=== PATIENT | female | born 1990 | race Caucasian/White ===

== ENCOUNTER 2019-12-05 15:04 | Emergency (ER) | payer OTHER, SELFPAY ==
--- NOTE | 2019-12-05 15:07 | ED.FEMALEGU ---
HPI - Female Genitourinary General Chief complaint: Urogenital-Female Stated complaint: vaginal discharge/partner w std Time Seen by Provider: 12/05/19 15:34 Source: patient and RN notes reviewed Mode of arrival: ambulatory Limitations: no limitations History of Present Illness HPI Narrative: 29-year-old female presents with concern for increased amount of vaginal discharge and possible exposure to STD. Reports unprotected sex with a new partner. Also reports her significant other cheated on her . Reports her last normal period was 1 month ago, however she had spotting 2 weeks ago. She is concern for possible . She reports a history of 2 live births, 2 stillbirths. She denies abdominal pain, vomiting, fever, malaise, dysuria. MD elicited complaint: vaginal discharge Related Data Home Medications Medication Instructions Recorded Confirmed naloxone [Narcan] 4 mg INTRANASAL DAILY 12/05/19 12/05/19 Allergies Allergy/AdvReac Type Severity Reaction Status Date / Time adhesive Allergy Unknown Hives Unverified 12/05/19 15:53 codeine Allergy Unknown Gastrointestinal Unverified 12/05/19 15:53 Upset ketorolac Allergy Unknown Hives Unverified 12/05/19 15:53 Review of Systems Review of Systems: Narrative: CONSTITUTIONAL: Denies malaise, chills, sweats, or fever. ARDIOVASCULAR: Denies chest pain, palpitations, or edema. RESPIRATORY: Denies cough or dyspnea. GASTROINTESTINAL: Denies abdominal pain, nausea, vomiting, diarrhea, bloody, or mucous stools. GENITOURINARY: Denies dysuria or hematuria. Reports increased vaginal discharge MUSCULOSKELETAL: Denies myalgia. NEUROLOGIC: Denies numbness, weakness, or headache. All systems reviewed & are unremarkable except as noted in HPI and below PMFSH Comments At time of signature, agree with nursing past medical, surgical, social and family history. There is no relevant family history pertinent to the presenting complaint Exam Narrative: Exam Narrative: GENERAL: Well-appearing, well-nourished, and in no acute distress. HEAD: Normocephalic, atraumatic. EYES: PERRLA, conjunctivae clear ENT: Nares clear. Mucous membranes moist. NECK: Supple. CHEST: No respiratory distress. Speaks in full sentences. HEART: Regular rate and rhythm. ABDOMEN: Soft, nontender, nondistended SKIN: Warm, dry NEURO: Alert and oriented x3. PSYCH: Normal mood and affect : External Female Exam: normal external appearance Speculum Exam - Vagina: normal appearance of the vagina, normal palpation and abnormal vaginal discharge white and malodorous Speculum Exam - Cervix: normal appearance of the cervix and normal palpation Bimanual Exam- Adnexa, other: normal adnexae and No adnexal tenderness Other: Patient refused sock examiner Course Course Emergency Course: Patient is aware of diagnosis, understands and agrees to treatment plan. Anticipatory guidance given. Patient agrees to follow-up as directed and is aware of reasons to seek care at the emergency department. Portions of this record may have been created with voice recognition software Vital Signs Vital signs: Vital Signs Temperature 98.9 F 12/05/19 15:20 Pulse Rate 108 H 12/05/19 15:20 Respiratory Rate 19 12/05/19 15:20 Blood Pressure 126/85 12/05/19 15:20 Pulse Oximetry 97 12/05/19 15:20 Temperature 98.9 F 12/05/19 15:20 Pulse Rate 108 H 12/05/19 15:20 Respiratory Rate 19 12/05/19 15:20 Blood Pressure 126/85 12/05/19 15:20 Pulse Oximetry 97 12/05/19 15:20 Reviewed. Patient has been instructed to follow up with her primary care provider within the next week regarding her elevated blood pressure today. MDM - Female Genitourinary MDM Narrative Medical decision making narrative: Exam findings show no acute concerns or changes; patient is non-toxic appearing and is in no distress. Patient is appropriate for outpatient treatment and follow-up. Lab Data Attestation: I reviewed the patient's lab results.
[2019-12-05 15:20] VITALS: BP 126/85; PULSE 108; RESP 19; TEMP 37.2; O2SAT 97
[2019-12-05] MEDS: LIDOCAINE HCL 1% LOCAL INJ 20 ML VIAL INFILTRATE (15:52)
[2019-12-05] MEDS: cefTRIAXone 250 MG VIAL IM (15:52)
[2019-12-05] MEDS: AZITHROMYCIN 250 MG TABLET 1000 MG PO (15:52)
== END 2019-12-05 16:22 | disposition home or self-care (01) ==
PROVIDERS: Emergency Provider Nurse Practitioner
DX: N89.8 Other specified noninflammatory disorders of vagina (principal); N39.0 Urinary tract infection, site not specified
CPT/HCPCS: 81003; 87077; 87086; 87088; 87186; 87491; 87591; 87661; 96372; 99204; A9270; G0463; J0696

== ENCOUNTER 2020-07-22 15:15 | Emergency (ER) | payer OTHER, SELFPAY ==
--- NOTE | 2020-07-22 15:34 | ED.FEMALEGU ---
HPI - Female Genitourinary General Chief complaint: Urogenital-Female Stated complaint: Urogenital-Female Time Seen by Provider: 07/22/20 15:35 Source: patient and RN notes reviewed History of Present Illness HPI Narrative: Patient is a 30-year-old female who presents the urgent care with complaints of possible STD/exposure. Patient states that for the last 5 days she has had low back pain, frequency, urgency, dysuria. Reports of right vaginal discharge. Patient states that her partner had trichomonas 2 months ago and they have been having sex with multiple friends and she believes they are reinfected with some type of STD. Patient states that her boyfriend told her the girl he was having sex with his just been treated for gonorrhea, chlamydia and trichomonas . Patient states that there is also a possibility that she may be or have a urinary tract infection. Patient denies of any fever, nausea, vomiting, abdominal pain. No other acute complaints. No acute distress noted. Patient aware of the plan of care. Some parts of this dictation were generated by voice recognition software and may contain typographical and/or grammatical inaccuracies. Related Data Home Medications Medication Instructions Recorded Confirmed No Home Medications 07/22/20 07/22/20 Allergies Allergy/AdvReac Type Severity Reaction Status Date / Time adhesive Allergy Unknown Hives Verified 07/22/20 15:56 codeine Allergy Unknown Gastrointestinal Verified 07/22/20 15:56 Upset ketorolac Allergy Unknown Hives Verified 07/22/20 15:56 Review of Systems Review of Systems: Narrative: CONSTITUTIONAL: Denies fever, chills, or sweats. EYES: Denies visual changes, redness, or discharge. ENT: Denies rhinorrhea, congestion, sore throat, or otalgia. CARDIOVASCULAR: Denies chest pain, palpitations, or edema. RESPIRATORY: Denies cough or dyspnea. GASTROINTESTINAL: Denies abdominal pain, nausea, vomiting, or diarrhea. GENITOURINARY: Reports of dysuria, frequency, urgency, white vaginal discharge SKIN: Denies rash or itching. MUSCULOSKELETAL: Reports of mild low back pain NEUROLOGIC: Denies headache, numbness, or weakness. All other systems reviewed are negative, except as documented in HPI. PMFSH Comments At the time of my signature, I reviewed and agree with the nursing past medical, surgical, social, and family history. There is no relevant family history pertinent to the patient complaint. Exam Narrative: Exam Narrative: GENERAL: This is a well-nourished, well-developed patient, in no apparent distress. HEAD: normocephalic, atraumatic. EYES: PERRL. Sclera clear/white. Vision is grossly intact. EARS: External ears normal NOSE: External nose normal with no obvious nasal discharge, nares without redness, no rhinorrhea. THROAT: Mucous membranes moist NECK: Neck supple SKIN: warm, intact with no suspicious lesions or rash, good texture and turgor. NEURO: awake, alert, and oriented to person, place and time. There were no obvious focal neurologic abnormalities. EXTREMITIES: No clubbing, cyanosis, or edema. BACK: Negative bilateral CVA tenderness Course Vital Signs Vital signs: Vital Signs Temperature 98.1 F 07/22/20 15:46 Pulse Rate 94 07/22/20 15:46 Respiratory Rate 18 07/22/20 15:46 Blood Pressure 151/99 H 07/22/20 15:46 Pulse Oximetry 100 07/22/20 15:46 Temperature 98.1 F 07/22/20 15:46 Pulse Rate 94 07/22/20 15:46 Respiratory Rate 18 07/22/20 15:46 Blood Pressure 151/99 H 07/22/20 15:46 Pulse Oximetry 100 07/22/20 15:46 Reviewed-patient is informed that they may have pre-hypertension or hypertension based on a blood pressure reading in the department. I recommend the patient call the primary care provider listed on their discharge instructions or a physician of their choice this week to arrange follow-up for further evaluation of possible pre-hypertension or hypertension. MDM - Female Genitourinary MDM
[2020-07-22 15:46] VITALS: BP 151/99; PULSE 94; RESP 18; TEMP 36.7; O2SAT 100
[2020-07-22] MEDS: cefTRIAXone 250 MG VIAL 500 MG IM (16:06)
== END 2020-07-22 16:25 | disposition home or self-care (01) ==
PROVIDERS: Emergency Provider Nurse Practitioner Family
DX: Z20.2 Contact with and (suspected) exposure to infections with a predominantly sexual mode of transmission (principal); N39.0 Urinary tract infection, site not specified; I10 Essential (primary) hypertension
CPT/HCPCS: 81003; 81025; 87491; 87591; 87661; 96372; 99214; G0463; J0696

== ENCOUNTER 2023-12-05 15:53 | Emergency (ER) | payer BC, SELFPAY ==
--- NOTE | ~2023-12-05 | CT_ITS ---
EXAMINATION: CT abdomen pelvis w con DATE: 12/05/2023 17:42 INDICATION: Abdominal pain. Nausea and vomiting. TECHNIQUE: Computed tomography (CT) of the abdomen and pelvis was performed with 100 mL Omnipaque 350 intravenous contrast. Automated exposure control and iterative reconstruction technique were employe d. The dose-length product was 296.69 mGy-cm. COMPARISON: None. FINDINGS: The visualized portions of the lung bases are clear without pneumonia or pleural effusion. The heart size is normal. No pericardial effusion. There is mild pectus excavatum. The liver and gall bladder are normal. Calcifications in the spleen are consistent with old granulomatous disease. The p ancreas, adrenal glands, and kidneys are normal. There are no dilated loops of bowel. The appendix is normal. There are no pathologically enlarged lymph nodes. There is no free intraperitoneal fluid. Th ere is mild lumbar spondylosis. IMPRESSION: 1. No etiology for the patient's symptoms. Reviewed, dictated and finalized at location E.
[2023-12-05 15:58] VITALS: BP 118/82; PULSE 82; RESP 16; TEMP 36.9; O2SAT 100
--- NOTE | 2023-12-05 16:20 | ED.ABDPAIN ---
HPI - Abdominal Pain General Chief Complaint: Abdominal Pain <Blade Moody MD - Last Filed: 12/06/23 07:04> Stated Complaint: abdominal pain, n/v <Blade Moody MD - Last Filed: 12/06/23 07:04> Time Seen by Provider: 12/05/23 16:07 <Blade Moody MD - Last Filed: 12/06/23 07:04> Source: patient <Ave Conde PA-C - Last Filed: 12/05/23 18:07> Mode of arrival: ambulatory <Ave Conde PA-C - Last Filed: 12/05/23 18:07> Limitations: no limitations <Ave Conde PA-C - Last Filed: 12/05/23 18:07> History of Present Illness HPI narrative: 33-year-old female presenting to the emergency department for evaluation for nausea, upper abdominal pain that radiates to her back. Patient is currently at [facility] for methamphetamine abuse. Patient is being treated for nausea with Zofran. Patient was told if her symptoms worsen she needs to be evaluated. Patient reports that today her pain has worsened. Patient states she has difficulty sitting still due to the pain. <Blade Moody MD - Last Filed: 12/06/23 07:04> Related Data Allergies/Adverse Reactions: Allergies Allergy/AdvReac Type Severity Reaction Status Date / Time codeine Allergy Vomiting Verified 12/05/23 15:54 <Blade Moody MD - Last Filed: 12/06/23 07:04> Review of Systems Review of Systems: All systems reviewed & are unremarkable except as noted in HPI and below <Blade Moody MD - Last Filed: 12/06/23 07:04> [facility] Past Medical History Medical History: Medical History (Updated 12/06/23 @ 00:00 by Saeid Fernandez) History of drug abuse <Blade Moody MD - Last Filed: 12/06/23 07:04> Social History Social History: Social History (Updated 12/05/23 @ 17:[address] PA-C) Substance use: current <Blade Moody MD - Last Filed: 12/06/23 07:04> Exam Narrative: APPEARANCE: Well appearing, no pain, no distress, well-nourished. HEAD: normocephalic, atraumatic. EYES: PERRLA/EOMI, conjunctivae clear. NOSE: Normal no drainage EARS:TMS clear with good light reflex. THROAT: Pharynx clear, no exudate. NECK: Supple. No adenopathy, no masses. RESPIRATORY: Airway patent, respirations nonlabored. Clear to auscultation bilaterally, no rales, rhonchi, wheezing. CARDIOVASCULAR: Regular rate and rhythm without murmurs rubs or gallops. ABDOMINAL: Upper abdominal tenderness to palpation MUSCULOSKELETAL: Moves all extremities. Strength/ROM intact, No edema, No calf tenderness. NEURO: Alert. Cranial nerves II through XII intact. Grossly intact SKIN: Warm, dry. Normal Color <Blade Moody MD - Last Filed: 12/06/23 07:04> Course Course Emergency Course: Patient signed out to me at shift change pending workup. Patient updated on workup and agrees with plan of care <Ave Conde PA-C - Last Filed: 12/05/23 18:07> Vital Signs Vital signs: Vital Signs Temperature 98.5 F 12/05/23 15:58 Pulse Rate 82 12/05/23 15:58 Respiratory Rate 16 12/05/23 15:58 Blood Pressure 118/82 12/05/23 15:58 Pulse Oximetry 100 12/05/23 15:58 Oxygen Delivery Room Air 12/05/23 15:58 Temperature 98.5 F 12/05/23 15:58 Pulse Rate 82 12/05/23 15:58 Respiratory Rate 16 12/05/23 15:58 Blood Pressure 118/82 12/05/23 15:58 Pulse Oximetry 100 12/05/23 15:58 Oxygen Delivery Room Air 12/05/23 15:58 <Blade Moody MD - Last Filed: 12/06/23 07:04> Vital Signs Temperature 98.5 F 12/05/23 15:58 Pulse Rate 82 12/05/23 15:58 Respiratory Rate 16 12/05/23 15:58 Blood Pressure 118/82 12/05/23 15:58 Pulse Oximetry 100 12/05/23 15:58 Oxygen Delivery Room Air 12/05/23 15:58 Temperature 98.5 F 12/05/23 15:58 Pulse Rate 82 12/05/23 15:58 Respiratory Rate 16 12/05/23 15:58 Blood Pressure 118/82 12/05/23 15:58 Pulse Oximetry 100 12/05/23 15:58 Oxygen Delivery Room Air 12/05/23 15:58
[2023-12-05] MEDS: BELLADONNA ALK/PHENOB ELIX 10 ML, MAG HYDROX/ALUMINUM HYD/SIMETH 30 ML, LIDOCAINE HCL 2... PO (16:51)
[2023-12-05] MEDS: ONDANSETRON INJ 4 MG/2 ML VIAL IV PUSH (16:51)
[2023-12-05] MEDS: SODIUM CHLORIDE 0.9% IV 1,000 ML 999 ML IV CONT (16:51)
[2023-12-05] MEDS: PANTOPRAZOLE SODIUM IV 40 MG VIAL IV PUSH (16:51)
[2023-12-05 17:13] LABS: Appearance Urine Clear (Clear); Bilirubin Urine Negative (Negative); Blood Urine Negative (Negative); Color Urine Yellow (Yellow); Glucose Urine UA Negative (Negative); Ketones Urine Trace mg/dL (Negative); Leukocyte Esterase Ur Negative LEU/UL (Negative); Nitrate Urine Negative (Negative); Protein Urine Negative (Negative); pH Urine 6.5 (5.0-9.0)
[2023-12-05 17:22] LABS: Basophils Percent Auto 0.5 % (0.2-1.2); Eosinophils Absolute Auto 0.2 K/mm3 (0-0.3); Eosinophils Percent Auto 3.3 % (0-4.4); Hematocrit 36.1 % (37.0-47.0); Hemoglobin 11.9 g/dL (12.0-15.0); Immature Granulocyte Absolute 0.02 K/mm3 (0.00-0.031); Immature Granulocyte Percent A 0.3 % (0-0.5); Lymphocytes Absolute Auto 2.23 K/mm3 (0.9-3.2); Lymphocytes Percent Auto 34.8 % (18.3-44.2); Mean Corpuscular Hemoglobin 32.6 pg (26-34); Mean Corpuscular Volume 98.9 fl (80-100); Mean Platelet Volume 10.6 fl (7.4-10.4); Monocytes Absolute Auto 0.7 K/mm3 (0.1-0.6); Monocytes Percent Auto 10.2 % (2.6-8.5); Neutrophils Absolute Auto 3.3 K/mm3 (1.3-6.7); Neutrophils Percent Auto 50.9 % (45.5-73.1); Platelet Count Result 276 k/mm3 (150-375); Red Blood Count 3.65 M/mm3 (4.2-5.4); Red Cell Distribution Width 12.7 % (11.5-14.5); White Blood Count 6.4 K/mm3 (4.5-10.0)
[2023-12-05 17:25] LABS: Add Urine Microscopic? NO; Specific Grav Ur 1.031 (1.001-1.035)
[2023-12-05 17:26] LABS: Lactic Acid Reflex 1.1 mmol/L (0.7-2.0)
[2023-12-05 17:27] LABS: Alanine Aminotransferase 29 U/L (6-35); Albumin Level 4.2 g/dL (3.5-5.1); Alkaline Phosphatase 51 U/L (38-126); Anion Gap 7 mmol/L (4-12); Aspartate Amino Transferase 35 U/L (14-36); Bilirubin,Total 0.4 mg/dL (0.2-1.3); Blood Urea Nitrogen 20 mg/dL (7-17); Calcium 8.9 mg/dL (8.4-10.2); Carbon Dioxide 28 mmol/L (22-30); Chloride 103 mmol/L (98-107); Estimated CRCL calculation 79 ml/min; Estimated Glomerular Filt Rate > 60; Glucose 92 mg/dL (65-110); Lipase 132 U/L (23-300); Potassium 4.2 mmol/L (3.4-5.0); Sodium 138 mmol/L (137-145)
[2023-12-05 17:30] LABS: INR 0.9; Prothrombin Time 11.9 Seconds (11.1-14.7)
[2023-12-05 17:32] LABS: Partial Thromboplastin Time 23.8 Seconds (22.3-36.8)
== END 2023-12-05 18:12 | disposition home or self-care (01) ==
PROVIDERS: Emergency Medicine; Emergency Provider Physician Assistant
DX: R10.13 Epigastric pain (principal)
CPT/HCPCS: 36415; 74177; 80053; 81003; 81025; 83605; 83690; 85025; 85610; 85730; 96361; 96374; 96375; 99284; A9270; C9113; J2405; J7030; Q9967

== ENCOUNTER 2024-01-11 16:25 | Emergency (ER) | payer BC, SELFPAY ==
[2024-01-11 16:34] VITALS: BP 114/76; PULSE 90; RESP 20; TEMP 36.3; O2SAT 100
--- NOTE | 2024-01-11 16:34 | ED.FEMALEGU ---
HPI - Female Genitourinary General Chief complaint: Urogenital-Female Stated complaint: uti/std Time Seen by Provider: 01/11/24 16:50 Source: patient and RN notes reviewed Mode of arrival: ambulatory Limitations: no limitations History of Present Illness HPI Narrative: 33-year-old female presents with concern for STD exposure. Reports she was exposed to trick and chlamydia. She reports she has been having vaginal discharge, dysuria, urine frequency, urgency. She denies nausea, vomiting, fever. MD elicited complaint: UTI and possible STD Related Data Home Medications Medication Instructions Recorded Confirmed bupropion HCl 150 mg 24 hr tablet, 150 mg PO DAILY 01/11/24 01/11/24 extended release clonidine HCl 0.1 mg 0.1 mg PO DAILY 01/11/24 01/11/24 tablet,extended release,12 hr gabapentin 100 mg capsule 100 mg PO TID 01/11/24 01/11/24 hydroxyzine HCl 50 mg tablet See Rx Instructions .Route 01/11/24 01/11/24 .COMPLEX PRN Anxiety lurasidone 60 mg tablet 60 mg PO DAILY 01/11/24 01/11/24 omeprazole 20 mg capsule,delayed 20 mg PO DAILY 01/11/24 01/11/24 release ondansetron 4 mg disintegrating See Rx Instructions .Route 01/11/24 01/11/24 tablet .COMPLEX PRN Anxiety risperidone 1 mg tablet 1 mg PO BID 01/11/24 01/11/24 trazodone 150 mg tablet 150 mg PO DAILY 01/11/24 01/11/24 Allergies Allergy/AdvReac Type Severity Reaction Status Date / Time adhesive Allergy Unknown Hives Verified 01/11/24 16:50 codeine Allergy Unknown Gastrointestinal Verified 01/11/24 16:50 Upset ketorolac Allergy Unknown Hives Verified 01/11/24 16:50 Review of Systems Review of Systems: CONSTITUTIONAL: Denies malaise, chills, sweats, or fever. CARDIOVASCULAR: Denies chest pain, palpitations, or edema. RESPIRATORY: Denies cough or dyspnea. GASTROINTESTINAL: Denies abdominal pain, nausea, vomiting, diarrhea GENITOURINARY: Reports dysuria, frequency, urgency, vaginal discharge. Denies flank pain or hematuria. SKIN: Denies rash or itching. MUSCULOSKELETAL: Denies back pain or myalgia. All systems reviewed & are unremarkable except as noted in HPI and below PMFSH Comments At time of signature, agree with nursing past medical, surgical, social and family history. There is no relevant family history pertinent to the presenting complaint Exam Narrative: GENERAL: Well-appearing, well-nourished, and in no acute distress. HEAD: Normocephalic. EYES: PERRLA, conjunctivae clear. NECK: Supple. No lymphadenopathy CHEST: Clear to auscultation. No respiratory distress. HEART: Regular rate and rhythm. ABDOMEN: Soft, nontender upon palpation, nondistended, normal active bowel sounds, no palpable or pulsatile masses, no guarding. No CVA tenderness SKIN: Warm, dry, no rash. NEURO: Alert and oriented x3. PSYCH: Normal mood and affect Course Course Emergency Course: Patient is aware of diagnosis, understands and agrees to treatment plan. Anticipatory guidance given. Patient agrees to follow-up as directed and is aware of reasons to seek care at the emergency department. Portions of this record may have been created with voice recognition software Level of Care: Express Care Visit Vital Signs Vital signs: Reviewed. MDM - Female Genitourinary MDM Narrative Medical decision making narrative: Exam findings and UA show no acute concerns or changes; patient is non-toxic appearing and is in no distress. Patient is appropriate for outpatient treatment and follow-up. Differential Diagnosis Differential diagnosis: Likely urinary tract infection and cystitis Critical Care Time Critical Care Time Critical Care Time: No Discharge Plan Discharge Clinical Impression: Possible exposure to STD Patient Disposition: Home, Self-Care Condition: Stable Instructions: Antibiotic Form, Safe Sex Practices (ED) Additional Instructions: You have been tested for potential gonorrhea, chlamydia, and trichomoniasis today. You have receive
[2024-01-11] MEDS: cefTRIAXone 500 MG, LIDOCAINE HCL 1% LOCAL INJ 1 ML IM (17:08)
[2024-01-11 19:58] LABS: Trichomonas Vag PCR NOT DETECTED (NOT DETECTE)
[2024-01-11 20:21] LABS: Chlamydia trachomatis NOT DETECTED (NOT DETECTE); Neisseria gonorrhoeae PCR NOT DETECTED (NOT DETECTE)
== END 2024-01-11 17:30 | disposition home or self-care (01) ==
PROVIDERS: Emergency Provider Nurse Practitioner
DX: R30.0 Dysuria (principal); R35.0 Frequency of micturition; R39.15 Urgency of urination; N89.8 Other specified noninflammatory disorders of vagina; Z11.3 Encounter for screening for infections with a predominantly sexual mode of transmission
CPT/HCPCS: 81003; 87491; 87591; 87661; 96372; 99214; G0463; J0696

== ENCOUNTER 2024-03-02 18:38 | Emergency (ER) | payer BC, SELFPAY ==
[2024-03-02 18:50] VITALS: BP 141/89; PULSE 107; RESP 20; TEMP 37; O2SAT 98
--- NOTE | 2024-03-02 19:03 | ED.URI ---
HPI - URI/Sore Throat General Chief Complaint: Upper Respiratory Infection Stated Complaint: nausea nose throat History of Present Illness HPI Narrative: 33-year-old female presented for complaint of sore throat and mild nasal congestion and post nasal drainage causing nausea. Onset yesterday. Denies painful swallow, cough, shortness of breath, wheezing, vomiting diarrhea, fevers or chills. Of note, she cannot recall last menstrual cycle, and is requesting a test. Related Data Home Medications Medication Instructions Recorded Confirmed bupropion HCl 150 mg 24 hr tablet, 150 mg PO DAILY 01/11/24 01/11/24 extended release clonidine HCl 0.1 mg 0.1 mg PO DAILY 01/11/24 01/11/24 tablet,extended release,12 hr gabapentin 100 mg capsule 100 mg PO TID 01/11/24 01/11/24 hydroxyzine HCl 50 mg tablet See Rx Instructions .Route 01/11/24 01/11/24 .COMPLEX PRN Anxiety lurasidone 60 mg tablet 60 mg PO DAILY 01/11/24 01/11/24 omeprazole 20 mg capsule,delayed 20 mg PO DAILY 01/11/24 01/11/24 release ondansetron 4 mg disintegrating See Rx Instructions .Route 01/11/24 01/11/24 tablet .COMPLEX PRN Anxiety risperidone 1 mg tablet 1 mg PO BID 01/11/24 01/11/24 trazodone 150 mg tablet 150 mg PO DAILY 01/11/24 01/11/24 Allergies Allergy/AdvReac Type Severity Reaction Status Date / Time adhesive Allergy Unknown Hives Verified 01/12/24 12:57 ketorolac Allergy Unknown Hives Verified 01/12/24 12:57 codeine Allergy Vomiting Verified 01/12/24 12:57 Review of Systems Review of Systems: CONSTITUTIONAL: Denies body aches, fever, chills, or sweats. EYES: Denies visual changes, redness, or discharge. ENT: reports sore throat, rhinorrhea CARDIOVASCULAR: Denies chest pain, palpitations, or edema. RESPIRATORY: Denies dyspnea. GASTROINTESTINAL: Denies abdominal pain, vomiting, or diarrhea. SKIN: Denies rash, itching, or wounds. MUSCULOSKELETAL: Denies back pain, joint pain, or myalgia. NEUROLOGIC: Denies headache PMFSH Past Medical History Medical History History of drug abuse Social History Social History Substance use: current Exam Narrative: GENERAL: Ill-appearing, no acute distress. EYES: conjunctivae clear ENT: Mucous membranes moist. TM pearly goldman with normal light reflex bilaterally; no tragal tenderness. Oropharynx not erythematous without lesions. Tonsils absent. No drooling, no hoarseness, no trismus, uvula midline. No tripod positioning, hot potato voice, or soft palate swelling. NECK: Supple. No lymphadenopathy CHEST: Clear to auscultation, breath sounds equal. No respiratory distress, speaks in full sentences. HEART: Regular rate and rhythm. No murmur heard. SKIN: Warm, dry, no rash. NEURO: Alert and oriented x3. Course Course Emergency Course: Patient is aware of diagnosis, understands and agrees to treatment plan. Anticipatory guidance given. Patient agrees to follow-up as directed and is aware of reasons to seek care at the emergency department. Portions of this record may have been created with voice recognition software Level of Care: Express Care Visit MDM - URI/Sore Throat MDM Narrative Medical decision making narrative: Neg strep result reviewed with pt. Neg urine preg test. Advise supportive treatments. Patient is appropriate for outpatient treatment and follow-up. Differential Diagnosis Differential diagnosis: Likely upper respiratory infection, viral infection and pharyngitis Lab Data Labs: Lab Results 03/02/24 Range/Units 19:02 POC Urine HCG, Qual Negative (Negative) POC Grp A Strep Screen Negative (Negative) Discharge Plan Discharge Clinical Impression: Upper respiratory infection Patient Disposition: Home, Self-Care Condition: Stable Instructions: Antibiotic Form, Upper Respiratory Infection (ED) Additional
[2024-03-02 19:20] LABS: BEDSIDEPREGUCG Negative (Negative); EDSTREPNEGPOS1 Negative (Negative)
== END 2024-03-02 19:27 | disposition home or self-care (01) ==
PROVIDERS: Emergency Provider Nurse Practitioner Family
DX: J06.9 Acute upper respiratory infection, unspecified (principal)
CPT/HCPCS: 81025; 87081; 87880; 99213; G0463

== ENCOUNTER 2024-08-30 18:31 | Emergency (ER) | payer BC, SELFPAY ==
--- NOTE | ~2024-08-30 | CT_ITS ---
CT abdomen pelvis w con Ordering provider: Jam Avila PA-C History: 34 years Female with . lower abdominal pain s/p tubal ligation . Comparison: December 05, 2023 Technique: CT abdomen and pelvis with IV and without oral contrast. Automated exposure control and it erative reconstruction technique were employed. The dose-length product was 641.74 mGy-cm. 100 mL Omn ipaque 350 was given IV. Findings: VISUALIZED LOWER CHEST: Dependent atelectatic changes in the lung bases. UPPER ABDOMINAL ORGANS: Liver: Normal. Gallbladder: Normal. Spleen: Normal. Stomach/duodenum: Normal. Pancreas: Normal. Adrenals: Normal. Kidneys: Normal. PELVIC ORGANS: The bladder is underfilled. 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 MRI evaluation advi sed. BOWEL AND MESENTERY: Colon: No evidence of diverticulitis. Fecal material is seen in the right side of the colon. Normal a ppendix. Small Bowel: Normal. No obstruction. Peritoneum/mesentery: Free air is seen in the upper abdomen anterior to the liver. No Free fluid. No mesenteric lymphadenopathy. RETROPERITONEUM: Normal aorta. No retroperitoneal lymphadenopathy. MUSCULOSKELETAL: Superficial soft tissues: The superficial soft tissues are normal. Bones: Normal spine. IMPRESSION: 1. Free air is seen in the upper abdomen which may be post procedural. Clinical correlation advised. 2. No evidence of appendicitis, diverticulitis or intestinal obstruction. 3. 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 Reviewed, dictated and finalized at location A. IMPRESSION: 1. Free air is seen in the upper abdomen which may be post procedural. Clinica l correlation advised. 2. No evidence of appendicitis, diverticulitis or intestinal obstruction. 3. 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
[2024-08-30 18:48] VITALS: BP 129/83; PULSE 85; RESP 16; TEMP 36.4; O2SAT 98
--- NOTE | 2024-08-30 21:39 | ED_ITS ---
HPI - Skin/Abscess/Foreign Bdy General Chief complaint: Skin/Abscess/Foreign Body Stated complaint: tubal ligation yesterday, bleeding @incision site Time Seen by Provider: 08/30/24 21:32 Source: patient Mode of arrival: ambulatory Limitations: no limitations History of Present Illness HPI narrative: This is a 34-year-old female who is s/p tubal ligation day 1 who presents to the ED for chief complaint of abdominal pain beginning yesterday evening and worsening today. Patient states that after surgery yesterday she was released and sent home with oxycodone for pain control. States that her last dose of oxycodone was about 3 hours ago and is seems to be minimally helpful. She also states that she has had some bleeding at the incision sites into the bandages. She states that she saw surgeon Dr. Gastelum who is in [facility], however after trying to go to that ER tonight she left due to carotid waiting room. Denies fevers, chills, nausea, vomiting, syncope, lightheadedness, numbness, weakness, urinary symptoms. Related Data Home Medications ?Medication ?Instructions ?Recorded ?Confirmed ?Last Taken ?Type bupropion HCl 150 mg 24 hr tablet, 150 mg PO DAILY 01/11/24 01/11/24 Unknown History extended release clonidine HCl 0.1 mg 0.1 mg PO DAILY 01/11/24 01/11/24 Unknown History tablet,extended release,12 hr gabapentin 100 mg capsule 100 mg PO TID 01/11/24 01/11/24 Unknown History hydroxyzine HCl 50 mg tablet See Rx Instructions .Route 01/11/24 01/11/24 Unknown History .COMPLEX PRN Anxiety lurasidone 60 mg tablet 60 mg PO DAILY 01/11/24 01/11/24 Unknown History omeprazole 20 mg capsule,delayed 20 mg PO DAILY 01/11/24 01/11/24 Unknown History release ondansetron 4 mg disintegrating See Rx Instructions .Route 01/11/24 01/11/24 Unknown History tablet .COMPLEX PRN Anxiety risperidone 1 mg tablet 1 mg PO BID 01/11/24 01/11/24 Unknown History trazodone 150 mg tablet 150 mg PO DAILY 01/11/24 01/11/24 Unknown History Allergies Allergy/AdvReac Type Severity Reaction Status Date / Time adhesive Allergy Unknown Hives Verified 08/30/24 18:32 ketorolac Allergy Unknown Hives Verified 08/30/24 18:32 codeine Allergy Vomiting Verified 08/30/24 18:32 Review of Systems 2 Review of Systems: All systems as dictated in [facility] Past Medical History Medical History History of drug abuse Social History Social History Substance use: current Exam 2 Narrative: GENERAL: Well-appearing, well-nourished, and in no acute distress. HEAD: Normocephalic, atraumatic. EYES: PERRLA and EOMI. ENT: Nares clear, no rhinorrhea or epistaxis. Mucous membranes moist. Oropharynx without tonsillar hypertrophy exudate or other lesions. NECK: Supple. No adenopathy or masses. CHEST: No respiratory distress. Clear to auscultation. No wheezes rales or rhonchi HEART: Regular rate and rhythm. No murmur heard. Normal peripheral pulses. ABDOMEN: Soft, nontender, nondistended, normal active bowel sounds. There are 3 bandaged abdominal incision sites. Two of the sites appear to have mild in the bandage, however no gross bleeding on exam. No firmness or rigidity. Negative peritoneal signs MSK: Normal range of motion. No edema. SKIN: Warm, dry, no rash. NEURO: Alert and oriented x4. No focal deficits. PSYCH: Normal mood and affect. Course Vital Signs Vital signs: Vital Signs Temperature 97.6 F 08/30/24 18:48 Pulse Rate 85 08/30/24 18:48 Respiratory Rate 16 08/30/24 18:48 Blood Pressure 129/83 08/30/24 18:48 Pulse Oximetry 98 08/30/24 18:48 Temperature 97.6 F 08/30/24 18:48 Pulse Rate 80 08/30/24 23:26 Respiratory Rate 17 08/30/24 23:26 Blood Pressure 121/88 08/30/24 23:26 Pulse Oximetry 95 08/30/24 23:26 MDM - Skin/Abscess/Foreign Bdy MDM Narrative Medical decision making narrative: This is a 34-year-old female who presents to the ED for chief complaint of abdominal pain status post day 1 from tubal ligation. Vitals are normal. Exam is unremarkable. Incision sites are well appearing. On lab work there is an elevated white count of 14.3, however this is expected in the postop period. CMP unremarkable. Lipase normal. CT abdomen and pelvis with IV contrast: IMPRESSION: 1. Free air is seen in the upper abdomen which may be post procedural. Clinical correlation advised. 2. No evidence of appendicitis, diverticulitis or intestinal obstruction. 3. 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 Patient is doing well after the pain medication the incision sites were redressed. Advised the patient to follow-up with her surgeon for her postoperative pain. Pt will be discharged in stable condition. Return precautions given and supportive measures discussed. Pt is understanding and agreeable with plan for discharge and follow-up with surgeon. Lab Data 08/30/24 22:03 08/30/24 22:03 Labs: Lab Results 08/30/24 Range/Units 22:03 WBC 14.3 H (4.5-10.0) K/mm3 RBC 4.14 L (4.2-5.4) M/mm3 Hgb 12.7 (12.0-15.0) g/dL Hct 37.4 (37.0-47.0) % MCV 90.3 (80-100) fl MCH 30.7 (26-34) pg MCHC 34.0 (32-36) g/dl RDW 13.6 (11.5-14.5) % Plt Count 283 (150-375) k/mm3 MPV 10.8 H (7.4-10.4) fl Immature Gran % (Auto) 0.4 (0-0.5) % Neut % (Auto) 66.6 (45.5-73.1) % Lymph % (Auto) 26.1 (18.3-44.2) % Darke % (Auto) 5.4 (2.6-8.5) % Eos % (Auto) 1.2 (0-4.4) % Baso % (Auto) 0.3 (0.2-1.2) % Lymph # (Auto) 3.72 H (0.9-3.2) K/mm3 Darke # (Auto) 0.8 H (0.1-0.6) K/mm3 Eos # (Auto) 0.2 (0-0.3) K/mm3 Baso # (Auto) 0.0 (0.0-0.1) K/mm3 Abs Immat Gran (auto) 0.05 H (0.00-0.031) K/mm3 Absolute Neuts (auto) 9.5 H (1.3-6.7) K/mm3 Absolute Nucleated RBC 0.000 (0.0-0.012) K/mm3 Nucleated RBC % 0.0 (0.0-0.2) % % Immature Plt Fraction 4.3 (0.9-11.2) % PT 12.3 (11.1-14.7) Seconds INR 0.9 APTT 22.2 L (22.3-36.8) Seconds Sodium 138 (137-145) mmol/L Potassium 3.5 (3.4-5.0) mmol/L Chloride 105 (98-107) mmol/L Carbon Dioxide 23 (22-30) mmol/L Anion Gap 10 (4-12) mmol/L BUN 10 D (7-17) mg/dL Creatinine 0.83 (0.7-1.0) mg/dL Estim Creat Clear Calc 92 ml/min Estimated GFR > 60 (59 - ) Glucose 135 H (65-110) mg/dL Lactic Acid 1.8 (0.7-2.0) mmol/L Calcium 8.7 (8.4-10.2) mg/dL Total Bilirubin 0.3 (0.2-1.3) mg/dL AST 18 (14-36) U/L ALT 19 (6-35) U/L Alkaline Phosphatase 65 (38-126) U/L Total Protein 7.0 (6.3-8.2) g/dL Albumin 4.0 (3.5-5.1) g/dL Lipase 56 (23-300) U/L Discharge Plan Discharge Clinical Impression: Postoperative pain Patient Disposition: Home, Self-Care Condition: Stable Instructions: Antibiotic Form Additional Instructions: Your exam imaging today are very reassuring. Please follow-up closely with your food counter attendant on this issue. Continue taking your pain medications as prescribed. If you have any new or worsening symptoms please return to the ER for further evaluation. Patient Language: Mohawk Prescriptions: New ondansetron 4 mg tablet,disintegrating 4 mg PO Q8H PRN (Reason: nausea and vomiting) Qty: 10 0RF No Action hydroxyzine HCl 50 mg tablet See Rx Instructions .ROUTE .COMPLEX PRN (Reason: Anxiety) Rx Instructions: PRESCRIBED trazodone 150 mg tablet 150 mg PO DAILY omeprazole 20 mg capsule,delayed release(DR/EC) 20 mg PO DAILY bupropion HCl 150 mg tablet extended release 24 hr 150 mg PO DAILY lurasidone 60 mg tablet 60 mg PO DAILY risperidone 1 mg tablet 1 mg PO BID clonidine HCl 0.1 mg tablet extended release 12 hr 0.1 mg PO DAILY ondansetron 4 mg tablet,disintegrating See Rx Instructions .ROUTE .COMPLEX PRN (Reason: Anxiety) Rx Instructions: PRESCRIBED gabapentin 100 mg capsule 100 mg PO TID metronidazole 500 mg tablet 2,000 mg PO ONCE Qty: 4 0RF doxycycline monohydrate 100 mg tablet 100 mg PO BID 7 Days Qty: 14 0RF cetirizine [Zyrtec] 10 mg tablet 10 mg PO DAILY PRN (Reason: congestion) Qty: 30 0RF sucralfate 1 gram tablet 1 g PO TID 7 Days Qty: 21 0RF Follow-up/Referrals: Oriana,Rangel Vega MD [Primary Care Provider] - Time of Disposition: 23:43
--- OUTSIDE RECORDS SUMMARY | 2024-08-30 21:50 | XMS_ITS ---
Author Organization [facility] Address [address] [place] [address] Care Team Providers Care Alteration Inspector Name Role Phone Glenna Nathan Primary Care Provider [phone] Brendan Garcia [phone] REASON FOR VISIT PRAPARE Assessment Social History Tobacco Use: Social History Observation Description Date Details (start date - stop date) Current Smoker NA - NA Sex Assigned At : Social History Observation Description Sex Assigned At Female PRAPARE Question Answer Notes Date Completed/Updated: 08/07/2024 What is your current housing situation? I have h ousing Are you worried about losing your housing? No What is the highest level of school that you have finished? Less than a high school degree What is your current work situation? Oth erwise unemployed but not seeking work (ex. student, retired, disabled, unpaid primary manager care) In the past year, have you o r any family members you live with been unable to get any of the following when it was really needed? Check all that apply I do not have problems meeting my needs Has lack of transportation k ept you from medical appointments, meetings, work or from getting things needed for daily living? No How often do you see or talk to people that you care about and feel close to? (For example: talking to friends on the phone, visiting friends or family, going to tenriism or club meetings) More than 5 times a week How stressed are you? Stress is when someone feels tense, nervous, anxious, or can\t sleep at night because their mind is troubled Somewhat In the past year have you sp ent more than 2 nights in a row in a penitentiary, long-term, nursing home center, or juvenile correctional facility? Yes Do you feel physically and e motionally safe where you currently live? Yes In the past year, have you b een afraid of your partner or ex-partner? No PRAPARE Score: 6 Tobacco Control (Standard) Question Answer Notes Tobacco use: Current every day smoker Additional Findings: Tobacco user e-ciga rette,Light cigarette smoker (1-9 cigs/day) Encounters Encounter Location Date Provider Diagnosis [address] [place] [address] 08/08/2024 Glenna Nathan Plan Of Treatment No Information Progress Notes * Mindy TROY MDOB:08/1989 (34 yo F)Acc No.[id number]:08/08/2024 Patient: Jovani Mindy BERNABE Cara :1990 A ge:34 Y S ex:Female Address:[address] [place] [id number] Subjective: * Chief Complaints: * P YONATHAN Assessment * Medical History: * Surgical History: * Hospitalization/Major Diagno stic Procedure: * Social History: S ocial Determinants: Silverio MCMANUS D ate Completed/Updated: 0 08/07/2024, W hat is your current housing situation? I have housing, A re you worried about losing your housing? N o, W hat is the highest level of school that you have finished? L ess than a high school degree, W hat is your current work situation? O therwise unemployed but not seeking work (ex. student, retired, disabled, unpaid primary manager care), I n the past year, have you or any family members you live with been unable to get any of the following when it was really needed? Check all that apply I do not have problems meeting my needs, H as lack of transportation kept you from medical appointments, meetings, work or from getting things needed for daily living? N o, H ow often do you see or talk to people that you care about and feel close to? (For example: talking to friends on the phone, visiting friends or family, going to tenriism or club meetings) M ore than 5 times a week, How stressed are you? Stress is when someone feels tense, nervous, anxious, or can\t sleep at night because their mind is troubled S omewhat, I n the past year have you spent more than 2 nights in a row in a penitentiary, long-term, nursing home center, or juvenile correctional facility? Y es,?Do you feel physically and emotionally safe where you currently live? Y es, I n the past year, have you been afraid of your partner or ex-partner? N o, P RAPARE Score: 6 . T obacco Use: T obacco Control (Standard) T obacco use: C urrent every day smoker, A dditional Findings: Tobacco user e -cigarette,Light cigarette smoker (1-9 cigs/day). * Medications: Objective: * Vitals: * Physical Examination: Assessment: Plan: * Treatment: * Procedure Codes: * true * Date: Generated for Jayme aranda/Marzena/Brittany on: 0 08/30/2024 05:53 PM CDT
--- OUTSIDE RECORDS SUMMARY | 2024-08-30 21:50 | XMS_ITS | Clinical Summary ---
Author Organization [facility] Address [address] [place] [address] Care Team Providers Care Skiver Welt End Name Role Phone Brendan Garcia DRAWING MACHINE OPERATOR Unavailable [phone] Glenna Nathan DRAWING MACHINE OPERATOR Primary Care Provider [phone] Allergies Active Allergy Reactions Criticality Noted Date Comments Adhesive Tape-Silicones Rash Medium Latex Rash Medium Medications gabapentin (NEURONTIN) 600 mg tablet Take 1 tablet (600 mg total) by mouth 3 (three) times a day 4 Active hydrOXYzine (ATARAX) 50 mg tablet Take 0.5 tablets (25 mg total) by mouth every 4 (four) hours as needed for anxiety Active lithium ER (ESKALITH) 450 mg CR tablet Take 1 tablet (450 mg total) by mouth nightly 4 Active lurasidone (LATUDA) 60 mg tablet Take 1 tablet (60 mg total) by mouth nightly 4 Active zolpidem (AMBIEN) 5 mg tablet Take 1 tablet (5 mg total) by mouth nightly as needed for sleep 4 Active atomoxetine (STRATTERA) 80 mg capsule Take 1 capsule (80 mg total) by mouth daily 4 08/30/19 25 Discontinu ed(Stop Taking at Discharge) cloNIDine ER (KAPVAY) 0.1 mg tablet extended release 12 hr Take 2 tablets (0.2 mg total) by mouth nightly 4 08/30/19 25 Discontinu ed(Stop Taking at Discharge) oxyCODONE (ROXICODONE) 5 mg immediate release tabletIndicatio ns:Pain Take 1 tablet (5 mg total) by mouth every 4 (four) hours as needed for pain 10 tablet 4 08/30/19 25 Discontinu ed(Stop Taking at Discharge) pantoprazole DR (PROTONIX) 40 mg EC tabletIndicatio ns:Mucositis Prophylaxis,Rajesh atment of Non-Bleeding Gastric Disorder Take 1 tablet (40 mg total) by mouth 2 (two) times a day 60 tablet 4 08/30/19 25 Discontinu ed(Stop Taking at Discharge) prochlorperazin e (COMPAZINE) 10 mg tabletIndicatio ns:Prevention of Nausea and Vomiting Take 1 tablet (10 mg total) by mouth 3 (three) times a day as needed for nausea 20 tablet 4 08/30/19 25 Discontinu ed(Stop Taking at Discharge) sofosbuvir-velp atasvir (EPCLUSA) 400-100 mg tablet per tabletIndicatio ns:Viral Hepatitis C Take 1 tablet by mouth daily 30 tablet 4 08/30/19 25 Discontinu ed(Stop Taking at Discharge) Sprintec, 28, 0.25-35 mg-mcg per tablet Take 1 tablet by mouth daily 4 08/30/19 25 Discontinu ed(Stop Taking at Discharge) omeprazole (PriLOSEC) 20 mg capsule daily 4 08/30/19 25 Discontinu ed(Stop Taking at Discharge) risperiDONE (RisperDAL) 0.5 mg tablet 4 08/30/19 25 Discontinu ed(Stop Taking at Discharge) venlafaxine (EFFEXOR) 25 mg tablet 3 08/30/19 25 Discontinu ed(Stop Taking at Discharge) Active Problems Problem Noted Date Diagnosed Date KACIE (acute kidney injury) 04/17/2024 Assessment & Plan (04/20/2024 3:23 PM CDT): Cr 1.13 (last Cr in the system was 0.75 in 2022). Suspect pre-renal from N/V and decreased PO intake. FeNa 0.3, consistent with pre renal etiology. -cr has been stable -recommend follow up at discharge ADHD 04/17/2024 Assessment & Plan (04/17/2024 2:51 AM CDT): Continue atomoxetine Polysubstance abuse 04/17/2024 Assessment & Plan (04/20/2024 3:22 PM CDT): -Current smoker of 1ppd since age 13. Counseled cessation and started nicotine patch -Prior heavy alcohol abuse but now down to 1 beer only socially -Prior heroin, cocaine, and meth. States she underwent rehab and has not used in 7 months. -RPR, HIV, hep a and hep b negative. Hep c reactive, HCV RNA detected -ID asked to be consulted to begin treatment plan - prescribed epclusa Bipolar disorder 04/17/2024 Assessment & Plan (04/19/2024 2:17 PM CDT): No current evidence of edward or psychosis; denies SI/HI/AVH -Cont home clonidine QHS, latuda, lithium, atarax PRN, and gabapentin. No longer taking risperidone. -lithium level low at 0.03 today. Likely due to recent vomiting. Patient no longer vomiting. Will repeat lithium level. Hold off on adjustment for now. -F/u with psychiatry outpatient Abdominal pain 04/17/2024 Assessment & Plan (04/20/2024 3:27 PM CDT): History of cyclic vomiting syndrome and esophageal tear in the setting of hyperemesis gravidarum (non-operative management). Patient states she had Hernandez's esophagus but EGD pathology in our system just shows reflux esophagitis. P/w ~4 days of burning epigastric abdominal pain radiating up the chest with associated diarrhea x1 day and N/V (with 1 reported episode of small volume hematemesis). No N/V/diarrhea since admission. Ddx includes viral gastroenteritis, cyclic vomiting flare, gastritis, and PUD. Small volume hematemesis was more likely a mihir mcintyre tear. Rare NSAID use at home. LA 0.9, liver enzymes unremarkable, lipase 21, HCG negative, and CBC WNL. VSS. -Transitioned protonix IV to PO BID -GI consulted, EGD was normal, presumed healed mihir mcintyre tear -ct chest /a/p with no acute -Tolerating PO prior to discharge Hematemesis, unspecified whether nausea present 04/17/2024 Hepatitis C antibody test positive 04/17/2024 Assessment & Plan (04/20/2024 3:22 PM CDT): Hep C reactive, HCV RNA detected - ID asked to be consulted to begin treatment plan - prescribed epclusa at discharge Hematemesis 04/16/2024 Heroin abuse complicating 08/01/2014 Nausea with vomiting 02/28/2013 Gastroesophageal reflux disease 12/13/2012 Difficulty breathing 11/04/2010 Resolved Problems Problem Noted Date Diagnosed Date Resolved Date Hematemesis, unspecified whe ther nausea present 04/17/2024 04/17/2024 Encounters Date Type Department Care Team Description 08/30/2024 5:52 PM CDT - 08/30/2024 6:57 PM CDT Emergency [facility] [address] [place] [id number] Discharge Disposition: Left without being seen 08/30/2024 Orders Only [facility] [address] [place] [phone] Ketty Quiros RN Hepatitis C antibody test positive (Primary Dx) 08/29/2024 11:45 AM CDT Anesthesia Event [facility] [place] [address] [place] [phone] Josue Carrillo MD [place], Matthew Edward, MD 08/29/2024 11:00 AM CDT - 08/29/2024 12:40 PM CDT Surgery [facility] [place] [address] [place] [id number] Rangel Gastelum MD LAPAROSCOPIC BILATERAL TUBAL LIGATION 08/29/2024 9:05 AM CDT - 08/29/2024 3:50 PM CDT Hospital Encounter [facility] [place] [address] [place] [address] Rangel Gastelum MD Request for sterilization Discharge Disposition: Discharge to home or self care 08/23/2024 2:15 PM BRAKE SHOE REBUILDER Lab [facility] [address] [place] [id number] Pre-op testing 08/17/2024 Orders Only [facility] Pre Admit Testing [address] [place] [id number] Shannan Schumacher RN Pre-op testing (Primary Dx) 07/03/2024 Telephone [facility] [address] [place] [phone] Lexis Mendosa CNS from Last 3 Months Immunizations Immunization Administration Dates Next Due Hep A, Adult 02/23/2018 Surgical History Surgery Date Site/Laterality Comments TONSILLECTOMY Tonsillectomy SECTION Medical History Medical History Date Comments Seizure disorder (HCC) 2012 withdrawa l from ETOH Asthma Gastroesophageal reflux disease 12/13/2012 Polysubstance abuse (HCC) 04/17/2024 Bipolar disorder (HCC) 04/17/2024 Hepatitis C antibody test positive 04/17/2024 Attention deficit hyperactivity disorder Bipolar 1 disorder (HCC) Generalized anxiety disorder Methamphetamine use (HCC) Motion sickness Irritable bowel syndrome Infectious viral hepatitis Kidney stones Anxiety and depression PONV (postoperative nausea and vomiting) Family History Medical History Relation Name Comments Diabetes Father Diabetes mellit us; Hypertension Father Hypertension; Migraines Father Migraine; Colon cancer Neg Hx Esophageal cancer Neg Hx Liver cancer Neg Hx Relation Name Status Comments Father Social History Tobacco Use Types Packs/Day Years Used Date Smoking Tobacco: Former Cigarettes Smokeless Tobacco: Never Tobacco Cessation:Counseling Given: Not Answered Comments:Smoking History Packs/day: 10 Cigarettes Alcohol Use Standard Drinks/Week Comments No 0 (1 standard drink = 0.6 oz pur e alcohol) AUDIT-C Answer Date Recorded Q1: How often do you have a drink containing alc ohol? Monthly or less 08/29/2024 Q2: How many drinks containi ng alcohol do you have on a typical day when you are drinking? 1 or 2 08/29/2024 Q3: How often do you have si x or more drinks on one occasion? Never 08/29/2024 PHQ-2 Answer Date Recorded PHQ-2 Total Score (If total score is 3 or more points, staff should administer the PHQ-9) 0 04/17/2024 PHQ-9 Answer Date Recorded PHQ-9 Total Score 0 04/17/2024 Personal Safety Answer Date Recorded Have you ever been in or are you currently in a harmful physical or emotional relationship or is someone making you feel afraid or unsafe? Denies 08/29/2024 Comments Unknown Sex and Gender Information Value Date Recorded Sex Assigned at Not on file Legal Sex Female 9:37 AM CDT Gender Identity Not on file Sexual Orientation Not on file Obstetrics History Para Term AB IAB SAB Ectopic Multiple Livin g Live Births 1 Date Outcome GA Total Labor Labor/2nd/3rd Weight Sex Type Anes PTL Serene A1 A5 Name Clin Last Filed Vital Signs Vital Sign Reading Time Taken Comments Blood Pressure 117/86 08/29/2024 3:30 PM CDT Pulse 88 08/29/2024 3:30 PM CDT Temperature 36.5 C (97.7 F) 08/29/2024 2:15 PM CDT Respiratory Rate 18 08/29/2024 3:30 PM CDT Oxygen Saturation 95% 08/29/2024 3:30 PM CDT Inhaled Oxygen Concentration - - Weight 85.2 kg (187 lb 12.8 oz) 08/29/2024 9:10 AM CDT Height 167.6 cm (5' 6 ) 08/29/2024 9:10 AM CDT Body Mass Index 30.31 08/29/2024 9:10 AM CDT Plan of Treatment Health Maintenance Due Date Last Done Comments Cervical Cancer Screening 1991 DTaP/Tdap/Td Vaccine (1 - Tdap) 2002 Varicella Vaccines (1 of 2 - 13+ 2-dose series) 2004 Hepatitis B Screening 2009 Regular Well Visit/Exam 18-64 2009 Pneumococcal vaccine <65 (1 of 2 - PCV) 2010 Influenza Vaccine (#1) 2024 Depression Screening 04/16/2025 04/16/2024, 04/16/2024 Hepatitis C Screening Completed 04/19/2024 , 04/17/2024 HPV Vaccines Aged Out No longer eligi ble based on patient's age to complete this topic Procedures Procedure Name Priority Date/Time Associated Diagnosis Comments LA AN PROCEDURE PLACEHOLDER Routine 08/29/2024 12:00 PM CDT LA AN ELECTIVE ENDOTRACHEAL AIRWAY Routine 08/29/2024 12:00 PM CDT LAPAROSCOPIC TUBAL LIGATION 08/29/2024 11:44 AM CDT VOLUNTARY STERILIZATION POCT HCG, URINE Routine 08/29/2024 9:27 AM CDT DRUGS OF ABUSE SCREEN, URINE WITH REFLEX CONFIRMATION Routine 08/29/2024 9:26 AM CDT DIFFERENTIAL AUTO Routine 08/23/2024 2:3 0 PM BRAKE SHOE REBUILDER Pre-op testing CBC WITH AUTO DIFFERENTIAL Routine 08/23/2024 2:30 PM BRAKE SHOE REBUILDER Pre-op testing HEPATITIS C GENOTYPE Routine 04/19/2024 9:02 PM CDT from Last 3 Months or Most Recently Relevant to Health Maintenance Results * LA AN ELECTIVE ENDOTRACHEAL AIRWAY, LA AN PROCEDURE PLACEHOLDER (08/29/2024 12:00 PM CDT) Narrative Chay Brar CRNA - 08/29/2024 12:00 PM CDT Chay Brar CRNA 08/29/2024 12:00 PM Airway Patient location: OR Urgency: elective Indications for airway management: anesthesia Difficult airway: no Staff: Placed by: SCALP SPECIALIST: Chay Brar CRNA Emergent airway documentation: Risks and benefits discussed: yes Consent obtained: yes Consent given by: patient Airway prep: Preoxygenated: yes Patient position: sniffing Mask difficulty assessment: 1 - vent by mask Sedation level during airway: GA Final airway details: Final airway type: endotracheal airway Tube type: ETT ETT size: 7.0 mm Cuffed: yes Technique used for successful ETT placement: direct laryngoscopy Devices/Methods used in placement: stylet Insertion site: oral Blade type: Calhoun Blade size: 2 Cormack-Lehane (direct): grade I - full view of glottis Cuff volume: 5 mL Cuff inflated with: air ETT to teeth: 22 cm Placement verified by: auscultation and CO2 detection Secured with: pink tape. Number of attempts: 1 us Josue Carrillo MD ANESTHESIA ORDERABLE S Final Result * POCT hCG, urine (08/29/2024 9:27 AM CDT) HCG, ur, POC Negative Negative Lot Number [id number] QC Backgroud Clear Acceptable QC Control Line Acceptable Urine 08/29/2024 9:27 AM CDT Rangel Gastelum MD POINT OF CARE TEST ORDER ARCELIA Final Result * Drugs of Abuse Screen, Urine with Reflex Confirmation (08/29/2024 9:26 AM CDT) Amphetamine, ur Not Detected CutOff 500ng/mL Comment: Interpretive Data - Amphetamines: Samples containing greater than 500 ng/mL d-methamphetamine or other cross-reacting amphetamine compounds are reported as positive. Amphetamine immunoassays are subject to significant false positive rates due to cross-reactivity of non-amphetamine drugs. Confirmatory testing required for definitive results. Current Interpretive Data was last reviewed 2023. Testing performed by: [address] [address] Barbiturates, ur Not Detected CutOff 200ng/mL [facility] Comment: Interpretive Data - Barbiturates: Samples containing greater than 200 ng/mL secobarbital or other cross-reacting barbiturate compounds are reported as positive. False positive and false negative results are possible. Confirmatory testing required for definitive results. Current Interpretive Data was last reviewed 2023. Testing performed by: [address] [address] Benzodiazepines, ur Not Detected CutOff 100ng/mL [facility] Comment: Interpretive Data - Benzodiazepines: Samples containing greater than 100 ng/mL nordiazepam or other cross-reacting compounds are reported as positive. False positive and false negative results are possible. Confirmatory testing required for definitive results. Current Interpretive Data was last reviewed 2023. Testing performed by: [address] [address] Cannabinoids, ur Not Detected CutOff 50 ng/mL [facility] Comment: Interpretive Data - Cannabinoids: Samples containing greater than 50 ng/mL delta-9 THC -COOH or other cross- reacting compounds are reported as positive. False positive and false negative results are possible. Confirmatory testing required for definitive results. Current Interpretive Data was last reviewed 2023. Testing performed by: [address] [address] Cocaine, ur Not Detected CutOff 150ng/mL [facility] Comment: Interpretive Data - Cocaine: Samples containing greater than 150 ng/mL benzoylecgonine or other cross- reacting compounds are reported as positive. False positive and false negative results are possible. Confirmatory testing required for definitive results. Current Interpretive Data was last reviewed 2023. Testing performed by: [address], [place]., [address] Fentanyl, Ur Not Detected Cutoff 1 ng/mL [facility] Comment: Interpretive Data - Fentanyl: Samples containing greater than 1 ng/mL fentanyl or other cross-reacting fentanyl compounds are reported as positive. False positive and false negative results are possible. Confirmatory testing required for definitive results. Current Interpretive Data was last reviewed 2023. Testing performed by: [address], [place]., [address] Methadone, ur Not Detected CutOff 300ng/mL [facility] Comment: Interpretive Data - Methadone: Samples containing greater than 300 ng/mL d,l-methadone or other cross-reacting compounds are reported as positive. False positive and false negative results are possible. Confirmatory testing required for definitive results. Current Interpretive Data was last reviewed 2023. Testing performed by: [address] [address] Opiates, ur Not Detected CutOff 300ng/mL [facility] Comment: Interpretive Data - Opiates: Samples containing greater than 300 ng/mL morphine or other cross-reacting compounds are reported as positive. False positive and false negative results are possible. Confirmatory testing required for definitive results. Current Interpretive Data was last reviewed 2023. Testing performed by: [address], [place]., [address] Oxycodone, ur Not Detected CutOff 100ng/mL [facility] Comment: Interpretive Data - Oxycodone: Samples containing greater than 100 ng/mL oxycodone or other cross-reacting compounds are reported as positive. False positive and false negative results are possible. Confirmatory testing required for definitive results. Current Interpretive Data was last reviewed 2023. Testing performed by: [address] [address] Phencyclidine, ur Not Detected CutOff 25 ng/mL [facility] Comment: Interpretive Data - Phencyclidine: Samples containing greater than 25 ng/mL phencyclidine or other cross-reacting compounds are reported as positive. False positive and false negative results are possible. Confirmatory testing required for definitive results. Current Interpretive Data was last reviewed 2023. Testing performed by: [address] [address] Urine Creatinine 128 mg/dL [facility] Comment: Interpretive Data Urine Creatinine: < 10 mg/dL is extremely dilute = or > 10 but < 20 mg/dL is dilute = or > 20 mg/dL is normal Current Interpretive Data was last revised on 2017. Testing performed by: [address] [address] Urine 08/29/2024 9:26 AM CDT 08/29/2024 9:32 AM CDT Narrative [facility] - 08/29/2024 10:16 AM CDT Drug of Abuse screening is performed by immunoassay for medical purposes only. This is not to be used for Pain Management purposes. If Detected, confirmation testing will be performed for Amphetamines, Cocaine, Fentanyl, Methadone, Opiates, Oxycodone or Phencyclidine. Reji Encinas MD LAB URINE ORDERABL ES Final Result [facility] [address] [facility] Department of Laboratories [place], [place] [id number] * (ABNORMAL) Differential, auto (08/23/2024 2:30 PM BRAKE SHOE REBUILDER) Neutrophil abs 4.5 1.5 - 6.5 K/cumm Comment:Testing performed by : [address] [address] Imm gran abs 0.0 0.0 - 0.1 K/cumm [facility] Comment:Testing performed by : [address] [address] Lymphocyte abs 2.9 0.8 - 3.3 K/cumm CERNER Comment:Testing performed by : [address] [address] Monocyte abs 0.5 0.2 - 0.8 K/cumm CERNER Comment:Testing performed by : [address], [place]., [address] Eosinophil abs 0.6(H) 0.0 - 0.5 K/cumm CERNER Comment:Testing performed by : [address], [place]., [address] Basophil abs 0.1 0.0 - 0.1 K/cumm [facility] Comment:Testing performed by : [address] [address] Neutrophil pct 53.2 % [facility] Comment: Interpretive Data Percent cell count reference ranges are not reported, since discordance with absolute values may lead to misinterpretation of CBC data. Current Interpretive Data was last revised on 2017. Testing performed by: [address] [address] Imm gran pct 0.2 % C[facility]ER Comment: Interpretive Data Percent cell count reference ranges are not reported, since discordance with absolute values may lead to misinterpretation of CBC data. Current Interpretive Data was last revised on 2017. Testing performed by: [address] [address] Lymphocyte pct 33.5 % C[facility]ER Comment: Interpretive Data Percent cell count reference ranges are not reported, since discordance with absolute values may lead to misinterpretation of CBC data. Current Interpretive Data was last revised on 2017. Testing performed by: [address] [address] Monocyte pct 5.8 % CERNER Comment: Interpretive Data Percent cell count reference ranges are not reported, since discordance with absolute values may lead to misinterpretation of CBC data. Current Interpretive Data was last revised on 2017. Testing performed by: [address] [address] Eosinophil pct 6.7 % CERNER Comment: Interpretive Data Percent cell count reference ranges are not reported, since discordance with absolute values may lead to misinterpretation of CBC data. Current Interpretive Data was last revised on 2017. Testing performed by: [address] [address] Basophil pct 0.6 % [facility] Comment: Interpretive Data Percent cell count reference ranges are not reported, since discordance with absolute values may lead to misinterpretation of CBC data. Current Interpretive Data was last revised on 2017. Testing performed by: [address] [address] Blood 08/23/2024 2:30 PM BRAKE SHOE REBUILDER 08/23/2024 3:01 PM BRAKE SHOE REBUILDER us Rangel Gastelum MD LAB BLOOD ORDERABLES Fin al Result [facility] Department [place] [address] * CBC with auto differential (08/23/2024 2:30 PM BRAKE SHOE REBUILDER) WBC 8.5 3.8 - 9.9 K/cumm Comment:Testing performed by : [address] [address] Hgb 13.2 11.9 - 15.5 g/dL [facility] Comment:Testing performed by : [address] [address] Hct 39.3 35.6 - 45.5 % [facility] Comment:Testing performed by : [address] [address] Plt 317 150 - 400 K/cumm [facility] Comment:Testing performed by : [address] [address] MPV 10.4 9.1 - 12.3 fL [facility] Comment:Testing performed by : [address] [address] RBC 4.42 3.90 - 5.20 M/cumm [facility] Comment:Testing performed by : [address] [address] MCV 88.9 81.3 - 96.4 fL [facility] Comment:Testing performed by : [address] [address] MCH 29.9 27.1 - 33.3 pg [facility] Comment:Testing performed by : [address] [address] MCHC 33.6 32.3 - 35.7 g/dL [facility] Comment:Testing performed by : [address], [address] RDW CV 13.3 11.1 - 14.9 % [facility] Comment:Testing performed by : [address] [address] RDW SD 43.6 35.7 - 48.1 fL [facility] Comment:Testing performed by : [address], [address] NRBC abs 0.00 0.00 - 0.01 K/cumm [facility] Comment:Testing performed by : [address], [address] Blood 08/23/2024 2:30 PM BRAKE SHOE REBUILDER 08/23/2024 3:01 PM BRAKE SHOE REBUILDER Narrative [facility] - 08/23/2024 3:05 PM BRAKE SHOE REBUILDER PRE SURGICAL TESTING us Rangel Gastelum MD LAB BLOOD ORDERABLES Fin al Result [facility] [address] [facility] Department of Laboratories [place], [place] [id number] * (ABNORMAL) Hepatitis C genotype Blood (04/19/2024 9:02 PM CDT) HCV genotype 1a(A) Undetected Comment: ADDITIONAL INFORMATION This test was performed using the [employer] RealTime HCV Genotype II assay ([employer] [place], [place]). Test Performed by: [address] [place] [address] Product Safety Head: Nahed Givens Ph.D.; CLIA# [id number] Blood 04/19/2024 9:02 PM CDT 04/19/2024 9:17 PM CDT Concepcion Arevalo MD LAB MICROBIOLOGY - GENERAL ORDERABLES Final Result Performing Organization Address City/State/[facility] Co de Phone Number [facility] Department [place] [address] from Last 3 Months or Most Recently Relevant to Health Maintenance Insurance [employer] [facility] PLAN [facility] PLAN [place] [id number] Advance Directives For more information, please contact: [phone] * Full Code (Latest Code Status on File) Date Activated Date Inactivated Comments 04/17/2024 2:47 AM 04/20/2024 7:42 PM Care Teams Skiver Welt End Relationship Specialty Start Date End Date Glenna Nathan NP [address] [place] [address] PCP - General Family Medicine 08/10/24 Brendan Garcia NP [address] [place] [address] Psychiatry 08/10/24
--- OUTSIDE RECORDS SUMMARY | 2024-08-30 21:50 | XMS_ITS | Encounter Summary ---
Author Organization [facility] Healthcare Address [address] [place] [address] Care Team Providers Care Emergency Medical Technician/Driver Name Role Phone Brendan Garcia [employer] Unavailable [phone] Glenna Nathan [employer] Primary Care Provider [phone] Reason for Visit * Auth/Cert (Routine) Specialty Diagnoses / Procedures Referred By Contac t Referred To Contact Diagnoses VOLUNTARY STERILIZATION Procedures ME LAPAROSCOPY W/PLMT OCCLUSION DEVICE OVIDUCTS LAPAROSCOPIC BILATERAL TUBAL LIGATION Referral ID Status Reason Start Date Expiration Date Visits Re quested Visits Authorized [id number] 1 1 Encounter Details Date Type Department Care Team (Late st Contact Info) Description 08/29/2024 11:00 AM CDT - 08/29/2024 12:40 PM CDT Surgery [facility] OR [address] [place], [place] [address] Rangel Gastelum MD [address] [place] [address] LAPAROSCOPIC BILATERAL TUBAL LIGATION Surgery Details Date/Time Status Location OR Service Patient Class Case Class Case Type Trauma Case? 08/29/2024 11:00 AM Posted E OPERATING ROOM OR Obstetrics / Gynecology Outpatient Elective Panel 1 Procedure LRB Anes Op Region Wound Class Comments LAPAROSCOPIC BILATERAL TUBAL LIGATION Bilateral General Abdomen Class II - Clean Contaminated Surgeon Surgeon Role Service Panel Rangel Gastelum MD Primary Obstetrics / Gy necology 1 documented in this encounter Social History Tobacco Use Types Packs/Day Years [...] on file Sexual Orientation Not on file documented as of this encounter Last Filed Vital Signs Vital Sign Reading Time Taken Comments Blood Pressure 117/85 08/29/2024 9:35 AM CDT Pulse 76 08/29/2024 9:35 AM CDT Temperature 36.8 C (98.3 F) 08/29/2024 9:35 AM CDT Respiratory Rate 18 08/29/2024 9:35 AM CDT Oxygen Saturation 97% 08/29/2024 9:35 AM CDT Inhaled Oxygen Concentration - - Weight 85.2 kg (187 lb 12.8 oz) 08/29/2024 9:10 AM CDT Height 167.6 cm (5' 6 ) 08/29/2024 9:10 AM CDT Body Mass Index 30.31 08/29/2024 9:10 AM CDT documented in this encounter Functional Status * Audit-C Score Answer Date of Assessment Author 1 08/29/2024 9:41 AM CDT Elham Seay RN * Question Answer Date of Assessment Author Q1: How often do you have a drink containing alcohol? Monthly or less 08/29/2024 9:41 AM CDT Rigo Seay RN Q2: How many drinks containing alcohol do you have on a typical day when you are drinking? 1 or 2 08/29/2024 9:41 AM CDT Rigo Seay R N Q3: How often do you have six or more drinks on one occasion? Never 08/29/2024 9:41 AM CDT Rigo Seay R N documented as of this encounter Discharge Instructions * Attachments The following attachments cannot be sent through Care Everywhere. * General Anesthesia (Discharge Care) ([place]) * Laparoscopic Tubal Ligation (Discharge Care) ([place]) documented in this encounter Medications at Time of Discharge gabapentin (NEURONTIN) 600 mg tablet Take 1 tablet (600 mg total) by mouth 3 (three) times a day 11/23/2023 hydrOXYzine (ATARAX) 50 mg tablet Take 0.5 tablets (25 mg total) by mouth every 4 (four) hours as needed for anxiety lithium ER (ESKALITH) 450 mg CR tablet Take 1 tablet (450 mg total) by mouth nightly 04/05/2024 lurasidone (LATUDA) 60 mg tablet Take 1 tablet (60 mg total) by mouth nightly 11/25/2023 zolpidem (AMBIEN) 5 mg tablet Take 1 tablet (5 mg total) by mouth nightly as needed for sleep 04/05/2024 documented as of this encounter Discharge Disposition Disposition Code Departure Means Destination Comment s Discharge to home or self care Private Vehicle With mom documented in this encounter H&P Notes * Rangel Gastelum MD - 08/29/2024 11:34 AM CDT ANALYSIS EVALUATOR History and Physical Subjective Patient is 34 y.o., G5 P 2 212 who is multiparous and desires surgical sterilization HPI: 2 sections she has had 2 second-trimester losses and wishes for permanent sterilization patient is up-to-date on her Pap smears OB History Para Term AB Living 5 2 2 2 1 2 SAB IAB Ectopic Multiple Live Births # Outcome Date GA Lbr Brock/2nd Weight Sex Type Anes PTL Lv 1 2 c sections and 2 losses at 24 and 28 weeks stillbirths vaginal delivery Social History Substance and Sexual Activity Sexual Activity Defer Past Medical History: Diagnosis Date Anxiety and depression Asthma Attention deficit hyperactivity disorder Bipolar 1 disorder (HCC) Bipolar disorder ([facility]) 04/17/2024 Gastroesophageal reflux disease 12/13/2012 Generalized anxiety disorder Hepatitis C antibody test positive 04/17/2024 Infectious viral hepatitis Irritable bowel syndrome Kidney stones Methamphetamine use ([facility]) Motion sickness Polysubstance abuse ([facility]) 04/17/2024 PONV (postoperative nausea and vomiting) Seizure disorder ([facility]) 2012 withdrawal from ETOH Past Surgical History: Procedure Laterality Date SECTION TONSILLECTOMY Tonsillectomy Medications Prior to Admission Medication Sig Dispense Refill Last Dose/Taking gabapentin (NEURONTIN) 600 mg tablet Take 1 tablet (600 mg total) by mouth 3 (three) times a day 08/28/2024 hydrOXYzine (ATARAX) 50 mg tablet Take 0.5 tablets (25 mg total) by mouth every 4 (four) hours as needed for anxiety 08/28/2024 lithium ER (ESKALITH) 450 mg CR tablet Take 1 tablet (450 mg total) by mouth nightly 08/28/2024 lurasidone (LATUDA) 60 mg tablet Take 1 tablet (60 mg total) by mouth nightly 08/28/2024 zolpidem (AMBIEN) 5 mg tablet Take 1 tablet (5 mg total) by mouth nightly as needed for sleep 08/28/2024 atomoxetine (STRATTERA) 80 mg capsule Take 1 capsule (80 mg total) by mouth daily (Patient not taking: Reported on 08/16/2024) More than a month cloNIDine ER (KAPVAY) 0.1 mg tablet extended release 12 hr Take 2 tablets (0.2 mg total) by mouth nightly (Patient not taking: Reported on 08/16/2024) More than a month omeprazole (PriLOSEC) 20 mg capsule daily (Patient not taking: Reported on 08/16/2024) More than a month oxyCODONE (ROXICODONE) 5 mg immediate release tablet Take 1 tablet (5 mg total) by mouth every 4 (four) hours as needed for pain (Patient not taking: Reported on 08/16/2024) 10 tablet 0 08/15/[address] (PROTONIX) 40 mg EC tablet Take 1 tablet (40 mg total) by mouth 2 (two) times a day(Patient not taking: Reported on 08/16/2024) 60 tablet 0 More than a month prochlorperazine (COMPAZINE) 10 mg tablet Take 1 tablet (10 mg total) by mouth 3 (three) times a day as needed for nausea (Patient not taking: Reported on 08/16/2024) 20 tablet 0 More than a month risperiDONE (RisperDAL) 0.5 mg tablet (Patient not taking: Reported on 08/16/2024) More than a month sofosbuvir-velpatasvir (EPCLUSA) 400-100 mg tablet per tablet Take 1 tablet by mouth daily (Patientnot taking: Reported on 08/16/2024) 30 tablet 0 Not Taking Sprintec, 28, 0.25-35 mg-mcg per tablet Take 1 tablet by mouth daily (Patient not taking: Reported on 08/16/2024) More than a month venlafaxine (EFFEXOR) 25 mg tablet (Patient not taking: Reported on 08/16/2024) More than a month Current Facility-Administered Medications Medication Dose Route Frequency Provider Last Rate Last Admin ceFAZolin (ANCEF) 2,000 mg/20 mL in sterile water (premix) 2,000 mg 2,000 mg intravenous Once Rangel Gastelum MD Lactated Ringer's (LR) infusion 30 mL/hr intravenous Continuous Reji Encinas MD 30 mL/hr at 08/29/24 0956 30 mL/hr at 08/29/24 0956 lidocaine (PF) (XYLOCAINE) 10 mg/mL (1 %) preservative free injection 2-10 mg 0.2-1 mL other Once PRN Reji Encinas MD Allergies Allergen Reactions Adhesive Tape-Silicones Rash Latex Rash Social History Tobacco Use Smoking status: Former Types: Cigarettes Smokeless tobacco: Never Tobacco comments: Smoking History Packs/day: 10 Cigarettes Substance and Sexual Activity Drug use: No Sexual activity: Defer Alcohol Use: Not At Risk (08/29/2024) AUDIT-C Frequency of Alcohol Consumption: Monthly or less Average Number of Drinks: 1 or 2 Frequency of Binge Drinking: Never Family History Problem Relation Age of Onset Diabetes Father Diabetes mellitus; Hypertension Father Hypertension; Migraines Father Migraine; Colon cancer Neg Hx Esophageal cancer Neg Hx Liver cancer Neg Hx Review of Systems: Review of systems per HPI and otherwise all other systems are negative Objective Vitals: 24hr Min/Max: Temp Min: 36.8 ??C (98.3 ??F) Max: 36.8 ??C (98.3 ??F) Pulse Min: 76 Max: 76 BP Min: 117/85 Max: 117/85 Resp Min: 18 Max: 18 SpO2 Min: 97 % Max: 97 % Most Recent : Vitals: 08/29/24 0935 BP: 117/85 Pulse: 76 Resp: 18 Temp: 36.8 ??C (98.3 ??F) SpO2: 97% Weight: 85.2 kg (187 lb 12.8 oz) Height: 167.6 cm (5' 6 ) BSA (Calculated - sq m): 1.99 sq meters BMI (Calculated): 30.3 Physical Exam: General appearance: well appearing in no acute acute distress Lungs: clear to auscultation bilaterally Heart: regular rate and rhythm Abdomen: soft, non-tender; bowel sounds present, no masses Pelvic: External genitalia:WNL Bladder:No masses or tenderness Vagina: No lesions or abnormal discharge Cervix: no lesions Uterus:normal size Adnexa: no papable masses Rectal:deferred Extremities: no edema Neurologic: alert and oriented x 3 Hemoglobin 13 Impression plan multiparous and desires surgical sterilization after all risks benefits and alternatives discussed with the patient will proceed with a laparoscopic tubal ligation by bilateral salpingectomy documented in this encounter Miscellaneous Notes * Op Note - Rangel Gastelum MD - 08/29/2024 11:00 AM CDT Operative Note Attending Surgeon: Rangel Gastelum MD Surgical Team: Surgeons and Role: * Rangel Gastelum MD - Primary DATE OF SURGERY : 08/29/2024 Preoperative Diagnosis: Multiparity and desires surgical sterilization Postoperative Diagnosis: Same with bilateral fallopian tube cysts Name of Operation: Procedure(s): LAPAROSCOPIC BILATERAL TUBAL LIGATION Indication for Procedure: This is 34 y.o. [id number] undesired future fertility. The patient was appropriately counseled that the risks of bilateral tubal ligation include regret, bleeding, infection, injury to surrounding organs and risk of procedure failure. Alternative methods of contraception were discussed including LARC. The patient still desired to proceed with the procedure. Consents hadbeen signed at time of admission Operative Findings: Diagnostic laparoscopy demonstrated a wide shaped uterus on ultrasound almost looked bicornuate butmore of a thick septum with 1 cervix both ureters were noted to be peristalsing 1 each side The fallopian tubes were dilated mild hydrosalpinx with filmy adhesions to the pelvic sidewalls the adhesions were taken down the cysts were lanced and the tubes were sent for pathology the entire fallopian tube was able to be removed. The ovaries were normal bilaterally. There was no evidence of endometriotic or pelvic adhesive disease present in the anterior and posterior cul-de-sac. The appendix was normal appearing. The liver and gallbladder were normal appearing. There was no abdominal adhesive disease. Description Of Procedure After obtaining the appropriate operative consents, the patient was taken to the operating room where general anesthesia was obtained without difficulty and confirmed to be adequate. The patient was placed in the dorsal lithotomy position with her legs in yellow fin stirrups. She was examined underanesthesia and was found to have a anteverted. She was then prepared and draped in the normal sterile fashion. A sterile speculum was inserted into the patient's vagina with good visualization of thecervix. Sponge stick was placed inside the vagina Attention was then turned to the patient's abdomen. 5cc of 0.25% marcaine was injected into the inferior aspect of the patient's umbilicus, and a 5mm incision was made. A 5mm trocar was then insertedusing optical trocar insertion technique. Pneumoperitoneum was subsequently obtained. A survey of the abdomen revealed normal appearing uterus, tubes, and ovaries, normal appearing intestines, and normal appearing liver. Attention was turned to the patient's right lower quadrant, where 5cc of 0.25% marcaine was injected and a 5 mm trocar was inserted through a 5 mm incision located 10 cm lateral to the midline between the umbilicus and the anterior superior iliac spine. It was inserted under direct visualization. The same was accomplished in the patient's left lower quadrant. The camera was then removed from the umbilical port and reinserted through the right lower quadrant port side. The umbilical port site was inspected and found to be hemostatic and intact. The camera was returned to the umbilical port site. The 5mm LigaSure device was then inserted. Using the 5mm LigaSure device, the bilateral fallopian tubes were coagulated and cut in a stepwise fashion distally to proximally towards the uterus. The fallopian tubes were removed from the abdomen and a stitch placed in the right tube . All sites werenoted to be hemostatic following the conclusion of the procedure. The intraabdominal pressure was dropped to 6 mmHg, and all sites were still noted to be hemostatic. All trocars were removed from thepatient's abdomen. The sites were closed with 4-0 Monocryl and Steri- Strips n the subcuticular fashion, and were covered in Steri-Strips. The [place]ka uterine manipulator was then removed from the patient's cervix, and the site was noted to be hemostatic. The patient tolerated the procedure well, and was taken to the recovery room in stable condition. Estimated Blood Loss: 5 mL Specimens: ID Type Source Tests Collected by Time A : BILATERAL FALLOPIAN TUBES, STITCH IN RIGHT Tissue Fallopian tube, sterilization SURGICAL PATHOLOGY Rangel Gastelum MD 08/29/2024 1215 Complications: None Sponge/Instrument/Needle Counts: The sponge, lap and needle counts were correct x 2. Condition on Discharge from the operating room was stable Rangel Gastelum MD The attending, Rangel Gastelum MD, was present for the entire procedure. Date: 08/29/2024 Time: 12:52 PM * Perioperative Nursing Note - Mirna Lozano RN - 08/16/2024 5:01 PM ARMED CUSTOM PROTECTION OFFICER I spoke with Mindy today, pre-testing phone assessment completed. History and medication list updated. She is not able to come in for a QT due because she does not drive. So she will get the pre-op lab done in the outpt lab at [facility]. Instructions given and sent to [facility] and her personal email, all questions were answered and she verbalized understanding. D CUSTOM PROTECTION OFFICER * Pre-Procedure Instructions - Mrina Lozano RN - 08/16/2024 4:17 PM ARMED CUSTOM PROTECTION OFFICER Images from the original note were not included. [place] [id number] Surgery Reminder Checklist: Please arrive to [facility] for scheduled surgeryon Thursday, August 29, 2024 at 9:00 am. If the surgeon's office tells you to arrive at a different time after we have given you instructions, please follow their instructions. Please park in the first parking lot on the LEFT. Enter through the Main Entrance and check in at [facility] (to the left of the information desk). ONE - TWO WEEKS BEFORE YOUR PROCEDURE You may take TYLENOL (ACETAMINOPHEN) as needed for pain. PLEASE FOLLOW YOUR SURGEON'S GUIDELINES REGARDING IBUPROFEN, ALEVE, MULTIVITAMINS, HERBAL SUPPLEMENTS, FISH OIL AND VITAMIN E. YOU MAY BE REQUIRED TO HOLD THESE FOR ONE-TWO WEEKS BEFORE SURGERY. EVENING BEFORE YOUR PROCEDURE Shower with Antibacterial soap followed by Hibiclens soap the evening before your surgery. After showering, do not apply any lotions, colognes, oils, deodorant, powder, or make-up Antibacterial Soap Examples: Dial or Safeguard. Hibiclens soap may be purchased at any store or pharmacy that carries soap. Look in the pharmacy/wound care section. If you would like to come to [facility] we can give you a bottle forFREE. Hours: Wednesday - Wednesday 8 AM - 4:30PM. Go to the main entrance and ask the bowling or skating front desk clerk for Hibiclens Soap. If you go to [facility] park underneath Entrance A drive thru and call [phone] and ask for the surgery soap. We will bring it out to your car. Hibiclens, trusted by hospitals for over 40 years as a pre-operative skin wash, can help reduce therisk of surgical site infections (SSIs) caused by germs that live on the skin. DO NOT eat any solid food or drink any liquid that you cannot see through after midnight (this includes gum, mints, hard candy, and chewable antacids). MORNING OF YOUR PROCEDURE May have clear liquids in moderation from midnight until 7:00 AM. This includes, Water, Apple Juice, Gatorade, Black Coffee or Sprite. (NO Dairy, Milk Products, Creamer, Red Gatorade or Schley Juice) Nothing by mouth the 4 hours prior to your procedure, NOT EVEN WATER. Park your teeth morning of procedure. Use mouth wash if available. Do not swallow any liquids whencleansing your mouth. Shower with Antibacterial soap followed by Hibiclens soap. After showering, do not apply any lotions, colognes, oils, deodorant, powder, or make-up. Expect to remove wigs, dentures/partials, contact lenses, piercings, hearing aids, and prostheses before surgery. Do not wear jewelry to the hospital on the day of surgery. Bring glasses and hearing aids (with cases for both), inhalers, and CPAP/BiPAP machine day of surgery. If you will be admitted to the hospital after surgery, feel free to bring a toiletry bag. Medication Instructions: Pre-Surgery Instructions: Medication Instructions gabapentin (NEURONTIN) 600 mg tablet Take morning of surgery hydrOXYzine (ATARAX) 50 mg tablet Hold the morning of surgery lithium ER (ESKALITH) 450 mg CR tablet Take as prescribed at night lurasidone (LATUDA) 60 mg tablet Take as prescribed at night zolpidem (AMBIEN) 5 mg tablet Take as prescribed at night VISITOR POLICY: Patients in outpatient/surgical settings may have 2 dedicated visitors; must be over the age of 14. The Coffee shop has limited choices. Please bring snacks and something to drink on day of surgery. GENERAL INSTRUCTIONS: Please call us with any new prescriptions so that we can give you instructions. DO NOT drink alcohol, smoke cigarettes/vapes/e-cigarettes during the 12 hours prior to your surgery. DO NOT use marijuana for 24 hours prior to surgery. DO NOT take illicit/illegal drugs of any kind for 7 days prior to surgery. Arrange for a friend/family member or official medical transportation to pick you up from the hospital and drive you home. You will not be allowed to drive yourself home. Non-medical transport services (buses, taxis, or a [employer] company such as [employer] or [employer], etc.) are NOT allowed. A responsible adult must be with you for 24 hours after your procedure. If you are unable to make arrangements for transportation and have a responsible adult with you for 24 hours after your procedure, your procedure will need to be rescheduled. Call your surgeon if you develop a rash, fever, cold, Urinary Tract Infection, or any other signs/symptoms of infection prior to surgery. Your surgery may need to be postponed. MORNING OF SURGERY PLEASE BRING: Photo ID and Insurance card. Any questions/concerns, please call the Admission Testing Center at [phone]. Morning of surgery question/concerns, please call Outpatient Surgery at [phone]. Thank You for choosing [facility]'s Surgery department! D CUSTOM PROTECTION OFFICER documented in this encounter Plan of Treatment Pending Results Name Type Priority Associated Diagnoses Date /Time CBC without differential Lab STAT 08/29/2024 1:54 PM CDT Surgical pathology Pathology and Cytology Routine Request for sterilization 08/29/2024 12:15 PM CDT Scheduled Orders Name Type Priority Associated Diagnoses Orde r Schedule CBC without differential Lab STAT STAT for 1 Occurrences starting 08/29/2024 until 08/29/2024 Surgical pathology Pathology and Cytology Timed Request for sterilization Release Upon Ordering for 1 Occurrences starting 08/29/2024 documented as of this encounter Procedures Procedure Name Priority Date/Time Associated Diagnosis Comments LAPAROSCOPIC TUBAL LIGATION 08/29/2024 11:44 AM CDT VOLUNTARY STERILIZATION POCT HCG, URINE Routine 08/29/2024 9:27 AM CDT DRUGS OF ABUSE SCREEN, URINE WITH REFLEX CONFIRMATION Routine 08/29/2024 9:26 AM CDT documented in this encounter Results * POCT hCG, urine (08/29/2024 9:27 AM CDT) HCG, ur, POC Negative Negative Lot Number [id number] QC Backgroud Clear Acceptable QC Control Line Acceptable Urine 08/29/2024 9:27 AM CDT us Rangel Gastelum MD POINT OF CARE TEST [...] was last reviewed 2023. Testing performed by: [address] [address] Barbiturates, ur Not Detected CutOff 200ng/mL [facility] Comment: Interpretive Data - Barbiturates: Samples containing greater than 200 ng/mL secobarbital or other cross-reacting barbiturate compounds are reported as positive. False positive and false negative results are possible. Confirmatory testing required for definitive results. Current Interpretive Data was last reviewed 2023. Testing performed by: [address] [address] Benzodiazepines, ur Not Detected CutOff 100ng/mL [facility] Comment: Interpretive Data - Benzodiazepines: Samples containing greater than 100 ng/mL nordiazepam or other cross-reacting compounds are reported as positive. False positive and false negative results are possible. Confirmatory testing required for definitive results. Current Interpretive Data was last reviewed 2023. Testing performed by: [address] [address] Cannabinoids, ur Not Detected CutOff 50 ng/mL [facility] Comment: Interpretive Data - Cannabinoids: Samples containing greater than 50 ng/mL delta-9 THC -COOH or other cross- reacting compounds are reported as positive. False positive and false negative results are possible. Confirmatory testing required for definitive results. Current Interpretive Data was last reviewed 2023. Testing performed by: [address] [address] Cocaine, ur Not Detected CutOff 150ng/mL [facility] Comment: Interpretive Data - Cocaine: Samples containing greater than 150 ng/mL benzoylecgonine or other cross- reacting compounds are reported as positive. False positive and false negative results are possible. Confirmatory testing required for definitive results. Current Interpretive Data was last reviewed 2023. Testing performed by: [address] [address] Fentanyl, Ur Not Detected Cutoff 1 ng/mL [facility] Comment: Interpretive Data - Fentanyl: Samples containing greater than 1 ng/mL fentanyl or other cross-reacting fentanyl compounds are reported as positive. False positive and false negative results are possible. Confirmatory testing required for definitive results. Current Interpretive Data was last reviewed 2023. Testing performed by: [address] [address] Methadone, ur Not Detected CutOff 300ng/mL [facility] Comment: Interpretive Data - Methadone: Samples containing greater than 300 ng/mL d,l-methadone or other cross-reacting compounds are reported as positive. False positive and false negative results are possible. Confirmatory testing required for definitive results. Current Interpretive Data was last reviewed 2023. Testing performed by: [address] [address] Opiates, ur Not Detected CutOff 300ng/mL [facility] Comment: Interpretive Data - Opiates: Samples containing greater than 300 ng/mL morphine or other cross-reacting compounds are reported as positive. False positive and false negative results are possible. Confirmatory testing required for definitive results. Current Interpretive Data was last reviewed 2023. Testing performed by: [address] [address] Oxycodone, ur Not Detected CutOff 100ng/mL [facility] Comment: Interpretive Data - Oxycodone: Samples containing greater than 100 ng/mL oxycodone or other cross-reacting compounds are reported as positive. False positive and false negative results are possible. Confirmatory testing required for definitive results. Current Interpretive Data was last reviewed 2023. Testing performed by: [address] [address] Phencyclidine, ur Not Detected CutOff 25 ng/mL [facility] Comment: Interpretive Data - Phencyclidine: Samples containing greater than 25 ng/mL phencyclidine or other cross-reacting compounds are reported as positive. False positive and false negative results are possible. Confirmatory testing required for definitive results. Current Interpretive Data was last reviewed 2023. Testing performed by: [address] [address] Urine Creatinine 128 mg/dL [facility] Comment: Interpretive Data Urine Creatinine: < 10 mg/dL is extremely dilute = or > 10 but < 20 mg/dL is dilute = or > 20 mg/dL is normal Current Interpretive Data was last revised on 2017. Testing performed by: [facility], [address] [place] [address], [place]., [address] Urine 08/29/2024 9:26 AM CDT 08/29/2024 9:32 AM CDT Andre KIM - 08/29/2024 10:16 AM CDT Drug of Abuse screening is performed by immunoassay for medical purposes only. This is not to be used for Pain Management purposes. If Detected, confirmation testing will be performed for Amphetamines, Cocaine, Fentanyl, Methadone, Opiates, Oxycodone or Phencyclidine. us Reji Encinas MD LAB URINE ORDERABL ES Final Result TAYLOR KIM [address] [facility] Department [place] [address] documented in this encounter Visit Diagnoses Not on filedocumented in this encounter Administered Medications Inactive Administered Medications - up to 3 most recent administrations Medication Order MAR Action Action Date Dose Rate Site acetaminophen (TYLENOL) tablet 975 mg 975 mg (rounded from 1,000 mg), oral, Once, On Wed08/29/24 at 0945, For 1 dose, Pre-Op, Indications: Pre-Emptive AnalgesiaIndications:Pre-Emptive Analgesia Given 08/29/2024 9:56 AM CDT 975 mg BUPivacaine-EPINEPHrine (MARCAINE with EPI) 0.5 %-1:200,000 preservative free injection As needed, Starting on Wed08/29/24 at 1214, Intra-Op Given 08/29/2024 12:15 PM CDT 15 mL Wound Given 08/29/2024 12:14 PM CDT 15 mL famotidine (PEPCID) tablet 20 mg 20 mg, oral, Once, On Wed08/29/24 at 0945, For 1 dose, Pre-Op, Indications: gastroesophageal reflux diseaseIndications:gastroesophageal reflux disease Given 08/29/2024 9:56 AM CDT 20 mg fentaNYL (SUBLIMAZE) preservative free injection 25 mcg 25 mcg, intravenous, Every 10 min PRN, For uncontrolled pain use in the pacu only, Starting on Wed08/29/24 at 1248, Phase I, Then proceed to PACU 1st line analgesic., Indications: PainIndications:Pain Given 08/29/2024 1:08 PM CDT 25 mcg HYDROmorphone (DILAUDID) injection 0.4 mg 0.4 mg, intravenous, Administer over 2 Minutes, Every 10 min PRN, 2nd line for pain, Starting on Wed08/29/24 at 1248, Phase I, May administer 10 mintes after 2nd dose of 1st line analgesic agent for uncontrolled or increasing pain. Revert to 1st line dose if POSS of 3. Notify Anesthesiologist if total PACU dose reaches 2 mg and pain score 5/10 or more., Indications: PainIndications:Pain Given 08/29/2024 1:08 PM CDT 0.4 mg Lactated Ringer's (LR) infusion 30 mL/hr, intravenous, Continuous, Starting on Wed08/29/24 at 0945, Pre-Op Restarted 08/29/2024 12:39 PM CDT Rate/Dose Verify 08/29/2024 11:45 AM CDT 30 mL/ hr New Bag 08/29/2024 9:56 AM CDT 30 mL/hr 30 mL/hr meclizine (ANTIVERT) tablet 25 mg 25 mg, oral, Once, On Wed08/29/24 at 1015, For 1 dose, Pre-Op Given 08/29/2024 9:56 AM CDT 25 mg ondansetron (ZOFRAN) injection 4 mg 4 mg, intravenous, Administer over 2 Minutes, Once as needed, nausea, vomiting, Starting on Wed08/29/24 at 1248, For 1 dose, Phase I, Proceed to metoclopramide if ondansetron has been given within the last 6 hours. Given 08/29/2024 2:37 PM CDT 4 mg oxyCODONE (ROXICODONE) tablet 5 mg 5 mg, oral, Once, On Wed08/29/24 at 1500, For 1 dose, Phase I & Post-op Floor, Indications: PainIndications:Pain Given 08/29/2024 2:38 PM CDT 5 mg documented in this encounter Discontinued Medications Medication Sig Discontinue Reason Start Date End Da te atomoxetine (STRATTERA) 80 mg capsule Take 1 capsule (80 mg total) by mouth daily Stop Taking at Discharge 01/17/2024 08/29/2024 cloNIDine ER (KAPVAY) 0.1 mg tablet extended release 12 hr Take 2 tablets (0.2 mg total) by mouth nightly Stop Taking at Discharge 12/01/2023 08/29/2024 oxyCODONE (ROXICODONE) 5 mg immediate release tabletIndications:Pain Take 1 tablet (5 mg total) by mouth every 4 (four) hours as needed for pain Stop Taking at Discharge 04/20/2024 08/29/[address] (PROTONIX) 40 mg EC tabletIndications:Muco sitis Prophylaxis,Treatment of Non-Bleeding Gastric Disorder Take 1 tablet (40 mg total) by mouth 2 (two) times a day Stop Taking at Discharge 04/20/2024 08/29/2024 prochlorperazine (COMPAZINE) 10 mg tabletIndications:Prev ention of Nausea and Vomiting Take 1 tablet (10 mg total) by mouth 3 (three) times a day as needed for nausea Stop Taking at Discharge 04/20/2024 08/29/2024 sofosbuvir-velpatasvir (EPCLUSA) 400-100 mg tablet per tabletIndications:Leonarda l Hepatitis C Take 1 tablet by mouth daily Stop Taking at Discharge 05/09/2024 08/29/2024 Sprintec, 28, 0.25-35 mg-mcg per tablet Take 1 tablet by mouth daily Stop Taking at Discharge 05/24/2024 08/29/2024 omeprazole (PriLOSEC) 20 mg capsule daily Stop Taking at Discharge 11/22/2023 08/29/2024 risperiDONE (RisperDAL) 0.5 mg tablet Stop Taking at Discharge 12/09/2023 08/29/2024 venlafaxine (EFFEXOR) 25 mg tablet Stop Taking at Discharge 12/13/2012 08/29/2024 documented as of this encounter Historical Medications * This list may reflect changes made after this encounter. venlafaxine (EFFEXOR) 25 mg tablet 12/13/2012 08/29/2024 risperiDONE (RisperDAL) 0.5 mg tablet 12/09/2023 08/29/2024 omeprazole (PriLOSEC) 20 mg capsule daily 11/22/2023 08/29/2024 Sprintec, 28, 0.25-35 mg-mcg per tablet Take 1 tablet by mouth daily 05/24/2024 08/29/2024 added in this encounter Active and Recently Administered Medications Due to Daylight Saving Time, this section may contain times in both [employer] and CDT. Scheduled Medication Order 08/27/2024 08/28/2024 08/29/2024 acetaminophen (TYLENOL) tablet 975 mg (COMPLETED) 975 mg (rounded from 1,000 mg), oral, Once, On Wed08/29/24 at 0945, For 1 dose, Pre-Op, Indications: Pre-Emptive Analgesia 0956 (Given - Provid er: Rigo Seay RN) ceFAZolin (ANCEF) 2,000 mg/20 mL in sterile water (premix) 2,000 mg (COMPLETED) 2,000 mg, intravenous, at 400 mL/hr, Administer over 3 Minutes, Once, On Wed08/29/24 at 0945, For 1 dose, Pre-Op, Indications: Prophylaxis, Surgical 1158 (Given - Provid er: Chay Brar CRNA) famotidine (PEPCID) tablet 20 mg (COMPLETED) 20 mg, oral, Once, On Wed08/29/24 at 0945, For 1 dose, Pre-Op, Indications: gastroesophageal reflux disease 0956 (Given - Provid er: Riog Seay RN) meclizine (ANTIVERT) tablet 25 mg (COMPLETED) 25 mg, oral, Once, On e 08/29/24 at 1015, For 1 dose, Pre-Op 0956 (Given - Provid er: Rigo Seay RN) oxyCODONE (ROXICODONE) tablet 5 mg (COMPLETED) 5 mg, oral, Once, On Wed08/29/24 at 1500, For 1 dose, Phase I & Post-op Floor, Indications: Pain 1438 (Given - Provid er: Rigo Seay RN) Continuous Medication Order 08/27/2024 08/28/2024 08/29/2024 Lactated Ringer's (LR) infusion 30 mL/hr, intravenous, Continuous, Starting on Wed08/29/24 at 0945, Pre-Op 0956 (New Bag - Prov ider: Rigo Seay RN)1145 (Rate/Dose Verify - Provider: Chay Brar CRNA)1238 (Paused - Provider: Chay Brar CRNA - Comment: Switch to gravity)1239 (Restarted - Provider: Chay Brar CRNA)2000 (Due: Stopped) PRN Medication Order 08/27/2024 08/28/2024 08/29/2024 BUPivacaine-EPINEPHrine (MARCAINE with EPI) 0.5 %-1:200,000 preservative free injection (CANCELED) As needed, Starting on e 08/29/24 at 1214, Intra-Op 1214 (Given - Provid er: Rangel Gastelum MD)1215 (Given - Provider: Rangel Gastelum MD) diphenhydrAMINE (BENADRYL) 50 mg/mL injection 12.5 mg 12.5 mg, intravenous, Every 15 min PRN, itching, Starting on Wed08/29/24 at 1248, For 2 doses, Phase I, Max cumulative dose 50 mg., Indications: Itching fentaNYL (SUBLIMAZE) preservative free injection 25 mcg 25 mcg, intravenous, Every 10 min PRN, For uncontrolled pain use in the pacu only, Starting on Wed08/29/24 at 1248, Phase I, Then proceed to PACU 1st line analgesic., Indications: Pain 1308 (Given - Provid er: Esperanza Blankenship RN) fentaNYL (SUBLIMAZE) preservative free injection 50 mcg 50 mcg, intravenous, Once as needed, breakthrough pain, Starting on Wed08/29/24 at 1248, For 1 dose, Phase I, Administer for uncontrolled or increasing pain while in PACU only. hydrALAZINE (APRESOLINE) injection 5 mg 5 mg, intravenous, Administer over 2 Minutes, Every 15 min PRN, high blood pressure, Starting on Wed08/29/24 at 1248, Phase I, Max cumulative dose 20 mg. Dose if systolic BP greater than 180 AND heart rate less than 70. HYDROmorphone (DILAUDID) injection 0.2 mg 0.2 mg, intravenous, Administer over 2 Minutes, Every 10 min PRN, 1st line for pain, Starting on Wed08/29/24 at 1248, Phase I, Switch to 2nd line analgesic order if pain is uncontrolled or increasing after 2 doses. Notify Anesthesiologist if total PACU dose reaches 2 mg and pain score 5/10 or more., Indications: Pain HYDROmorphone (DILAUDID) injection 0.4 mg 0.4 mg, intravenous, Administer over 2 Minutes, Every 10 min PRN, 2nd line for pain, Starting on Wed08/29/24 at 1248, Phase I, May administer 10 mintes after 2nd dose of 1st line analgesic agent for uncontrolled or increasing pain. Revert to 1st line dose if POSS of 3. Notify Anesthesiologist if total PACU dose reaches 2 mg and pain score 5/10 or more., Indications: Pain 1308 (Given - Provid er: Esperanza Blankenship RN) labetaloL (NORMODYNE,TRANDATE) injection 5 mg 5 mg, intravenous, at 30 mL/hr, Administer over 2 Minutes, Every 10 min PRN, high blood pressure, Starting on Wed08/29/24 at 1248, Phase I, Max cumulative dose 20 mg. Dose if systolic blood pressure greater than 180 AND HR greater than 70. lidocaine (PF) (XYLOCAINE) 10 mg/mL (1 %) preservative free injection 2-10 mg 2-10 mg (0.2-1 mL), other, Once as needed, pain with IV placement, Starting on Wed08/29/24 at 0907, For 1 dose, Pre-Op, Administer volume needed to infiltrate IV site. metoclopramide (REGLAN) 5 mg/mL injection 10 mg 10 mg, intravenous, Administer over 1 Minutes, Once as needed, nausea, vomiting, Starting on Wed08/29/24 at 1248, For 1 dose, Phase I, If nausea/vomiting not relieved by ondansetron within 30 minutes or if ondansetron has been given within the last 6 hours. naloxone (NARCAN) 0.4 mg/mL injection 0.04-0.4 mg 0.04-0.4 mg, intravenous, Once as needed, other, excessive sedation/respiratory depression, Starting on Wed08/29/24 at 1248, For 1 dose, Phase I, Dilute 0.4 mg with 9 mL NS (final concentration 0.04 mg/mL). For respiratory depression (respiratory rate less than 6), administer 0.4 mg IVP over 30 seconds. For excessive sedation administer 0.04 mg (1 mL) every 1 minute until desired level of alertness. For IV, administer over 30 seconds., Indications: Opioid Toxicity ondansetron (ZOFRAN) injection 4 mg (COMPLETED) 4 mg, intravenous, Administer over 2 Minutes, Once as needed, nausea, vomiting, Starting on Wed08/29/24 at 1248, For 1 dose, Phase I, Proceed to metoclopramide if ondansetron has been given within the last 6 hours. 1437 (Given - Provid er: Rigo Seay RN) documented in this encounter Orders Medications Ordered That Tim ht Not Have Been Administered Count Last Ordered Date First Ordered Date ceFAZolin (ANCEF) 2,000 mg/2 0 mL in sterile water (premix) 2,000 mg 1 08/29/2024 diphenhydrAMINE (BENADRYL) 5 0 mg/mL injection 12.5 mg 1 08/29/2024 fentaNYL (SUBLIMAZE) preserv ative free injection 50 mcg 1 08/29/2024 hydrALAZINE (APRESOLINE) injection 5 mg 1 0 08/29/2024 HYDROmorphone (DILAUDID) injection 0.2 mg 1 08/29/2024 labetaloL (NORMODYNE,TRANDAT E) injection 5 mg 1 08/29/2024 lidocaine (PF) (XYLOCAINE) 1 0 mg/mL (1 %) preservative free injection 2-10 mg 1 08/29/2024 metoclopramide (REGLAN) 5 mg /mL injection 10 mg 1 08/29/2024 naloxone (NARCAN) 0.4 mg/mL injection 0.04-0.4 mg 1 08/29/2024 Diet Count Last Ordered Date First Orde red Date ADULT DISCHARGE DIET 1 08/29/2024 Nursing Count Last Ordered Date First Orde red Date DISCHARGE ACTIVITY 4 08/29/2024 DISCHARGE CALL PROVIDER 5 08/29/2024 DISCHARGE DRESSING 1 08/29/2024 OTHER FOLLOW UP 1 08/29/2024 Discharge Count Last Ordered Date First Orde red Date DISCHARGE PATIENT 1 08/29/2024 documented in this encounter Care Teams Emergency Medical Technician/Driver Relationship Specialty Start Date End Date Glenna Nathan NP [address] [place] [address] PCP - General Family Medicine 08/10/24 Brendan Garcia NP [address] [place] [address] Psychiatry 08/10/24 documented as of this encounter
--- OUTSIDE RECORDS SUMMARY | 2024-08-30 21:50 | XMS_ITS | Encounter Summary ---
Author Organization [facility] Healthcare Address [address] [place] [address] Care Team Providers Care Flat Lock Operator Name Role Phone Brendan Garcia TUBE TURNER Unavailable [phone] Glenna Nathan TUBE TURNER Primary Care Provider [phone]- [phone] Reason for Visit * Auth/Cert (Routine) Specialty Diagnoses / Procedures Referred By Contac t Referred To Contact Diagnoses VOLUNTARY STERILIZATION Procedures AR LAPAROSCOPY W/PLMT OCCLUSION DEVICE OVIDUCTS LAPAROSCOPIC BILATERAL TUBAL LIGATION Referral ID Status Reason Start Date Expiration Date Visits Re quested Visits Authorized [id number] 1 1 Encounter Details Date Type Department Care Team (Late st Contact Info) Description 08/29/2024 11:45 AM CDT Anesthesia Event [address] [address] Josue Carrillo MD [address] [facility] [address] [address] Reji Encinas MD [facility] [place] [address] Anesthesia Record Procedure Summary Procedure Name Responsible Anesthesiologist Anesthesia Start Time Anesthesia Stop Time LAPAROSCOPIC BILATERAL TUBAL LIGATION (Bilateral: Abdomen) Josue Carrillo MD 08/29/24 1145 08/29/24 1254 Events Date Time Event Comment 08/29/2024 0956 1144 In Room 1145 An Start 1145 An Start Data 1152 An Induction The patient was reevaluated immediately before moderate or deep sedation use and before anesthesia induction. 1155 An Intubation 1159 Anesthesia Ready 1206 Proc Start 1244 Proc Fin 1244 An Extubation 1247 an stop data 1249 Out of Room 1251 Handoff to RN I completed my handoff to the receiving nurse during which we: 1. Patient identified 2. Responsible provider identified 3. Pertinent medical history reviewed 4. Procedure type and surgical course discussed 5. Intraoperative anesthetic management and any significant issues discussed 6. Expectations and concerns for postop period discussed 7. Questions solicited from receiving nurse 8. Patient disposition at the time of handoff: PACU 1254 An Stop Meds Name Total midazolam 1 mg/mL 2 mg propofol 200 mg lidocaine (cardiac) syringe 2 % 5 mL fentaNYL 50 mcg/mL PF 100 mcg rocuronium 40 mg ondansetron PF 4 mg dexAMETHasone 4 mg/mL 8 mg ceFAZolin (ANCEF) 2,000 mg/20 mL in ster ile water (premix) 2,000 mg 2,000 mg sugammadex 200 mg dexmedeTOMIDine 200 mcg/2 mL 20 mcg ketorolac 20 mg HYDROmorphone 2 mg/mL 0.8 mg Lactated Ringer's (LR) infusion 600 mL * Agents Name O2% N2O O2 N2O Air Sevoflurane Inspired Sevoflurane * Blood No blood administrations on file. Lines, Drains, and Airways Type Details Placement Removal Wound 08/29/24; 1218; N; Incision; Abdomen 08/29/24 1218 by Rosibel Carrington RN Peripheral IV Placement Date: 08/19 07/15; Placement Time: 0950; Catheter Size: 22 G; Orientation: Left, Posterior; Location: Hand; Site Prep: Chlorhexidine; Inserted by: roman saravia; Insertion Attempts: 2 (Plus 2 unsuccessful attempts per Jevon broderick); Patient Tolerance: Tolerated well; Removal Date: 08/29/24; Removal Time: 1535; Removal Reason: Therapy completed 08/29/24 0950 by Rigo Seay RN 08/29/24 1535 by Rigo Seay, JAVAD ETT Placement Date: 08/19 07/15; Placement Time: 1200 (created via procedure documentation); Mask Ventilation: 1; Technique: Direct laryngoscopy; Type: ETT - single; Single Lumen Tube Size: 7 mm; Cuffed: Yes; Laryngoscope: Calhoun; Blade Size: 2; Location: Oral; Grade View: Grade I; Insertion Attempts: 1; Placement Verification: Auscultation, Capnometry; Removal Date: 08/29/24; Removal Time: 1244 08/29/24 1200 by Chay Brar CRNA 08/29/24 1244 by Chay Brar CRNA documented in this encounter Social History Tobacco Use Types Packs/Day Years Used Date Smoking Tobacco: Former Cigarettes Smokeless Tobacco: Never Comments:Smoking History Pac ks/day: 10 Cigarettes Alcohol Use Standard Drinks/Week Comments [...] on file documented as of this encounter Functional Status * Audit-C Score Answer Date of Assessment Author 1 08/29/2024 9:41 AM Elham Samaniego RN * Question Answer Date of Assessment Author Q1: How often do you have a drink containing alcohol? Monthly or less 08/29/2024 9:41 AM Rigo Samaniego, JAVAD Q2: How many drinks containing alcohol do you have on a typical day when you are drinking? 1 or 2 08/29/2024 9:41 AM Rigo Samaniego R N Q3: How often do you have six or more drinks on one occasion? Never 08/29/2024 9:41 AM CDT Rigo Seay R N documented as of this encounter OR Notes * Anesthesia Postprocedure Evaluation - Josue Carrillo MD - 08/29/2024 1:22 PM CDT Patient: Mindy Troy Procedure Summary Date: 08/29/24 Room / Location: [facility] 01 [facility] Anesthesia Start: 1145 Anesthesia Stop: 1254 Procedure: LAPAROSCOPIC BILATERAL TUBAL LIGATION (Bilateral: Abdomen) Diagnosis: (VOLUNTARY STERILIZATION) Surgeons: Rangel Gastelum MD Responsible Provider: Josue Carrillo MD Anesthesia Type: general ASA Status: 2 Anesthesia Type: general Last vitals BP 134/91 (BP Location: Right arm, Patient Position: Lying;HOB 30 degrees) Pulse 81 Temp 36.3 ??C (97.4 ??F) (Temporal) Resp 17 SpO2 96% Anesthesia Post Evaluation Patient location during evaluation: PACU Patient participation: complete - patient participated Level of consciousness: fully awake Pain score: 0 Pain management: adequate Airway patency: adequate Evidence of recall: no Cardiovascular status: acceptable Respiratory status: acceptable Hydration status: acceptable Pt is: normothermic Nausea/Vomiting status: none No notable events documented. * Anesthesia Procedure Notes - Chay Brar CRNA - 08/29/2024 12:00 PM CDT Associated Order(s): Airway Airway Patient location: OR Urgency: elective Indications for airway management: anesthesia Difficult airway: no Staff: Placed by: CARTOGRAPHIC DRAFTER: Chay Brar CRNA Emergent airway documentation: Risks [...] with: pink tape. Number of attempts: 1 * Anesthesia Preprocedure Evaluation - Josue Carrillo MD - 08/29/2024 9:48 AM CDT Images from the original note were not included. Anesthesia Evaluation Mindy Troy is a 34 y.o. female LAPAROSCOPIC BILATERAL TUBAL LIGATION (Bilateral: Abdomen) * No Diagnosis Codes entered * HISTORY HPI Undesired fertility Past Medical History Information obtained from: patient and chart. Information obtained during: In Person Neurological + Seizures (Last seziure 10yrs ago. No treatment) - well controlled. + Psychiatric history - bipolar Cardiovascular Cardiac system: negative Respiratory + Asthma Rescue inhaler use: never. + Current smoker (Vape) - Counseled to abstain from smoking the day of surgery. Patient smoked on day of surgery. Hepatic / Heme + Liver disease - hepatitis C. Hepatic + Hepatitis Gastrointestinal + GERD - on daily therapy. Asymptomatic. Renal / + Renal disease - CKD + Renal failure/insuffiency + Nephrolithiasis Musculoskeletal/Pain Musculoskeletal/Pain system: negative Endocrine / Other + Infectious disease Functional Capacity Functional capacity: >10 METs Review of Systems Pertinent negatives: SOB; recent cold/flu and chest pain Patient Active Problem List Diagnosis Date Noted ??? KACIE (acute kidney injury) 04/17/2024 ??? ADHD 04/17/2024 ??? Polysubstance abuse (HCC) 04/17/2024 ??? Bipolar disorder (HCC) 04/17/2024 ??? Abdominal pain 04/17/2024 ??? Hematemesis, unspecified whether nausea present 04/17/2024 ??? Hepatitis C antibody test positive 04/17/2024 ??? Hematemesis 04/16/2024 ??? Heroin abuse complicating (HCC) 08/01/2014 ??? Nausea with vomiting 02/28/2013 ??? Gastroesophageal reflux disease 12/13/2012 ??? Difficulty breathing 11/04/2010 Past Medical History: Diagnosis Date ??? Anxiety and depression ??? Asthma ??? Attention deficit hyperactivity disorder ??? Bipolar 1 disorder (HCC) ??? Bipolar disorder (HCC) 04/17/2024 ??? Gastroesophageal reflux disease 12/13/2012 ??? Generalized anxiety disorder ??? Hepatitis C antibody test positive 04/17/2024 ??? Infectious viral hepatitis ??? Irritable bowel syndrome ??? Kidney stones ??? Methamphetamine use (HCC) ??? Motion sickness ??? Polysubstance abuse (HCC) 04/17/2024 ??? PONV (postoperative nausea and vomiting) ??? Seizure disorder (HCC) 2012 withdrawal from ETOH Past Surgical History: Procedure Laterality Date ??? SECTION ??? TONSILLECTOMY Tonsillectomy OB History 1 Para Term AB Living SAB IAB Ectopic Multiple Live Births Allergies Allergen Reactions ??? Adhesive Tape-Silicones Rash ??? Latex Rash Med List Status: Nurse Complete Set By: Mirna Lozano RN at 08/16/2024 4:11 PM Taking? Last Dose Start Date End Date Provider atomoxetine (STRATTERA) 80 mg capsule More than a month 01/17/24 -- ProviderMontrell MD cloNIDine ER (KAPVAY) 0.1 mg tablet extended release 12 hr More than a month 12/01/23 -- Montrell Prakash MD gabapentin (NEURONTIN) 600 mg tablet 08/28/2024 11/23/23 -- Montrell Prakash MD hydrOXYzine (ATARAX) 50 mg tablet 08/28/2024 -- -- Montrell Prakash MD lithium ER (ESKALITH) 450 mg CR tablet 08/28/2024 04/05/24 -- Montrell Prakash MD lurasidone (LATUDA) 60 mg tablet 08/28/2024 11/25/23 -- Montrell Prakash MD omeprazole (PriLOSEC) 20 mg capsule More than a month 11/22/23 -- Montrell Prakash MD oxyCODONE (ROXICODONE) 5 mg immediate release tablet 08/15/2024 04/20/24 -- Concepcion Arevalo MD Take 1 tablet (5 mg total) by mouth every 4 (four) hours as needed for pain Patient not taking: Reported on 08/16/[address] (PROTONIX) 40 mg EC tablet () More than a month 04/20/24 05/20/24 Johana Casas NP Take 1 tablet (40 mg total) by mouth 2 (two) times a day Patient not taking: Reported on 08/16/2024 prochlorperazine (COMPAZINE) 10 mg tablet () More than a month 04/20/24 05/20/24 Johana Casas NP Take 1 tablet (10 mg total) by mouth 3 (three) times a day as needed for nausea Patient not taking: Reported on 08/16/2024 risperiDONE (RisperDAL) 0.5 mg tablet More than a month 12/09/23 -- ProviderMontrell MD sofosbuvir-velpatasvir (EPCLUSA) 400-100 mg tablet per tablet () Not Taking 05/09/24 06/08/24 Dariela Zelaya MD PhD Take 1 tablet by mouth daily Patient not taking: Reported on 08/16/2024 Notes: Please dispense generic as that is what is covered on patients insurance plan [employer], 28, 0.25-35 mg-mcg per tablet More than a month 05/24/24 -- ProviderMontrell MD venlafaxine (EFFEXOR) 25 mg tablet More than a month 12/13/12 -- Montrell Prakash MD zolpidem (AMBIEN) 5 mg tablet 08/28/2024 04/05/24 -- ProviderMontrell MD Current Facility-Administered Medications: ??? acetaminophen (TYLENOL) tablet 975 mg, 975 mg, oral, Once ??? ceFAZolin (ANCEF) 2,000 mg/20 mL in sterile water (premix) 2,000 mg, 2,000 mg, intravenous, Once ??? famotidine (PEPCID) tablet 20 mg, 20 mg, oral, Once ??? Lactated Ringer's (LR) infusion, 30 mL/hr, intravenous, Continuous ??? lidocaine (PF) (XYLOCAINE) 10 mg/mL (1 %) preservative free injection 2-10 mg, 0.2-1 mL, other,Once PRN ??? meclizine (ANTIVERT) tablet 25 mg, 25 mg, oral, Once Social History Tobacco Use Smoking Status Former ??? Types: Cigarettes Smokeless Tobacco Never Tobacco Comments Smoking History Packs/day: 10 Cigarettes Alcohol Use: Not At Risk (08/29/2024) AUDIT-C ??? Frequency of Alcohol Consumption: Monthly or less ??? Average Number of Drinks: 1 or 2 ??? Frequency of Binge Drinking: Never Substance and Sexual Activity Drug Use No Family History Problem Relation Age of Onset ??? Diabetes Father Diabetes mellitus; ??? Hypertension Father Hypertension; ??? Migraines Father Migraine; ??? Colon cancer Neg Hx ??? Esophageal cancer Neg Hx ??? Liver cancer Neg Hx Vitals: 08/29/24 0935 BP: 117/85 Pulse: 76 Resp: 18 Temp: 36.8 ??C (98.3 ??F) SpO2: 97% PT: No results found for requested labs within last 30 days. INR: No results found for requested labs within last 30 days. APTT: No results found for requested labs within last 30 days. Hgb A1C: No results found for requested labs within last 30 days. CBC RBC: 08/23/2024: 4.42 M/cumm RDW: No results found for requested labs within last 30 days. MCHC: 08/23/2024: 33.6 g/dL MCH: 08/23/2024: 29.9 pg MCV: 08/23/2024: 88.9 fL Hct: 08/23/2024: 39.3 % Hgb: 08/23/2024: 13.2 g/dL WBC: 08/23/2024: 8.5 K/cumm MPV: 08/23/2024: 10.4 fL Platelets: 08/23/2024: 317 K/cumm RDW CV: 08/23/2024: 13.3 % RDW Sd: 08/23/2024: 43.6 fL BMP Glucose: No results found for requested labs within last 30 days. Calcium: No results found for requested labs within last 30 days. Sodium: No results found for requested labs within last 30 days. Potassium: No results found for requested labs within last 30 days. CO2: No results found for requested labs within last 30 days. Chloride: No results found for requested labs within last 30 days. BUN: No results found for requested labs within last 30 days. Creatinine: No results found for requested labs within last 30 days. STOP-Bang Total Score: 0 DOS Physical Exam Medical history, medications, and allergies reviewed. Attestation: This PAT evaluation 08/29/2024. Airway Exam: Mallampati: II Cervical ROM: FROM TM distance: normal Cardiovascular Exam: Rate: regular Rhythm: regular Pulmonary Exam: LCTA, bilat EENT Exam: trachea midline Dental Exam: Missing Current state: Patient's current state is cooperative. Anesthesia Plan ASA 2 My patient is approved for the Anesthesia Controlled Medication protocol when under care of a CARTOGRAPHIC DRAFTER Planned anesthesia: General Team communication plan: oral ET tube Induction: Induction: intravenous. Postoperative Plan: Postoperative administration opioids intended. No postoperative mechanical ventilation intended. Patient's planned disposition post procedure is Outpatient. Planned trial extubation. Informed Consent: Discussed plan with CARTOGRAPHIC DRAFTER. Anesthesia plan and risks discussed with patient. Consent and Attending signature: I and/or my designee have discussed the anesthesia plan, benefits, possible alternatives, parental presence at time of induction (if indicated), and clinically relevant risks that may include dental injury, unintentional awareness, and/or other complications. The patient and/or parent/legal guardian understand, and agree to proceed. All questions answered. documented in this encounter Plan of Treatment Not on file documented as of this encounter Procedures Procedure Name Priority Date/Time Associated Diagnosis Comments AR AN PROCEDURE PLACEHOLDER Routine 08/29/2024 12:00 PM CDT AR AN ELECTIVE ENDOTRACHEAL AIRWAY Routine 08/29/2024 12:00 PM CDT documented in this encounter Results * AR AN ELECTIVE ENDOTRACHEAL AIRWAY, AR AN PROCEDURE PLACEHOLDER (08/29/2024 12:00 PM CDT) Narrative Chay Brar CRNA - 08/29/2024 12:00 PM CDT Chay Brar CRNA 08/29/2024 12:00 PM Airway Patient location: OR Urgency: elective Indications for airway management: anesthesia Difficult airway: no Staff: Placed by: CARTOGRAPHIC DRAFTER: Chay Brar CRNA Emergent airway documentation: Risks [...] Carrillo MD ANESTHESIA ORDERABLE S Final Result documented in this encounter Visit Diagnoses Not on filedocumented in this encounter Administered Medications Inactive Administered Medications - up to 3 most recent administrations Medication Order MAR Action Action Date Dose Rate Site ceFAZolin (ANCEF) 2,000 mg/20 mL in sterile water (premix) 2,000 mg 2,000 mg, intravenous, at 400 mL/hr, Administer over 3 Minutes, Once, On Wed08/29/24 at 0945, For 1 dose, Pre-Op, Indications: Prophylaxis, SurgicalIndications:Prophylaxis , Surgical Given 08/29/2024 11:58 AM CDT 2,000 mg dexAMETHasone (DECADRON) 4 mg/mL injection intravenous, Administer over 2 Minutes, As needed, Starting on Wed08/29/24 at 1158, Anesthesia Intra-op Given 08/29/2024 11:58 AM CDT 8 mg dexmedeTOMIDine (PRECEDEX) injection intravenous, As needed, Starting on Wed08/29/24 at 1204, Anesthesia Intra-op Given 08/29/2024 12:07 PM CDT 10 mcg Given 08/29/2024 12:04 PM CDT 10 mcg fentaNYL (SUBLIMAZE) preservative free injection intravenous, As needed, Starting on Wed08/29/24 at 1147, Anesthesia Intra-op Given 08/29/2024 11:47 AM CDT 100 mc g HYDROmorphone (DILAUDID) injection intravenous, Administer over 2 Minutes, As needed, Starting on Wed08/29/24 at 1243, Anesthesia Intra-op Given 08/29/2024 12:47 PM CDT 0.4 mg Given 08/29/2024 12:43 PM CDT 0.4 mg ketorolac (TORADOL) 30 mg/mL injection intravenous, As needed, Starting on Wed08/29/24 at 1236, Anesthesia Intra-op Given 08/29/2024 12:36 PM CDT 20 mg Lactated Ringer's (LR) infusion 30 mL/hr, intravenous, Continuous, Starting on Wed08/29/24 at 0945, Pre-Op Restarted 08/29/2024 12:39 PM CDT Rate/Dose Verify 08/29/2024 11:45 AM CDT 30 mL/ hr New Bag 08/29/2024 9:56 AM CDT 30 mL/hr 30 mL/hr lidocaine (cardiac) (XYLOCAINE) preservative free injection intravenous, As needed, Starting on Wed08/29/24 at 1152, Anesthesia Intra-op, Indications: Ventricular ArrhythmiasIndications:Ventricular Arrhythmias Given 08/29/2024 11:52 AM CDT 5 mL midazolam (VERSED) 1 mg/mL injection intravenous, As needed, Starting on Wed08/29/24 at 1145, Anesthesia Intra-op Given 08/29/2024 11:45 AM CDT 2 mg ondansetron (ZOFRAN) injection intravenous, Administer over 2 Minutes, As needed, Starting on Wed08/29/24 at 1159, Anesthesia Intra-op Given 08/29/2024 11:59 AM CDT 4 mg propofoL (DIPRIVAN) 10 mg/mL IV intravenous, As needed, Starting on Wed08/29/24 at 1152, Anesthesia Intra-op Given 08/29/2024 11:52 AM CDT 200 mg rocuronium (ZEMURON) injection intravenous, As needed, Starting on Wed08/29/24 at 1153, Anesthesia Intra-op Given 08/29/2024 11:53 AM CDT 40 mg sugammadex (BRIDION) 100 mg/mL intravenous solution intravenous, As needed, Starting on Wed08/29/24 at 1237, Anesthesia Intra-op Given 08/29/2024 12:37 PM CDT 200 mg documented in this encounter Orders Medications Ordered That Tim ht Not Have Been Administered Count Last Ordered Date First Ordered Date sugammadex (BRIDION) 100 mg/ mL intravenous solution 1 08/29/2024 documented in this encounter Care Teams Flat Lock Operator Relationship Specialty Start Date End Date Glenna Nathan NP [address] [place] [address] PCP - General Family Medicine 08/10/24 Brendan Gacria NP [address] [place] [address] Psychiatry 08/10/24 documented as of this encounter
--- OUTSIDE RECORDS SUMMARY | 2024-08-30 21:50 | XMS_ITS | Referral Summary ---
Author Organization [facility] Address [address] [place] [address] Care Team Providers Care Hydraulics Teacher Name Role Phone Lilibeth Restrepo MD Primary Care Provider [phone] Source Comments [facility],non-owned Affiliates and Associated Physician Practices is amultiple site organization consisting of ambulatory clinics and hospital sitesin [place], [place], [place] and [place]. This disclosure is being madepursuant to the Care Everywhere program and may not contain all information available regarding this patient. Last updated 18.[facility] [employer] Allergies Active Allergy Reactions Criticality Noted Date Comments Adhesive Sensitivity Rash Low 06/26/2014 Codeine Nausea and/or Vomiting 06/26/2014 Latex Rash Low 06/26/2014 Medications * Be aware that medications may not be up to date on this document. Alwaysverify current medications with the patient. Medication Sig Dispensed Refills Start Date End Date Status diphenhydrAMINE (BENADRYL) 25 MG capsule Take 2 Caps by mouth at bedtime. 30 Cap 0 08/03/2014 Active docusate sodium (COLACE) 100 MG capsule Take 1 Cap by mouth 2 times daily. 60 Cap 1 08/03/2014 Active Vtejprvk-Fyi-Mx-F A ( VITAMIN WITH IRON) tablet Take 1 Tab by mouth once daily. 30 Tab 1 08/03/2014 Active ALPRAZolam (XANAX) 0.5 MG tablet Take 3-4 Tabs by mouth 3 times daily as needed for Anxiety. 27 Tab 0 08/03/2014 Active Additional Information Patient taking differently: 2 mgOral3 TIMES DAILY, Reported on 08/10/2014 methadone (DOLOPHINE) 10 MG tablet Take 40 mg by mouth once daily. Active hydrocortisone (HYTONE) 1 % creamIndications: Pruritus Apply to affected area 4 times daily as needed. Indications: Itching 56 g 2 08/10/2014 Active prochlorperazine (COMPAZINE) 10 MG tabletIndications :Severe Nausea and Vomiting Take 1 Tab by mouth every 6 hours as needed for Nausea/Vomiting. Indications: Severe Nausea and Vomiting 60 Tab 2 08/10/2014 Active promethazine (PHENERGAN) 25 MG suppository Insert 1 Suppository into the rectum every 6 hours as needed for Nausea/Vomiting. 16 Suppository 0 08/18/2014 Active metoclopramide (REGLAN) 10 MG tablet Take 1 Tab by mouth 3 times daily before meals. 60 Tab 0 08/18/2014 Active Active Problems Patient Care Coordination No te Formatting of this note migh t be different from the original. Patient requested to not discuss past OB history, and losses. Highly upsetting for her. 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 Partial bicornuate Seizure disorder 07/02/2014 IUFD (intrauterine ) 07/02/2014 Overview (08/01/2014): 24 week loss Social History Tobacco Use Types Packs/Day Years Used Date Smoking Tobacco: Every Day Cigarettes 0.5 10 Smokeless Tobacco: Never Tobacco Cessation:Ready to Q uit: No; Counseling Given: Yes Alcohol Use Standard Drinks/Week Comments No 0 (1 standard drink = 0.6 oz pure alcohol) occasionally prior to Sex and Gender Information Value Date Recorded Sex Assigned at Not on file Gender Identity Not on file Sexual Orientation Not on file Last Filed Vital Signs Vital Sign Reading Time Taken Comments Blood Pressure 120/73 08/18/2014 11:16 AM [employer] Pulse 110 08/10/2014 1:49 PM [employer] Temperature 36.7 C (98 F) 08/18/2014 11:12 AM [employer] Respiratory Rate 18 08/18/2014 11:12 AM [employer] Oxygen Saturation 99% 08/02/2014 7:51 PM [employer] Inhaled Oxygen Concentration - - Weight 61.2 kg (135 lb) 08/18/2014 11:12 AM [employer] Height 167.6 cm (5' 6 ) 08/18/2014 11:12 AM [employer] Body Mass Index 21.79 08/18/2014 11:12 AM [employer] Functional Status Functional Status Response Date of Assess ment Is person deaf or have serious hearing difficult y? No 08/05/2014 Is person blind or have serious difficulty seein g? No 08/05/2014 Does person have serious dif ficulty walking/climbing stairs? No 08/05/2014 Does person have difficulty dressing/bathing? No 08/05/2014 Does person have difficulty doing errands alone? No 08/05/2014 Cognitive Status Response Date of Assessm ent Does person have difficulty concentrating/remembering/making decisions? No 08/05/2014 Plan of Treatment Upcoming Encounters Date Type Department Care Team (Late st Contact Info) Description 10/13/2024 2:00 PM CDT Office Visit [facility] [address] [place] [address] Saumya Garcia M, [employer] TRAINER [address] [place] [id number] Procedures Procedure Name Priority Date/Time Associated Diagnosis Comments HEPATITIS C ANTIBODY STAT 08/02/2014 1:13 AM [employer] from Last 3 Months or Most Recently Relevant to Health Maintenance Results * HEPATITIS C ANTIBODY (08/02/2014 1:13 AM [employer]) HCV Antibody Screen Non Reactive Non Reactive 08/02/2014 3:00 AM [employer] [facility] HCV S/C Ratio 0.13 0.00 - 0.79 08/02/2014 3:00 AM [employer] [facility] Comment: S/C ratio <0.80: Non Reactive Blood BLOOD SPECIMEN / Unknown Venipuncture / Unknown 08/02/2014 1:13 AM [employer] 08/02/2014 1:36 AM [employer] CLE[employer]ER Narrative [facility] - 08/02/2014 3:00 AM [employer] Nonreactive - Antibodies to HCV were not detected, result does not exclude early acute HCV infection. Samantha Jacob MD LAB - CHEMISTRY ORDERABLES [facility] [address] [place] [address] from Last 3 Months or Most Recently Relevant to Health Maintenance Advance Directives * Full Code (Latest Code Status on File) Date Activated Date Inactivated Comments 08/01/2014 11:57 PM 08/03/2014 6:09 PM Care Teams Hydraulics Teacher Relationship Specialty Start Date End Date Lilibeth Restrepo MD [address] [place] [address] [place] [id number] PCP - General Internal Medicine 05/26/24
--- OUTSIDE RECORDS SUMMARY | 2024-08-30 21:50 | XMS_ITS | Patient Health Record ---
Author Organization [facility] Address [address] [place] [address] Care Team Providers Care Scientific Laboratory Supervisor Name Role Phone Glenna Nathan Primary Care Provider [phone] Brendan Garcia Unavailable [phone] Yannick Hernandez Unavailable [phone] Angela Orozco Unavailable [phone] Allergies Allergen (clinical drug ingredient) Drug/Non Drug Allergy documented on EMR Reaction Allergy Type Onset Date Status codeine Codeine nausea and vomiting Drug Allergy Active Results Component Value Reference Range Notes HIV Screen *HIV 1, 2 Ab, p24 Ag (315209) Reviewed date:12/06/2023 12:41:23 PM Interpretation:Negative Performing Lab:[facility], [address] [facility] [place], Phone - [phone], Director [facility] Notes/Report: HIV Ab/p24 Ag Screen Non Reactive Non Reactive HIV Negative HIV-1/HIV-2 antibodies and HIV-1 p24 antigen were NOT detected. There is no laboratory evidence of HIV infection. Treponema pallidum Antibodie s Reviewed date:12/06/2023 12:41:22 PM Interpretation:Negative Performing Lab:[facility] [place], [address] [facility], Phone - [phone], Director - [facility] Notes/Report: Treponema pallidum Antibodies Non Reactive Non Reactive Urinalysis In-House, Routine Reviewed date:11/29/2023 11:32:40 AM Interpretation: Performing Lab: Notes/Report: Urine-Color yellow Leukocytes neg Nitrite, Urine neg Urobilinogen,Semi-Qn 0.2 Protein neg pH 8.5 Occult Blood neg Specific [place] 1.020 Ketones neg Bilirubin neg Glucose neg UA/M w/rflx Culture, Comp Reviewed date:11/30/2023 08:00:56 AM Interpretation:Abnormal Performing Lab:[facility], [address] [place] [address], Phone - [phone], Director - Kofi Notes/Report: Specific [place] 1.018 1.005-1.030 pH 8.5 5.0-7.5 Urine-Color Yellow Yellow Appearance Clear Clear WBC Esterase Negative Negative Protein Negative Negative/Trace Glucose Negative Negative Ketones Negative Negative Occult Blood Negative Negative Bilirubin Negative Negative Urobilinogen,Semi-Qn 0.2 0.2-1.0 mg/dL Nitrite, Urine Negative Negative Microscopic Examination Micr oscopic follows if indicated. Microscopic Examination See below: Micr oscopic was indicated and was performed. Urinalysis Reflex This speci men will not reflex to a Urine Culture. WBC None seen 0 - 5 /hpf RBC None seen 0 - 2 /hpf Epithelial Cells (non renal) 0-10 0 - 10 /hpf Casts None seen None seen /lpf Bacteria Few None seen/Few NuSwab Vaginitis Plus (VG+) (193908) Reviewed date:12/20/2023 04:36:16 PM Interpretation:Normal Performing Lab:[address], Phone - [phone], Director - Taemra Notes/Report: Test(s) 801003- Atopobium vaginae; 222767- BVAB 2; 529865- Megasphaera 1 was developed and its performance characteristics determined by [employer]. It has not been cleared or approved by the Food and Drug Administration. Test(s) 935174-Elcbqkt albicans, MERY; 717992-Hmxpuar glabrata, MERY was developed and its performance characteristics determined by [employer]. It has not been cleared or approved by the Food and Drug Administration. Atopobium vaginae High - 2 BVAB 2 Low - 0 Megasphaera 1 Low - 0 Calculate total score by adding the 3 individual bacterial vaginosis (BV) marker scores together. Total score is interpreted as follows: Total score 0-1: Indicates the absence of BV. Total score 2: Indeterminate for BV. Additional clinical data should be evaluated to establish a diagnosis. Total score 3-6: Indicates the presence of BV. Geno albicans, MERY Negative Negative Geno glabrata, MERY Negative Negative Trich vag by MERY Negative Negative Chlamydia trachomatis, MERY Negative Negative Neisseria gonorrhoeae, MERY Negative Negative Urinalysis In-House, Routine Reviewed date:12/16/2023 09:27:32 AM Interpretation: Performing Lab: Notes/Report: Leukocytes neg Nitrite, Urine neg Urobilinogen,Semi-Qn 0.2 Protein neg pH 5.5 Occult Blood trace Specific [place] 1.030 Ketones trace Bilirubin small Glucose neg Pap IG, Aptima HPV () Reviewed date:12/02/2023 10:55:21 AM Interpretation:Normal Performing Lab:[facility], [address] [place] [address], Phone - [phone], Director - Tamera Notes/Report: Clinical Information:[id number] DIAGNOSIS: NEGATIVE FOR INTRAEPITHELIAL LESION OR MALIGNANCY. Specimen adequacy: Satisfactory for evaluation. Endocervical and/or squamous metaplastic cells (endocervical component) are present. Clinician provided ICD10: R39.9 Z01.419 Performed by: Carlitos Sutton, Licensed Staff Mft (ASCP) . . Note: The Pap smear is a screening test designed to aid in the detection of premalignant and malignant conditions of the uterine cervix. It is not a diagnostic procedure and should not be used as the sole means of detecting cervical cancer. Both false-positive and false-negative reports do occur. . Test Methodology: This liquid based ThinPrep(R) pap test was screened with the use of an image guided system. HPV Aptima Negative Negative This nucleic acid amplification test detects fourteen high-risk HPV types (16,18,31,33,35,39,45,51,5 2,56,58,59,66,68) without differentiation. PDF Report Reviewed date:12/02/2023 10:55:21 AM Interpretation:Normal Performing Lab:[facility], [address] [place] [address], Phone - [phone], Director - Tamera Notes/Report: Clinical Information:[id number] PDF Report1 LCLS Hemoglobin A1c* Reviewed date:11/29/2023 12:02:47 PM Interpretation:Normal [facility]forming [facility], [address] [place] [address], Phone - [phone], Director - Kofi Notes/Report: Hemoglobin A1c 5.2 4.8-5.6 % . Prediabetes: 5.7 - 6.4 Diabetes: >6.4 Glycemic control for adults with diabetes: <7.0 CBC With Differential/Platel et* Reviewed date:11/29/2023 08:14:13 AM Interpretation:Normal [facility]forming [facility], [address] [facility], Phone - [phone], Director - [facility] Notes/Report: WBC 6.6 3.4-10.8 x10E3/uL RBC 4.17 3.77-5.28 x10E6/uL Hemoglobin 13.6 11.1-15.9 g/dL Hematocrit 40.9 34.0-46.6 % MCV 98 79-97 fL MCH 32.6 26.6-33.0 pg MCHC 33.3 31.5-35.7 g/dL RDW 12.5 11.7-15.4 % Platelets 300 150-450 x10E3/uL Neutrophils 57 Not Estab. % Lymphs 29 Not Estab. % Monocytes 9 Not Estab. % Eos 4 Not Estab. % Basos 0 Not Estab. % Neutrophils (Absolute) 3.8 1.4-7.0 x10E3/uL Lymphs (Absolute) 1.9 0.7-3.1 x10E3/uL Monocytes(Absolute) 0.6 0.1-0.9 x10E3/uL Eos (Absolute) 0.2 0.0-0.4 x10E3/uL Baso (Absolute) 0.0 0.0-0.2 x10E3/uL Immature Granulocytes 1 Not Estab. % Immature Grans (Abs) 0.0 0.0-0.1 x10E3/uL Lipid Panel* Reviewed date:11/29/2023 08:14:14 AM Interpretation:Abnormal Performing Lab:[facility], [address] [facility], Phone - [phone], Director - Kofi Notes/Report: Cholesterol, Total 209 100-199 mg/dL Triglycerides 67 0-149 mg/dL HDL Cholesterol 102 >39 mg/dL VLDL Cholesterol Adi 12 5-40 mg/dL LDL Chol Calc (NIH) 95 0-99 mg/dL CMP 14 Comprehensive Metabol ic Panel* Reviewed date:11/29/2023 08:14:14 AM Interpretation:Normal Performing Lab:[facility], [address] [place] [address], Phone - [phone], Director - [facility] Notes/Report: Glucose 99 70-99 mg/dL BUN 9 6-20 mg/dL Creatinine 0.80 0.57-1.00 mg/dL eGFR 100 >59 mL/min/1.73 BUN/Creatinine Ratio 11 9-23 Sodium 137 134-144 mmol/L Potassium 4.4 3.5-5.2 mmol/L Chloride 100 96-106 mmol/L Carbon Dioxide, Total 21 20-29 mmol/L Calcium 9.6 8.7-10.2 mg/dL Protein, Total 6.9 6.0-8.5 g/dL Albumin 4.1 3.9-4.9 g/dL Globulin, Total 2.8 1.5-4.5 g/dL A/G Ratio 1.5 1.2-2.2 Bilirubin, Total 0.3 0.0-1.2 mg/dL Alkaline Phosphatase 67 44-121 IU/L AST (SGOT) 27 0-40 IU/L ALT (SGPT) 27 0-32 IU/L TSH Rfx on Abnormal to Free T4 Reviewed date:11/29/2023 08:14:14 AM Interpretation:Normal Performing Lab:[facility], [address] [place] [address], Phone - [phone], [facility] Notes/Report: TSH 0.740 0.450-4.500 uIU/mL Urinalysis In-House, Routine Reviewed date:12/07/2023 01:53:32 PM Interpretation: Performing Lab: Notes/Report: Leukocytes Large Nitrite, Urine Positive Urobilinogen,Semi-Qn 4.0 Protein 100 pH 5.0 Occult Blood negative Specific [place] 1.020 Ketones 15 Bilirubin small Glucose 250 Hemoglobin A1c* Reviewed date:05/08/2024 09:27:05 AM Interpretation:High Performing Lab:[facility], [address] [facility], Phone - [phone], Director - [facility]uti Notes/Report: Hemoglobin A1c 5.7 4.8-5.6 % . Prediabetes: 5.7 - 6.4 Diabetes: >6.4 Glycemic control for adults with diabetes: <7.0 CBC With Differential/Platel et* Reviewed date:05/08/2024 09:27:05 AM Interpretation:Abnormal Performing Lab:[facility], [address] [facility], Phone - [phone], Director - [facility] Notes/Report: WBC 7.7 3.4-10.8 x10E3/uL RBC 4.56 3.77-5.28 x10E6/uL Hemoglobin 14.0 11.1-15.9 g/dL Hematocrit 41.5 34.0-46.6 % MCV 91 79-97 fL MCH 30.7 26.6-33.0 pg MCHC 33.7 31.5-35.7 g/dL RDW 11.6 11.7-15.4 % Platelets 338 150-450 x10E3/uL Neutrophils 54 Not Estab. % Lymphs 34 Not Estab. % Monocytes 5 Not Estab. % Eos 6 Not Estab. % Basos 1 Not Estab. % Neutrophils (Absolute) 4.2 1.4-7.0 x10E3/uL Lymphs (Absolute) 2.6 0.7-3.1 x10E3/uL Monocytes(Absolute) 0.4 0.1-0.9 x10E3/uL Eos (Absolute) 0.5 0.0-0.4 x10E3/uL Baso (Absolute) 0.0 0.0-0.2 x10E3/uL Immature Granulocytes 0 Not Estab. % Immature Grans (Abs) 0.0 0.0-0.1 x10E3/uL Lipid Panel* Reviewed date:05/08/2024 09:27:05 AM Interpretation:Abnormal Performing Lab:[facility], [address] [facility], [place], Phone - [phone], Director - [facility] Notes/Report: Cholesterol, Total 206 100-199 mg/dL Triglycerides 113 0-149 mg/dL HDL Cholesterol 51 >39 mg/dL VLDL Cholesterol Adi 20 5-40 mg/dL LDL Chol Calc ([facility]) 135 0-99 mg/dL CMP 14 Comprehensive Metabol ic Panel* Reviewed date:05/08/2024 09:27:05 AM Interpretation:Abnormal Performing Lab:[facility], [address] [facility], Phone - [phone], Director - [facility] Notes/Report: Glucose 142 70-99 mg/dL BUN 10 6-20 mg/dL Creatinine 1.12 0.57-1.00 mg/dL eGFR 67 >59 mL/min/1.73 BUN/Creatinine Ratio 9 9-23 Sodium 138 134-144 mmol/L Potassium 4.5 3.5-5.2 mmol/L Chloride 102 96-106 mmol/L Carbon Dioxide, Total 20 20-29 mmol/L Calcium 9.5 8.7-10.2 mg/dL Protein, Total 7.1 6.0-8.5 g/dL Albumin 4.0 3.9-4.9 g/dL Globulin, Total 3.1 1.5-4.5 g/dL Bilirubin, Total 0.3 0.0-1.2 mg/dL Alkaline Phosphatase 67 44-121 IU/L AST (SGOT) 18 0-40 IU/L ALT (SGPT) 15 0-32 IU/L TSH Rfx on Abnormal to Free T4 Reviewed date:05/08/2024 09:27:05 AM Interpretation:Normal [facility]forming Lab:[facility], [address] [facility], Phone - [phone], Director - [facility] Notes/Report: TSH 3.070 0.450-4.500 uIU/mL CMP 14 Comprehensive Metabol ic Panel* Reviewed date:05/24/2024 11:07:19 AM Interpretation: Performing Lab: Notes/Report: TSH+Free T4* Reviewed date:05/24/2024 11:07:25 AM Interpretation: Performing Lab: Notes/Report: Test, Urine Reviewed date:11/22/2023 11:35:05 AM Interpretation: Performing Lab: Notes/Report: Test, Urine Neg Negative - Negative NuSwab Vaginitis Plus (VG+) (399798) Reviewed date:11/24/2023 08:16:04 AM Interpretation:Abnormal [facility]forming [facility] [place], [address] [place] [address], Phone - [phone], Director - Tamera Notes/Report: Test(s) 762679- Atopobium vaginae; 022598- BVAB 2; 962863- Megasphaera 1 was developed and its performance characteristics determined by [employer]. It has not been cleared or approved by the Food and Drug Administration. Test(s) 650602-Pseokho albicans, MERY; 346875-Qxbswlo glabrata, MERY was developed and its performance characteristics determined by [employer]. It has not been cleared or approved by the Food and Drug Administration. Atopobium vaginae High - 2 BVAB 2 High - 2 Megasphaera 1 High - 2 Calculate total score by adding the 3 individual bacterial vaginosis (BV) marker scores together. Total score is interpreted as follows: Total score 0-1: Indicates the absence of BV. Total score 2: Indeterminate for BV. Additional clinical data should be evaluated to establish a diagnosis. Total score 3-6: Indicates the presence of BV. Geno albicans, MERY Negative Negative Geno glabrata, MERY Negative Negative Trich vag by MERY Positive Negative Chlamydia trachomatis, MERY Negative Negative Neisseria gonorrhoeae, MERY Negative Negative Reason For Referral No Information Medications Medication SIG (Take, Route, Frequency, Duration) Notes Start Date End Date Status Ondansetron HCl 4 MG 1 tablet for nausea Orally Twice a day for 7 days 08/09/2024 Active Metoclopramide HCl 5 MG 1 tablet before lunch Orally once daily for 7 days As needed Take once daily before lunch on unit- please deliver 11/25/2023 Active Lidocaine 5 % APPLY 1 PATCH DAILY REMOVE AFTER 12 HOURS for 10 Active Vivitrol 380 MG as directed Intramuscular monthly (to give several days after client has taken and tolerated oral naltrexone) 12/08/2023 Not-Taking Melatonin 5 MG 1 tablet in the evening Orally Once a day Active Lurasidone HCl 60 MG 1 tablet in the evening with food Orally Once a day for 30 days 11/25/2023 Active hydrOXYzine HCl 50 MG 0.5 - 1 tablet as needed Orally Every six hours for 30 days As needed for anxiety Active Gabapentin 600 MG 1 capsule Orally Every 8 hours for 30 days As needed for anxiety/panic 11/23/2023 Active Channahon Carbonate ER 450 MG 1 tablet at bedtime Orally Once a day for 30 days 04/05/2024 Active Zolpidem Tartrate 10 MG 0.5 - 1 tablet at bedtime Orally Once a day. Do NOT take with alcohol or opioids. for 30 days As needed for insomnia. 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 Stress is when someone feels tense, nervous, anxious, or can\t sleep at night because their mind is troubled Somewhat In the past year have you sp ent more than 2 nights in a row in a [place], long-term, long term center, or juvenile correctional facility? Yes Do you feel physically and e motionally safe where you currently live? Yes In the past year, have you b een afraid of your partner or ex-partner? No PRAPARE Score: 6 Tobacco Control (Standard) Question Answer Notes Tobacco use: Current every day smoker Additional Findings: Tobacco user e-ciga rette,Light cigarette smoker (1-9 cigs/day) Problems Problem Type SNOMED Code ICD Code Onset Dates Problem Status W/U Status Risk Notes Problem Gastroesophageal reflux disease (882363512) GERD (gastroesophageal reflux disease) (K21.9) Active confirmed Problem Attention deficit hyperactivity disorder (619084881) ADHD (attention deficit hyperactivity disorder) (F90.9) Active confirmed Problem Bipolar 1 disorder (988077232) Bipolar 1 disorder (F31.9) Active confirmed Problem Asthma (528594467) Asthma (J45.909) Active conf irmed Problem Generalized anxiety disorder (47282321) DESEAN (generalized anxiety disorder) (F41.1) Active confirmed Problem Gastritis (1579974) Gastritis (K29.70) Active c onfirmed Problem Missed period (64471975) Missed menses (N92.6) Active confirmed Problem Concentration deficit (R41.840) Active confirmed Problem Stimulant abuse (790722385) Methamphetamine use disorder, mild, 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) Active confirmed Problem Tobacco use (446318249) Tobacco use disorder (F17.200) Active confirmed Problem 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) Active confirmed Vital Signs Heart Rate 90 /min 03/09/2024 Respiratory Rate 16 /min 03/09/2024 Blood pressure diastolic 82 mm Hg 03/09/2024 Oximetry 98 % 03/09/2024 Height 65 in 03/09/2024 Blood pressure systolic 124 mm Hg 03/09/2024 Weight 180 lb 6 oz lbs 03/09/2024 BMI 30.01 kg/m2 03/09/2024 Encounters Encounter Location Date Provider Diagnosis [facility] [place] [address] 11/26/2023 Glenna Nathan Screening for thyroi d disorder Z13.29 ; Screening for metabolic disorder Z13.228 ; Screening for hyperlipidemia Z13.220 ; Screening for deficiency anemia Z13.0 and Screening for diabetes mellitus Z13.1 [facility] [place] [address] 11/22/2023 Glenna Nathan Nicotine dependence, unspecified, uncomplicated F17.200 ; Adult general medical exam Z00.00 ; GERD (gastroesophageal reflux disease) K21.9 ; Nausea R11.0 ; Exposure to potential infection Z20.9 and Missed menses N92.6 [place] [address] [place] [address] 11/22/2023 Angela Orozco [address] [place] [address] 11/23/2023 Brendan Garcia Nicotine dependence, unspecified, uncomplicated F17.200 and Bipolar 1 disorder F31.9 [address] [address] [place] [address] 11/25/2023 Glenna Nathan Establishing care wi th new doctor, encounter for Z71.89 ; Asthma J45.909 ; Nausea R11.0 ; Screening for deficiency anemia Z13.0 ; Screening for diabetes mellitus Z13.1 ; Screening for metabolic disorder Z13.228 ; Screening for hyperlipidemia Z13.220 and Screening for thyroid disorder Z13.29 [address] [place] [address] [place] [address] 11/29/2023 Glenna Nathan Well woman exam with routine gynecological exam Z01.419 ; Exposure to potential infection Z20.9 and Symptoms of urinary tract infection R39.[address] [place] [address] 12/01/2023 Brendan Garcia Bipolar 1 disorder F31.9 and DESEAN (generalized anxiety disorder) F41.1 [address] [place] [address] 12/02/2023 Glenna Nathan UTI symptoms R39.9 ; Gastritis K29.70 and Muscle ache M79.10 [address] [place] [address] [place] [address] 12/07/2023 Glenna Nathan Muscle ache M79.10 ; Epigastric abdominal pain R10.13 and Nicotine dependence, unspecified, uncomplicated F17.[address] [place] [address] 12/08/2023 Brendan Garcia Bipolar 1 disorder F31.9 ; DESEAN (generalized anxiety disorder) F41.1 and Methamphetamine abuse in remission F15.[address] [address] 12/14/2023 Brendan Garcia Bipolar 1 disorder F31.9 ; DESEAN (generalized anxiety disorder) F41.1 ; Methamphetamine abuse in remission F15.11 ; Benzodiazepine abuse in remission F13.11 and Concentration deficit R41.840 [facility] [address] [place] [address] 12/14/2023 Angela Orozco [facility] [address] [place], [place] [address] [address] 12/16/2023 Yannick Lukerajan Methamphetamine use disorder, mild, in early remission F15.10 ; Overweight (BMI 25.0-29.9) E66.3 and Tobacco use disorder F17.[address] [address] 01/17/2024 Brendan Garcia Bipolar 1 disorder F31.9 ; DESEAN (generalized anxiety disorder) F41.1 ; Methamphetamine use disorder, mild, in early remission F15.10 ; Benzodiazepine abuse in remission F13.11 and Concentration deficit R41.[address] [address] 03/09/2024 Brendan Garcia Bipolar 1 disorder F31.9 ; Concentration deficit R41.840 and DESEAN (generalized anxiety disorder) F41.[address] [address] 04/05/2024 Brendan Garcia Bipolar 1 disorder F31.9 ; DESEAN (generalized anxiety disorder) F41.1 ; Concentration deficit R41.840 and Medication monitoring encounter Z51.[address] [address] 05/22/2024 Brendan Garcia Bipolar 1 disorder F31.9 ; DESEAN (generalized anxiety disorder) F41.1 and Concentration deficit R41.[address] [address] 06/26/2024 Brendan Garcia Bipolar 1 disorder F31.9 and DESEAN (generalized anxiety disorder) F41.[address] [place] [address] 08/09/2024 Brendan Garcia Bipolar 1 disorder F31.9 ; DESEAN (generalized anxiety disorder) F41.1 and Nausea R11.[address] [place] [address] 11/22/2023 Glenna Nathan [address] [place] [address] 11/24/2023 Glenna Nathan Vaginitis N76.0 and Trichomonal infection A59.[address] [place] [address] 11/25/2023 Brendan Garcia Bipolar 1 disorder F31.[address] [place] [address] 11/29/2023 Glenna Nathan [address] [address] 12/01/2023 Glenna Nathan Symptoms of urinary tract infection R39.[address] [address] 12/07/2023 Glenna Nathan [address] [address] 12/08/[address] [address] 12/15/2023 Brendan Garcia Concentration defici t R41.840 and GERD (gastroesophageal reflux disease) K21.9 [facility] [address] [place] [address] 12/16/2023 Brendan Garcia Concentration defici t R41.[address] [address] 12/20/2023 Glenna Nathan [address] [address] 12/28/[address] [place] [address] 12/31/2023 Brendan Garcia [address] [address] 01/21/2024 Brendan Garcia Concentration defici t R41.[address] [address] 01/24/2024 Brendan Garcia [facility] [address] [address] 02/11/2024 Brendan Garcia Bipolar 1 disorder F31.9 and DESEAN (generalized anxiety disorder) F41.[address] [address] 05/08/2024 Glenna Nathan [address] [address] 05/08/2024 Brendan Garcia Bipolar 1 disorder F31.9 ; DESEAN (generalized anxiety disorder) F41.1 and Concentration deficit R41.[address] [address] 05/17/2024 Brendan Garcia [address] [address] 08/08/2024 Glenna Nathan Assessments Encounter Date Diagnosis (ICD Code) Assessment Notes Treatment Notes Treatment Clinical Notes Section Notes 11/25/2023 Bipolar 1 disorder (ICD-10 - F31.9) 11/26/2023 Screening for thyroid disorder (ICD-10 - Z13.29) 12/07/2023 Epigastric abdominal pain (ICD-10 - R10.13) 12/07/2023 Muscle ache (ICD-10 - M79.10) 08/09/2024 Bipolar 1 disorder (ICD-10 - F31.9) Client doing well, no tx plan changes needed. Has reported flu and requests prn zofran as has nausea. Will send in one week script. 08/09/2024 DESEAN (generalized anxiety disorder) (ICD-10 - F41.1) Client doing well, no tx plan changes needed. Has reported flu and requests prn zofran as has nausea. Will send in one week script. 06/26/2024 Bipolar 1 disorder (ICD-10 - F31.9) Client doing well. Self stopped fluoxetine as wants streamlined treatment plan and she felt it had limited benefit. No treatment plan changes aside from discontinuation of fluoxetine. 05/08/2024 Bipolar 1 disorder (ICD-10 - F31.9) 04/05/2024 Bipolar 1 disorder (ICD-10 - F31.9) Client continues to struggle with mood regulation and depression. Is open to trial of lithium as has failed multiple medications at this point and goal is to wean of risperidone and only be on one SGA. Client agreeable to this trial. Gabapentin increased due to client's continued high levels of anxiety. Encouraged client to continue in therapy and use learned coping skills as well. Discussed the use of exercise as a way to decrease stress levels as well since client is trying to lose weight and has not been exercising. 04/05/2024 DESEAN (generalized anxiety disorder) (ICD-10 - F41.1) Client continue s to struggle with mood regulation and depression. Is open to trial of lithium as has failed multiple medications at this point and goal is to wean of risperidone and only be on one SGA. Client agreeable to this trial. Gabapentin increased due to client's continued high levels of anxiety. Encouraged client to continue in therapy and use learned coping skills as well. Discussed the use of exercise as a way to decrease stress levels as well since client is trying to lose weight and has not been exercising. 03/09/2024 Bipolar 1 disorder (ICD-10 - F31.9) Client has not been sleeping and feels this is impacting her energy levels. Has felt atomoxetine has been helpful and requests dose increase. Discussed with client, unclear if this will assist anxiety or worsen (depends if anxiety rooted in ADHD potential or bipolarity), client understands and wishes to continue with dose increase. Risperidone decreased to morning only as client feels the night time dose is contributing to her restlessness. Given client is on clonidine/gabape ntin already and trialed trazodone with no success, other options for sleep include doxepin, mirtazapine, ambien and the risks vs benefits of these were discussed. Client is fearful of weight gain as she has gained weight recently (risperidone being weaned off) and would like to trial low dose ambien as her mother has had good luck with this medication in the past for her insomnia. 01/21/2024 Concentration deficit (ICD-10 - R41.840) 01/17/2024 Bipolar 1 disorder (ICD-10 - F31.9) 12/16/2023 Concentration deficit (ICD-10 - R41.840) 12/16/2023 Overweight (BMI 25.0-29.9) (ICD-10 - E66.3) 12/16/2023 Methamphetamine use disorder, mild, in early remission (ICD-10 - F15.10) 12/15/2023 Concentration deficit (ICD-10 - R41.840) 12/08/2023 Bipolar 1 disorder (ICD-10 - F31.9) Client continues to have destabilized mood and high levels of anxiety. C/o auditory hallucinations and paranoia after stopping caplyta and being solely on Latuda at 20 mg. Discussed increasing Latuda to 40 mg and a trial of risperidone during day (lower dose) as a faster way towards stabilization after client requests something during the day for her mood and anxiety. Suggested dose of 0.25 TID but client would rather 0.5 BID. Client also requests trying vivitrol to prevent methamphetamine cravings. Trazodone/gabape ntin increased for non-resolved anxiety/insomnia . 12/08/2023 DESEAN (generalized anxiety disorder) (ICD-10 - F41.1) Client continue s to have destabilized mood and high levels of anxiety. C/o auditory hallucinations and paranoia after stopping caplyta and being solely on Latuda at 20 mg. Discussed increasing Latuda to 40 mg and a trial of risperidone during day (lower dose) as a faster way towards stabilization after client requests something during the day for her mood and anxiety. Suggested dose of 0.25 TID but client would rather 0.5 BID. Client also requests trying vivitrol to prevent methamphetamine cravings. Trazodone/gabape ntin increased for non-resolved anxiety/insomnia . 12/02/2023 Gastritis (ICD-10 - K29.70) Pt. is currently on PPI and Zofran 12/02/2023 UTI symptoms (ICD-10 - R39.9) 12/01/2023 Symptoms of urinary tract infection (ICD-10 - R39.9) 12/01/2023 Bipolar 1 disorder (ICD-10 - F31.9) Client with improvements noted in overall functioning. Residual anxiety, insomnia present. Client also c/o lack of focus/concentrat ion and wonders if r/t ADHD symptoms. Discussed that likely r/t bipolar disorder that is not wholey treated yet. However, discussed trial of clonidine ER that also treats ADHD and anxiety and will also address clients c/o nightmares and aide with insomnia. Client is agreeable to this as her son takes and she is familiar with medication. Dose increase to trazodone and gabapentin prn doses as well. Caplyta has been discontinued as it was not covered by insurance and it was replaced with Latuda. Client stated she was taking them both due to some confusion about this and having received Caplyta samples. This probably aided stabilization and did discuss that after stopping Caplyta if feels she decompensates some, to let staff know to alert provider and Latuda dose can be increased to 40 mg by doubling up on 20 mg to taking 2 of these tablets (as #30 quantity was sent to pharmacy at last appointment). No other treatment plan changes. F/u appointment scheduled for next WednesdayDecember 07 via zoom at 08:40. 12/01/2023 DESEAN (generalized anxiety disorder) (ICD-10 - F41.1) Client with improvements noted in overall functioning. Residual anxiety, insomnia present. Client also c/o lack of focus/concentrat ion and wonders if r/t ADHD symptoms. Discussed that likely r/t bipolar disorder that is not wholey treated yet. However, discussed trial of clonidine ER that also treats ADHD and anxiety and will also address clients c/o nightmares and aide with insomnia. Client is agreeable to this as her son takes and she is familiar with medication. Dose increase to trazodone and gabapentin prn doses as well. Caplyta has been discontinued as it was not covered by insurance and it was replaced with Latuda. Client stated she was taking them both due to some confusion about this and having received Caplyta samples. This probably aided stabilization and did discuss that after stopping Caplyta if feels she decompensates some, to let staff know to alert provider and Latuda dose can be increased to 40 mg by doubling up on 20 mg to taking 2 of these tablets (as #30 quantity was sent to pharmacy at last appointment). No other treatment plan changes. F/u appointment scheduled for next WednesdayDecember 07 via zoom at 08:40. 11/29/2023 Well woman exam with routine gynecological exam (ICD-10 - Z01.419) 11/29/2023 Exposure to potential infection (ICD-10 - Z20.9) 11/25/2023 Asthma (ICD-10 - J45.909) 11/25/2023 Establishing care with new doctor, encounter for (ICD-10 - Z71.89) 11/24/2023 Vaginitis (ICD-10 - N76.0) 11/24/2023 Trichomonal infection (ICD-10 - A59.9) 05/22/2024 Bipolar 1 disorder (ICD-10 - F31.9) Client agreeable to stopping risperidone (already titrated off), atomoxetine (she feels it is not helping), and clonidine ER (stopping as she wants to increase Ambien and due to c/o daytime fatigue). Ambien increased to 10 mg, Prozac started at 20 mg. No other treatment plan changes. Recent lab work reviewed with client. Channahon level that was written for did not get drawn. CMP will need repeating due to creatinine 1.12. Discussed can rewrite for lithium and CMP in a month once known client is going to stay on lithum. She has had a lot of medications changes recently. Channahon dose low at 450 mg ER daily. 11/23/2023 Nicotine dependence, unspecified, uncomplicated (ICD-10 - F17.200) Client with a myriad of symptom complaints including sleep paralysis, anxiety, insomnia, racing thoughts, depression, obssessional/int rusive thought processes. However, after evaluation, it appears that most of client's symptoms are related to untreated bipolar 1 disorder. Client provided with psychoeducation on bipolar disorder. How treatment can elevate many of her symptoms. Client is agreeable to a trial of Caplyta. This medication chosen due to client's residual AH/VH (possibly from prior hx of methampethamine use). Client requested aide for insomnia. Trazodone sent in. Gabapentin sent in as prn for anxiety/panic. Client with remote hx of asthma and propranolol was not a first line choice due to this. F/u appointment made for next week on WednesdayNovember 30 at 10:00 via zoom. 11/23/2023 Bipolar 1 disorder (ICD-10 - F31.9) Client with a myriad of symptom complaints including sleep paralysis, anxiety, insomnia, racing thoughts, depression, obssessional/int rusive thought processes. However, after evaluation, it appears that most of client's symptoms are related to untreated bipolar 1 disorder. Client provided with psychoeducation on bipolar disorder. How treatment can elevate many of her symptoms. Client is agreeable to a trial of Caplyta. This medication chosen due to client's residual AH/VH (possibly from prior hx of methampethamine use). Client requested aide for insomnia. Trazodone sent in. Gabapentin sent in as prn for anxiety/panic. Client with remote hx of asthma and propranolol was not a first line choice due to this. F/u appointment made for next week on WednesdayNovember 30 at 10:00 via zoom. 11/22/2023 Nicotine dependence, unspecified, uncomplicated (ICD-10 - F17.200) 02/11/2024 Bipolar 1 disorder (ICD-10 - F31.9) 11/22/2023 Adult general medical exam (ICD-10 - Z00.00) 12/14/2023 Bipolar 1 disorder (ICD-10 - F31.9) Client continues to have visual and auditory hallucinations though reports they are improving. Continues to have high levels of anxiety and requests risperidone dosage increased. No drowsiness with medication. Continues to have intermittent insomnia. Concentration deficits, possible ADHD symptoms and agreeable to trial of Qelbree with caution that if anxiety worsens by this medication to alert office. Belief that will likely improve anxiety given client feels very impulsive/racing thoughts. Qelbree/vivitrol combination may benefit client's soberity attempts as well. Difficult to control myriad of symptoms. Long-standing drug use hx with unknown potential effects and this has been discussed with client including the potential for AH/VH that may be chcf issue r/t prior methamphetamine usage versus bipolar symptoms. Client requests to get vivitrol injection prior to discharge. Please give tomorrow. 12/14/2023 DESEAN (generalized anxiety disorder) (ICD-10 - F41.1) Client continue s to have visual and auditory hallucinations though reports they are improving. Continues to have high levels of anxiety and requests risperidone dosage increased. No drowsiness with medication. Continues to have intermittent insomnia. Concentration deficits, possible ADHD symptoms and agreeable to trial of Qelbree with caution that if anxiety worsens by this medication to alert office. Belief that will likely improve anxiety given client feels very impulsive/racing thoughts. Qelbree/vivitrol combination may benefit client's soberity attempts as well. Difficult to control myriad of symptoms. Long-standing drug use hx with unknown potential effects and this has been discussed with client including the potential for AH/VH that may be chcf issue r/t prior methamphetamine usage versus bipolar symptoms. Client requests to get vivitrol injection prior to discharge. Please give tomorrow. 02/11/2024 DESEAN (generalized anxiety disorder) (ICD-10 - F41.1) 11/22/2023 GERD (gastroesophageal reflux disease) (ICD-10 - K21.9) 05/22/2024 DESEAN (generalized anxiety disorder) (ICD-10 - F41.1) Client agreeabl e to stopping risperidone (already titrated off), atomoxetine (she feels it is not helping), and clonidine ER (stopping as she wants to increase Ambien and due to c/o daytime fatigue). Ambien increased to 10 mg, Prozac started at 20 mg. No other treatment plan changes. Recent lab work reviewed with client. Channahon level that was written for did not get drawn. CMP will need repeating due to creatinine 1.12. Discussed can rewrite for lithium and CMP in a month once known client is going to stay on lithum. She has had a lot of medications changes recently. Channahon dose low at 450 mg ER daily. 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 C/o auditory hallucinations and paranoia after stopping caplyta and being solely on Latuda at 20 mg. Discussed increasing Latuda to 40 mg and a trial of risperidone during day (lower dose) as a faster way towards stabilization after client requests something during the day for her mood and anxiety. Suggested dose of 0.25 TID but client would rather 0.5 BID. Client also requests trying vivitrol to prevent methamphetamine cravings. Trazodone/gabape ntin increased for non-resolved anxiety/insomnia . 12/16/2023 Tobacco use disorder (ICD-10 - F17.200) 12/15/2023 GERD (gastroesophageal reflux disease) (ICD-10 - K21.9) 01/17/2024 DESEAN (generalized anxiety disorder) (ICD-10 - F41.1) 04/05/2024 Concentration deficit (ICD-10 - R41.840) Client continues to struggle with mood regulation and depression. Is open to trial of lithium as has failed multiple medications at this point and goal is to wean of risperidone and only be on one SGA. Client agreeable to this trial. Gabapentin increased due to client's continued high levels of anxiety. Encouraged client to continue in therapy and use learned coping skills as well. Discussed the use of exercise as a way to decrease stress levels as well since client is trying to lose weight and has not been exercising. 03/09/2024 Concentration deficit (ICD-10 - R41.840) Client has not been sleeping and feels this is impacting her energy levels. Has felt atomoxetine has been helpful and requests dose increase. Discussed with client, unclear if this will assist anxiety or worsen (depends if anxiety rooted in ADHD potential or bipolarity), client understands and wishes to continue with dose increase. Risperidone decreased to morning only as client feels the night time dose is contributing to her restlessness. Given client is on clonidine/gabape ntin already and trialed trazodone with no success, other options for sleep include doxepin, mirtazapine, ambien and the risks vs benefits of these were discussed. Client is fearful of weight gain as she has gained weight recently (risperidone being weaned off) and would like to trial low dose ambien as her mother has had good luck with this medication in the past for her insomnia. 05/08/2024 DESEAN (generalized anxiety disorder) (ICD-10 - F41.1) 06/26/2024 DESEAN (generalized anxiety disorder) (ICD-10 - F41.1) Client doing well. Self stopped fluoxetine as wants streamlined treatment plan and she felt it had limited benefit. No treatment plan changes aside from discontinuation of fluoxetine. 08/09/2024 Nausea (ICD-10 - R11.0) Client doing well, no tx plan changes needed. Has reported flu and requests prn zofran as has nausea. Will send in one week script. 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 Continues to have high levels of anxiety and requests risperidone dosage increased. No drowsiness with medication. Continues to have intermittent insomnia. Concentration deficits, possible ADHD symptoms and agreeable to trial of Qelbree with caution that if anxiety worsens by this medication to alert office. Belief that will likely improve anxiety given client feels very impulsive/racing thoughts. Qelbree/vivitrol combination may benefit client's soberity attempts as well. Difficult to control myriad of symptoms. 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 Client requests to get vivitrol injection prior to discharge. Please give tomorrow. 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 Continues to have high levels of anxiety and requests risperidone dosage increased. No drowsiness with medication. Continues to have intermittent insomnia. Concentration deficits, possible ADHD symptoms and agreeable to trial of Qelbree with caution that if anxiety worsens by this medication to alert office. Belief that will likely improve anxiety given client feels very impulsive/racing thoughts. Qelbree/vivitrol combination may benefit client's soberity attempts as well. Difficult to control myriad of symptoms. 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 Client requests to get vivitrol injection prior to discharge. Please give tomorrow. 11/25/2023 Screening for deficiency anemia (ICD-10 - Z13.0) 11/26/2023 Screening for hyperlipidemia (ICD-10 - Z13.220) 12/07/2023 Nicotine dependence, unspecified, uncomplicated (ICD-10 - F17.200) 05/08/2024 Concentration deficit (ICD-10 - R41.840) 04/05/2024 Medication monitoring encounter (ICD-10 - Z51.81) Client continues to struggle with mood regulation and depression. Is open to trial of lithium as has failed multiple medications at this point and goal is to wean of risperidone and only be on one SGA. Client agreeable to this trial. Gabapentin increased due to client's continued high levels of anxiety. Encouraged client to continue in therapy and use learned coping skills as well. Discussed the use of exercise as a way to decrease stress levels as well since client is trying to lose weight and has not been exercising. 03/09/2024 DESEAN (generalized anxiety disorder) (ICD-10 - F41.1) Client has not been sleeping and feels this is impacting her energy levels. Has felt atomoxetine has been helpful and requests dose increase. Discussed with client, unclear if this will assist anxiety or worsen (depends if anxiety rooted in ADHD potential or bipolarity), client understands and wishes to continue with dose increase. Risperidone decreased to morning only as client feels the night time dose is contributing to her restlessness. Given client is on clonidine/gabape ntin already and trialed trazodone with no success, other options for sleep include doxepin, mirtazapine, ambien and the risks vs benefits of these were discussed. Client is fearful of weight gain as she has gained weight recently (risperidone being weaned off) and would like to trial low dose ambien as her mother has had good luck with this medication in the past for her insomnia. 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 Ambien increased to 10 mg, Prozac started at 20 mg. No other treatment plan changes. Recent lab work reviewed with client. Channahon level that was written for did not get drawn. CMP will need repeating due to creatinine 1.12. Discussed can rewrite for lithium and CMP in a month once known client is going to stay on lithum. She has had a lot of medications changes recently. Channahon dose low at 450 mg ER daily. 11/22/2023 Nausea (ICD-10 - R11.0) 12/14/2023 Concentration deficit (ICD-10 - R41.840) Client continues to have visual and auditory hallucinations though reports they are improving. Continues to have high levels of anxiety and requests risperidone dosage increased. No drowsiness with medication. Continues to have intermittent insomnia. Concentration deficits, possible ADHD symptoms and agreeable to trial of Qelbree with caution that if anxiety worsens by this medication to alert office. Belief that will likely improve anxiety given client feels very impulsive/racing thoughts. Qelbree/vivitrol combination may benefit client's soberity attempts as well. Difficult to control myriad of symptoms. Long-standing drug use hx with unknown potential effects and this has been discussed with client including the potential for AH/VH that may be chcf issue r/t prior methamphetamine usage versus bipolar symptoms. Client requests to get vivitrol injection prior to discharge. Please give tomorrow. 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 11/23/2023 Other Discussed sleep hygiene and caffeine intake with encouragement to limit electronic devices an hour before bed and to limit caffeine after 3:00pm. Exercise benefits for mood and health discussed. Psychoeducation regarding psychiatric illness provided. Client was educated about risks and benefits of medication, alternatives to medication, off label uses of medication, suicidal ideation with SSRIs, self-administratio n and compliance with medication along with how to safely store medication. Verbal informed consent obtained. Client agrees to return sooner if symptoms worsen or if suicidal or homicidal ideations occur. Client has the phone number to the 24-hour crisis line at [facility]. Questions addressed. Client verbalized understanding of all information and is agreeable to treatment plan. Client with a myriad of symptom complaints including sleep paralysis, anxiety, insomnia, racing thoughts, depression, obssessional/int rusive thought processes. However, after evaluation, it appears that most of client's symptoms are related to untreated bipolar 1 disorder. Client provided with psychoeducation on bipolar disorder. How treatment can elevate many of her symptoms. Client is agreeable to a trial of Caplyta. This medication chosen due to client's residual AH/VH (possibly from prior hx of methampethamine use). Client requested aide for insomnia. Trazodone sent in. Gabapentin sent in as prn for anxiety/panic. Client with remote hx of asthma and propranolol was not a first line choice due to this. F/u appointment made for next week on WednesdayNovember 30 at 10:00 via zoom. 11/25/2023 Other Learning About the Safe Use of Antibiotics material was discussed. Pt was educated on use of antibiotic medication including dosing, side effects, adverse effects and anticipated response. Pt was also educated on importance of completing full course of treatment as ordered. Patient voiced understanding of all. 11/29/2023 Other Learning About the Safe Use of Antibiotics material was discussed. Pt was educated on use of antibiotic medication including dosing, side effects, adverse effects and anticipated response. Pt was also educated on importance of completing full course of treatment as ordered. Patient voiced understanding of all. 12/01/2023 Other Discussed sleep hygiene and caffeine intake with encouragement to limit electronic devices an hour before bed and to limit caffeine after 3:00pm. Exercise benefits for mood and health discussed. Psychoeducation regarding psychiatric illness provided. Client was educated about risks and benefits of medication, alternatives to medication, off label uses of medication, suicidal ideation with SSRIs, self-administratio n and compliance with medication along with how to safely store medication. Verbal informed consent obtained. Client agrees to return sooner if symptoms worsen or if suicidal or homicidal ideations occur. Client has the phone number to the 24-hour crisis line at [facility]. Questions addressed. Client verbalized understanding of all information and is agreeable to treatment plan. Client with improvements noted in overall functioning. Residual anxiety, insomnia present. Client also c/o lack of focus/concentrat ion and wonders if r/t ADHD symptoms. Discussed that likely r/t bipolar disorder that is not wholey treated yet. However, discussed trial of clonidine ER that also treats ADHD and anxiety and will also address clients c/o nightmares and aide with insomnia. Client is agreeable to this as her son takes and she is familiar with medication. Dose increase to trazodone and gabapentin prn doses as well. Caplyta has been discontinued as it was not covered by insurance and it was replaced with Latuda. Client stated she was taking them both due to some confusion about this and having received Caplyta samples. This probably aided stabilization and did discuss that after stopping Caplyta if feels she decompensates some, to let staff know to alert provider and Latuda dose can be increased to 40 mg by doubling up on 20 mg to taking 2 of these tablets (as #30 quantity was sent to pharmacy at last appointment). No other treatment plan changes. F/u appointment scheduled for next WednesdayDecember 07 via zoom at 08:40. 12/08/2023 Other Discussed sleep hygiene and caffeine intake with encouragement to limit electronic devices an hour before bed and to limit caffeine after 3:00pm. Exercise benefits for mood and health discussed. Psychoeducation regarding psychiatric illness provided. Client was educated about risks and benefits of medication, alternatives to medication, off label uses of medication, suicidal ideation with SSRIs, self-administratio n and compliance with medication along with how to safely store medication. Verbal informed consent obtained. Client agrees to return sooner if symptoms worsen or if suicidal or homicidal ideations occur. Client has the phone number to the 24-hour crisis line at [facility]. Questions addressed. Client verbalized understanding of all information and is agreeable to treatment plan. Client continues to have destabilized mood and high levels of anxiety. C/o auditory hallucinations and paranoia after stopping caplyta and being solely on Latuda at 20 mg. Discussed increasing Latuda to 40 mg and a trial of risperidone during day (lower dose) as a faster way towards stabilization after client requests something during the day for her mood and anxiety. Suggested dose of 0.25 TID but client would rather 0.5 BID. Client also requests trying vivitrol to prevent methamphetamine cravings. Trazodone/gabape ntin increased for non-resolved anxiety/insomnia . 12/14/2023 Other Discussed sleep hygiene and caffeine intake with encouragement to limit electronic devices an hour before bed and to limit caffeine after 3:00pm. Exercise benefits for mood and health discussed. Psychoeducation regarding psychiatric illness provided. Client was educated about risks and benefits of medication, alternatives to medication, off label uses of medication, suicidal ideation with SSRIs, self-administratio n and compliance with medication along with how to safely store medication. Verbal informed consent obtained. Client agrees to return sooner if symptoms worsen or if suicidal or homicidal ideations occur. Client has the phone number to the 24-hour crisis line at [facility]. Questions addressed. Client verbalized understanding of all information and is agreeable to treatment plan. Client continues to have visual and auditory hallucinations though reports they are improving. Continues to have high levels of anxiety and requests risperidone dosage increased. No drowsiness with medication. Continues to have intermittent insomnia. Concentration deficits, possible ADHD symptoms and agreeable to trial of Qelbree with caution that if anxiety worsens by this medication to alert office. Belief that will likely improve anxiety given client feels very impulsive/racing thoughts. Qelbree/vivitrol combination may benefit client's soberity attempts as well. Difficult to control myriad of symptoms. 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 Client requests to get vivitrol injection prior to discharge. Please give tomorrow. 12/16/2023 Other Discussed medication side effects, adverse effects, risks, benefits, as well as interactions. Encouraged non-use of methamphetamines or other illicit substances. Has naloxone. Has Vivitrol alert bracelet, necklace, and wallet card. Agrees to return to office in 28 days for next injection. Recommended participation in recovery groups and/or counseling services. May contact office with questions or concerns. 01/17/2024 Other Discussed sleep hygiene and caffeine intake with encouragement to limit electronic devices an hour before bed and to limit caffeine after 3:00pm. Exercise benefits for mood and health discussed. Psychoeducation regarding psychiatric illness provided. Client was educated about risks and benefits of medication, alternatives to medication, off label uses of medication, suicidal ideation with SSRIs, self-administratio n and compliance with medication along with how to safely store medication. Verbal informed consent obtained. Client agrees to return sooner if symptoms worsen or if suicidal or homicidal ideations occur. Client has the phone number to the 24-hour crisis line at [facility]. Questions addressed. Client verbalized understanding of all information and is agreeable to treatment plan. 03/09/2024 Other Discussed sleep hygiene and caffeine intake with encouragement to limit electronic devices an hour before bed and to limit caffeine after 3:00pm. Exercise benefits for mood and health discussed. Psychoeducation regarding psychiatric illness provided. Client was educated about risks and benefits of medication, alternatives to medication, off label uses of medication, suicidal ideation with SSRIs, self-administratio n and compliance with medication along with how to safely store medication. Verbal informed consent obtained. Client agrees to return sooner if symptoms worsen or if suicidal or homicidal ideations occur. Client has the phone number to the 24-hour crisis line at [facility]. Questions addressed. Client verbalized understanding of all information and is agreeable to treatment plan. Client has not been sleeping and feels this is impacting her energy levels. Has felt atomoxetine has been helpful and requests dose increase. Discussed with client, unclear if this will assist anxiety or worsen (depends if anxiety rooted in ADHD potential or bipolarity), client understands and wishes to continue with dose increase. Risperidone decreased to morning only as client feels the night time dose is contributing to her restlessness. Given client is on clonidine/gabape ntin already and trialed trazodone with no success, other options for sleep include doxepin, mirtazapine, ambien and the risks vs benefits of these were discussed. Client is fearful of weight gain as she has gained weight recently (risperidone being weaned off) and would like to trial low dose ambien as her mother has had good luck with this medication in the past for her insomnia. 04[place]05/2024 [place]. Client has been educated to take gabapentin several hours apart from zolpidem to limit risks of respiratory depression and verbalizes understanding. Discussed sleep hygiene and caffeine intake with encouragement to limit electronic devices an hour before bed and to limit caffeine after 3:00pm. Exercise benefits for mood and health discussed. Psychoeducation regarding psychiatric illness provided. Client was educated about risks and benefits of medication, alternatives to medication, off label uses of medication, suicidal ideation with SSRIs, self-administratio n and compliance with medication along with how to safely store medication. Verbal informed consent obtained. Client agrees to return sooner if symptoms worsen or if suicidal or homicidal ideations occur. Client has the phone number to the 24-hour crisis line at [facility]. Questions addressed. Client verbalized understanding of all information and is agreeable to treatment plan. Client continues to struggle with mood regulation and depression. Is open to trial of lithium as has failed multiple medications at this point and goal is to wean of risperidone and only be on one SGA. Client agreeable to this trial. Gabapentin increased due to client's continued high levels of anxiety. Encouraged client to continue in therapy and use learned coping skills as well. Discussed the use of exercise as a way to decrease stress levels as well since client is trying to lose weight and has not been exercising. 05/22/2024 [place]. Discussed sleep hygiene and caffeine intake with encouragement to limit electronic devices an hour before bed and to limit caffeine after 3:00pm. Exercise benefits for mood and health discussed. Psychoeducation regarding psychiatric illness provided. Client was educated about risks and benefits of medication, alternatives to medication, off label uses of medication, suicidal ideation with SSRIs, self-administratio n and compliance with medication along with how to safely store medication. Verbal informed consent obtained. Client agrees to return sooner if symptoms worsen or if suicidal or homicidal ideations occur. Client has the phone number to the 24-hour crisis line at [facility]. Questions addressed. Client verbalized understanding of all information and is agreeable to treatment plan. Client agreeable to stopping risperidone (already titrated off), atomoxetine (she feels it is not helping), and clonidine ER (stopping as she wants to increase Ambien and due to c/o daytime fatigue). Ambien increased to 10 mg, Prozac started at 20 mg. No other treatment plan changes. Recent lab work reviewed with client. Channahon level that was written for did not get drawn. CMP will need repeating due to creatinine 1.12. Discussed can rewrite for lithium and CMP in a month once known client is going to stay on lithum. She has had a lot of medications changes recently. Channahon dose low at 450 mg ER daily. 06/26/2024 [place]. Discussed sleep hygiene and caffeine intake with encouragement to limit electronic devices an hour before bed and to limit caffeine after 3:00pm. Exercise benefits for mood and health discussed. Psychoeducation regarding psychiatric illness provided. Client was educated about risks and benefits of medication, alternatives to medication, off label uses of medication, suicidal ideation with SSRIs, self-administratio n and compliance with medication along with how to safely store medication. Verbal informed consent obtained. Client agrees to return sooner if symptoms worsen or if suicidal or homicidal ideations occur. Client has the phone number to the 24-hour crisis line at [facility]. Questions addressed. Client verbalized understanding of all information and is agreeable to treatment plan. Client doing well. Self stopped fluoxetine as wants streamlined treatment plan and she felt it had limited benefit. No treatment plan changes aside from discontinuation of fluoxetine. 08/09/2024 [place]. Discussed sleep hygiene and caffeine intake with encouragement to limit electronic devices an hour before bed and to limit caffeine after 3:00pm. Exercise benefits for mood and health discussed. Psychoeducation regarding psychiatric illness provided. Client was educated about risks and benefits of medication, alternatives to medication, off label uses of medication, suicidal ideation with SSRIs, self-administratio n and compliance with medication along with how to safely store medication. Verbal informed consent obtained. Client agrees to return sooner if symptoms worsen or if suicidal or homicidal ideations occur. Client has the phone number to the 24-hour crisis line at [facility]. Questions addressed. Client verbalized understanding of all information and is agreeable to treatment plan. Client doing well, no tx plan changes needed. Has reported flu and requests prn zofran as has nausea. Will send in one week script. Plan Of Treatment No Information Insurance Providers Payer Name Payer Address Payer Phone Subscriber Number Group Number Insured Name Patient Relationship to Insured Coverage Start Date Coverage End Date [facility] [address] [place] [address] [id number] 1 Mindy Troy Self - patient is the insured 4 [facility] [employer] Claims Department [address] [place] [address] [id number] Mindy Troy Self - patient is the insured 6 6 [facility] [address] [place] [address] [id number] 1 Mindy Troy Self - patient is the insured 5 Medications Administered Medication Instructions Date of Administration Dosage Notes Vivitrol 12/16/2023 380 mg Pt. tolerated well. No questions or concerns at this time. Pt. is on the [facility] and is discharging to sober living in am. Therefore, this nurse provided pt. with when her next injection is due. Medical (General) History Medical History History ICD Code GERD Hypertension Asthma esophagus rupture April 27, 2024 Surgical History Surgery Date(Month/Year) section tonsillectomy and adenoidectomy 2011
--- OUTSIDE RECORDS SUMMARY | 2024-08-30 21:50 | XMS_ITS | Continuity of Care Document ---
Author Organization [facility] Address [address] [place] [address] Phone Care Team Providers Care Singer Songwriter Name Role Phone Saúl Garvey MD Unavailable Unavailable Allergies, Adverse Reactions, Alerts Substance Reaction Status Criticality No Known Allergies Active No Inform ation Medications Medication Instructions Dosage Effective Dates (start - stop) Status Comments Xanax 0.5 mg tablet take 1 tablet (0.5MG) by oral route every 4 - 6 hours as needed 0.5 MG - Active PRN for anxiety, avoid driving or operate machines Procedures Procedure Date PREV VISIT, NEW, AGE 18-39 Advance Directives Directive Yes / No Effective Date File Name No Information Encounters Encounter Description Practice Location Reason(s) For Visit Diagnoses Date Provider Providers Copied on Encounter [facility], [address] [place], [id number], tel:[phone] [facility] No Information [facility]. [address] [place] [id number], [place]. tel:[phone] PREV VISIT, NEW, AGE 18-39 [facility], [address] [place], [id number], [place] tel:[phone] [facility] Medicine Anxiety (chief complaint)s eizure (chief complaint) Routine Medical ExamRoutine Medical Exam [facility]. [address], [place], [place], [id number], [place]. tel:[phone] Family History Family Member Type Diagnosis Age At Onset No Information Payers Payer name Insurance type Covered democrat ID Authoriza tilenka(s) No Information Social History Type Description Quantity Date Captured Comments Sex Female Smoking Status No Information Chief Complaint And Reason For Visit No Information Plan Of Treatment Date Type Action Status Goal Tobacco cessation counseling completed History Of Present Illness Encounter Date Complaint History Of Prese nt Illness No Information Instructions Date Instruction Additional Infor mation No Information Assessments Type Assessment Date No Information
--- OUTSIDE RECORDS SUMMARY | 2024-08-30 21:50 | XMS_ITS | Clinical Summary ---
Author Organization [facility] Address [address] [place] [address] Care Team Providers Care Ethylbenzene Converter Operator Name Role Phone Lilibeth Restrepo MD Primary Care Provider [phone] Source Comments [facility],non-owned Affiliates and Associated Physician Practices is amultiple site organization consisting of ambulatory clinics and hospital sitesin [place], [place], [place] and [place]. This disclosure is being madepursuant to the Care Everywhere program and may not contain all information available regarding this patient. Last updated 18.[facility] Allergies Active Allergy Reactions Criticality Noted Date [...] times daily. 60 Cap 1 08/03/2014 Active Ebrdxedz-Vgl-Eu-F A ( VITAMIN WITH IRON) tablet Take [...] been confirmed Labs will be done at [facility] on 08-13 Problem Noted Date Diagnosed [...] ) 07/02/2014 Overview (08/01/2014): 24 week loss Family History Medical History Relation Name Comments Diabetes Maternal Grandfather Arthritis Maternal Grandmother Heart Disease Maternal Grandmother Hypertension Maternal Grandmother Arthritis Maternal Uncle juvenile arth ritis Diabetes Mother borderline Hypertension Mother Relation Name Status Comments Maternal Grandfather Maternal Grandmother Maternal Uncle Mother Social History Tobacco Use Types Packs/Day Years [...] Comments Blood Pressure 120/73 08/18/2014 11:16 AM [facility] Pulse 110 08/10/2014 1:49 PM [facility] Temperature 36.7 C (98 F) 08/18/2014 11:12 AM [facility] Respiratory Rate 18 08/18/2014 11:12 AM [facility] Oxygen Saturation 99% 08/02/2014 7:51 PM [facility] Inhaled Oxygen Concentration - - Weight 61.2 kg (135 lb) 08/18/2014 11:12 AM [facility] Height 167.6 cm (5' 6 ) 08/18/2014 11:12 AM [facility] Body Mass Index 21.79 08/18/2014 11:12 AM [facility] Plan of Treatment Upcoming Encounters Date Type Department Care Team (Late st Contact Info) Description 10/13/2024 2:00 PM CDT Office Visit [facility] [address] [place] [address] Saumya Garcia, HOME HEALTH RN-ASSEMBLY DETAILER [address] [place] [address] Health Maintenance Due Date Last Done Comments PAP SMEAR 1991 HIV SCREENING 2006 DTAP/TDAP/TD VACCINES (1 - Tdap) 2010 HEPATITIS B VACCINE (1 of 3 - 19+ 3-dose series) 2010 PNEUMOCOCCAL VACCINE (1 of 2 - PCV) 2010 COVID-19 VACCINE (1 - 2023-2 5 season) 2024 INFLUENZA VACCINE (#1) 2024 ZOSTER VACCINE (1 of 2) 2041 HEPATITIS C SCREENING Completed 08/02/2014 HIB VACCINE Aged Out No longer eligi ble based on patient's age to complete this topic HPV VACCINE Aged Out No longer eligi ble based on patient's age to complete this topic MENINGOCOCCAL (Group B) VACC INE SHARED DECISION-MAKING Aged Out No longer eligibl e based on patient's age to complete this topic MENINGOCOCCAL GROUPS A/C/Y/W VACCINE Aged Out No longer eligible b ased on patient's age to complete this topic Procedures Procedure Name Priority Date/Time Associated Diagnosis Comments HEPATITIS C ANTIBODY STAT 08/02/2014 1:13 AM [facility] from Last 3 Months or Most Recently Relevant to Health Maintenance Results * HEPATITIS C ANTIBODY (08/02/2014 1:13 AM [facility]) HCV Antibody Screen Non Reactive Non Reactive 08/02/2014 3:00 AM [facility] HCV S/C Ratio 0.13 0.00 - 0.79 08/02/2014 3:00 AM [facility] Comment: S/C ratio <0.80: Non Reactive Blood BLOOD SPECIMEN / Unknown Venipuncture / Unknown 08/02/2014 1:13 AM [facility] 08/02/2014 1:36 AM [facility] Narrative [facility] - 08/02/2014 3:00 AM [facility] Nonreactive - Antibodies to HCV were not detected, result does not exclude early acute HCV infection. Samantha Jacob MD LAB - CHEMISTRY ORDERABLES Performing Organization Address City/State/[facility] Co de Phone Number [facility] [address] [place], [place] [phone] from Last 3 Months or Most Recently Relevant to Health Maintenance Advance Directives * Full Code (Latest Code Status on File) Date Activated Date Inactivated Comments 08/01/2014 11:57 PM 08/03/2014 6:09 PM Care Teams Ethylbenzene Converter Operator Relationship Specialty Start Date End Date Lilibeth Restrepo MD [address] [place] [address] [place] [address] PCP - General Internal Medicine 05/26/24
--- OUTSIDE RECORDS SUMMARY | 2024-08-30 21:50 | XMS_ITS | Patient Health Summary ---
Author Organization [facility] Address [address] [place] [address] Care Team Providers Care L D Rn Name Role Phone Lilibeth Restrepo MD Primary Care Provider [phone] Note from [facility],non-owned Affiliates and Associated Physician Practices is amultiple site organization consisting of ambulatory clinics and hospital sitesin [place], [place], [place] and [place]. This disclosure is being madepursuant to the Care Everywhere program and may not contain all information available regarding this patient. Last updated 18.[facility] [place] Allergies * Adhesive Sensitivity(Rash) -Low Criticality * Codeine(Nausea and/or Vomiting) * Latex(Rash) -Low Criticality Medications * Be aware that medications may not be up to date on this document. Alwaysverify current medications with the patient. * diphenhydrAMINE (BENADRYL) 25 MG capsule(Started 08/03/2014) Take 2 Caps by mouth at bedtime. * docusate sodium (COLACE) 100 MG capsule(Started 08/03/2014) Take 1 Cap by mouth 2 times daily. 1 refill left * Amqpqpgn-Olh-Eh-FA ( VITAMIN WITH IRON) tablet(Started 08/03/2014) Take 1 Tab by mouth once daily. 1 refill left * ALPRAZolam (XANAX) 0.5 MG tablet(Started 08/03/2014) Take 3-4 Tabs by mouth 3 times daily as needed for Anxiety. * methadone (DOLOPHINE) 10 MG tablet Take 40 mg by mouth once daily. * hydrocortisone (HYTONE) 1 % cream(Started 08/10/2014) Apply to affected area 4 times daily as needed. Indications: Itching 2 refills left * prochlorperazine (COMPAZINE) 10 MG tablet(Started 08/10/2014) Take 1 Tab by mouth every 6 hours as needed for Nausea/Vomiting. Indications: Severe Nausea and Vomiting 2 refills left * promethazine (PHENERGAN) 25 MG suppository(Started 08/18/2014) Insert 1 Suppository into the rectum every 6 hours as needed for Nausea/Vomiting. * metoclopramide (REGLAN) 10 MG tablet(Started 08/18/2014) Take 1 Tab by mouth 3 times daily before meals. Active Problems Problem Noted Date Diagnosed Date Supervision of high-risk 08/01/2014 Anxiety 08/01/2014 Heroin abuse complicating 08/01/2014 Polysubstance abuse 08/01/2014 Tobacco use complicating 08/01/2014 Encounter for screening of mother 06/21 Previous delivery, antepartum condition or complication 07/02/2014 Bipolar I disorder 07/02/2014 Bicornuate uterus 07/02/2014 Seizure disorder 07/02/2014 IUFD (intrauterine ) 07/02/2014 Social History Tobacco Use Types Packs/Day Years [...] Comments Blood Pressure 120/73 08/18/2014 11:16 AM [facility] Pulse 110 08/10/2014 1:49 PM [facility] Temperature 36.7 C (98 F) 08/18/2014 11:12 AM [facility] Respiratory Rate 18 08/18/2014 11:12 AM [facility] Oxygen Saturation 99% 08/02/2014 7:51 PM [facility] Inhaled Oxygen Concentration - - Weight 61.2 kg (135 lb) 08/18/2014 11:12 AM [facility] Height 167.6 cm (5' 6 ) 08/18/2014 11:12 AM [facility] Body Mass Index 21.79 08/18/2014 11:12 AM [facility] Procedures * IMAGING/RADIOLOGY/XRAY RESULTS ORDER(Performed 08/23/2014) * URINALYSIS REFLEX MICROSCOPIC REFLEX CULTURE(Performed 08/18/2014) Performed for Supervision of high-risk , first trimester ([facility]) * DRUG ABUSE URINE PANEL(Performed 08/18/2014) Performed for Supervision of high-risk , first trimester ([facility]) * COMPREHENSIVE METABOLIC PANEL(Performed 08/18/2014) Performed for Hematemesis * CBC W AUTO DIFFERENTIAL(Performed 08/18/2014) Performed for Hematemesis * GLUCOSE - POINT OF CARE(Performed 08/18/2014) * SONOGRAM - TRANSVAGINAL(Performed 08/10/2014) Performed for Bicornuate uterus * DRUG ABUSE URINE PANEL(Performed 08/05/2014) Performed for Supervision of high-risk , first trimester ([facility]) * GLUCOSE PROTEIN KETONE URINE - POINT OF CAR(Performed 08/05/2014) Performed for Supervision of high-risk , first trimester ([facility]) * SONOGRAM - TRANSVAGINAL(Performed 08/02/2014) Performed for Previous delivery, antepartum condition or complication ([facility]), IUFD (intrauterine ) * URINE MICROSCOPIC ONLY REFLEX TO CULTURE(Performed 08/02/2014) * URINALYSIS REFLEX MICROSCOPIC REFLEX CULTURE(Performed 08/02/2014) * CULTURE URINE(Performed 08/02/2014) * DRUG ABUSE URINE PANEL(Performed 08/02/2014) * BLOOD TYPE VERIFICATION(Performed 08/02/2014) * HEPATITIS C ANTIBODY(Performed 08/02/2014) * HIV-1 HIV-2 ANTIBODY + HIV P24 AG RAPID PNL(Performed 08/02/2014) * COMPREHENSIVE METABOLIC PANEL(Performed 08/02/2014) * RUBELLA IMMUNE STATUS(Performed 08/02/2014) * TYPE + SCREEN PANEL(Performed 08/02/2014) * RPR(Performed 08/02/2014) * HEPATITIS B SURFACE ANTIGEN W RFLX CONFIRMATION(Performed 08/02/2014) * CBC W AUTO DIFFERENTIAL(Performed 08/02/2014) * OBSTETRIC PANEL (BEAKER)(Performed 08/02/2014) * HCG BETA BLOOD QUANTITATIVE(Performed 08/01/2014) * COMPREHENSIVE METABOLIC PANEL(Performed 08/01/2014) * CBC W AUTO DIFFERENTIAL(Performed 08/01/2014) * FIRST TRI NUCHAL TRANSLUCENCY W:SEQ SCREEN(Performed 07/13/2014) Performed for Bicornuate uterus, Seizure disorder ([facility]) * SONOGRAM - COMPLETE(Performed 06/26/2014) Performed for Supervision of other normal , first trimester Results * IMAGING/RADIOLOGY/XRAY RESULTS ORDER (08/23/2014 10:45 PM [facility]) Anatomical Region Laterality Modality Other Narrative 08/23/2014 10:45 PM [facility] Ordered by an unspecified provider. Scanned Document IMAGING * (ABNORMAL) URINALYSIS ROUTINE W/REFLEX TO CULTURE (08/18/2014 11:49 AM [facility]) Only the most recent of2 resultswithin the time period is included. Color UA Yellow Straw, Yellow, Dark Yellow 08/18/2014 12:22 PM [facility] Clarity UA Clear 08/18/2014 12:22 PM [facility] Specific [place] UA 1.028 1.005 - 1.030 08/18/2014 12:22 PM [facility] pH UA 8.5(H) 5.0 - 8.0 pH 08/18/2014 12:22 PM [facility] Protein UA 2+(A) Negative 08/18/2014 12:22 PM [facility] Blood UA Negative Negative 08/18/2014 12:22 PM [facility] Leukocyte UA Negative Negative 08/18/2014 12:22 PM [facility] Nitrite UA Negative Negative 08/18/2014 12:22 PM [facility] Glucose UA 2+(A) Negative 08/18/2014 12:22 PM [facility] Ketone UA 3+(A) Negative 08/18/2014 12:22 PM [facility] Bilirubin UA Negative Negative 08/18/2014 12:22 PM [facility] Urobilinogen UA 1.0 0.1 - 1.0 EU/dL 08/18/2014 12:22 PM [facility] WBC UA Auto 0-2 0-2, 2-5 #/hpf 08/18/2014 12:22 PM [facility] RBC UA Auto 2-5 0-2, 2-5 #/hpf 08/18/2014 12:22 PM [facility] Epithelial Cell UA Auto 2-5 0-2, 2-5 #/hpf 08/18/2014 12:22 PM [facility] Reflex Status Culture not indicated 08/18/2014 12:22 PM [facility] Urine URINE SPECIMEN OBTAINED BY CLEAN CATCH PROCEDURE / Unknown Collection / Unknown 08/18/2014 11:49 AM [facility] 08/18/2014 12:04 PM [facility] Dariela Mccain MD LAB - URINAL YSIS ORDERABLES Performing Organization Address City/[facility] Co de Phone Number [facility] [address] [place] [address] * (ABNORMAL) DRUG ABUSE URINE PANEL (08/18/2014 11:49 AM [facility]) Only the most recent of3 resultswithin the time period is included. [facility] Amphetamines Screen Urine Not Detected Not Detected 08/18/2014 12:21 PM [facility] Barbiturates Screen Urine Not Detected Not Detected 08/18/2014 12:21 PM [facility] Benzodiazepines Screen Urine Not Detected Not Detected 08/18/2014 12:21 PM [facility] Cannabinoids Screen Urine Detected(A) Not Detected 08/18/2014 12:21 PM [facility] Cocaine Screen Urine Detected(A) Not Detected 08/18/2014 12:21 PM [facility] Opiate Screen Urine Not Detected Not Detected 08/18/2014 12:21 PM [facility] Phencyclidine Screen Urine Not Detected Not Detected 08/18/2014 12:21 PM [facility] Urine URINE / Unknown Collection / Unknown 08/18/2014 11:49 AM [facility] 08/18/2014 12:04 PM [facility] Narrative [facility] - 08/18/2014 12:21 PM [facility] This drug screen is designed for MEDICAL purposes only. It is not to be used for legal purposes, including but not limited to worker's comp, police investigations, occupational issues, child custody, etc. Any positive result is only presumptive and must be confirmed with a separate confirmatory test ordered by the physician. Drug Screening Test Cutoff Values: AMPHETAMINES 1000 ng/ml BARBITURATES 200 ng/ml BENZODIAZEPINES 200 ng/ml CANNABINOIDS(THC) 50 ng/ml COCAINE 300 ng/ml OPIATES 300 ng/ml PHENCYCLIDINE(PCP)25 ng/ml Dariela Mccain MD LAB - URINE CHEMISTRY ORDERABLES Performing Organization Address City/[facility] Co de Phone Number [facility] [address] [place] [phone] * (ABNORMAL) CBC W AUTO DIFFERENTIAL (08/18/2014 11:05 AM [facility]) Only the most recent of3 resultswithin the time period is included. WBC 14.3(H) 4.4 - 10.7 x10^9/L 08/18/2014 11:17 AM [facility] RBC 3.74(L) 3.80 - 5.20 x10^12/L 08/18/2014 11:17 AM [facility] Hemoglobin 12.3 12.0 - 15.6 gm/dL 08/18/2014 11:17 AM [facility] Hematocrit 33.9(L) 35.9 - 45.5 % 08/18/2014 11:17 AM [facility] MCV 90.6 80.7 - 98.3 fl 08/18/2014 11:17 AM [facility] MCH 32.9 26.7 - 34.0 pg 08/18/2014 11:17 AM [facility] MCHC 36.3(H) 30.8 - 35.9 gm/dL 08/18/2014 11:17 AM [facility] Platelet Count 325 153 - 416 x10^9/L 08/18/2014 11:17 AM [facility] RDW-CV 13.0 12.1 - 14.9 % 08/18/2014 11:17 AM [facility] MPV 10.9 9.4 - 12.9 fl 08/18/2014 11:17 AM [facility] Neutrophils % 87.6(H) 44.0 - 73.0 % 08/18/2014 11:17 AM [facility] Lymphocytes % 7.4(L) 20.0 - 43.0 % 08/18/2014 11:17 AM [facility] Monocytes % 4.3(L) 5.0 - 13.0 % 08/18/2014 11:17 AM [facility] Eosinophils % 0.1 0.0 - 6.0 % 08/18/2014 11:17 AM [facility] Basophils % 0.1 0.0 - 2.0 % 08/18/2014 11:17 AM [facility] Immature Granulocytes 0.5 0 - 1 % 08/18/2014 11:17 AM [facility] Neutrophil Absolute 12.56(H) 2.01 - 7.14 x10^9/L 08/18/2014 11:17 AM [facility] Lymphocytes Absolute 1.06(L) 1.07 - 3.94 x10^9/L 08/18/2014 11:17 AM [facility] Monocytes Absolute 0.61 0.26 - 1.07 x10^9/L 08/18/2014 11:17 AM [facility] Eosinophils Absolute 0.01 0 - 0.47 x10^9/L 08/18/2014 11:17 AM [facility] Basophils Absolute 0.01 0 - 0.08 x10^9/L 08/18/2014 11:17 AM [facility] Immature Granulocytes Absolute 0.07(H) 0.00 - 0.06 x10^9/L 08/18/2014 11:17 AM [facility] Blood BLOOD SPECIMEN / Unknown Venipuncture / Unknown 08/18/2014 11:05 AM [facility] 08/18/2014 11:10 AM [facility] Dariela Mccain MD LAB - HEMATO LOGY ORDERABLES [facility] [address] [place] [place] [phone] * (ABNORMAL) COMPREHENSIVE METABOLIC PANEL (08/18/2014 11:05 AM [facility]) Only the most recent of3 resultswithin the time period is included. Glucose 134(H) 74 - 106 mg/dL 08/18/2014 11:34 AM [facility] Sodium 137 136 - 145 mmol/L 08/18/2014 11:34 AM [facility] Potassium 2.5(L) 3.5 - 5.1 mmol/L 08/18/2014 11:34 AM [facility] Chloride 97(L) 98 - 107 mmol/L 08/18/2014 11:34 AM [facility] CO2 30 22 - 31 mmol/L 08/18/2014 11:34 AM [facility] Calcium 9.2 8.5 - 10.1 mg/dL 08/18/2014 11:34 AM [facility] Anion Gap 10 5 - 15 mmol/L 08/18/2014 11:34 AM [facility] BUN 8 7 - 21 mg/dL 08/18/2014 11:34 AM [facility] Creatinine 0.60 0.50 - 1.30 mg/dL 08/18/2014 11:34 AM [facility] eGFR by MDRD >60 >60 mL/min/1.7 3m2 08/18/2014 11:34 AM [facility] eGFR by MDRD >60 >60 mL/min/1.7 2 08/18/2014 11:34 AM [facility] Alkaline Phosphatase 77 38 - 126 U/L 08/18/2014 11:34 AM [facility] ALT 43 12 - 78 U/L 08/18/2014 11:34 AM [facility] AST 18 5 - 40 U/L 08/18/2014 11:34 AM [facility] Protein Total 7.9 6.4 - 8.2 gm/dL 08/18/2014 11:34 AM [facility] Albumin 3.1(L) 3.4 - 5.0 gm/dL 08/18/2014 11:34 AM [facility] Bilirubin Total 0.3 0.2 - 1.0 mg/dL 08/18/2014 11:34 AM [facility] Blood BLOOD SPECIMEN / Unknown Venipuncture / Unknown 08/18/2014 11:05 AM [facility] 08/18/2014 11:10 AM [facility] Dariela Mccain MD LAB - CHEMIS TRY ORDERABLES Performing Organization Address City/[facility]/ZIP Co de Phone Number [facility] [address] [place] [phone] * (ABNORMAL) GLUCOSE - POINT OF CARE (08/18/2014 10:57 AM [facility]) Glucose WB/POC 129(H) 70 - 106 mg/dL 08/18/2014 7:42 PM [facility] Blood BLOOD SPECIMEN / Unknown 08/18/2014 10:57 AM [facility] 08/18/2014 7:42 PM [facility] Bryon Mcclure MD LAB - POINT OF CARE ORDERABLES [facility] [address] [place] [phone] * SONOGRAM - TRANSVAGINAL (08/10/2014 3:14 PM [facility]) Only the most recent of2 resultswithin the time period is included. Anatomical Region Laterality Modality Other 08/10/2014 3:1 4 PM [facility] Narrative 08/10/2014 5:17 PM [facility] PHONE: FAX: Uyen. Name: RIAN TROY. No: [id number] Study Date: 08/10/2014 3:14pm , Age: 10 1990, 24 Pregnancies: 5, Para 2, Ab 2 Height: 66 in Weight: 136 lb LMP: 04/18/2014 GA by LMP: 16w2d GA by 1st: 16w2d GA Selected: 16w2d (From First S) DESTINEE: 01/23/2015 Referring MD: Jade Warren MD Engine Assembler: Cindy Hood RDMS BMI: 21.95 Hist/Ind: Bicornuate Uterus Polysubstance abuse, Seizure disorder Hx IUFD, x 1 Cervical Length: 4.2 cm Heart Rate: 145 bpm Amniotic Fluid Index: 04.5cm ([place]est [place]) CLINICAL SUMMARY Study Number: 4 A faustin fetus is identified in cephalic presentation. The amniotic fluid volume is within normal limits. The placenta is anterior. IMPRESSION: 1) Faustin gestation, 16w1d 2) Transvaginal ultrasound confirms a reassuring cervical length of 4.2 cm. NOTE: The patient was advised that ultrasound does not allow detection of all structural or chromosomal abnormalities. RECOMMEND: Follow up in 4 weeks for a anatomic survey. Thank you for allowing us the opportunity to care for your patient. Dayna Amador MD <Electronic Signature> 08/10/2014 04:44pm Dayna Amador MD [facility] ORDERABLES * GLUCOSE PROTEIN KETONE URINE - POINT OF CAR (08/05/2014 8:20 PM [facility]) Glucose UA Negative Negative [facility] Protein UA Negative Negative [facility] Ketone UA Negative Negative [facility] QC Verified Yes Yes [facility] POC T TESTING Urine specimen (specimen) URINE / Unknown 08/05/2014 8:20 PM [facility] Lilia Lugo MD LAB - POINT OF CARE ORDERABLES [facility] [address] [phone] * (ABNORMAL) URINALYSIS MICROSCOPIC ONLY W/REFLEX CULTURE (08/02/2014 1:28 AM [facility]) Mucus UA 1+ 08/02/2014 5:12 AM [facility] Hyaline Casts 5-10(A) 0 - 2 # /lpf 08/02/2014 5:12 AM [facility] Granular Casts 2-5(A) None Seen # /lpf 08/02/2014 5:12 AM [facility] Urine URINE SPECIMEN OBTAINED BY CLEAN CATCH PROCEDURE / Unknown Collection / Unknown 08/02/2014 1:28 AM [facility] 08/02/2014 2:57 AM [facility] Samantha Jacob MD LAB - URINALYSIS ORDERABLES Performing Organization Address [facility] Co de Phone Number [facility] [address] [place] [address] * CULTURE URINE (08/02/2014 1:28 AM [facility]) Pathologist [facility] Culture <10,000 CFU/mL normal skin/urogen ital ciara ADRIEN 08/04/2014 4:09 AM [facility] Urine URINE SPECIMEN OBTAINED BY CLEAN CATCH PROCEDURE / Unknown Collection / Unknown 08/02/2014 1:28 AM [facility] 08/02/2014 2:57 AM [facility] Samantha Jacob MD LAB - MICROBIOLO GY ORDERABLES Performing Organization Address [facility] Co de Phone Number [facility] [address] [place] * BLOOD TYPE VERIFICATION (08/02/2014 1:16 AM [facility]) Pathologist [facility] ABO A 08/02/2014 2:38 AM [facility] Rh Type Positive 08/02/2014 2:38 AM [facility] Miscellaneous samples (specimen) BLOOD SPECIMEN / Unknown Venipuncture / Unknown 08/02/2014 1:16 AM [facility] 08/02/2014 2:24 AM [facility] Aly Avalos MD LAB - BLOOD BANK ORD ERABLES Performing Organization Address [facility] Co de Phone Number [facility] [address] [place] [address] * HIV-1 HIV-2 ANTIBODY + HIV P24 AG RAPID PNL (08/02/2014 1:13 AM [facility]) Pathologist [facility] HIV1/2 Ab + P24 Ag Rapid Non Reactive Non Reactive 08/02/2014 2:16 AM [facility] Blood BLOOD SPECIMEN / Unknown 08/02/2014 1:13 AM [facility] 08/02/2014 1:36 AM [facility] Narrative [facility] - 08/02/2014 2:16 AM [facility] No Laboratory evidence of HIV infection. Samantha Jacob MD LAB - SEROLOGY O RDERABLES Performing Organization Address [facility] Co de Phone Number [facility] [address] [place] [phone] * HEPATITIS C ANTIBODY (08/02/2014 1:13 AM [facility]) [facility] HCV Antibody Screen Non Reactive Non Reactive 08/02/2014 3:00 AM [facility] HCV S/C Ratio 0.13 0.00 - 0.79 08/02/2014 3:00 AM [facility] Comment: S/C ratio <0.80: Non Reactive Blood BLOOD SPECIMEN / Unknown Venipuncture / Unknown 08/02/2014 1:13 AM [facility] 08/02/2014 1:36 AM [facility] Narrative [facility] - 08/02/2014 3:00 AM [facility] Nonreactive - Antibodies to HCV were not detected, result does not exclude early acute HCV infection. Samantha Jacob MD LAB - CHEMISTRY ORDERABLES Performing Organization Address [facility] Co de Phone Number [facility] [address] [place] [phone] * RUBELLA IMMUNE STATUS (08/02/2014 1:12 AM [facility]) [facility] Rubella Antibody IgG Immune Status Positive - Immune 08/02/2014 2:26 AM [facility] Blood BLOOD SPECIMEN / Unknown Venipuncture / Unknown 08/02/2014 1:12 AM [facility] 08/02/2014 1:36 AM [facility] Samantha Jacob MD LAB - CHEMISTRY ORDERABLES Performing Organization Address City/[facility] Co de Phone Number [facility] [address] [place] [phone] * RPR (08/02/2014 1:11 AM [facility]) [facility] RPR Nonreactive Nonreactive 08/02/2014 10:41 AM [facility] Blood BLOOD SPECIMEN / Unknown 08/02/2014 1:11 AM [facility] 08/02/2014 1:36 AM [facility] Samantha Jacob MD LAB - CHEMISTRY ORDERABLES Performing Organization Address [facility] Co de Phone Number [facility] [address] [place] [phone] * TYPE + SCREEN PANEL (08/02/2014 1:11 AM [facility]) ABO A 08/02/2014 2:36 AM [facility] Rh Type Positive 08/02/2014 2:36 AM [facility] Comment:History check perfor med. Retype required. Antibody Screen Negative 08/02/2014 2:36 AM [facility] Miscellaneous samples (specimen) BLOOD SPECIMEN / Unknown Venipuncture / Unknown 08/02/2014 1:11 AM [facility] 08/02/2014 1:36 AM [facility] Samantha Jcaob MD LAB - BLOOD BANK ORDERABLES Performing Organization Address [facility] de Phone Number [facility] [address] [place] [address] * HEPATITIS B SURFACE ANTIGEN (08/02/2014 1:11 AM [facility]) Pathologist [facility] HBsAg Non Reactive Non Reactive 08/02/2014 2:26 AM [facility] Blood BLOOD SPECIMEN / Unknown Venipuncture / Unknown 08/02/2014 1:11 AM [facility] 08/02/2014 1:36 AM [facility] Samantha Jacob MD LAB - CHEMISTRY ORDERABLES Performing Organization Address [facility] Co de Phone Number [facility] [address] [place] [phone] * HCG BETA BLOOD QUANTITATIVE (08/01/2014 9:02 PM [facility]) Pathologist [facility] hCG Quantitative 62,087 mIU/mL 08/01/2014 9:53 PM [facility] Blood BLOOD SPECIMEN / Unknown Venipuncture / Unknown 08/01/2014 9:02 PM [facility] 08/01/2014 9:20 PM [facility] Narrative [facility] - 08/01/2014 9:53 PM [facility] Reference Range, mIU/ml: Males 2.0 Non Females 0-6.0 Perimenopausal Females ages 41-55* 0-7.7 Postmenopausal Females age >55* 0-14 Females, Weeks after LMP 0.2-1 week 5-50 1 - 2 weeks 50-500 2 - 3 weeks 100-5000 3 - 4 weeks 500-10,000 4 - 5 weeks 1000-50,000 5 - 6 weeks 10,000-100,000 6 - 8 weeks 15,000-200,000 2 - 3 months 10,000-100,000 Trophoblastic Disease >100,000 *In higher than expected HCG in females > age 40, a serum FSH >20 IU/L makes unlikely. Chente Bonilla MD LAB - CHEMISTRY [facility]IES[facility]ERRER[facility] Organization Address City/State/ZIP Co de Phone Number [facility] [address], [place] [id number] * FIRST TRI NUCHAL TRANSLUCENCY W:SEQ SCREEN (07/13/2014 3:44 PM [facility]) Anatomical Region Laterality Modality Other 07/13/2014 3:44 PM [facility] Narrative 07/13/2014 4:46 PM [facility] PHONE: FAX: Pat. Name: RIAN TROY Pat. No: [id number] Study Date: 07/13/2014 3:44pm , Age: 10 1990, 24 Pregnancies: 5, Para 2, Ab 2 Height: 66 in Weight: 132 lb LMP: 04/18/2014 GA by LMP: 12w2d GA by 1st: 12w2d GA by US: 12w0d GA Selected: 12w2d (From First S) DESTINEE: 01/23/2015 Referring MD: Jade Warern MD Engine Assembler: Cindy Hood RDMS Hist/Ind: Nuchal Translucency Prior Demise Bipolar Disorder MEASUREMENTS & AGE GROWTH EVALUATION Measurement GA Range Srce %for GA Ratios ----- ---- ------- CRL 5.4 cm 12w0d ([id number]) Hadl CRL 38% GA for sonogram 12w0d ([id number]) based on (CRL) Avg CLINICAL SUMMARY Study Number 2 A faustin intrauterine with cardiac activity is see. The heart rate is 161 bpm. The DESTINEE selected is confirmed by a prior ultrasound. No free fluid is seen in the pelvis. The right ovary was not visualized. The left ovary was not visualized. NUCHAL TRANSLUCENCY: The nuchal translucency is 1.2 mm and blood was obtained for serum screening. IMPRESSION: Faustin, live, 12w2d No major malformations seen at this time RECOMMEND: Repeat ultrasound at 20 weeks to evaluate anatomy We anticipate results of aneuploidy screening within one week Patient may return for 2nd blood draw to complete screen at 15-22 weeks Follow-up in 2 -3 weeks for growth and cervical length Thank you for allowing us the opportunity to care for your patient. Chriss Arias MD <Electronic Signature> 07/13/2014 04:46pm Dayna Amador MD [facility] ORDERABLES * SONOGRAM - COMPLETE (06/26/2014 9:40 AM [facility]) Anatomical Region Laterality Modality Other 06/26/2014 9:40 AM [facility] Narrative 06/29/2014 10:06 PM [facility] [place] PHONE: FAX: Pat. Name: RIAN TROY. No: [id number] Study Date: 06/26/2014 9:40am , Age: 10 1990, 24 Pregnancies: 5, Para 2, Ab 2 Height: 66 in Weight: 115 lb LMP: 04/18/2014 GA by LMP: 09w6d GA by US: 09w3d GA Selected: 09w6d (LMP) DESTINEE: 01/23/2015 Referring MD: Jade Warren MD Engine Assembler: Mary Frye RDMS Hist/Ind: Bicornuate uterus Bipolar and seizure disorder History of IUFD MEASUREMENTS & AGE GROWTH EVALUATION Measurement GA Range Srce %for GA Ratios ----- ---- ------- CRL 2.7 cm 09w3d ([id number]) Hadl CRL 26% GA for sonogram 09w3d ([id number]) based on (CRL) Avg Heart Rate: 170 bpm CLINICAL SUMMARY Study Number: 1 The intrauterine gestational sac contains a embryonic pole and a yolk sac. Both ovaries were seen and appear normal. Free fluid was not detected. IMPRESSION: 1) Faustin gestation, 9w6d 2) CRL measurement is consistent with the LMP-based DESTINEE of 01/23/15 RECOMMEND: Nuchal translucency measurement and follow-up office visit in 2-3 weeks. Thank you for allowing us the opportunity to care for your patient. Dayna Amador MD <Electronic Signature> 06/29/2014 10:01pm Dayna Amador MD [facility] ORDERABLES Care Teams L D Rn Relationship Specialty Start Date End Date Lilibeth Restrepo MD [address] [place] [address] [place] [address] PCP - General Internal Medicine 05/26/24
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
--- OUTSIDE RECORDS SUMMARY | 2024-08-30 21:50 | XMS_ITS | Data Portability ---
Author Organization [facility] FAITHSilver Dodd [facility] Address [address] [place] [address] Care Team Providers Care Piece Hand Name Role Phone VINOD RESTREPO Primary Care Provider Unavail able Assessment No assessment recorded. Plan of Treatment Reminders Order Date Submit Date Provider Last Modified By Organization Details Last Modified Time Details Appointments None record ed. Lab TSH + free T4, serum 2023 [facility], [address] [place] [address], [facility] [address], [place], [address], 4 16:39:51 HCG, intact + beta subuni t, quant, serum or plasma 2023 [facility], [address] [place] [address], [facility] [address], [place], [address], 4 16:39:51 prolac tin, serum 2023 [facility], [address] [place] [address], [facility] [address], [place], [address], 4 08:26:46 lh + FSH, serum 2023 [facility], [address] [place] [address], [address], [place], [address], 4 08:26:47 hepati tis C virus RNA, quant, PCR, serum or plasma 2023 024 [facility], [address] [facility], [address], [place], [address], 4 07:36:10 CMP, serum or plasma 2023 024 [facility], [address] [facility], [address], [place], [address], 4 08:24:49 Referral gyneco logic surger y referr al [address] [facility], [address] [facility], [place], [address], 5 08:28:54 gyneco logist referr al 2023 024 annika Rutherford MD, [address] [place] [address], [address], [address], [address], 4 11:34:58 cardio thorac ic vascul ar surgeo n referr al 2023 024 rodriguezwakash Ortiz MD, [address] [place], [address], 5 18:14:57 hepato logist referr al 2023 024 catalina Tucker MD, [address] [place], [address], 5 18:14:58 hepati tis clinic referr al 2023 024 catalina [facility], [address] [place], [address], 5 18:14:58 Procedures None record ed. Surgeries None record ed. Imaging US, pelvis , transa bdomin al + transv aginal [id number] [facility] Scheduling, [address] [place], [address], 4 13:24:29 Medication Orders Sprint ec (28) 0.25 mg-35 mcg tablet 2023 [facility], [address] [place] [address], [address], 4 15:49:37 vareni ansari tartra te 0.5 mg (11)-1 mg (42) tablet s in a dose pack 2023 [facility], [address] [place] [address], [id number], 4 16:55:01 lactul ose 10 gram/1 5 mL oral soluti on 2023 024 [facility], [address] [place] [address], [address], 4 15:57:09 Senna with Docusa te Sodium 8.6 mg-50 mg tablet 2023 024 [facility], [address] [place] [address], [address], 4 15:58:02 tramad ol 100 mg tablet 2023 024 [facility], [address] [place] [address], [id number], 4 20:42:21 Epclus a 400 mg-100 mg tablet 2023 024 [facility], [address] [place] [address], [address], 4 15:51:09 glycer in (adult ) rectal suppos itory 2023 [facility], [address] [place], [address], 16:00:10 ondans etron 8 mg disint egrati ng tablet 2023 [facility], [address] [place] [address], [address], 15:57:43 omepra zole 40 mg capsul e,enrrique yed releas e 2023 [facility], [address] [place] [address], [address], 20:43:19 medrox yproge steron e 150 mg/mL intram uscula r suspen noah 2018 019 [facility] [employer], [address], [place], [place], [id number], 15:00:29 medrox yproge steron e 150 mg/mL intram uscula r suspen noah 2018 019 [facility], [address] [place] [address], [address], 15:00:29 Patient TargetsNo targets recorded. Patient Instructions Encounter Date Encounter Id Patient Instructions Last Modified By Organization Details Last Modified Time 04/27/2024 [id number] A healthy lifestyle: care instructions Not available 04/27/2024 15:33:27 hepatitis C: car e instructions Not available 04/27/2024 15:33:28 acute kidney injury: care instructions Not available 04/27/2024 15:33:27 constipation: care instructions Not available 04/27/2024 15:46:10 nausea and vomiting: care instructions Not available 04/27/2024 15:33:27 05/04/2024 [id number] Quitting Tobacco : Care Instructions Not available 05/04/2024 16:54:54 constipation: care instructions Not available 05/04/2024 16:54:55 Quitting Tobacco : Care Instructions Not available 05/05/2024 20:48:24 acute kidney injury: care instructions Not available 05/04/2024 16:54:54 05/22/2024 [id number] A healthy lifestyle: care instructions [email or web address] Not available 05/22/2024 16:39:41 07/03/2024 [id number] A healthy lifestyle: care instructions [email or web address] Not available 07/04/2024 13:09:31 Reason for Referral Cardiothoracic Vascular Surg shanon 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[employer] Referral for Ch ronic hepatitis C Referring Physician: Vinod Restrepo [facility], Encounter Date: 04/27/2024 Hepatitis Clinic Referral fo r Chronic hepatitis C Referring Physician: Vinod Restrepo [facility], Encounter Date: 04/27/2024 Gynecologic Surgery Referral for Sterilization requested Referring Physician: Marcos Rutherford, PRINCIPAL TRAINER, Encounter Date: 07/03/2024 Results Created Date Observation Date Name Description Value Unit Range Abnormal Flag Note LastModifiedBy Organization Detail LastModifiedTime 02/16/20 19 02/16/2019 HCG, intac t + beta subun it, quant , serum or plasm a HCG,beta subunit,qnt, serum <1 mIU/m L Femal e (Non- pregn ant) 0 - 5 (Post menop ausal ) 0 - 8 Femal e (Preg nant) Weeks of Gesta tion 3 6 - 71 4 10 - 750 5 887 - 5672 6 995 - 50264 7 3571 -9181 63 8 15112 -7655 71 9 25228 -1514 10 10 68023 -0359 77 12 64477 -6302 12 14 77407 - 74109 15 73819 - 35777 16 9909 - 74742 17 2539 - 89645 18 6195 - 10259 Graciela ECLIA metho dolog y Not Available [facility] ([facility]) [address] [place], [address], 02/16/2019 07:13:04 04/27/20 24 04/28/2024 COMP. METAB OLIC PANEL (14) glucose 91 mg/dL 70-99 Not Available [facility] ([facility]) [address] [place], [address], 04/28/2024 08:24:49 04/27/20 24 04/28/2024 COMP. METAB OLIC PANEL (14) BUN 9 mg/dL 6-20 Not Available [facility] ([facility]) [address] [place], [address], 04/28/2024 08:24:49 04/27/20 24 04/28/2024 COMP. METAB OLIC PANEL (14) creatinine 0.97 mg/dL 0.57-1 .00 Not Available [facility] ([facility]) [address] [place], [address], 04/28/2024 08:24:49 04/27/20 24 04/28/2024 COMP. METAB OLIC PANEL (14) eGFR 79 mL/mi n/1.7 3 >59 Not Available [facility] ([facility]) [address] [place], [address], 04/28/2024 08:24:49 04/27/20 24 04/28/2024 COMP. METAB OLIC PANEL (14) BUN/creatini ne ratio 9 9-23 Not Available [facility] ([facility]) [address] [place], [address], 04/28/2024 08:24:49 04/27/20 24 04/28/2024 COMP. METAB OLIC PANEL (14) sodium 138 mmol/ L 134-14 4 Not Available [facility] ([facility]) [address] [facility] [place], [address], 04/28/2024 08:24:49 04/27/20 24 04/28/2024 COMP. METAB OLIC PANEL (14) potassium 4.5 mmol/ L 3.5-5. 2 Not Available [facility] ([facility]) [address] [facility] [place], [address], 04/28/2024 08:24:49 04/27/2004/28/2024 COMP. METAB OLIC PANEL (14) chloride 101 mmol/ L 96-106 Not Available [facility] ([facility]) [address] [facility] [place], [address], 04/28/2024 08:24:49 04/27/20 24 04/28/2024 COMP. METAB OLIC PANEL (14) carbon dioxide, total 22 mmol/ L 20-29 Not Available [facility] ([facility]) [address] [facility] [place], [address], 04/28/2024 08:24:49 04/27/20 24 04/28/2024 COMP. METAB OLIC PANEL (14) calcium 9.6 mg/dL 8.7-10 .2 Not Available [facility] ([facility]) [address] [facility] [place], [address], 04/28/2024 08:24:49 04/27/20 24 04/28/2024 COMP. METAB OLIC PANEL (14) protein, total 7.3 g/dL 6.0-8. 5 Not Available [facility] ([facility]) [address] [facility] [place], [address], 04/28/2024 08:24:49 04/27/20 24 04/28/2024 COMP. METAB OLIC PANEL (14) albumin 4.2 g/dL 3.9-4. 9 Not Available [facility] ([facility]) [address] [facility] [place], [address], 04/28/2024 08:24:49 04/27/20 24 04/28/2024 COMP. METAB OLIC PANEL (14) globulin, total 3.1 g/dL 1.5-4. 5 Not Available [facility] ([facility]) [address] [facility] [place], [address], 04/28/2024 08:24:49 04/27/20 24 04/28/2024 COMP. METAB OLIC PANEL (14) bilirubin, total 0.2 mg/dL 0.0-1. 2 Not Available [facility] ([facility]) [address] [facility] [place], [address], 04/28/2024 08:24:49 04/27/20 24 04/28/2024 COMP. METAB OLIC PANEL (14) alkaline phosphatase 65 IU/L 44-121 Not Available [facility] ([facility]) [address] [facility] [place], [address], 04/28/2024 08:24:49 04/27/20 24 04/28/2024 COMP. METAB OLIC PANEL (14) AST (SGOT) 14 IU/L 0-40 Not Available [facility] ([facility]) [address] [facility] [place], [address], 04/28/2024 08:24:49 04/27/20 24 04/28/2024 COMP. METAB OLIC PANEL (14) ALT (SGPT) 16 IU/L 0-32 Not Available [facility] ([facility]) [address] [place], [address], 04/28/2024 08:24:49 04/27/20 24 04/27/2024 HCV RT-PC R, QUANT (GRAP H) test information: COMMEN T The quant itati ve range of this assay is 15 IU/mL to 100 jayda on IU/mL . Not Available [facility] ([facility]) [address] [place], [address], 04/29/2024 07:36:10 04/27/20 24 04/28/2024 HCV RT-PC R, QUANT (GRAP H) hepatitis C quantitation 399005 0 IU/mL Not Available [facility] ([facility]) [address] [place], [address], 04/29/2024 07:36:10 04/27/20 24 04/28/2024 HCV RT-PC R, QUANT (GRAP H) HCV log10 6.009 log10 _IU/m L Not Available [facility] ([facility]) [address] [place], [address], 04/29/2024 07:36:10 04/27/20 24 04/29/2024 HCV RT-PC R, QUANT (GRAP H) pdf . Not Available [facility] ([facility]) [address] [place], [address], 04/29/2024 07:36:10 05/04/20 24 05/05/2024 PROLA CTIN prolactin 33.2 NG/mL 4.8-33 .4 Not Available [facility] ([facility]) [address] [place], [address], 05/05/2024 08:26:46 05/04/20 24 05/05/2024 FSH AND LH LH 9.8 mIU/m L Adult Femal e Range Folli cular phase 2.4 - 12.6 Ovula tion phase 14.0 - 95.6 Lutea l phase 1.0 - 11.4 Postm enopa usal 7.7 - 58.5 Not Available [facility] ([facility]) [address] [place], [address], 05/05/2024 08:26:47 05/04/20 24 05/05/2024 FSH AND LH FSH 9.9 mIU/m L Adult Femal e Range Folli cular phase 3.5 - 12.5 Ovula tion phase 4.7 - 21.5 Lutea l phase 1.7 - 7.7 Postm enopa usal 25.8 - 134.8 Not Available [facility] ([facility]) [address] [facility], [place], [address], 05/05/2024 08:26:47 07/11/19 25 07/11/2024 CBC W Auto Diffe renti al panel - Blood leukocytes [#/volume] in blood by automated count 8.88 text: 4.00 - 12.00 10(3)/ mcL WBC 8.88 4.00 - 12.00 10(3) /mcL 07/11 11:50 AM CONFERENCE PLANNER [facility] Not Available Not Available 08/03/2024 11:16:21 07/11/19 25 07/11/2024 CBC W Auto Diffe renti al panel - Blood erythrocytes [#/volume] in blood by automated count 4.62 text: 3.80 - 5.30 10(6)/ mcL RBC 4.62 3.80 - 5.30 10(6) /mcL 07/11 11:50 AM CONFERENCE PLANNER [facility] Not Available Not Available 08/03/2024 11:16:21 07/11/19 25 07/11/2024 CBC W Auto Diffe renti al panel - Blood hemoglobin [mass/volume ] in blood 13.9 g/dL low: 12g/dL high: 15.8g/ dL HEMOG LOBIN (HGB) 13.9 12.0 - 15.8 g/dL 07/11 11:50 AM [facility] Not Available Not Available 08/03/2024 11:16:21 07/11/19 25 07/11/2024 CBC W Auto Diffe renti al panel - Blood hematocrit [volume fraction] of blood by automated count 42 % low: 36%hig h: 47% HEMAT OCRIT (HCT) 42.0 36.0 - 47.0 % 07/11 11:50 AM [facility] Not Available Not Available 08/03/2024 11:16:21 07/11/19 25 07/11/2024 CBC W Auto Diffe renti al panel - Blood MCV [entitic volume] by automated count 90.9 fL low: 82fLhi gh: 96fL MCV 90.9 82.0 - 96.0 fL 07/11 11:50 AM [facility] Not Available Not Available 08/03/2024 11:16:21 07/11/19 25 07/11/2024 CBC W Auto Diffe renti al panel - Blood MCH [entitic mass] by automated count 30.1 pg low: 26pghi gh: 34pg MCH 30.1 26.0 - 34.0 pg 07/11 11:50 AM [facility] Not Available Not Available 08/03/2024 11:16:21 07/11/19 25 07/11/2024 CBC W Auto Diffe renti al panel - Blood MCHC [mass/volume ] by automated count 33.1 g/dL low: 31g/dL high: 36g/dL MCHC 33.1 31.0 - 36.0 g/dL 07/11 11:50 AM [facility] Not Available Not Available 08/03/2024 11:16:21 07/11/19 25 07/11/2024 CBC W Auto Diffe renti al panel - Blood platelets [#/volume] in blood 306 text: 140 - 440 10(3)/ mcL PLATE LET COUNT 306 140 - 440 10(3) /mcL 07/11 11:50 AM [facility] Not Available Not Available 08/03/2024 11:16:21 07/11/19 25 07/11/2024 CBC W Auto Diffe renti al panel - Blood erythrocyte distribution width [ratio] by automated count 13.2 % low: 11.8%h igh: 15.5% RDW 13.2 11.8 - 15.5 % 07/11 11:50 AM [facility] Not Available Not Available 08/03/2024 11:16:21 07/11/19 25 07/11/2024 CBC W Auto Diffe renti al panel - Blood platelet mean volume [entitic volume] in blood by automated count 11 fL low: 9.7fLh igh: 12.4fL MPV 11.0 9.7 - 12.4 fL 07/11 11:50 AM [facility] Not Available Not Available 08/03/2024 11:16:21 07/11/19 25 07/11/2024 CBC W Auto Diffe renti al panel - Blood neutrophils/ 100 leukocytes in blood by automated count 62.4 % low: 47%hig h: 73% NEUTR OPHIL S 62.4 47.0 - 73.0 % 07/11 11:50 AM [facility] Not Available Not Available 08/03/2024 11:16:21 07/11/19 25 07/11/2024 CBC W Auto Diffe renti al panel - Blood lymphocytes/ 100 leukocytes in blood by automated count 27.3 % low: 18%hig h: 42% LYMPH OCYTE S 27.3 18.0 - 42.0 % 07/11 11:50 AM [facility] Not Available Not Available 08/03/2024 11:16:21 07/11/19 25 07/11/2024 CBC W Auto Diffe renti al panel - Blood monocytes/10 0 leukocytes in blood by automated count 5.2 % low: 4%high : 12% MONOC YTES 5.2 4.0 - 12.0 % 07/11 11:50 AM [facility] Not Available Not Available 08/03/2024 11:16:21 07/11/19 25 07/11/2024 CBC W Auto Diffe renti al panel - Blood eosinophils/ 100 leukocytes in blood by automated count 4.8 % low: 0%high : 5% EOSIN OPHIL S 4.8 0.0 - 5.0 % 07/11 11:50 AM [facility] Not Available Not Available 08/03/2024 11:16:21 07/11/19 25 07/11/2024 CBC W Auto Diffe renti al panel - Blood basophils/10 0 leukocytes in blood by automated count 0.3 % low: 0%high : 1% BASOP HILS 0.3 0.0 - 1.0 % 07/11 11:50 AM [facility] Not Available Not Available 08/03/2024 11:16:21 07/11/19 25 07/11/2024 CBC W Auto Diffe renti al panel - Blood neutrophils [#/volume] in blood by automated count 5.54 text: 1.60 - 7.70 10(3)/ mcL ABSOL TUNUNAK NEUTR OPHIL S 5.54 1.60 - 7.70 10(3) /mcL 07/11 11:50 AM [facility] Not Available Not Available 08/03/2024 11:16:21 07/11/19 25 07/11/2024 CBC W Auto Diffe renti al panel - Blood lymphocytes [#/volume] in blood by automated count 2.42 text: 1.30 - 3.20 10(3)/ mcL ABSOL TUNUNAK LYMPH OCYTE S 2.42 1.30 - 3.20 10(3) /mcL 07/11 11:50 AM [facility] Not Available Not Available 08/03/2024 11:16:21 07/11/19 25 07/11/2024 CBC W Auto Diffe renti al panel - Blood monocytes [#/volume] in blood by automated count 0.46 text: 0.20 - 1.00 10(3)/ mcL ABSOL TUNUNAK MONOC YTES 0.46 0.20 - 1.00 10(3) /mcL 07/11 11:50 AM [facility] LAB Not Available Not Available 08/03/2024 11:16:21 07/11/19 25 07/11/2024 CBC W Auto Diffe renti al panel - Blood eosinophils [#/volume] in blood by automated count 0.43 text: 0.00 - 0.40 10(3)/ mcL high ABSOL TUNUNAK EOSIN OPHIL 0.43 (H) 0.00 - 0.40 10(3) /mcL 07/11 11:50 AM [facility] Not Available Not Available 08/03/2024 11:16:21 07/11/19 25 07/11/2024 CBC W Auto Diffe renti al panel - Blood basophils [#/volume] in blood by automated count 0.03 text: 0.00 - 0.10 10(3)/ mcL ABSOL TUNUNAK BASOP HILS 0.03 0.00 - 0.10 10(3) /mcL 07/11 11:50 AM [facility] Not Available Not Available 08/03/2024 11:16:21 07/11/19 25 07/11/2024 CBC W Auto Diffe renti al panel - Blood nucleated erythrocytes /100 leukocytes [ratio] in blood 0 NRBC PER 100 WBC 0 07/11 11:50 AM [facility] Not Available Not Available 08/03/2024 11:16:21 07/11/19 25 07/11/2024 CBC W Auto Diffe renti al panel - Blood interpretati on and review of laboratory results Abnorm al Not Available Not Available 11:16:21 07/11/19 25 07/11/2024 Compr ehens belinda metab olic 1999 panel - Serum or Plasm a sodium [moles/volum e] in serum or plasma 139 mmol/ L low: 136mmo l/Lhig h: 145mmo l/L SODIU M 139 136 - 145 mmol/ L 07/11 11:53 AM [facility] Not Available Not Available 08/03/2024 11:16:21 07/11/19 25 07/11/2024 Compr ehens belinda metab olic 1999 panel - Serum or Plasm a potassium [moles/volum e] in serum or plasma 4.3 mmol/ L low: 3.5mmo l/Lhig h: 5.1mmo l/L POTAS SIUM 4.3 3.5 - 5.1 mmol/ L 07/11 11:53 AM [facility] Not Available Not Available 08/03/2024 11:16:21 07/11/19 25 07/11/2024 Compr ehens belinda metab olic 2000 panel - Serum or Plasm a chloride [moles/volum e] in serum or plasma 105 mmol/ L low: 98mmol /Lhigh : 107mmo l/L CHLOR MARCUS 105 98 - 107 mmol/ L 07/11 11:53 AM [facility] Not Available Not Available 08/03/2024 11:16:21 07/11/19 25 07/11/2024 Compr ehens belinda metab olic 2000 panel - Serum or Plasm a carbon dioxide, total [moles/volum e] in serum or plasma 24 mmol/ L low: 22mmol /Lhigh : 30mmol /L CO2, VENOU S 24 22 - 30 mmol/ L 07/11 11:53 AM [facility] Not Available Not Available 08/03/2024 11:16:21 07/11/19 25 07/11/2024 Compr ehens belinda metab olic 2000 panel - Serum or Plasm a anion gap in serum or plasma 14.3 mmol/ L high: 18mmol /L ANION GAP 14.3 <18.0 mmol/ L 07/11 11:53 AM [facility] Not Available Not Available 08/03/2024 11:16:21 07/11/19 25 07/11/2024 Compr ehens belinda metab olic 2000 panel - Serum or Plasm a glucose [mass/volume ] in serum or plasma 103 mg/dL low: 70mg/d Lhigh: 99mg/d L high GLUCO SE 103 (H) 70 - 99 mg/dL 07/11 11:53 AM [facility] Not Available Not Available 08/03/2024 11:16:21 07/11/19 25 07/11/2024 Compr ehens belinda metab olic 2000 panel - Serum or Plasm a urea nitrogen [mass/volume ] in serum or plasma 12 mg/dL low: 5mg/dL high: 18mg/d L BUN 12 5 - 18 mg/dL 07/11 11:53 AM CONFERENCE PLANNER [facility] Poll EverywhereT H CENTE R LAB Not Available Not Available 08/03/2024 11:16:21 07/11/19 25 07/11/2024 Compr ehens belinda metab olic 1999 panel - Serum or Plasm a creatinine [mass/volume ] in serum or plasma 0.88 mg/dL low: 0.6mg/ dLhigh : 1mg/dL CREAT ININE , BLOOD 0.88 0.60 - 1.00 mg/dL 07/11 11:53 AM [facility] PL[facility]NER [facility] [employer] [facility] Not Available Not Available 08/03/2024 11:16:21 07/11/19 25 07/11/2024 Compr ProviderTrustens belinda metab olic 2000 panel - Serum or Plasm a urea nitrogen/cre atinine [mass ratio] in serum or plasma 14 text: 12 - 20 ratio BUN/C REATI NINE RATIO 14 12 - 20 ratio 07/11 11:53 AM [facility] Poll EverywhereT H Fabule[facility] R LAB Not Available Not Available 08/03/2024 11:16:21 07/11/19 25 07/11/2024 Compr ProviderTrustens belinda metab olic 1999 panel - Serum or Plasm a protein [mass/volume ] in serum or plasma 8.1 g/dL low: 6g/dLh igh: 8g/dL high TOTAL PROTE IN 8.1 (H) 6.0 - 8.0 g/dL 07/11 11:53 AM CONFERENCE PLANNER [facility] Poll EverywhereT H CENTE R LAB Not Available Not Available 08/03/2024 11:16:21 07/11/19 25 07/11/2024 Compr ProviderTrustens belinda metab olic 2000 panel - Serum or Plasm a albumin [mass/volume ] in serum or plasma 4 g/dL low: 3.5g/d Lhigh: 5g/dL ALBUM IN 4.0 3.5 - 5.0 g/dL 07/11 11:53 AM [facility] [place] [facility] Not Available Not Available 08/03/2024 11:16:21 07/11/19 25 07/11/2024 Compr ehens belinda metab olic 1999 panel - Serum or Plasm a albumin/glob ulin [mass ratio] in serum or plasma 1 low: 1high: 2.2 A/G RATIO 1.0 1.0 - 2.2 07/11 11:53 AM [facility] [employer] [facility] Not Available Not Available 08/03/2024 11:16:21 07/11/19 25 07/11/2024 Compr ehens belinda metab olic 1999 panel - Serum or Plasm a calcium [mass/volume ] in serum or plasma 9.2 mg/dL low: 8.7mg/ dLhigh : 10.5mg /dL CALCI UM 9.2 8.7 - 10.5 mg/dL 07/11 11:53 AM CONFERENCE PLANNER [facility] Poll Everywhere [employer] LAB Not Available Not Available 08/03/2024 11:16:21 07/11/19 25 07/11/2024 Compr ehens belinda metab olic 1999 panel - Serum or Plasm a bilirubin.to rosenda [mass/volume ] in serum or plasma 0.3 mg/dL low: 0.2mg/ dLhigh : 1.2mg/ dL T BILI 0.3 0.2 - 1.2 mg/dL 07/11 11:53 AM CONFERENCE PLANNER [facility] Poll Everywhere [employer] LAB Not Available Not Available 08/03/2024 11:16:21 07/11/19 25 07/11/2024 Compr ehens belinda metab olic 2000 panel - Serum or Plasm a aspartate aminotransfe rase [enzymatic activity/vol ume] in serum or plasma 22 U/L low: 6U/Lhi gh: 42U/L SGOT (AST) 22 6 - 42 U/L 07/11 11:53 AM CONFERENCE PLANNER [facility] [employer] [facility] Not Available Not Available 08/03/2024 11:16:21 07/11/19 25 07/11/2024 Compr ehens belinda metab olic 2000 panel - Serum or Plasm a alanine aminotransfe rase [enzymatic activity/vol ume] in serum or plasma 32 U/L low: 6U/Lhi gh: 55U/L SGPT (ALT) 32 6 - 55 U/L 07/11 11:53 AM CONFERENCE [facility] Poll EverywhereT [employer] [facility] Not Available Not Available 08/03/2024 11:16:21 07/11/19 25 07/11/2024 Compr ehens belinda metab olic 2000 panel - Serum or Plasm a alkaline phosphatase [enzymatic activity/vol ume] in serum or plasma 60 U/L low: 40U/Lh igh: 150U/L ALKAL INE PHOSP HATAS E 60 40 - 150 U/L 07/11 11:53 AM [facility] [employer] R LAB Not Available Not Available 08/03/2024 11:16:21 07/11/19 25 07/11/2024 Compr ProviderTrustens belinda metab olic 2000 panel - Serum or Plasm a glomerular filtration rate/1.73 sq M.predicted among non-blacks [volume rate/area] in serum, plasma or blood by creatinine-b ased formula (MDRD) low: 60 GFR, ESTIM ATED >60 >=60 07/11 11:53 AM [facility] Fabule[facility] R LAB Not Available Not Available 08/03/2024 11:16:21 07/11/19 25 07/11/2024 Compr ProviderTrustens belinda metab olic 2000 panel - Serum or Plasm a glomerular filtration rate/1.73 sq M.predicted among blacks [volume rate/area] in serum, plasma or blood by creatinine-b ased formula (MDRD) low: 60 GFR, EST. AFRIC AN >60 >=60 07/11 11:53 AM [facility] Poll EverywhereT [employer] CENTE R LAB Not Available Not Available 08/03/2024 11:16:21 07/11/19 25 07/11/2024 Compr ehens belinda metab olic 2000 panel - Serum or Plasm a glomerular filtration rate/1.73 sq M.predicted among non-blacks [volume rate/area] in serum, plasma or blood by creatinine-b ased formula (MDRD) low: 60 GFR, EST. NONAF RICAN >60 >=60 07/11 11:53 AM CONFERENCE PLANNER [facility] Not Available Not Available 08/03/2024 11:16:21 07/11/19 25 07/11/2024 Compr ehens belinda metab olic 2000 panel - Serum or Plasm a interpretati on and review of laboratory results Abnorm al Not Available Not Available 11:16:21 07/11/19 25 07/12/2024 Chlam ydia trach omati s and Neiss eria gonor rhoea e DNA panel - Speci men chlamydia trachomatis DNA [presence] in specimen by MERY with probe detection NEGATI VE text: negati ve CHLAM YDIA DNA NEGAT BELINDA NEGAT BELINDA 07/12 4:39 AM CONFERENCE PLANNER [facility] Not Available Not Available 08/03/2024 11:16:21 07/11/19 25 07/12/2024 Chlam ydia trach omati s and Neiss eria gonor rhoea e DNA panel - Speci men neisseria gonorrhoeae DNA [presence] in specimen by MERY with probe detection NEGATI VE text: negati ve GC DNA NEGAT BELINDA NEGAT BELINDA 07/12 4:39 AM CONFERENCE PLANNER [facility] Not Available Not Available 08/03/2024 11:16:21 07/11/19 25 07/12/2024 Chlam ydia trach omati s and Neiss eria gonor rhoea e DNA panel - Speci men interpretati on and review of laboratory results Normal Not Available Not Available 07/22 11:16:21 06/04/20 24 06/01/2024 US, pelvi s, trans abdom inal + trans vagin al No observ ation record ed. etodaroma [facility] [address] [place], [address], 06/29/2024 12:02:33 Result Notes None recorded. Problems No Known Problems Procedures Surgical History Date Name Laterality Status Provider Name and Address Organization Details Recorded Time 02/22/20 19 Depo Injection completed Marcos Rutherford MD Attn: Accounting,[address] [place], [address], [facility] 02/21/2019 17:01:46 11/07/19 19 Caesarean Section completed Yanelis Lopez MA [facility] 05/22/2024 16:01:31 07/01/19 19 Date of Last Pap Smear completed Yanelis Lopez MA [facility] 08/20/2022 08:42:02 06/21/19 15 Dilation and Curettage completed Alison Hughes MA [facility] 07/01/2018 10:56:37 09/03/19 10 Caesarean Section completed Yanelis Lopez MA [facility] 05/22/2024 16:01:19 06/21/19 10 Dilation and Curettage completed Alison Hughes MA [facility] 07/01/2018 10:56:26 tonsillectomy completed Alison Hughes MA [facility] 07/01/2018 10:56:08 Imaging Results Imaging Date Name Status LastModified by Organization Details LastModified Time 06/01/2024 US, pelvis, transabdominal + transvaginal completed etodaroma [facility] [address] [place], [address], 06/29/2024 12:02:33 Procedure Notes None recorded. Medical Equipment None Reported. Allergies Allergen ID Allergen Name Allergen Category Reaction Reaction Severity Criticality Documentation Date Start Date Code Code System Note Provider Name and Address Organization Details Recorded Time 296810 latex environme nt,medica tion Not available Not available Not available 07/01/2018 04721 91 RxNorm Not Available Not Available Not Available 568536 adhesive environme nt,medica tion hives severe Not available 07/03/2024 48963 UNK Not Available Not Available Not Available Medications Name Sig Start Date Stop Date Status Note LastModified by Organization Details LastModified Time gabapenti n 600 mg tablet TAKE 1 TABLET BY MOUTH EVERY 8 HOURS NEEDED FOR ANXIETY/ PANIC FOR 30 DAYS active Not Available Not Available No t Available trazodone 50 mg tablet 05/05 completed not taking Not Available Not Available Not Available cetirizin e 10 mg tablet TAKE 1 TABLET BY MOUTH ONCE DAILY NEEDED FOR CONGESTI ON 04/27 completed Not Available Not Available Not Available fluconazo le 150 mg tablet TAKE ONE TABLET BY MOUTH A ONE-TIME DOSE -REPEAT DOSE IN 5 TO 7 DAYS 07/03 completed Not Available Not Available Not Available ondansetr on HCl 8 mg tablet 04/27 completed Not Available Not Available Not Available sucralfat e 1 gram tablet 05/05 completed not taking Not Available Not Available Not Available naltrexon e 50 mg tablet 05/04 completed no longer taking Not Available Not Available Not Available phenazopy ridine 200 mg tablet TAKE 1 TABLET BY MOUTH THREE TIMES DAILY FOR 2 DAYS active Not Available Not Available No t Available ondansetr on HCl 4 mg tablet Take 2 tablets twice a day by oral route for 30 days. 02/15 completed Not Available Not Available Not Available penicilli n V potassium 500 mg tablet TAKE 1 TABLET BY MOUTH THREE TIMES DAILY FOR 10 DAYS 05/05 completed finished Not Available Not Available Not Available metronida zole 500 mg tablet TAKE 4 TABLETS BY MOUTH A ONE TIME DOSE 04/27 completed Not Available Not Available Not Available hydroxyzi ne HCl 50 mg tablet TAKE 1/2 TO 1 (ONE-DOM F TO ONE) TABLET BY MOUTH EVERY 6 HOURS NEEDED FOR ANXIETY active Not Available Not Available No t Available prochlorp erazine maleate 10 mg tablet 05/05 completed not taking Not Available Not Available Not Available omeprazol e 40 mg capsule,d elayed release Take 1 capsule every day by oral route in the morning for 30 days. 05/05 completed Not Available Not Available Not Available doxycycli ne monohydra te 100 mg tablet TAKE 1 TABLET BY MOUTH TWICE DAILY FOR 7 DAYS 04/27 completed Not Available Not Available Not Available tramadol 50 mg tablet TAKE 1 TABLET BY MOUTH TWICE DAILY FOR 7 DAYS NEEDED FOR ACUTE PAIN active done with script Not Available Not Available Not Available lithium carbonate ER 450 mg tablet,ex tended release TAKE 1 TABLET BY MOUTH ONCE DAILY AT BEDTIME active Not Available Not Available No t Available ondansetr on 8 mg disintegr ating tablet PLACE 1 TABLET ON THE TOUNGE NEEDED 05/22 completed Not Available Not Available Not Available amoxicill in 875 mg tablet TAKE 1 TABLET BY MOUTH TWICE DAILY FOR 10 DAYS 05/04 completed stopped Not Available Not Available Not Available metoclopr amide 5 mg tablet 04/27 completed Not Available Not Available Not Available doxycycli ne monohydra te 100 mg capsule 04/27 completed Not Available Not Available Not Available pantopraz ole 40 mg tablet,de layed release active Not Available Not Available Not Available trazodone 150 mg tablet TAKE 0.5 - 1 TABLET BY MOUTH ONCE DAILY AT BEDTIME NEEDED 05/05 completed not taking Not Available Not Available Not Available lidocaine 5 % topical patch active Not Available Not Available Not Available nicotine 21 mg/24 hr daily transderm al patch 05/04 completed not using Not Available Not Available Not Available gabapenti n 300 mg capsule TAKE 1 CAPSULE BY MOUTH EVERY 6 HOURS NEEDED FOR ANXIETY OR PANIC 04/27 completed Not Available Not Available Not Available omeprazol e 20 mg capsule,d elayed release 04/29 completed Not Available Not Available Not Available hydroxyzi ne HCl 25 mg tablet Take 1 tablet 3 times a day by oral route for 30 days. 02/15 completed Not Available Not Available Not Available zolpidem 5 mg tablet TAKE 1 TABLET BY MOUTH ONCE DAILY AT BEDTIME NEEDED FOR INSOMNIA . DO NOT TAKE WITH ALCOHOL OR OPIOIDS active Not Available Not Available No t Available gabapenti n 100 mg capsule 04/27 completed Not Available Not Available Not Available zolpidem 10 mg tablet TAKE 1/2 TO 1 TABLET BY MOUTH AT BEDTIME ONCE DAILY NEEDED FOR INSOMNIA . DO NOT TAKE WITH ALCOHOL OR OPIOIDS. active Not Available Not Available No t Available albuterol sulfate HFA 90 mcg/actua tion aerosol inhaler active Not Available Not Available Not Available ondansetr on 4 mg disintegr ating tablet DISSOLVE 1 TABLET IN MOUTH EVERY 4 TO 6 HOURS NEEDED FOR NAUSEA active Not Available Not Available No t Available fluoxetin e 20 mg capsule TAKE 1 CAPSULE BY MOUTH ONCE DAILY active Not Available Not Available No t Available sertralin e 50 mg tablet Take 1 tablet every day by oral route for 30 days. 02/15 completed Not Available Not Available Not Available risperido ne 1 mg tablet TAKE 1 TABLET BY MOUTH ONCE DAILY IN THE MORNING 05/22 completed Not Available Not Available Not Available medroxypr ogesteron e 150 mg/mL intramusc ular suspensio n Inject 1 mL every 3 months by intramus cular route. 04/27 completed Not Available Not Available Not Available risperido ne 0.5 mg tablet 05/05 completed not taking Not Available Not Available Not Available oxycodone 5 mg tablet 05/05 completed stopped Not Available Not Available Not Available hydroxyzi ne pamoate 25 mg capsule 1 tablet twice daily active Not Available Not Available No t Available Sprintec (28) 0.25 mg-35 mcg tablet TAKE 1 TABLET BY MOUTH ONCE DAILY active Not Available Not Available No t Available atomoxeti ne 40 mg capsule TAKE 1 CAPSULE BY MOUTH IN THE MORNING 05/04 completed stopped Not Available Not Available Not Available bupropion HCl XL 150 mg 24 hr tablet, extended release 05/04 completed stopped Not Available Not Available Not Available glycerin (adult) rectal supposito ry Insert 1 supposit ory every day by rectal route as needed. 05/22 completed Not Available Not Available Not Available nitrofura ntoin monohydra te/macroc rystals 100 mg capsule TAKE 1 CAPSULE BY MOUTH TWICE DAILY FOR 7 DAYS active Not Available Not Available No t Available lactulose 10 gram/15 mL oral solution Take 15 mL every 2 hours by oral route as needed for 2 days, for bowel movement . 05/22 completed Not Available Not Available Not Available Strattera 80 mg capsule TAKE 1 CAPSULE BY MOUTH ONCE DAILY IN THE MORNING active Not Available Not Available No t Available varenicli ne tartrate 0.5 mg (11)-1 mg (42) tablets in a dose pack Take 1 startr pk by oral route, for tobacco cessatio n. active Not Available Not Available No t Available Vivitrol 380 mg intramusc ular suspensio n,extende d release 05/05 completed not taking Not Available Not Available Not Available Senna with Docusate Sodium 8.6 mg-50 mg tablet Take 2 tablets every day by oral route for 5 days, for constipa tion. 2023 active no longer taking Not Available Not Available Not Available lurasidon e 40 mg tablet 05/04 completed no longer taking Not Available Not Available Not Available clonidine HCl ER 0.1 mg tablet,ex tended release,1 2 hr TAKE 2 TABLETS BY MOUTH ONCE DAILY AT BEDTIME active Not Available Not Available No t Available lurasidon e 20 mg tablet 05/04 completed Not Available Not Available Not Available lurasidon e 60 mg tablet TAKE 1 TABLET BY MOUTH ONCE DAILY IN THE EVENING WITH FOOD active Not Available Not Available No t Available Narcan 4 mg/actuat ion nasal spray CALL 911. SPR CONTENTS OF ONE SPRAYER (0.1ML) INTO ONE NOSTRIL. REPEAT IN 2-3 MIN IF SYMPTOMS OF OPIOID EMERGENC Y PERSIST, ALTERNAT E NOSTRIL 04/27 completed Not Available Not Available Not Available Epclusa 400 mg-100 mg tablet Take 1 tablet every day by oral route in the morning for 30 days. 2023 active Not Available Not Available Not Avai lable tramadol 100 mg tablet TAKE 1 TABLET BY MOUTH TWICE DAILY NEEDED FOR 7 DAYS 05/05 completed Not Available Not Available Not Available Vitals Date Recorded Body height Body mass index (BMI) Body weight Systolic blood pressure Diastolic blood pressure Provider Name and Address Organization Details Last Updated DateTime 02/21/2019 167.64 cm 20.7 kg/m2 90331.82 g 120 mm[Hg] 78 mm[Hg] Alison Hughes MA [facility] 9 16:25:46 Date Recorded Body height Body mass index (BMI) Body weight Respiratory rate Heart rate Body temperature Systolic blood pressure Diastolic blood pressure Provider Name and Address Organization Details Last Updated DateTime 4 167.64 cm 29.6 kg/m2 91775.8 5 g 18 /min 86 /min 98.3 [degF] 123 mm[Hg] 81 mm[Hg] Denise Collier MA [facility] 4 14:49:41 Date Recorded Body height Body mass index (BMI) Body weight Body temperature Oxygen saturation Oxygen saturation in Arterial blood by Pulse oximetry Heart rate Respiratory rate Systolic blood pressure Diastolic blood pressure Provider Name and Address Organization Details Last Updated DateTime 4 167.64 cm 29.1 kg/m2 72692.7 8 g 98 [degF] 99 % 99 % 97 /min 21 /min 110 mm[Hg] 77 mm[Hg] ANKITA Jordan [facility] SI 4 15:59:59 Date Recorded Body height Body mass index (BMI) Body weight Heart rate Systolic blood pressure Diastolic blood pressure Provider Name and Address Organization Details Last Updated DateTime 4 167.64 cm 28.4 kg/m2 24396.5 4 g 85 /min 124 mm[Hg] 88 mm[Hg] Yanelis quiros MA [facility] SI 4 15:55:08 Date Recorded Body height Body mass index (BMI) Body weight Systolic blood pressure Diastolic blood pressure Provider Name and Address Organization Details Last Updated DateTime 07/03/2024 167.64 cm 28.9 kg/m2 26058.47 g 131 mm[Hg] 84 mm[Hg] Chanda BRENTON [facility] [place] [facility] 5 16:41:24 Social History Question Answer Notes LastModified by Organizat ion Details LastModified Time Tobacco Smoking Status Current Every Day Smoker Alison Hughes [facility] 07/01/2018 10:55:35 Are There Any Guns Present In Your Home? No Information not available 05/04/2024 What Was The Date Of Your Most Recent Tobacco Screening? 07/03/2024 Information not available 07/03/2024 How Many Children Do You Have? 2 Information not available 05/04/2024 What Is Your Relationship Status? Information not available 05/04/2024 Do You Use Your Seat Belt Or Car Seat Routinely? Yes Information not available 05/04/2024 Are You Sexually Active? Yes Information not available 05/04/2024 Do You Have Smoke And Carbon Monoxide Detectors In Your Home? Yes Information not available 05/04/2024 Are You Passively Exposed To Smoke? Yes Information no t available 05/04/2024 How Much Tobacco Do You Smoke? 0.5 PPD Information not available 07/01/2018 Do You Feel Stressed (tense, Restless, Nervous, Or Anxious, Or Unable To Sleep At Night)? [id number] Information not available 05/04/2024 Do You Use Sunscreen Routinely? No Information not available 05/04/2024 Has Tobacco Cessation Counseling Been Provided? Yes [email or web address] Information not available 04/27/2024 On What Date Was Tobacco Cessation Counseling Provided? 07/03/2024 Information not available 07/03/2024 How Many Years Have You Smoked Tobacco? 16 Information not available 07/01/2018 Sex: Female Functional Status None recorded. Mental Status None recorded. Family History Relationship Description Onset Age of this Age Resolved Age Notes LastModified by Organization Details LastModified Time Mother Hypertensive disorder [email or web address] Not available 2018 10:54:22 Paternal Grandmother Hypertensive disorder [email or web address] Not available 2018 10:54:22 Notes:05/04/24 Medical History Condition Response Anxiety Disorder Y High Blood Pressure Y Depression Y Asthma Y Gynecological History Statement/Question Response Flow Moderate Date of LMP 11/24/2023 STIs/STDs Y Duration of Flow (days) 5 Age at Menarche 14 Current Control Method None Age at First Child 20 Sexually Active? Y Menses Monthly Y Date of Last Pap Smear 07/01/2018 Sexual Problems? N LMP Approximate Desired Control Method BCPs Obstetrics History GPAL:G 5 P 1 2 1 2 Type Value Multiple Births 0 Full Term 1 Induced 0 Spontaneous 1 Premature 2 Living 2 Ectopics 0 Total 5 Past Encounters Encounter ID Performer Location Encounter Start Date Encounter Closed Date Diagnosis/Indication Diagnosis SNOMED-CT Code Diagnosis ICD10 Code Diagnosis Note [id number] MD Rogelio Godoy 14 [address] [facility] [place] [address] 07/01/2018 10:31:31 07/01/2018 13:19:08 Amenorrhea 77631814 N91.2 Methamphetamine abuse 69 0958466 F15.10 [id number] MD Rogelio Godoy 14 OB [address] [facility] [place] [address] 07/15/2018 14:27:08 07/18/2018 09:02:18 Routine care 948636148 Z34.82 Nausea and vomiting 1693 2000 R11.2 Anxiety 41434464 F41.9 [id number] MD Rogelio Godoy [address] [place] [address] [place] [address] 08/30/2018 11:51:41 08/31/2018 09:15:39 Routine care 202382226 Z34.82 [id number] MD Rogelio Godoy 14 OB [address] [facility] [place] [address] 02/15/2019 11:09:43 02/16/2019 09:24:39 Contraception care management 035561277 Z30.9 Sterilizat ion requested 597799024 Z30.2 [id number] MD Rogelio Godoy 14 OB [address] [facility] [place] [address] 02/21/2019 15:39:32 02/22/2019 08:32:40 Contraception care 688766734 Z30.40 [id number] MD Rogelio Gomez 14 IM [address] [facility] [place] [address] 04/27/2024 14:28:54 05/16/2024 11:36:24 Overweight 741750597 E66.3 Chronic, uncontroll ed -Will discuss at next office visit Mass of ovary 865874988 R19.09 Acute, complicate d Incidental finding during previous admissionP t with irregular periods. 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 Acute on Chronic, uncontroll ed -Patient with previous relationsh ip with cardiothor acic surgeon -Requestin g referral today Constipation 06306689 K5 9.00 Chronic, uncontroll edLikely due to pain medication during admission [id number] MD Rogelio Gomez 14 IM [address] [facility] [place] [address] 05/04/2024 15:22:42 05/11/2024 13:26:43 Constipation 92205460 K59.00 Acute, uncomplica tedDulcola x and glycerin enema -Physical exam showing normal bowel sounds, nonrigid or acute abdomen -Reassurin g at by flatulence passing and no diarrhea indicating possible impaction -Prescribe d lactulose gave patient expectatio n that she will likely have a bowel movement in the next 2 days -Clinic precaution s provided Acute kidney injury 1466 9001 N17.9 Acute, resolved- Ibuprofen for pain control -Tramadol 50 mg for breakthrou gh as needed Mass of ovary 981895399 R19.09 Acute, newPt with irregular periods- Pt is on several medication s for mood, considerin g possible drug interactio n, hyperprola ctinemia side effect-Jefry l assess hormone levels and obtain imaging to monitor ovarian mass Nicotine dependence 5629 4008 F17.200 - Chronic, uncontroll ed -Discussed with him methods for tobacco cessation -Patient instructed to attempt to citrus picker medication s -Patient will decide on possible quit date and discuss at next office visit Influenza vaccination declined 581531895 Z28.21 Smoker 75828461 F17.200 Chronic, uncontroll ed -See above plan [id number] MD Rogelio Godoy [address] [facility] [address] [place] [address] 05/22/2024 15:45:32 06/01/2024 12:03:14 Irregular periods 92239001 N92.6 Cyst of ovary 61741748 N 83.209 --Follow up on pelvic ultrasound scheduled for Overweight 555377279 E66 .3 Depression screening 171 091910 Z13.31 --PHQ9=7-- Pt has a psychiatri st at [facility] [id number] MD Rogelio Godoy [address] [place] [address] Dr Contreras [address] [place] [address] 07/03/2024 16:30:56 07/13/2024 09:49:15 Sterilization requested 212237934 Z30.2 Overweight 265412461 E66 .3 Positive s creening for depression on PHQ-9 (Patient Health Questionnaire 9) 4488675713 93273 Z13.31 Health Concerns Section Related Observation LastModified by Organization Detai ls LastModified Time None Recorded Concern Status LastModified by Organization Details LastModified Time None Recorded Advance Directives Directive None Recorded Payers Encounter Date Sequence Insurance Name Policy Number Policy Martinez Covered Member ID Martinez Member ID Guarantor Name 02/21/2019 1 [place] [employer] Mindy Troy [id number] Mindy Troy 04/27/2024 1 [facility] (MEDICAID REPLACEMENT - HMO) [id number] Mindy Troy [id number] Mindy Troy 05/04/2024 1 [facility] (MEDICAID REPLACEMENT - HMO) [id number] Mindy Troy [id number] Mindy Troy 05/22/2024 1 [facility] (MEDICAID REPLACEMENT - HMO) [id number] Mindy Troy [id number] Mindy Troy 07/03/2024 1 [facility] (MEDICAID REPLACEMENT - HMO) [id number] Mindy Troy [id number] Mindy Troy Notes Date Note Type Note Provider Name and Address Organization Details Recorded Time 02/21/2019 text/html Patient presents for depo-provera injection. She denies any other complaints. Marcos Rutherford MD Attn: Accounting[address] [facility], [place], [address], [place] - [facility] 02/21/2019 17:02:09 04/27/2024 text/html 34 yo M/F with P MH of cyclic vomiting syndrome, esophageal tear in the setting of hyperemesis gravidarum (non-operative management), GERD, Polysubstance abuse, Hep C, Bipolar disorder, sleep paralysis, ADHD, and nicotine dependence who presents for Hospital follow up Hospital Course: Abdominal painPatient states she had Hernandez's esophagus but EGD pathology in our system just shows reflux esophagitis. P/w ~4 days of burning epigastric abdominal pain radiating up the chest with associated diarrhea x1 day and N/V (with 1 reported episode of small volume hematemesis). No N/V/diarrhea in the 8 hours she's been in the ED thus far. Ddx includes viral gastroenteritis, cyclic vomiting flare, gastritis, and PUD. Small volume hematemesis was more likely a Mihir Mcintyre tear. Rare NSAID use at home. LA 0.9, liver enzymes unremarkable, lipase 21, HCG negative, and CBC WNL. VSS. Supportive care was provided with anti emetics, pain control, IVF. Patient was started on PPI BID. Nausea improved but patient continued to have pain and was unable to advance diet. CT was ordered for further evaluation and GI was consulted. CT returned unremarkable. Intermediate density adnexal cyst measuring 1.5 cm, possibly representing a hemorrhagic cyst. Patient underwent EGD on 04/19 which was normal. Presumes to be healed mihir mcintyre tear. She was tolerating PO possible to discharge. She was discharged home on zofran, compazine, protonix, and oxycodone.AKICr 1.13 (last Cr in the system was 0.75 in 2022). Suspect pre-renal from N/V and decreased PO intake. FeNa 0.3, consistent with pre renal etiology. Stable at discharge. Recommend follow up. No current evidence of edward or psychosis; denies SI/HI/AVH. Cont home clonidine QHS, latuda, lithium, atarax PRN, and gabapentin. No longer taking risperidone. Burr level low at 0.03 today. Likely due to recent vomiting. Patient no longer vomiting.F/u with psychiatry outpatient- Marcos JefferynutCurrent smoker of 1ppd since age 13. Counseled cessation and started nicotine patchPrior heavy alcohol abuse but now down to 1 beer only sociallyPrior heroin, cocaine, and meth. States she underwent rehab and has not used in 7 months.RPR, HIV, hep a and hep b negative. Hep c reactive and quant detected. ID requested to start her treatment plan during admission. She was prescribed epclusa at discharge. They will continue to see her outpatient. Continue atomoxetineActive Issues Requiring Follow-up:Cr, repeat labsID follow up for new hep CConsult sent to previous cardiothoracic surgeon per requestIntermediate density adnexal cyst measuring 1.5 cm, possibly representing a hemorrhagic cyst seen on CT Today patient is accompanied by her mother -Feels frustrated due to her health- Difficulty eating describes as a raspy pain in her chest- Eating softs- Attempted to eat chicken however was not able -Patient is requesting Pain [id number]?Patient had her first son at 19No period for last 5 months- Previous patient of Dr. Rutherford is requesting a referral today - Pt lives in [place] Previous Seizure disorder (possible epilepsy) Previously seen by Dr. Simpson- Pt has been seizure free for years- Patient does not drive Vinod Restrepo MD Attn: Accounting[address] [facility], [place], [address], [place] - [facility] 05/15/2024 21:20:21 05/04/2024 text/html Review of previous hospital admission significant for incidental finding of mass on ovary- Patient has not had an episode of menses for the last 5 months- Previously regular-Patient is concerned that conception may be an issue in the future-Patient referred to [facility] at last office visit -Patient has been on several antipsychotics in the past Now currently on: Lurasidone 60 mg, lithium 450 mg ERMallory-Mcintyre syndrome-Since last office visit patient has attempted to alleviate pain with tramadol 100 mgPatient states that she had an abnormal sensation and attempted 50 mg which she found tolerable-The patient states that she is continue to have pain however improved from previous visit-Patient is on pantoprazole - Has not had a bowel movement in 2.5 weeks- denies the urge to defacate- making flatulance in the AM- is drinking 1 capful MiraLAX twice daily-Patient has not yet picked up glycerin suppository-Patient states that she is also considering Dulcolax -Patient has been drinking coffee -Denies pencillike stool Labs from last office visit reviewed-Showing known hepatitis C infection-Patient requesting printed orders to contact smasher-Patient has not yet started Epclusa as she is having difficulties with insurance Patient is interested in cutting down on tobacco use -Patient vapes and smokes 3 packs of cigarettes per week -Patient states that she is interested in methods to cut down and ultimately wants to quit-Was previously on buproprion which was intolerable-Caused strange sensation of the head for the patient Vinod Restrepo MD Attn: Accounting[address] [place], [address], [facility] 05/05/2024 20:50:12 05/22/2024 text/html Patient presents with the complaint of irregular periods and desires to start OCPs for regulation. She is taking multiple medications for mental health and states she has not had a period since December. The patient also states she has an ultrasound scheduled to monitor and incidentally found ovarian mass. She denies any pelvic pain. Marcos Rutherford MD Attn: Accounting[address] [place], [address], [facility] 05/24/2024 15:49:31 07/03/2024 text/html Patient presents to discuss ultrasound results. The patient also states that she would like a tubal ligation. She denies any other complaints. Marcos Rutherford MD Attn: [address] , [place], [address], [place] [facility] 07/04/2024 13:09:59 OBGyn Episode Ob Episode Information Episode Created Date Number of Fetuses Patient Bloodtype Patient rh Status Prepregnancy Weight lbs Domestic Partner Domestic Partner Phone Father Name Director Operations Broadcast Status 07/01/19 19 1 CLOSED Fetus Data First Name Last Name Admitted to NICU Weight (g) Sex Living Outcome Pediatric Complications Fetus ID Race Codes Race Delivery Type [id number] Kevin Calculation Initial Kevin Date Initial Exam Date Initial Exam Provider Initial Ultrasound Date Last Menstrual Period Date Ultra Sound Weeks Gestation 0 Eighteen To Twenty Week Kevin Update Ultra Sound Date Fundal Height At Umbil Quickening Date Ultra Sound Latest Weeks Gestation Final Kevin Confirmed By Final Kevin Confirmed Date Final Kevin Date Ultra Sound Latest Days Gestation 0 0 Menstrual History Last Menstrual Date Menses Monthly On Bcp Conception Prior Menses Frequency Hcg Plus Date Menarche Onset Age Delivery Information Delivery Date Delivery Type Labor Anesthesia Weeks Gestation Incision Type Labor Labor Length Hrs Delivered By Post Complications Tubal Sterilization Discharge Date Comments 0 stillbor n at 6 months Discharge Information Feeding Method Contraceptive Method Maternal HG B and HCT Levels Ob Episode Information Episode Created Date Number of Fetuses Patient Bloodtype Patient rh Status Prepregnancy Weight lbs Domestic Partner Domestic Partner Phone Father Name Director Operations Broadcast Status 07/01/19 19 1 A Positive CLOSED Fetus Data First Name Last Name Admitted to NICU Weight (g) Sex Living Outcome Pediatric Complications Fetus ID Race Codes Race Delivery Type [id number] Problems Problem Notes varicella non immune Problem Name Start Date End Date Resolution Snomed Code Not e Asthma 983249836 Depressive disorder 23890282 Anxiety 16321107 Hypertensive disorder 93918347 Herpesvirus infection 11542325 Suppression therapy at 36 weeks Late entry into care [id number] Deliveries by 04 Perform RLTCS at 39 weeks Methamphetamine abuse 26099548 3 Transfer to [facility] 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 Past history of stillbirth [id number] x2, at 6 and 6 1/2 months Kevin Calculation Initial Kevin Date Initial Exam Date Initial Exam Provider Initial Ultrasound Date Last Menstrual Period Date Ultra Sound Weeks Gestation 11/26/2018 07/01/2018 [email or web address] 04/16/2018 02/20/2018 8 Eighteen To Twenty Week Kevin Update Ultra Sound Date Fundal Height At Umbil Quickening Date Ultra Sound Latest Weeks Gestation Final Kevin Confirmed By Final Kevin Confirmed Date Final Kevin Date Ultra Sound Latest Days Gestation 07/06/19 19 19 [email or web address] 07/01/2018 11/27/19 19 3 Pre- Flowsheet Flowsheet Date 07/01/2018 Branch Score Blood Edema Fundus Height Fundus Units Glucose Ketones Leukocytes Nitrite Labor Signs Protein Cervic Dilation Cervic Effacement Cervic Station none none 0cm Type Weight in lbs Pre/Post Dialysis Refused With clothes 126.194111645428 BP Diastolic BP Location Tested BP Systolic BP Type Fetus Heart Rate Present A 150's Present Fetus Movement A No Comments Patient presents for initial visit. CBE and pap smear performed. Nutritional counseling performed, will order quad screen and anatomy scan. Patient is currently on methamphetamine and desires treatment. She has a history of 2 stillbirths at 6 and 6 1/2 months, 1 SAB and 1 term . She was recently incarcerated. The patient [facility]. Flowsheet Date 07/15/2018 Branch Score Blood Edema Fundus Height Fundus Units Glucose Ketones Leukocytes Nitrite Labor Signs Protein Cervic Dilation Cervic Effacement Cervic Station neg none none negative none trace Type Weight in lbs Pre/Post Dialysis Refused BP Diastolic BP Location Tested BP Systolic BP Type 62 110 sitting Fetus Heart Rate Present A 150's Present Fetus Movement A Yes Comments Patient states that she woul d like medication to help with her anxiety and nausea. She states she plans to turn herself in secondary to a parole violation and is expected to spend 90 days in long term. She states she would like [facility]. Flowsheet Date 08/30/2018 Branch Score Blood Edema Fundus Height Fundus Units Glucose Ketones Leukocytes Nitrite Labor Signs Protein Cervic Dilation Cervic Effacement Cervic Station neg none none negative none neg Type Weight in lbs Pre/Post Dialysis Refused With clothes 132.803551363372 BP Diastolic BP Location Tested BP Systolic BP Type 78 124 sitting Fetus Heart Rate Present A 160's Present Fetus Movement A Yes Comments Patient states she would lik e to go to [facility] now that she is out of long term. Will resend referral. She also states that the zoloft is not helping her anxiety, she would like something that is faster acting. Pt has been on xanax before, informed patient that she cannot use xanax during . RTC in 1 weeks for DMS and 3 weeks for routine care. Menstrual History Last Menstrual Date Menses Monthly On Bcp Conception Prior Menses Frequency Hcg Plus Date Menarche Onset Age 0902/20/2018 Genetic Screening And Infection History Question Response Note Patient's Age Will Be 35 Yea rs Or Older At Estimated Date of Delivery false Thalassemia (Ugandan, Nepali, Mediterranean, Or Background): MCV < 80 false Neural Tube Defect (Meningom yelocele, Spina Bifida, Or Anencephaly) false Congenital Heart Defect false Down Syndrome false Manny-Sachs (eg, Baptist, Cajun, Nepali-[place]) f alse Cecil Disease false Sickle Cell Disease Or Trait () false Hemophilia Or Other Blood Disorders false Muscular Dystrophy false Cystic Fibrosis false Bracken's Chorea false Mental Retardation/Autism false If Yes, Was Person Tested For Fragile X? false Other Inherited Genetic Or Chromosomal Disorder false Patient Or Baby's Father Had A Child With Defects Not Listed Above false Recurrent Loss, Or A Stillbirth true Medications (including Suppl ements, Vitamins, Herbs, OTC Drugs), Illicit/Recreational Drugs, Alcohol true Meth If Yes, Agent(s) And Strength/Dosage false Any Other Genetic History false Live With Someone With TB Or Exposed To TB false Patient Or Partner Has History Of Genital Herpes false Rash Or Viral Illness Since Last Menstrual Perio d false History Of STD, Gonorrhea, Chlamydia, HPV, Syphi lis true Chlamydia, HSV Other Infection History false History of HIV false History of Hepatitis false Prior GBS-infected child false Delivery Information Delivery Date Delivery Type Labor Anesthesia Weeks Gestation Incision Type Labor Labor Length Hrs Delivered By Post Complications Tubal Sterilization Discharge Date Comments Discharge Information Feeding Method Contraceptive Method Maternal HG B and HCT Levels Ob Episode Information Episode Created Date Number of Fetuses Patient Bloodtype Patient rh Status Prepregnancy Weight lbs Domestic Partner Domestic Partner Phone Father Name Director Operations Broadcast Status 07/01/19 19 1 CLOSED Fetus Data First Name Last Name Admitted to NICU Weight (g) Sex Living Outcome Pediatric Complications Fetus ID Race Codes Race Delivery Type 3401.94 M Full Term 94241 Kevin Calculation Initial Kevin Date Initial Exam Date Initial Exam Provider Initial Ultrasound Date Last Menstrual Period Date Ultra Sound Weeks Gestation 0 Eighteen To Twenty Week Kevin Update Ultra Sound Date Fundal Height At Umbil Quickening Date Ultra Sound Latest Weeks Gestation Final Kevin Confirmed By Final Kevin Confirmed Date Final Kevin Date Ultra Sound Latest Days Gestation 0 0 Menstrual History Last Menstrual Date Menses Monthly On Bcp Conception Prior Menses Frequency Hcg Plus Date Menarche Onset Age Delivery Information Delivery Date Delivery Type Labor Anesthesia Weeks Gestation Incision Type Labor Labor Length Hrs Delivered By Post Complications Tubal Sterilization Discharge Date Comments 0 Discharge Information Feeding Method Contraceptive Method Maternal HG B and HCT Levels Ob Episode Information Episode Created Date Number of Fetuses Patient Bloodtype Patient rh Status Prepregnancy Weight lbs Domestic Partner Domestic Partner Phone Father Name Director Operations Broadcast Status 07/01/19 19 1 CLOSED Fetus Data First Name Last Name Admitted to NICU Weight (g) Sex Living Outcome Pediatric Complications Fetus ID Race Codes Race Delivery Type 13729 Kevin Calculation Initial Kevin Date Initial Exam Date Initial Exam Provider Initial Ultrasound Date Last Menstrual Period Date Ultra Sound Weeks Gestation 0 Eighteen To Twenty Week Kevin Update Ultra Sound Date Fundal Height At Umbil Quickening Date Ultra Sound Latest Weeks Gestation Final Kevin Confirmed By Final Kevin Confirmed Date Final Kevin Date Ultra Sound Latest Days Gestation 0 0 Menstrual History Last Menstrual Date Menses Monthly On Bcp Conception Prior Menses Frequency Hcg Plus Date Menarche Onset Age Delivery Information Delivery Date Delivery Type Labor Anesthesia Weeks Gestation Incision Type Labor Labor Length Hrs Delivered By Post Complications Tubal Sterilization Discharge Date Comments 5 [place] [facility] at 6 1/2 months Discharge Information Feeding Method Contraceptive Method Maternal HG B and HCT Levels Ob Episode Information Episode Created Date Number of Fetuses Patient Bloodtype Patient rh Status Prepregnancy Weight lbs Domestic Partner Domestic Partner Phone Father Name Director Operations Broadcast Status 07/01/19 19 1 CLOSED Fetus Data First Name Last Name Admitted to NICU Weight (g) Sex Living Outcome Pediatric Complications Fetus ID Race Codes Race Delivery Type , [place] [address] Kevin Calculation Initial Kevin Date Initial Exam Date Initial Exam Provider Initial Ultrasound Date Last Menstrual Period Date Ultra Sound Weeks Gestation 0 Eighteen To Twenty Week Kevin Update Ultra Sound Date Fundal Height At Umbil Quickening Date Ultra Sound Latest Weeks Gestation Final Kevin Confirmed By Final Kevin Confirmed Date Final Kevin Date Ultra Sound Latest Days Gestation 0 0 Menstrual History Last Menstrual Date Menses Monthly On Bcp Conception Prior Menses Frequency Hcg Plus Date Menarche Onset Age Delivery Information Delivery Date Delivery Type Labor Anesthesia Weeks Gestation Incision Type Labor Labor Length Hrs Delivered By Post Complications Tubal Sterilization Discharge Date Comments 8 Discharge Information Feeding Method Contraceptive Method Maternal HG B and HCT Levels Ob Episode Information Episode Created Date Number of Fetuses Patient Bloodtype Patient rh Status Prepregnancy Weight lbs Domestic Partner Domestic Partner Phone Father Name Director Operations Broadcast Status 05/22/20 24 1 CLOSED Fetus Data First Name Last Name Admitted to NICU Weight (g) Sex Living Outcome Pediatric Complications Fetus ID Race Codes Race Delivery Type 2522.87 8704 F Full Term [address] Kevin Calculation Initial Kevin Date Initial Exam Date Initial Exam Provider Initial Ultrasound Date Last Menstrual Period Date Ultra Sound Weeks Gestation 0 Eighteen To Twenty Week Kevin Update Ultra Sound Date Fundal Height At Umbil Quickening Date Ultra Sound Latest Weeks Gestation Final Kevin Confirmed By Final Kevin Confirmed Date Final Kevin Date Ultra Sound Latest Days Gestation 0 0 Menstrual History Last Menstrual Date Menses Monthly On Bcp Conception Prior Menses Frequency Hcg Plus Date Menarche Onset Age Delivery Information Delivery Date Delivery Type Labor Anesthesia Weeks Gestation Incision Type Labor Labor Length Hrs Delivered By Post Complications Tubal Sterilization Discharge Date Comments 9 [facility]. Discharge Information Feeding Method Contraceptive Method Maternal HG B and HCT Levels
--- OUTSIDE RECORDS SUMMARY | 2024-08-30 21:50 | XMS_ITS | Encounter Summary ---
Author Organization [facility] Address [address] [place] [address] Phone Care Team Providers Care Supervisor Irrigation Name Role Phone Brendan Garcia ACCOUNTING CONSULTANT Unavailable [phone] Glenna Nathan ACCOUNTING CONSULTANT Primary Care Provider [phone] Encounter Details Date Type Department Care Team (Late st Contact Info) Description 08/30/2024 Orders Only [facility] Infectious Diseases [address] [place] [phone] Ketty Quiros RN Hepatitis C antibody test positive (Primary Dx) Social History Tobacco Use Types Packs/Day Years [...] on file documented as of this encounter Plan of Treatment Scheduled Orders Name Type Priority Associated Diagnoses Orde r Schedule Hepatitis C (HCV) RNA PCR, quantitative Blood Microbiology Routine Hepatitis C antibody test positive Expected: 09/02/2024, Expires: 08/30/2025 Hepatitis C (HCV) RNA PCR, quantitative Blood Microbiology Routine Hepatitis C antibody test positive Expected: 09/02/2024, Expires: 08/30/2025 documented as of this encounter Visit Diagnoses Diagnosis Hepatitis C antibody test positive- Primary Other and unspecified nonspecific immunological findings documented in this encounter Care Teams Supervisor Irrigation Relationship Specialty Start Date End Date Glenna Nathan NP [address] [place] [address] PCP - General Family Medicine 08/10/24 Brendan Garcia NP [address] [place] [id number] Psychiatry 08/10/24 documented as of this encounter
--- OUTSIDE RECORDS SUMMARY | 2024-08-30 21:50 | XMS_ITS | Encounter Summary ---
Author Organization [facility] Healthcare Address [address] [place] [address] Care Team Providers Care Metals Analyst Name Role Phone Brendan Garcia RAW STOCK MACHINE FEEDER Unavailable [phone] Glenna Nathan RAW STOCK MACHINE FEEDER Primary Care Provider [phone] Reason for Visit * Auth/Cert (Routine) Specialty Diagnoses / Procedures Referred By Contac t Referred To Contact Diagnoses VOLUNTARY STERILIZATION Procedures ME LAPAROSCOPY W/PLMT OCCLUSION DEVICE OVIDUCTS LAPAROSCOPIC BILATERAL TUBAL LIGATION Referral ID Status Reason Start Date Expiration Date Visits Re quested Visits Authorized [id number] 1 1 Encounter Details Date Type Department Care Team (Latest Contact Info) Description 08/29/2024 9:05 AM CDT - 08/29/2024 3:50 PM CDT Hospital Encounter [facility] OR [address] [place] [address] Rangel Gastelum MD [address] [place] [address] Request for sterilization Discharge Disposition: Discharge to home or self care Social History Tobacco Use Types Packs/Day Years [...] alcohol? Monthly or less 08/29/2024 9:41 AM LUIST Rigo Seay RN Q2: How many drinks containing alcohol do you have on a typical day when you are drinking? 1 or 2 08/29/2024 9:41 AM LUIST Rigo Seay R N Q3: How often do you have six or more drinks on one occasion? Never 08/29/2024 9:41 AM LUIST Rigo eSay R N documented as of this encounter Discharge Instructions * Attachments The following attachments cannot be sent through Care Everywhere. * General Anesthesia (Discharge Care) (Tajik) * Laparoscopic Tubal Ligation (Discharge Care) (Tajik) documented in this encounter Medications at Time [...] Gastelum MD - 08/29/2024 11:34 AM CDT SANITARY ENGINEER History and Physical Subjective Patient is 34 [...] disorder Bipolar 1 disorder (HCC) Bipolar disorder ([facility]) 04/17/2024 Gastroesophageal reflux disease 12/13/2012 Generalized anxiety disorder Hepatitis C antibody test positive 04/17/2024 Infectious viral hepatitis Irritable bowel syndrome Kidney stones Methamphetamine use ([facility]) Motion sickness Polysubstance abuse ([facility]) 04/17/2024 PONV (postoperative nausea and vomiting) Seizure disorder ([facility]) 2012 withdrawal from ETOH Past Surgical History: [...] 30 mL/hr intravenous Continuous Reji Encinas MD 30mL/hr at 08/29/24 0956 30 mL/hr at 08/29/24 [...] Indication for Procedure: This is 34 y.o. [id number] undesired future fertility. The patient was appropriately [...] Mirna Lozano RN - 08/16/2024 5:01 PM PROCESSING OPERATOR I spoke with Mindy today, pre-testing phone assessment completed. History and medication list updated. She is not able to come in for a QT due because she does not drive. So she will get the pre-op lab done in the outpt lab at [facility]. Instructions given and sent to [facility] and her personal email, all questions were answered and she verbalized understanding. ESSING OPERATOR * Pre-Procedure Instructions - Mirna Lozano RN - 08/16/2024 4:17 PM PROCESSING OPERATOR Images from the original note were not included. [address] [address] Surgery Reminder Checklist: Please arrive to [facility] for scheduled [...] [facility] forFREE. Hours: Wednesday - Wednesday 8 AM - 4:30PM. Go to the main entrance and ask the front end java developer for Hibiclens Soap. If you go to [facility], park underneath Entrance A drive thru and call [phone] and ask for the surgery soap. We [...] Dairy, Milk Products, Creamer, Red Gatorade or [place] Juice) Nothing by mouth the 4 hours prior to your procedure, NOT EVEN WATER. [place] your teeth morning of procedure. Use mouth [...] Non-medical transport services (buses, taxis, or a [employer] company such as [employer] or [employer], etc.) are NOT allowed. A responsible adult [...] please call the Admission Testing Center at [phone]. Morning of surgery question/concerns, please call Outpatient Surgery at [phone]. Thank You for choosing [facility]'s Surgery department! ESSING OPERATOR documented in this encounter Plan of Treatment [...] was last reviewed 2023. Testing performed by: [facility], [address] [place] [address], [place]., [address] Barbiturates, ur Not Detected CutOff 200ng/mL [facility] Comment: Interpretive Data - Barbiturates: Samples containing greater than 200 ng/mL secobarbital or other cross-reacting barbiturate compounds are reported as positive. False positive and false negative results are possible. Confirmatory testing required for definitive results. Current Interpretive Data was last reviewed 2023. Testing performed by: [address] [address] Benzodiazepines, ur Not Detected CutOff 100ng/mL [facility] Comment: Interpretive Data - Benzodiazepines: Samples containing greater than 100 ng/mL nordiazepam or other cross-reacting compounds are reported as positive. False positive and false negative results are possible. Confirmatory testing required for definitive results. Current Interpretive Data was last reviewed 2023. Testing performed by: [address] [address] Cannabinoids, ur Not Detected CutOff 50 ng/mL [facility] Comment: Interpretive Data - Cannabinoids: Samples containing greater than 50 ng/mL delta-9 THC -COOH or other cross- reacting compounds are reported as positive. False positive and false negative results are possible. Confirmatory testing required for definitive results. Current Interpretive Data was last reviewed 2023. Testing performed by: [address] [address] Cocaine, ur Not Detected CutOff 150ng/mL [facility] Comment: Interpretive Data - Cocaine: Samples containing greater than 150 ng/mL benzoylecgonine or other cross- reacting compounds are reported as positive. False positive and false negative results are possible. Confirmatory testing required for definitive results. Current Interpretive Data was last reviewed 2023. Testing performed by: [address] [address] Fentanyl, Ur Not Detected Cutoff 1 ng/mL [facility] Comment: Interpretive Data - Fentanyl: Samples containing greater than 1 ng/mL fentanyl or other cross-reacting fentanyl compounds are reported as positive. False positive and false negative results are possible. Confirmatory testing required for definitive results. Current Interpretive Data was last reviewed 2023. Testing performed by: [address], [place]., [address] Methadone, ur Not Detected CutOff 300ng/mL [facility] Comment: Interpretive Data - Methadone: Samples containing greater than 300 ng/mL d,l-methadone or other cross-reacting compounds are reported as positive. False positive and false negative results are possible. Confirmatory testing required for definitive results. Current Interpretive Data was last reviewed 2023. Testing performed by: [address] [address] Opiates, ur Not Detected CutOff 300ng/mL [facility] Comment: Interpretive Data - Opiates: Samples containing greater than 300 ng/mL morphine or other cross-reacting compounds are reported as positive. False positive and false negative results are possible. Confirmatory testing required for definitive results. Current Interpretive Data was last reviewed 2023. Testing performed by: [address] [address] Oxycodone, ur Not Detected CutOff 100ng/mL [facility] Comment: Interpretive Data - Oxycodone: Samples containing greater than 100 ng/mL oxycodone or other cross-reacting compounds are reported as positive. False positive and false negative results are possible. Confirmatory testing required for definitive results. Current Interpretive Data was last reviewed 2023. Testing performed by: [address] [address] Phencyclidine, ur Not Detected CutOff 25 ng/mL [facility] Comment: Interpretive Data - Phencyclidine: Samples containing greater than 25 ng/mL phencyclidine or other cross-reacting compounds are reported as positive. False positive and false negative results are possible. Confirmatory testing required for definitive results. Current Interpretive Data was last reviewed 2023. Testing performed by: [address] [address] Urine Creatinine 128 mg/dL [facility] Comment: Interpretive Data Urine Creatinine: < 10 mg/dL is extremely dilute = or > 10 but < 20 mg/dL is dilute = or > 20 mg/dL is normal Current Interpretive Data was last revised on 2017. Testing performed by: [address] [address] Urine 08/29/2024 9:26 AM CDT 08/29/2024 9:32 AM CDT Narrative [facility] - 08/29/2024 10:16 AM CDT Drug of Abuse screening is performed by immunoassay for medical purposes only. This is not to be used for Pain Management purposes. If Detected, confirmation testing will be performed for Amphetamines, Cocaine, Fentanyl, Methadone, Opiates, Oxycodone or Phencyclidine. us Reji Encinas MD LAB URINE ORDERABL ES Final Result [facility] [address] [facility] Department [place] [address] documented in this encounter Visit Diagnoses Diagnosis Request for sterilization documented in this encounter Administered Medications Inactive Administered Medications - up to 3 most recent administrations Medication Order MAR Action Action Date Dose Rate Site acetaminophen (TYLENOL) tablet 975 mg 975 mg (rounded from 1,000 mg), oral, Once, On Wed08/29/24 at 0945, For 1 dose, Pre-Op, Indications: Pre-Emptive AnalgesiaIndications:Pre-Emptive Analgesia Given 08/29/2024 9:56 AM CDT 975 mg famotidine (PEPCID) tablet 20 mg 20 mg, oral, Once, On Wed08/29/24 at 0945, For 1 dose, Pre-Op, Indications: gastroesophageal reflux diseaseIndications:gastroesophagea l reflux disease Given 08/29/2024 9:56 AM CDT [...] this section may contain times in both PROCESSING OPERATOR and CDT. Scheduled Medication Order 08/27/2024 08/28/2024 [...] reflux disease 0956 (Given - Provid er: Rigo Seay RN) meclizine (ANTIVERT) tablet 25 mg (COMPLETED) 25 mg, oral, Once, On Wed08/29/24 at 1015, For 1 dose, Pre-Op 0956 [...] free injection (CANCELED) As needed, Starting on Wed08/29/24 at 1214, Intra-Op 1214 (Given - Provid er: Rangel Gastelum MD)1215 (Given - Provider: Rangel Gastelum MD) diphenhydrAMINE (BENADRYL) 50 mg/mL injection 12.5 mg 12.5 mg, intravenous, Every 15 min PRN, itching, Starting on 08/29/24 at 1248, For 2 doses, Phase I, Max cumulative dose 50 mg., Indications: Itching fentaNYL (SUBLIMAZE) preservative free injection 25 mcg 25 mcg, intravenous, Every 10 min PRN, For uncontrolled pain use in the pacu only, Starting on 08/29/24 at 1248, Phase I, Then proceed to PACU 1st line analgesic., Indications: Pain 1308 (Given - Provid er: Esperanza Blankenship RN) fentaNYL (SUBLIMAZE) preservative free injection 50 mcg 50 mcg, intravenous, Once as needed, breakthrough pain, Starting on 08/29/24 at 1248, For 1 dose, Phase I, Administer for uncontrolled or increasing pain while in PACU only. hydrALAZINE (APRESOLINE) injection 5 mg 5 mg, intravenous, Administer over 2 Minutes, Every 15 min PRN, high blood pressure, Starting on e 08/29/24 at 1248, Phase I, Max cumulative dose 20 mg. Dose if systolic BP greater than 180 AND heart rate less than 70. HYDROmorphone (DILAUDID) injection 0.2 mg 0.2 mg, intravenous, Administer over 2 Minutes, Every 10 min PRN, 1st line for pain, Starting on 08/29/24 at 1248, Phase I, Switch to 2nd line analgesic order if pain is uncontrolled or increasing after 2 doses. Notify Anesthesiologist if total PACU dose reaches 2 mg and pain score 5/10 or more., Indications: Pain HYDROmorphone (DILAUDID) injection 0.4 mg 0.4 mg, intravenous, Administer over 2 Minutes, Every 10 min PRN, 2nd line for pain, Starting on 08/29/24 at 1248, Phase I, May administer 10 [...] Count Last Ordered Date First Ordered Date BUPivacaine-EPINEPHrine (MAR ARANZA with EPI) 0.5 %-1:200,000 preservative free injection 1 08/29/2024 ceFAZolin (ANCEF) 2,000 mg/2 0 mL in [...] 08/29/2024 documented in this encounter Care Teams Metals Analyst Relationship Specialty Start Date End Date Glenna Nathan NP [address] [place] [address] PCP - General Family Medicine 08/10/24 Brendan Garcia NP [address] [place] [address] Psychiatry 08/10/24 documented as of this encounter
--- OUTSIDE RECORDS SUMMARY | 2024-08-30 21:50 | XMS_ITS | Data Portability ---
Author Organization [email or web address] , [facility] Address [address] [place] [address] Assessment No assessment recorded. 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 Procedures None recorded. Surgeries None recorded. Imaging None recorded. Medication Orders Diflucan [address] [facility], [address] [place], [address], 07/26/2024 11:59:41 IBU 800 mg tablet [address] [facility], [address] [place], [address], 07/26/2024 11:59:42 hydroxyzi ne HCl 25 mg tablet [address] [facility], [address] [place], [address], 07/26/2024 11:59:44 oxycodone -acetamin ophen 5 mg-325 mg tablet [address] [facility], [address] [place], [address], 07/26/2024 11:59:43 Patient TargetsNo targets recorded. Patient Instructions Encounter Date Encounter Id Patient Instructions Last Modified By Organization Details Last Modified Time 07/26/2024 [id number] vaginitis: care instructions [email or web address] Not available 07/26/2024 11:53:23 Reason for Referral None Reported. Results Created Date Observation Date Name Description Value Unit Range Abnormal Flag Note LastModifiedBy Organization Detail LastModifiedTime 07/26/1907/28/2024 VAGIN ITIS PANEL bacterial vaginosis BV neg negati ve normal Not Available [address], [address], 07/28/2024 13:48:15 07/26/19 25 07/28/2024 VAGIN ITIS PANEL sadiq species C. spp neg negati ve normal Not Available [address], [address], 07/28/2024 13:48:15 07/26/19 25 07/28/2024 VAGIN ITIS PANEL sadiq glabrata C. gla neg negati ve normal Not Available [address], [address], 07/28/2024 13:48:15 07/26/19 25 07/28/2024 VAGIN ITIS PANEL trichomonas vaginalis CV/TV TRICH neg negati ve normal Not Available [address], [address], 07/28/2024 13:48:15 Result Notes None recorded. Medical Equipment None Reported. Allergies Allergen ID Allergen Name Allergen Category Reaction Reaction Severity Criticality Documentation Date Start Date Code Code System Note Provider Name and Address Organization Details Recorded Time [id number] codeine medicatio n Not available Not available Not available 07/26/2024 7150 RxNorm Not Available Not Available Not Available Medications Name Sig Start Date Stop Date Status Note LastModified by Organization Details LastModified Time gabapentin 600 mg tablet TAKE 1 TABLET BY MOUTH EVERY 8 HOURS NEEDED FOR ANXIETY/P ANIC FOR 30 DAYS active Not Available Not Available No t Available cetirizine 10 mg tablet TAKE 1 TABLET BY MOUTH ONCE DAILY NEEDED FOR CONGESTIO N 07/26 completed Not Available Not Available Not Available ibuprofen 800 mg tablet TAKE 1 TABLET BY MOUTH 4 TIMES DAILY DIRECTED active Not Available Not Available No t Available fluconazole 150 mg tablet TAKE 1 TABLET BY MOUTH ONCE DAILY DIRECTED active Not Available Not Available No t Available phenazopyri dine 200 mg tablet TAKE 1 TABLET BY MOUTH THREE TIMES DAILY FOR 2 DAYS 07/26 completed Not Available Not Available Not Available penicillin V potassium 500 mg tablet TAKE 1 TABLET BY MOUTH THREE TIMES DAILY FOR 10 DAYS 07/26 completed Not Available Not Available Not Available metronidazo le 500 mg tablet TAKE 4 TABLETS BY MOUTH A ONE TIME DOSE active Not Available Not Available No t Available hydroxyzine HCl 50 mg tablet TAKE 1/2 TO 1 (ONE-HALF TO ONE) TABLET BY MOUTH EVERY 6 HOURS NEEDED FOR ANXIETY active Not Available Not Available No t Available doxycycline monohydrate 100 mg tablet TAKE 1 TABLET BY MOUTH TWICE DAILY FOR 7 DAYS 07/26 completed Not Available Not Available Not Available tramadol 50 mg tablet TAKE 1 TABLET BY MOUTH TWICE DAILY FOR 7 DAYS NEEDED FOR ACUTE PAIN 07/26 completed Not Available Not Available Not Available lithium carbonate ER 450 mg tablet,exte nded release TAKE 1 TABLET BY MOUTH ONCE DAILY AT BEDTIME active Not Available Not Available No t Available ondansetron 8 mg disintegrat ing tablet PLACE 1 TABLET ON THE TOUNGE NEEDED active Not Available Not Available No t Available oxycodone-a cetaminophe n 5 mg-325 mg tablet TAKE 1 TABLET BY MOUTH EVERY 6 HOURS NEEDED active Not Available Not Available No t Available trazodone 150 mg tablet TAKE 0.5 - 1 TABLET BY MOUTH ONCE DAILY AT BEDTIME NEEDED 07/26 completed Not Available Not Available Not Available gabapentin 300 mg capsule TAKE 1 CAPSULE BY MOUTH EVERY 6 HOURS NEEDED FOR ANXIETY OR PANIC 07/26 completed Not Available Not Available Not Available hydroxyzine HCl 25 mg tablet TAKE 1 TO 2 TABLETS BY MOUTH EVERY 6 HOURS NEEDED active Not Available Not Available No t Available zolpidem 5 mg tablet TAKE 1 TABLET BY MOUTH ONCE DAILY AT BEDTIME NEEDED FOR INSOMNIA. DO NOT TAKE WITH ALCOHOL OR OPIOIDS 07/26 completed Not Available Not Available Not Available zolpidem 10 mg tablet TAKE 1/2 TO 1 TABLET BY MOUTH AT BEDTIME ONCE DAILY NEEDED FOR INSOMNIA. DO NOT TAKE WITH ALCOHOL OR OPIOIDS. active Not Available Not Available No t Available fluoxetine 20 mg capsule TAKE 1 CAPSULE BY MOUTH ONCE DAILY 07/26 completed Not Available Not Available Not Available risperidone 1 mg tablet TAKE 1 TABLET BY MOUTH ONCE DAILY IN THE MORNING 07/26 completed Not Available Not Available Not Available Sprintec (28) 0.25 mg-35 mcg tablet TAKE 1 TABLET BY MOUTH ONCE DAILY 07/26 completed Not Available Not Available Not Available atomoxetine 40 mg capsule TAKE 1 CAPSULE BY MOUTH IN THE MORNING 07/26 completed Not Available Not Available Not Available nitrofurant oin monohydrate /macrocryst als 100 mg capsule TAKE 1 CAPSULE BY MOUTH TWICE DAILY FOR 7 DAYS 07/26 completed Not Available Not Available Not Available Strattera 80 mg capsule TAKE 1 CAPSULE BY MOUTH ONCE DAILY IN THE MORNING 07/26 completed Not Available Not Available Not Available varenicline tartrate 0.5 mg (11)-1 mg (42) tablets in a dose pack TAKE DIRECTED ON PACKAGE (FOR TOBACCO CESSATION ) 07/26 completed Not Available Not Available Not Available clonidine HCl ER 0.1 mg tablet,exte nded release,12 hr TAKE 2 TABLETS BY MOUTH ONCE DAILY AT BEDTIME 07/26 completed Not Available Not Available Not Available lurasidone 60 mg tablet TAKE 1 TABLET BY MOUTH ONCE DAILY IN THE EVENING WITH FOOD active Not Available Not Available No t Available tramadol 100 mg tablet TAKE 1 TABLET BY MOUTH TWICE DAILY NEEDED FOR 7 DAYS 07/26 completed Not Available Not Available Not Available Vitals Date Recorded Body height Body mass index (BMI) Body weight Systolic blood pressure Diastolic blood pressure Provider Name and Address Organization Details Last Updated DateTime 07/26/2024 167.64 cm 30.1 kg/m2 60990.9 g 126 mm[Hg] 80 mm[Hg] Cristiane Caputo [facility] 11:00:59 Social History Question Answer Notes LastModified by Organizat ion Details LastModified Time Tobacco Smoking Status Current Every Day Smoker Cristiane will, [facility] 07/26/2024 11:08:03 What Is Your Level Of Alcohol Consumption? None [email or web address] Information not available 07/26/2024 If You Are , What Was Your Level Of Alcohol Consumption Prior To ? None [email or web address] Information not available 07/26/2024 Are You Blind Or Do You Have Difficulty Seeing? No Information not available 07/26/2024 Are You Currently Employed? No Stays At Home deana Information not available 07/26/2024 Are You Deaf Or Do You Have Serious Difficulty Hearing? No [email or web address] Information not available 07/26/2024 What Type Of Diet Are You Following? REGULAR [email or web address] Information not available 07/26/2024 Do You Or Have You Ever Used E-cigarettes Or Vape? Current User Of Electronic Cigarettes [email or web address] Information not available 07/26/2024 How Many Children Do You Have? 0 [email or web address] Information not available 07/26/2024 What Is Your Relationship Status? X 6 Years Since 2019and Now With Boyfriend = Jackson [email or web address] Information not available 07/26/2024 Are You Sexually Active? Yes Information not available 07/26/2024 At What Age Did You Start Smoking Tobacco? 14 [email or web address] Information not available 07/26/2024 Do You Or Have You Ever Used Smokeless Tobacco? Never Used Smokeless Tobacco Information not available 07/26/2024 How Much Tobacco Do You Smoke? 1 PPW [email or web address] Information not available 07/26/2024 Do You Use Any Illicit Or Recreational Drugs? No [email or web address] Information not available 07/26/2024 How Many Years Have You Smoked Tobacco? 18 [email or web address] Information not available 07/26/2024 Do You Or Have You Ever Used Any Other Forms Of Tobacco Or Nicotine? Yes [email or web address] Information not available 07/26/2024 Sex: Unknown Functional Status Question Answer Note LastModified by Organization D etails LastModified Time What is your exercise level? None [email or web address] Information not available 07/26/2024 Mental Status None recorded. Family History Relationship Description Onset Age of this Age Resolved Age Notes LastModified by Organization Details LastModified Time Mother Diabetes mellitus type 2 [email or web address] Not available 2024 11:06:22 Mother Hypercholest erolemia [email or web address] Not available 2024 11:06:36 Maternal Grandmother Myocardial infarction [email or web address] Not available 07/26 11:06:46 Medical History No medical history recorded. Gynecological History Statement/Question Response Date of LMP 10/19/2024 Frequency of Cycle (Q days) 29 Date of Last Pap Smear Duration of Flow (days) Current Control Method None Age at Menarche 14 Obstetrics History GPAL:G 5 P 1 3 1 2 Type Value Full Term 1 Spontaneous 1 Premature 3 Living 2 Total 5 Past Encounters Encounter ID Performer Location Encounter Start Date Encounter Closed Date Diagnosis/Indication Diagnosis SNOMED-CT Code Diagnosis ICD10 Code Diagnosis Note [id number] Rangel Gastelum MD [facility] [address] [facility] [place] [id number] 07/26/2024 10:53:27 08/07/2024 13:08:23 Vaginal discharge 435109664 N89.8 N76.0 Menometrorrhagia 7983884 08 N92.1 Has had her thyroid and other labs done about 3 months ago. [facility] care assessment 294158503 Z30.09 discussed risks benfits of laparoscop ic vs laparotomy and possible injury to bowel bladder or ureter infection reoperatio n and possibilit y for blood transfusio n and discussed tubal liation and multiple techniques and risk of with tubal ligation as well as ectopic if does become Vaginitis 85436898 N76.0 Candidiasis 48658523 B37 .9 Health Concerns Section Related Observation LastModified by Organization Detai ls LastModified Time None Recorded Concern Status LastModified by Organization Details LastModified Time None Recorded Advance Directives Directive None Recorded Payers Encounter Date Sequence Insurance Name Policy Number Policy Martinez Covered Member ID Martinez Member ID Guarantor Name 07/26/2024 1 [place]: [place] [employer] Mindy Spearsamandamadeleine [id number] Mindy Troy Notes Date Note Type Note Provider Name and Address Organization Details Recorded Time 07/26/2024 text/html The patient verbally consented to documentation via virtual scribe for this encounter. Mindy is a 34 year old woman who presents today for a tubal libation. Pt stated that she feels like she is having a yeast infection. Pt stated that she has an odor and discharge. Pt stated that the discharge is a creamy color. UTI tx bid 07-14-24 and also zpack and rocephin shot(all negative). She states that BCPs make her sick. She states that her menses are irregular. She has a history of 2 C-sections. She also has a history of stillborn pregnancies at 7 months and 6.5 months and history of 1 miscarriage. She denies any GDM or PIH. She was 19 years during her first . She does not work. She is and has a boyfriend, Jackson. Rangel Gastelum MD [address] [facility], [place], [address], [facility] IV 08/06/2024 16:36:52 OBGyn Episode No OBEpisode recorded.
--- OUTSIDE RECORDS SUMMARY | 2024-08-30 21:50 | XMS_ITS | Clinical Summary ---
Author Organization [facility] Address [address] [place] [address] Phone Care Team Providers Care Live Truck Technician Name Role Phone Provider, None Primary Care Provider Unavailabl e Allergies Active Allergy Reactions Criticality Noted Date Comments Codeine Vomiting 04/15/2018 Medications ondansetron (ZOFRAN) 4 MG Tablet Take 1 Tablet by mouth every 8 hours as needed for Nausea - 1st line. 10 Tablet 02/15/2023 Active CloNIDine HCl 0.1 MG TABLET SR 12 HR 2 tablets at bedtime Orally Once a day for 7 days 12/01/2023 Active gabapentin (NEURONTIN) 100 MG Capsule 11/23/2023 Active lurasidone (LATUDA) 20 MG Tablet 11/26/2023 Active risperiDONE (RISPERDAL) 0.5 MG Tablet 12/09/2023 Active ketorolac (TORADOL) 10 MG Tablet Take 1 Tablet by mouth every 6 hours as needed for Mild or more severe pain. 20 Tablet 07/11/2024 Active Active Problems No known active problems Encounters Date Type Department Care Team Description 07/11/2024 10:58 AM SUPERVISING FIRE MARSHAL - 07/11/2024 1:24 PM SUPERVISING FIRE MARSHAL Emergency [facility] Emergency [address] [place] [address] Poppy Piña, SURGEON ASSISTANT, MEDIA OPERATOR Renal colic on right side Discharge Disposition: Discharged to home or Selfcare 07/11/2024 Travel 06/01/2024 4:04 PM SUPERVISING FIRE MARSHAL - 06/01/2024 11:59 PM SUPERVISING FIRE MARSHAL Hospital Encounter [facility] Ultrasound [address] [facility] [place] [address] Lilibeth Restrepo MD Discharge Disposition: Discharged to home or Selfcare 06/01/2024 Travel from Last 3 Months Social History Tobacco Use Types Packs/Day Years Used Date Smoking Tobacco: Every Day Cigarettes Alcohol Use Standard Drinks/Week Comments No 0 (1 standard drink = 0.6 oz pur e alcohol) Comments No Sex and Gender Information Value Date Recorded Sex Assigned at Not on file Legal Sex Female 11:41 PM CDT Gender Identity Not on file Sexual Orientation Not on file Last Filed Vital Signs Vital Sign Reading Time Taken Comments Blood Pressure 127/95 07/11/2024 1:18 PM SUPERVISING FIRE MARSHAL Pulse 72 07/11/2024 1:18 PM SUPERVISING FIRE MARSHAL Temperature 36.4 C (97.6 F) 07/11/2024 11:06 AM SUPERVISING FIRE MARSHAL Respiratory Rate 17 07/11/2024 1:18 PM SUPERVISING FIRE MARSHAL Oxygen Saturation 97% 07/11/2024 1:18 PM SUPERVISING FIRE MARSHAL Inhaled Oxygen Concentration - - Weight 82.2 kg (181 lb 3.5 oz) 07/11/2024 11:06 AM SUPERVISING FIRE MARSHAL Height 167.6 cm (5' 6 ) 07/11/2024 11:06 AM SUPERVISING FIRE MARSHAL Body Mass Index 29.25 07/11/2024 11:06 AM SUPERVISING FIRE MARSHAL Plan of Treatment Health Maintenance Due Date Last Done Comments TdaP Immunization 1991 Hepatitis B Immunization (1 of 3 - 19+ 3-dose series) 2010 Pneumococcal Immunization Co mbined (1 of 2 - PCV) 2010 Pap Smear 2012 Cervical Cancer Screening (CCS) 2021 HPV/Cotest 2021 Influenza Immunization (#1) 2024 SARS-COV-2 Immunization ( - season) 2024 Respiratory Syncytial Virus (RSV) Immunization (Adult) (1 - 1-dose 75+ series) 2066 Hepatitis C Virus (HCV) Screening Completed 015 Meningococcal Immunization (ACWY) Aged Out No longer eligible based on patient's age to complete this topic Rotavirus Immunization Aged Out No lo nger eligible based on patient's age to complete this topic Procedures Procedure Name Priority Date/Time Associated Diagnosis Comments CT RENAL STONE STUDY (ABDOMEN AND PELVIS W/O CONTRAST) Stat with Interpretation 07/11/2024 12:20 PM SUPERVISING FIRE MARSHAL CBC WITH AUTO DIFFERENTIAL STAT 07/11/2024 11:16 AM SUPERVISING FIRE MARSHAL CMP (COMPREHENSIVE METABOLIC PANEL) STAT 07/11/2024 11:16 AM SUPERVISING FIRE MARSHAL COMPLETE BLOOD COUNT (CBC) WITH DIFF STAT 07/11/2024 11:16 AM SUPERVISING FIRE MARSHAL POCT URINE HCG () STAT 07/11/2024 11:13 AM SUPERVISING FIRE MARSHAL CHLAMYDIA & GC DNA PROBE STAT 07/11/2024 11:12 AM SUPERVISING FIRE MARSHAL URINALYSIS REFLEX IF INDICATED BY ABNORMAL RESULTS STAT 07/11/2024 11:12 AM SUPERVISING FIRE MARSHAL CHLAMYDIA & GC DNA PROBE > 12 STAT 07/11/2024 11:12 AM SUPERVISING FIRE MARSHAL US PELVIS COMPLETE WITH TRANSVAGINAL Routine 06/01/2024 4:44 PM SUPERVISING FIRE MARSHAL Other intra-abdominal and pelvic swelling, mass and lump from Last 3 Months Results * CT RENAL STONE STUDY (ABDOMEN AND PELVIS W/O CONTRAST) (07/11/2024 12:20 PM SUPERVISING FIRE MARSHAL) Anatomical Region Laterality Modality Abdomen N/A Computed Tomogra phy 07/11/2024 12:5 2 PM SUPERVISING FIRE MARSHAL Impressions 07/11/2024 12:54 PM SUPERVISING FIRE MARSHAL IMPRESSION: No signs of obstructive uropathy. No acute findings in the abdomen or pelvis. Narrative 07/11/2024 12:54 PM SUPERVISING FIRE MARSHAL EXAM DESCRIPTION: CT RENAL STONE STUDY (ABDOMEN AND PELVIS W/O CONTRAST) REASON FOR STUDY: c/o urinary frequency x 2-3 weeks. no pmhx. TECHNIQUE: CT scan of the abdomen and pelvis performed without intravenous and without oral contrast using helical scanning technique. Reconstructed coronal and sagittal MPR images reviewed. All images stored on PACS. Automated exposure control was used as a dose optimization technique for this examination. COMPARISON: CT abdomen pelvis 11/23/2014 FINDINGS: The sensitivity for detection of visceral lesions is diminished without the use of intravenous contrast. LOWER CHEST: No significant pulmonary abnormalities. No effusion. LIVER: Normal size. No identified cystic or solid masses. GALLBLADDER: Decompressed. No stones identified. BILE DUCTS: No intrahepatic or extrahepatic ductal dilatation. SPLEEN: Scattered punctate calcified granulomas throughout the spleen. PANCREAS: No identified cystic or solid masses. No significant calcifications. No adjacent inflammation or peripancreatic fluid collections. Pancreatic duct not dilated. ADRENALS: Normal. KIDNEYS/URINARY TRACT: No identified significant cystic or solid masses. No stones. No hydronephrosis or hydroureter. Urinary bladder is unremarkable. GI: There is a tiny hiatal hernia. Stomach is otherwise unremarkable. No dilated or thick-walled loops of bowel appreciated. No sign of appendicitis. PERITONEUM: No ascites or free air. RETROPERITONEUM: No mass or adenopathy. REPRODUCTIVE: There is a suspected arcuate uterus, however not well evaluated on CT. VASCULATURE: No abdominal aortic aneurysm. MUSCULOSKELETAL: No suspicious osseous lesions. OTHER: No other abnormality. THIS IS AN ELECTRONICALLY VERIFIED FINAL REPORT 07/11/2024 12:52 PM - Electronically signed by Ryley Zavala M.D. AM: AM Report ID: [id number] Reading Location: [place] [id number] Procedure Note Ryley Zavala MD - 07/11/2024 EXAM DESCRIPTION: CT RENAL STONE STUDY (ABDOMEN AND PELVIS W/O CONTRAST) REASON FOR STUDY: c/o urinary frequency x 2-3 weeks. no pmhx. TECHNIQUE: CT scan of the abdomen and pelvis performed without intravenous and without oral contrast using helical scanning technique. Reconstructed coronal and sagittal MPR images reviewed. All images stored on PACS. Automated exposure control was used as a dose optimization technique for this examination. COMPARISON: CT abdomen pelvis 11/23/2014 FINDINGS: The sensitivity for detection of visceral lesions is diminished without the use of intravenous contrast. LOWER CHEST: No significant pulmonary abnormalities. No effusion. LIVER: Normal size. No identified cystic or solid masses. GALLBLADDER: Decompressed. No stones identified. BILE DUCTS: No intrahepatic or extrahepatic ductal dilatation. SPLEEN: Scattered punctate calcified granulomas throughout the spleen. PANCREAS: No identified cystic or solid masses. No significant calcifications. No adjacent inflammation or peripancreatic fluid collections. Pancreatic duct not dilated. ADRENALS: Normal. KIDNEYS/URINARY TRACT: No identified significant cystic or solid masses. No stones. No hydronephrosis or hydroureter. Urinary bladder is unremarkable. GI: There is a tiny hiatal hernia. Stomach is otherwise unremarkable. No dilated or thick-walled loops of bowel appreciated. No sign of appendicitis. PERITONEUM: No ascites or free air. RETROPERITONEUM: No mass or adenopathy. REPRODUCTIVE: There is a suspected arcuate uterus, however not well evaluated on CT. VASCULATURE: No abdominal aortic aneurysm. MUSCULOSKELETAL: No suspicious osseous lesions. OTHER: No other abnormality. THIS IS AN ELECTRONICALLY VERIFIED FINAL REPORT 07/11/2024 12:52 PM - Electronically signed by Ryley Zavala M.D. AM: AM Report ID: [id number] Reading Location: [id number] IMPRESSION: No signs of obstructive uropathy. No acute findings in the abdomen or pelvis. us Poppy Piña APRN, MEDIA OPERATOR IM CT ORDERABLES Fin al Result * (ABNORMAL) CBC with Auto Differential (07/11/2024 11:16 AM SUPERVISING FIRE MARSHAL) WBC 8.88 4.00 - 12.00 10(3)/mcL 07/11/2024 11:50 AM SUPERVISING FIRE MARSHAL [facility] RBC 4.62 3.80 - 5.30 10(6)/mcL 07/11/2024 11:50 AM SUPERVISING FIRE MARSHAL [facility] HEMOGLOBIN (HGB) 13.9 12.0 - 15.8 g/dL 07/11/2024 11:50 AM SUPERVISING FIRE MARSHAL [facility] HEMATOCRIT (HCT) 42.0 36.0 - 47.0 % 07/11/2024 11:50 AM SUPERVISING FIRE MARSHAL [facility] MCV 90.9 82.0 - 96.0 fL 07/11/2024 11:50 AM SUPERVISING FIRE MARSHAL [facility] MCH 30.1 26.0 - 34.0 pg 07/11/2024 11:50 AM [facility] MCHC 33.1 31.0 - 36.0 g/dL 07/11/2024 11:50 AM [facility] PLATELET COUNT 306 140 - 440 10(3)/[facility] 07/11/2024 11:50 AM [facility] RDW 13.2 11.8 - 15.5 % 07/11/2024 11:50 AM [facility] MPV 11.0 9.7 - 12.4 fL 07/11/2024 11:50 AM [facility] NEUTROPHILS 62.4 47.0 - 73.0 % 07/11/2024 11:50 AM [facility] LYMPHOCYTES 27.3 18.0 - 42.0 % 07/11/2024 11:50 AM [facility] MONOCYTES 5.2 4.0 - 12.0 % 07/11/2024 11:50 AM [facility] EOSINOPHILS 4.8 0.0 - 5.0 % 07/11/2024 11:50 AM [facility] BASOPHILS 0.3 0.0 - 1.0 % 07/11/2024 11:50 AM [facility] ABSOLUTE NEUTROPHILS 5.54 1.60 - 7.70 10(3)/[facility] 07/11/2024 11:50 AM [facility] ABSOLUTE LYMPHOCYTES 2.42 1.30 - 3.20 10(3)/[facility] 07/11/2024 11:50 AM [facility] ABSOLUTE MONOCYTES 0.46 0.20 - 1.00 10(3)/[facility] 07/11/2024 11:50 AM [facility] ABSOLUTE EOSINOPHIL 0.43(H) 0.00 - 0.40 10(3)/[facility] 07/11/2024 11:50 AM [facility] ABSOLUTE BASOPHILS 0.03 0.00 - 0.10 10(3)/[facility] 07/11/2024 11:50 AM [facility] NRBC PER 100 WBC 0 07/11/19 11:50 AM [facility] Blood Venipuncture / Unknown 07/11/2024 11:16 AM SUPERVISING FIRE MARSHAL 07/11/2024 11:30 AM SUPERVISING FIRE MARSHAL Poppy Piña SURGEON ASSISTANT, MEDIA OPERATOR HEMATOLOGY ORDERABLES Final Result [facility] [address] [place] [address] * (ABNORMAL) Comprehensive Metabolic Panel (Cmp) [id number] (07/11/2024 11:16 AM SUPERVISING FIRE MARSHAL) SODIUM 139 136 - 145 mmol/L 07/11/2024 11:53 AM [facility] POTASSIUM 4.3 3.5 - 5.1 mmol/L 07/11/2024 11:53 AM [facility] CHLORIDE 105 98 - 107 mmol/L 07/11/2024 11:53 AM [facility] CO2, VENOUS 24 22 - 30 mmol/L 07/11/2024 11:53 AM [facility] ANION GAP 14.3 <18.0 mmol/L 07/11/2024 11:53 AM [facility] GLUCOSE 103(H) 70 - 99 mg/dL 07/11/2024 11:53 AM [facility] BUN 12 5 - 18 mg/dL 07/11/2024 11:53 AM [facility] CREATININE, BLOOD 0.88 0.60 - 1.00 mg/dL 07/11/2024 11:53 AM [facility] BUN/CREATININE RATIO 14 12 - 20 ratio 07/11/2024 11:53 AM [facility] TOTAL PROTEIN 8.1(H) 6.0 - 8.0 g/dL 07/11/2024 11:53 AM [facility] ALBUMIN 4.0 3.5 - 5.0 g/dL 07/11/2024 11:53 AM SUPERVISING FIRE MARSHAL [facility] A/G RATIO 1.0 1.0 - 2.2 07/11/2024 11:53 AM SUPERVISING FIRE MARSHAL [facility] CALCIUM 9.2 8.7 - 10.5 mg/dL 07/11/2024 11:53 AM [facility] T BILI 0.3 0.2 - 1.2 mg/dL 07/11/2024 11:53 AM SUPERVISING FIRE MARSHAL [facility] SGOT (AST) 22 6 - 42 U/L 07/11/2024 11:53 AM SUPERVISING FIRE MARSHAL [facility] SGPT (ALT) 32 6 - 55 U/L 07/11/2024 11:53 AM SUPERVISING FIRE MARSHAL [facility] ALKALINE PHOSPHATASE 60 40 - 150 U/L 07/11/2024 11:53 AM SUPERVISING FIRE MARSHAL [facility] GFR, ESTIMATED >60 >=60 07/11/2024 11:53 AM [facility] Comment: Creatinine Clearance is the preferred criteria for selecting drug dose adjustments in renally impaired patients. The GFR is provided as additional pertinent clinical information. GFR is reported in mL/min/1.73 sq m. Calculation based on the Chronic Kidney Disease Epidemiology Collaboration (CKD- EPI) equation refit without adjustment for race. GFR, EST. >60 >=60 025 11:53 AM SUPERVISING FIRE MARSHAL [facility] GFR, EST. NONAFRICAN >60 >=60 07/11/2024 11:53 AM [facility] Blood Venipuncture / Unknown 07/11/2024 11:16 AM SUPERVISING FIRE MARSHAL 07/11/2024 11:30 AM SUPERVISING FIRE MARSHAL us Poppy Piña APRN, MEDIA OPERATOR CHEMISTRY ORDERABLES Final Result [facility] [address] [place] [address] * POCT Urine HCG () (07/11/2024 11:13 AM SUPERVISING FIRE MARSHAL) POC URINE Negative POC URINE CONTROL Information Strategist Pass Urine 07/11/2024 11:1 3 AM SUPERVISING FIRE MARSHAL Poppy Piña APRN, CNP POINT OF CARE TESTING (MANUAL) Final Result * CHLAMYDIA & GC DNA PROBE > 12 (07/11/2024 11:12 AM SUPERVISING FIRE MARSHAL) [facility] CHLAMYDIA DNA NEGATIVE NEGATIVE 07/12/2024 4:39 AM SUPERVISING FIRE MARSHAL [facility] Comment: Presumed negative for C. trachomatis. A negative result does not preclude C. trachomatis infection because results are dependent on adequate specimen collection, absence of inhibitors, and sufficient DNA to be detected. This test was performed using RADHA 5800 Real Time PCR. GC DNA NEGATIVE NEGATIVE 07/12/2024 4:39 AM SUPERVISING FIRE MARSHAL [facility] Comment: Presumed negative for N. gonorrhoeae. A negative result does not preclude N. gonorrhoeae infection because results are dependent on adequate specimen collection, absence of inhibitors, and sufficient DNA to be detected. This test was performed using RADHA 5800 Real Time PCR. Other URINE / Unknown Non-Phlebotomy Collection / Unknown 07/11/2024 11:12 AM SUPERVISING FIRE MARSHAL 07/11/2024 1:16 PM SUPERVISING FIRE MARSHAL Poppy Piña APRN, CNP MICROBIOLOGY - GENERA L ORDERABLES Final Result [facility] [address] [place] [address], * (ABNORMAL) URINALYSIS REFLEX IF INDICATED BY ABNORMAL RESULTS (07/11/2024 11:12 AM SUPERVISING FIRE MARSHAL) [facility] SPECIFIC GRAVITY 1.020 1.003 - 1.030 07/11/2024 11:59 AM SUPERVISING FIRE MARSHAL [facility] URINE PH 5.0 5.0 - 9.0 07/11/2024 11:59 AM SUPERVISING FIRE MARSHAL [facility] WBC ESTERASE 25 /ul(A) Negative 07/11/2024 11:59 AM SUPERVISING FIRE MARSHAL [facility] NITRITE Negative Negative 07/11/2024 11:59 AM SUPERVISING FIRE MARSHAL [facility] PROTEIN, RANDOM URINE 30 mg/dL(A) Negative 07/11/2024 11:59 AM SUPERVISING FIRE MARSHAL [facility] URINE GLUCOSE, QUAL Negative Negative 07/11/2024 11:59 AM SUPERVISING FIRE MARSHAL [facility] URINE KETONES Negative Negative 07/11/2024 11:59 AM SUPERVISING FIRE MARSHAL [facility] UROBILINOGEN Normal Normal mg/dL 07/11/2024 11:59 AM SUPERVISING FIRE MARSHAL [facility] URINE BLOOD Negative Negative brennan/ul 07/11/2024 11:59 AM SUPERVISING FIRE MARSHAL [facility] URINALYSIS COLOR Dark Yellow 025 11:59 AM SUPERVISING FIRE MARSHAL [facility] URINALYSIS CLARITY Slightly Cloudy 07/11/2024 11:59 AM SUPERVISING FIRE MARSHAL [facility] WBC (Urine) 0-5 Negative, 0-5 /hpf 07/11/2024 11:59 AM SUPERVISING FIRE MARSHAL [facility] URINE RBC'S 0-2 Negative, 0-2 /hpf 07/11/2024 11:59 AM SUPERVISING FIRE MARSHAL [facility] EPITHELIAL CELLS Large amount squamous /lpf 07/11/2024 11:59 AM SUPERVISING FIRE MARSHAL [facility] BACTERIA, URINE Many(A) Negative /hpf 07/11/2024 11:59 AM SUPERVISING FIRE MARSHAL [facility] Urine URINE SPECIMEN COLLECTION, CLEAN CATCH / Unknown Non-Phlebotomy Collection / Unknown 07/11/2024 11:12 AM SUPERVISING FIRE MARSHAL 07/11/2024 11:29 AM SUPERVISING FIRE MARSHAL us Poppy Piña SURGEON ASSISTANT, MEDIA OPERATOR URINE ORDERABLES Malka l Result [facility] [address] [place] [address] * US PELVIS COMPLETE WITH TRANSVAGINAL (06/01/2024 4:44 PM SUPERVISING FIRE MARSHAL) Anatomical Region Laterality Modality Abdomen N/A Ultrasound 06/04/2024 12:1 9 PM SUPERVISING FIRE MARSHAL Impressions 06/04/2024 12:22 PM SUPERVISING FIRE MARSHAL IMPRESSION: 1. Right ovary not seen. 2. 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 Narrative 06/04/2024 12:22 PM SUPERVISING FIRE MARSHAL EXAM DESCRIPTION: US PELVIS COMPLETE WITH TRANSVAGINAL REASON FOR STUDY: PELVI SWELLING AND PAIN TECHNIQUE: Grayscale ultrasound of the pelvic contents was performed with transabdominal and transvaginal transducer. COMPARISON: None FINDINGS: The exam is suboptimal secondary to bowel gas. UTERUS: The uterus is anteverted and appears bicornuate. The uterus measures 7.1 x 5.3 x 3.7 cm. ENDOMETRIUM: The endometrium measures up to 4 mm in thickness. RIGHT OVARY: Not seen. LEFT OVARY: The left ovary measures 1.5 x 4.5 x 2.4 cm. There is documentation of color Doppler flow in the left ovary. The left ovary appears unremarkable. PELVIC FLUID: There is no evidence of free fluid in the pelvis. OTHER: No other significant findings. THIS IS AN ELECTRONICALLY VERIFIED FINAL REPORT 06/04/2024 12:19 PM - Electronically signed by Zeeshan Whitley M.D. BS: [email or web address] Report ID: [id number] Reading Location: [id number] Procedure Note Zeeshan Whitley MD - 06/04/2024 EXAM DESCRIPTION: US PELVIS COMPLETE WITH TRANSVAGINAL REASON FOR STUDY: PELVI SWELLING AND PAIN TECHNIQUE: Grayscale ultrasound of the pelvic contents was performed with transabdominal and transvaginal transducer. COMPARISON: None FINDINGS: The exam is suboptimal secondary to bowel gas. UTERUS: The uterus is anteverted and appears bicornuate. The uterus measures 7.1 x 5.3 x 3.7 cm. ENDOMETRIUM: The endometrium measures up to 4 mm in thickness. RIGHT OVARY: Not seen. LEFT OVARY: The left ovary measures 1.5 x 4.5 x 2.4 cm. There is documentation of color Doppler flow in the left ovary. The left ovary appears unremarkable. PELVIC FLUID: There is no evidence of free fluid in the pelvis. OTHER: No other significant findings. THIS IS AN ELECTRONICALLY VERIFIED FINAL REPORT 06/04/2024 12:19 PM - Electronically signed by Zeeshan Whitley M.D. BS: [email or web address] Report ID: [id number] Reading Location: [id number] IMPRESSION: 1. Right ovary not seen. 2. 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 Lilibeth Restrepo MD [facility] US ORDERABLES Final Res ult from Last 3 Months Insurance MEDICAID [place] Care Teams Live Truck Technician Relationship Specialty Start Date End Date Provider, None [place] PCP - General 04/15/18
--- OUTSIDE RECORDS SUMMARY | 2024-08-30 21:50 | XMS_ITS | Encounter Summary ---
Author Organization [facility] Healthcare Address [address] [place] [address] Care Team Providers Care Pipe Foreman Name Role Phone Brendan Garcia SOFTWARE SALES REPRESENTATIVE Unavailable [phone] Glenna Nathan SOFTWARE SALES REPRESENTATIVE Primary Care Provider [phone] Encounter Details Date Type Department Care Team (Late st Contact Info) Description 08/30/2024 5:52 PM CDT - 08/30/2024 6:57 PM CDT Emergency [facility] Emergency Department [facility] [place] [address] Discharge Disposition: Left without being seen Social History Tobacco Use Types Packs/Day Years [...] on file documented as of this encounter Medications at Time of Discharge [...] Disposition Code Departure Means Destination Comment s Left without being seen Registration informs this RN that patient is leaving. documented in this encounter Plan of Treatment Not on file documented as of this encounter Visit Diagnoses Not on filedocumented in this encounter Care Teams Pipe Foreman Relationship Specialty Start Date End Date Glenna Nathan NP [address] [place] [id number] PCP - General Family Medicine 08/10/24 Brendan Garcia NP [address] [place] [id number] Psychiatry 08/10/24 documented as of this encounter
--- OUTSIDE RECORDS SUMMARY | 2024-08-30 21:50 | XMS_ITS | Encounter Summary ---
Author Organization [facility] Address [address] [place] [address] Phone Care Team Providers Care Enterprise Security Architect Name Role Phone Provider, None Primary Care Provider Unavailabl e Reason for Visit * Reason Onset Date Comments Results 02/15/2023 Pt called ED aft er receiving a letter in the mail about lab results and new prescription. Pt educated on intended effects and side effects of medication and verbalized understanding, able to provide teach back of education. Encounter Details Date Type Department Care Team (Late st Contact Info) Description 02/15/2023 Telephone [facility] Emergency [address] [place] [id number] Ingris Cardona RN [place] Results (Pt called ED after receiving a letter in the mail about lab results and new prescription. Pt educated on intended effects and side effects of medication and verbalized understanding, able to provide teach back of education. ) Social History Tobacco Use Types Packs/Day Years Used Date Smoking Tobacco: Every Day Cigarettes Alcohol Use Standard Drinks/Week Comments No 0 (1 standard drink = 0.6 oz pur e alcohol) Comments Unknown Sex and Gender Information Value Date Recorded Sex Assigned at Not on file Legal Sex Female 11:41 PM CDT Gender Identity Not on file Sexual Orientation Not on file COVID-19 Exposure Response Date Recorded In the last 10 days, have yo u been in contact with someone who was confirmed or suspected to have Coronavirus/COVID-19? No / Unsure 01/31/2023 9:14 PM CDT documented as of this encounter Plan of Treatment Not on file documented as of this encounter Visit Diagnoses Not on filedocumented in this encounter Additional Health Concerns Infection Onset Date Last Indicated Resolved Time COVID - 19 02/15/2024 02/15/2024 02/15/2024 2:35 PM CDT documented as of this encounter Care Teams Enterprise Security Architect Relationship Specialty Start Date End Date Provider, None [place] PCP - General 04/15/18 documented as of this encounter
--- OUTSIDE RECORDS SUMMARY | 2024-08-30 21:50 | XMS_ITS | Referral Summary ---
Author Organization [facility] Address [address] [place] [address] Care Team Providers Care Technical Sales Specialist Name Role Phone Brendan Garcia PULP GRINDER AND BLENDER Unavailable [phone] Glenna Nathan [employer] GR[employer] BLENDER Primary Care Provider [phone] Encounters Date Type Department Care Team Description 08/30/2024 5:52 PM CDT - 08/30/2024 6:57 PM CDT Emergency [facility] Emergency Department [address] [place] [id number] Discharge Disposition: Left without being seen 08/30/2024 Orders Only [facility] [address] [place] [phone] Ketty Quiros RN Hepatitis C antibody test positive (Primary Dx) 08/29/2024 11:00 AM CDT - 08/29/2024 12:40 PM CDT Surgery [facility] OR [address] [place] [id number] Rangel Gastelum MD LAPAROSCOPIC BILATERAL TUBAL LIGATION 08/29/2024 11:45 AM CDT Anesthesia Event [facility] OR [address] [place] [address] Josue Carrillo MD [place], Matthew Edward, MD 08/29/2024 9:05 AM CDT - 08/29/2024 3:50 PM CDT Hospital Encounter [facility] OR [address] [place] [phone] Rangel Gastelum MD Request for sterilization Discharge Disposition: Discharge to home or self care 08/23/2024 2:15 PM CHIEF MECHANICAL OFFICER Lab [facility] Lab [address] [place] [id number] Pre-op testing 08/17/2024 Orders Only [facility] Pre Admit Testing [address] [place] [id number] Shannan Schumacher RN Pre-op testing (Primary Dx) 07/03/2024 Telephone [facility] [address] [place] [phone] Lexis Mendosa CNS from Last 3 Months Allergies Active Allergy Reactions Criticality Noted Date [...] unspecified whe ther nausea present 04/17/2024 04/17/2024 Immunizations Immunization Administration Dates Next Due Hep A, Adult 02/23/2018 Social History Tobacco Use Types Packs/Day Years [...] 08/29/2024 9:10 AM CDT Plan of Treatment Not on file Procedures Procedure Name Priority Date/Time Associated Diagnosis Comments MD AN PROCEDURE PLACEHOLDER Routine 08/29/2024 12:00 PM CDT MD AN ELECTIVE ENDOTRACHEAL AIRWAY Routine 08/29/2024 12:00 PM CDT LAPAROSCOPIC TUBAL LIGATION 08/29/2024 11:44 AM CDT VOLUNTARY STERILIZATION POCT HCG, URINE Routine 08/29/2024 9:27 AM CDT DRUGS OF ABUSE SCREEN, URINE WITH REFLEX CONFIRMATION Routine 08/29/2024 9:26 AM CDT DIFFERENTIAL AUTO Routine 08/23/2024 2:3 0 PM CHIEF MECHANICAL OFFICER Pre-op testing CBC WITH AUTO DIFFERENTIAL Routine 08/23/2024 2:30 PM CHIEF MECHANICAL OFFICER Pre-op testing HEPATITIS C GENOTYPE Routine 04/19/2024 9:02 PM CDT from Last 3 Months or Most Recently Relevant to Health Maintenance Results * MD AN ELECTIVE ENDOTRACHEAL AIRWAY, MD AN PROCEDURE PLACEHOLDER (08/29/2024 12:00 PM CDT) Narrative Chay Brar CRNA - 08/29/2024 12:00 PM CDT Chay Brar CRNA 08/29/2024 12:00 PM Airway Patient location: OR Urgency: elective Indications for airway management: anesthesia Difficult airway: no Staff: Placed by: CLUB ATTENDANT: Chay Brar CRNA Emergent airway documentation: Risks [...] with: pink tape. Number of attempts: 1 Josue Carrillo MD ANESTHESIA ORDERABLE S Final [...] was last reviewed 2023. Testing performed by: [address] [address] Barbiturates, ur Not Detected CutOff 200ng/mL [facility] KIM Comment: Interpretive Data - Barbiturates: Samples containing greater than 200 ng/mL secobarbital or other cross-reacting barbiturate compounds are reported as positive. False positive and false negative results are possible. Confirmatory testing required for definitive results. Current Interpretive Data was last reviewed 2023. Testing performed by: [address] [address] Benzodiazepines, ur Not Detected CutOff 100ng/mL [facility] Comment: Interpretive Data - Benzodiazepines: Samples containing greater than 100 ng/mL nordiazepam or other cross-reacting compounds are reported as positive. False positive and false negative results are possible. Confirmatory testing required for definitive results. Current Interpretive Data was last reviewed 2023. Testing performed by: [facility], [address] [place] [address]., [address] Cannabinoids, ur Not Detected CutOff 50 ng/mL [facility] Comment: Interpretive Data - Cannabinoids: Samples containing greater than 50 ng/mL delta-9 THC -COOH or other cross- reacting compounds are reported as positive. False positive and false negative results are possible. Confirmatory testing required for definitive results. Current Interpretive Data was last reviewed 2023. Testing performed by: [address] [address] Cocaine, ur Not Detected CutOff 150ng/mL [facility] Comment: Interpretive Data - Cocaine: Samples containing greater than 150 ng/mL benzoylecgonine or other cross- reacting compounds are reported as positive. False positive and false negative results are possible. Confirmatory testing required for definitive results. Current Interpretive Data was last reviewed 2023. Testing performed by: [address] [address] Fentanyl, Ur Not Detected Cutoff 1 ng/mL [facility] Comment: Interpretive Data - Fentanyl: Samples containing greater than 1 ng/mL fentanyl or other cross-reacting fentanyl compounds are reported as positive. False positive and false negative results are possible. Confirmatory testing required for definitive results. Current Interpretive Data was last reviewed 2023. Testing performed by: [address] [address] Methadone, ur Not Detected CutOff 300ng/mL [facility] Comment: Interpretive Data - Methadone: Samples containing greater than 300 ng/mL d,l-methadone or other cross-reacting compounds are reported as positive. False positive and false negative results are possible. Confirmatory testing required for definitive results. Current Interpretive Data was last reviewed 2023. Testing performed by: [address] [address] Opiates, ur Not Detected CutOff 300ng/mL [facility] Comment: Interpretive Data - Opiates: Samples containing greater than 300 ng/mL morphine or other cross-reacting compounds are reported as positive. False positive and false negative results are possible. Confirmatory testing required for definitive results. Current Interpretive Data was last reviewed 2023. Testing performed by: [address] [address] Oxycodone, ur Not Detected CutOff 100ng/mL [facility] Comment: Interpretive Data - Oxycodone: Samples containing greater than 100 ng/mL oxycodone or other cross-reacting compounds are reported as positive. False positive and false negative results are possible. Confirmatory testing required for definitive results. Current Interpretive Data was last reviewed 2023. Testing performed by: [address] [address] Phencyclidine, ur Not Detected CutOff 25 ng/mL [facility] Comment: Interpretive Data - Phencyclidine: Samples containing greater than 25 ng/mL phencyclidine or other cross-reacting compounds are reported as positive. False positive and false negative results are possible. Confirmatory testing required for definitive results. Current Interpretive Data was last reviewed 2023. Testing performed by: [address] [address] Urine Creatinine 128 mg/dL [facility] Comment: Interpretive Data Urine Creatinine: < 10 mg/dL is extremely dilute = or > 10 but < 20 mg/dL is dilute = or > 20 mg/dL is normal Current Interpretive Data was last revised on 2017. Testing performed by: [address] [address] Urine 08/29/2024 9:26 AM CDT 08/29/2024 9:32 [...] LAB URINE ORDERABL ES Final Result [facility] [address] [facility] Department [place] [address] * (ABNORMAL) Differential, auto (08/23/2024 2:30 PM CHIEF MECHANICAL OFFICER) Neutrophil abs 4.5 1.5 - 6.5 K/cumm Comment:Testing performed by : [address] [address] Imm gran abs 0.0 0.0 - 0.1 K/cumm T[facility]OR Comment:Testing performed by : [address] [address] Lymphocyte abs 2.9 0.8 - 3.3 K/cumm TAY[facility]OR Comment:Testing performed by : [address] [address] Monocyte abs 0.5 0.2 - 0.8 K/cumm TAYLOR Comment:Testing performed by : [address] [address] Eosinophil abs 0.6(H) 0.0 - 0.5 K/cumm T[facility]OR Comment:Testing performed by : [address] [address] Basophil abs 0.1 0.0 - 0.1 K/cumm T[facility]OR Comment:Testing performed by : [address] [address] Neutrophil pct 53.2 % [facility] Comment: Interpretive Data Percent cell count reference ranges are not reported, since discordance with absolute values may lead to misinterpretation of CBC data. Current Interpretive Data was last revised on 2017. Testing performed by: [address] [address] Imm gran pct 0.2 % [facility] Comment: Interpretive Data Percent cell count reference ranges are not reported, since discordance with absolute values may lead to misinterpretation of CBC data. Current Interpretive Data was last revised on 2017. Testing performed by: [address] [address] Lymphocyte pct 33.5 % [facility] Comment: Interpretive Data Percent cell count reference ranges are not reported, since discordance with absolute values may lead to misinterpretation of CBC data. Current Interpretive Data was last revised on 2017. Testing performed by: [address] [address] Monocyte pct 5.8 % [facility] Comment: Interpretive Data Percent cell count reference ranges are not reported, since discordance with absolute values may lead to misinterpretation of CBC data. Current Interpretive Data was last revised on 2017. Testing performed by: [address] [address] Eosinophil pct 6.7 % [facility]OR Comment: Interpretive Data Percent cell count reference ranges are not reported, since discordance with absolute values may lead to misinterpretation of CBC data. Current Interpretive Data was last revised on 2017. Testing performed by: [address] [address] Basophil pct 0.6 % [facility] Comment: Interpretive Data Percent cell count reference ranges are not reported, since discordance with absolute values may lead to misinterpretation of CBC data. Current Interpretive Data was last revised on 2017. Testing performed by: [address] [address] Blood 08/23/2024 2:30 PM CHIEF MECHANICAL OFFICER 08/23/2024 3:01 PM CHIEF MECHANICAL OFFICER us Rangel Gastelum MD LAB BLOOD ORDERABLES Fin al Result [facility] [address] [facility] Department of Laboratories [place], [place] [id number] * CBC with auto differential (08/23/2024 2:30 PM CHIEF MECHANICAL OFFICER) WBC 8.5 3.8 - 9.9 K/cumm Comment:Testing performed by : [address] [address] Hgb 13.2 11.9 - 15.5 g/dL [facility] KIM Comment:Testing performed by : [address] [address] Hct 39.3 35.6 - 45.5 % [facility] KIM Comment:Testing performed by : [address], [address] Plt 317 150 - 400 K/cumm TAYLOR Comment:Testing performed by : [address] [address] MPV 10.4 9.1 - 12.3 fL TAY[facility]OR Comment:Testing performed by : [address] [address] RBC 4.42 3.90 - 5.20 M/cumm TAYLOR Comment:Testing performed by : [address] [address] MCV 88.9 81.3 - 96.4 fL T[facility]OR Comment:Testing performed by : [address] [address] MCH 29.9 27.1 - 33.3 pg TAY[facility]OR Comment:Testing performed by : [address] [address] MCHC 33.6 32.3 - 35.7 g/dL TAY[facility]OR Comment:Testing performed by : [address], [address] RDW CV 13.3 11.1 - 14.9 % TAYLOR Comment:Testing performed by : [address] [address] RDW SD 43.6 35.7 - 48.1 fL T[facility]OR Comment:Testing performed by : [address] [address] NRBC abs 0.00 0.00 - 0.01 K/cumm TAYLOR Comment:Testing performed by : [address] [address] Blood 08/23/2024 2:30 PM CHIEF MECHANICAL OFFICER 08/23/2024 3:01 PM CHIEF MECHANICAL OFFICER Narrative [facility] KIM - 08/23/2024 3:05 PM CHIEF MECHANICAL OFFICER PRE SURGICAL TESTING us Rangel Gastelum MD LAB BLOOD ORDERABLES Fin al Result [facility] KIM [address] [facility] Department [place] [address] * (ABNORMAL) Hepatitis C genotype Blood (04/19/2024 9:02 PM CDT) HCV genotype 1a(A) Undetected Comment: ADDITIONAL INFORMATION This test was performed using the Puente RealTime HCV Genotype II assay ([employer] [place], [place]). Test Performed by: [facility] [address] [place] [address] Fleet Mechanic: Nahed Givens Ph.D.; CLIA# [id number] Blood 04/19/2024 9:02 PM CDT 04/19/2024 9:17 PM CDT Concepcion Arevalo MD LAB MICROBIOLOGY - GENERAL ORDERABLES Final Result T[facility] Department [place] [address] from Last 3 Months or Most Recently Relevant to Health Maintenance [place] [address] [facility] [place] [id number] [facility] [place] [id number] Advance Directives For more information, please contact: [phone] * Full Code (Latest Code Status on File) Date Activated Date Inactivated Comments 04/17/2024 2:47 AM 04/20/2024 7:42 PM Care Teams Technical Sales Specialist Relationship Specialty Start Date End Date Glenna Nathan NP [address] [place] [address] PCP - General Family Medicine 08/10/24 Brendan Garcia NP [address] [place] [address] Psychiatry 08/10/24
--- OUTSIDE RECORDS SUMMARY | 2024-08-30 21:51 | XMS_ITS ---
Author Organization [facility] Address [address] [place] [address] Care Team Providers Care Vocational Nursing Instructor Name Role Phone Venita Glenna Primary Care Provider [phone] Brendan Garcia [phone] Allergies Allergen (clinical drug ingredient) Drug/Non Drug Allergy documented on EMR Reaction Allergy Type Onset Date Status codeine Codeine nausea and vomiting Drug Allergy Active REASON FOR VISIT 4 week F/U Medications Medication SIG (Take, Route, Frequency, Duration) Notes Start Date End Date Status Metoclopramide HCl 5 MG 1 tablet before [...] days on unit- please deliver 11/25/2023 Active Ondansetron HCl 4 MG 1 tablet for nausea Orally Twice a day for 7 days 08/09/2024 Active Vivitrol 380 MG as directed Intramuscular monthly (to give several days after client has taken and tolerated oral naltrexone) 12/08/2023 Not-Taking Melatonin 5 MG 1 tablet in the evening Orally Once a day Active Zolpidem Tartrate 10 MG 0.5 - [...] days As needed for anxiety/panic 11/23/2023 Active Republic Carbonate ER 450 MG 1 tablet at bedtime Orally Once a day for 30 days 04/05/2024 Active Social History Sex Assigned At : Social History Observation Description Sex Assigned At Female Encounters Encounter Location Date Provider Diagnosis [address] [place] [address] 08/09/2024 Brendan Garcia Bipolar 1 disorder F31.9 ; DESEAN (generalized anxiety disorder) F41.1 and Nausea R11.0 Assessments Encounter Date Diagnosis (ICD Code) Assessment Notes Treatment Notes Treatment Clinical Notes Section Notes 08/09/2024 Bipolar 1 disorder (ICD-10 - F31.9) [...] Will send in one week script. 08/09/2024 Nausea (ICD-10 - R11.0) Client doing well, no tx plan changes needed. Has reported flu and requests prn zofran as has nausea. Will send in one week script. [place] [...] number to the 24-hour crisis line at [facility]. Questions addressed. Client verbalized understanding of all information and is agreeable to treatment plan. Client doing well, no tx plan changes needed. Has reported flu and requests prn zofran as has nausea. Will send in one week script. Plan Of Treatment Medication Medication Name Sig Start Date Stop Date Notes Ondansetron HCl 4 MG 1 tablet for nausea Orally Twice a day for 7 days 08/09/2024 Zolpidem Tartrate 10 MG 0.5 - 1 tablet a t bedtime Orally Once a day. Do NOT take with alcohol or opioids. for 30 days 08/09/2024 Lurasidone HCl 60 MG 1 tablet in the enedina selina with food Orally Once a day for 30 days 11/25/2023 hydrOXYzine HCl 50 MG 0.5 - 1 tablet as needed Orally Every six hours for 30 days Gabapentin 600 MG 1 capsule Orally Enedina ry 8 hours for 30 days 11/23/2023 Republic Carbonate ER 450 MG 1 tablet at bedtime Orally Once a day for 30 days 04/05/2024 Treatment Notes Assessment Notes [place] [...] number to the 24-hour crisis line at [facility]. Questions addressed. Client verbalized understanding of all information and is agreeable to treatment plan. Next Appt Details Follow Up: 2 Months, Reason: Medication management - can be telehealth appt. or in office appt. Progress Notes * Mindy TROY MDOB:08/1989 (34 yo F)Acc No.[id number]:08/09/2024 Patient: Mindy NORRIS Provider: Maddie Garcia, WILLIAM, PMHNP-BC :1990 A ge:34 Y S ex:Female Date:08/09/2024 [facility] [facility] Pcp:Glenna Nathan Subjective: * Chief Complaints: * 4 week F/U * HPI: D epression Screening: PHQ-9 L ittle interest or pleasure in doing things N ot at all, F eeling down, depressed, or hopeless S [...] reading the newspaper or watching television S ever, M oving or speaking so slowly that other people could have noticed; or the opposite, being so fidgety or restless that you have been moving around a lot more than usual S everal days, T houghts that you would be better off or of hurting yourself in some way N ot at all, T otal Score 7 , I nterpretation M ild Depression. S creening: [place] Suicide Severity Rating Scale (LF) D o you want to initiate with S creener form, 1 . Wish to be : Have you wished you were or wished you could go to sleep and not wake up? N o, 2 . Suicidal Thoughts: Have you actually had any thoughts of killing yourself? N o, 6 . Suicide Behavior Question: Have you ever done anything,started to do anything, or prepared to end your life? N o, I nterpretation: L ow Risk. S uicidal Assessment: [place] Screening H ave you wished you were or wished you could go to sleep and not wake up? N o, H ave you actually had any thoughts of killing yourself? N o, H ave you ever done anything, started to do anything, or prepared to do anything to end your life? N o. S ummary: This is a 33 year old female who presents telephonically for psychiatric follow up. HPI: I'm sick today, but I've been doing really good otherwise. Mindy Troy is a 34-year-old female who reports experiencing flu-like symptoms, including vomiting and diarrhea. She has not been tested for the flu but suspects it due to the symptoms. States that prior to her illness, she has been doing well mentally. Mindy has been experiencing occasional sleep disturbances, which she attributes to changes in her sleeping environment. She alternates between sleeping on the couch and her bed, depending on her comfort level. Her boyfriend's work schedule also affects her sleep pattern, as she adjusts to sleeping alone when he is away. Despite these challenges, she reports that she has been managing her sleep reasonably well. Mindy is currently on probation and has been actively participating in treatment programs, which has positively impacted her legal situation. She recently underwent a mental health assessment as part of her probation requirements. She expresses relief that her legal issues are being resolved, with only one pending charge remaining. She spends her days in her recovery program or with her family (mom, daughter, son). She has been living with her boyfriend. She has been seeing a counselor and taking drug tests for drug court. The patient has a history of drug abuse and has been to senior care a couple of times. Denies SIB/SI/HI. Breakthrough rare AH/VH, anxiety. Improved depression/insomnia. HISTORICAL INFORMATION FROM INITIAL EVALUATION: P resenting Symptoms/CC: I'm on the women's unit. I was self medicating with drugs. ?I've been in and out of senior care. I'll do good and then I will relapse and end up back in senior living. I have a hard time sleeping at night. I 'm having sleep paralysis. I'm not fully awake and I'll get into a panic attack. I'm having it a few times a week. I'm having nightmares. I'm having racing thoughts. I'm talking to myself. I'm constantly fightling with myself. I obsess over things. I over eat or under eat. Its all or nothing thinking. My anxiety is super, super high. I feel my ears go red. Then I have crashing.? Around 8-9pm I feel so tired but [...] Suicide attempts: Would self harm with cutting w janet tavarez, 14 yo had event where cut [...] GED test. 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 Service: Denies Abuse exposure and type: High [...] * ROS: * PSYCH ROS2: mood swings D enies. T houghts of self harm D enies. D enies H omicidal thoughts. H yperactivity D enies. I nattention A dmits.?Obsessive behavior D enies. D ifficulty concentrating D enies. A dmits A nxiety, t hat is [...] 2011 * Hospitalization/Major Diagno stic Procedure: D enies Past Hospitalization * Family History: F ather: [...] alcohol or opioids. As needed for insomnia.Taking Melatonin 5 MG Tablet 1 tablet in [...] Every 8 hours As needed for anxiety/panicTaking Republic Carbonate ER 450 MG Tablet Extended Release 1 tablet at bedtime Orally Once a day Taking Zolpidem Tartrate 10 MG Tablet 0.5 - 1 tablet at bedtime Orally Once a day. Do NOT take with alcohol or opioids. As needed for insomnia.Not-TakingVivitrol 380 MG Suspension Reconstituted as directed Intramuscular [...] G AD (generalized anxiety disorder) - F41.1 3 . N ausea - R11.0 Client doing well, no tx erick n changes needed. Has reported flu and requests prn zofran as has nausea. Will send in one week script. Plan: * Treatment: 2. G AD (generalized anxiety disorder) Refill hydrOXYzine HCl Tablet, 50 MG, 0.5 - 1 tablet as needed, Orally, Every six hours As needed for anxiety, 30 days, 90, Refills 1; R efill Gabapentin Tablet, 600 MG, 1 capsule, Orally, Every 8 hours As needed for anxiety/panic, 30 days, 90 Capsule, Refills 1. 3. N ausea Start Ondansetron HCl Tablet, 4 MG, 1 tablet for nausea, Orally, Twice a day, 7 days, 14 Tablet, Refills 0. 4. O thers Notes: [place] [...] number to the 24-hour crisis line at [facility]. Questions addressed. Client verbalized understanding of all information and is agreeable to treatment plan. * Procedure Codes: * Follow Up: 2 Months (Reason: Medication management - can be telehealth appt. or in office appt.) * * OPATHOLOGIST Sign off status: Completed true * Provider: Maddie Garcia DNP, PMHNP- Date: 0 08/09/2024 Generated for Jayme aranda/Marzena/Brittany on: 0 08/30/2024 05:53 PM CDT History and Physical Notes * HPI (History of Present Illness) Category Sub-Category Detail Notes Category Not es Suicidal Assessment [place] Screening Have you wished you were or wished you could go to sleep and not wake up?: No Have you actually had any thoughts of ki lling yourself?: No Have you ever done anything, started to do anything, or prepared to do anything to end your life?: No Strengths Depression Screening PHQ-9 Little inte rest or pleasure in doing things: Not at all Feeling down, depressed, or hopeless: Se veral [...] some way: Not at all Total Score: 7 Interpretation: Mild Depression Screening [place] Suicide Sev erity Rating Scale (LF) Do [...] end your life?: No Interpretation:: Low Risk Examination Category Sub-Category Detail Notes Category Not es Mental Status Exam SENSORIUM AND COGNITION Alert , Oriented to Person, Oriented to Place, Oriented to Time, Oriented to Situation ATTENTION AND CONCENTRATION No deficits APPEARANCE Phone interview - un able to determine appearance. ATTITUDE AND BEHAVIOR Cooperative, Sand Cutter Operator tive, Pleasant MEMORY Immediate, Recent, R emote, [...]
[2024-08-30 22:01] VITALS: BP 117/80; PULSE 84; RESP 20; O2SAT 97
[2024-08-30] MEDS: ONDANSETRON INJ 4 MG/2 ML VIAL IV PUSH (22:04)
[2024-08-30] MEDS: HYDROmorphone HCL INJ (*CRX) 1 MG/ML SYR 0.5 MG IV PUSH (22:04)
[2024-08-30 22:13] LABS: Basophils Percent Auto 0.3 % (0.2-1.2); Eosinophils Absolute Auto 0.2 K/mm3 (0-0.3); Eosinophils Percent Auto 1.2 % (0-4.4); Hematocrit 37.4 % (37.0-47.0); Hemoglobin 12.7 g/dL (12.0-15.0); Immature Granulocyte Absolute 0.05 K/mm3 (0.00-0.031); Immature Granulocyte Percent A 0.4 % (0-0.5); Immature Platelet Fraction Pct 4.3 % (0.9-11.2); Lymphocytes Absolute Auto 3.72 K/mm3 (0.9-3.2); Lymphocytes Percent Auto 26.1 % (18.3-44.2); Mean Corpuscular Hemoglobin 30.7 pg (26-34); Mean Corpuscular Volume 90.3 fl (80-100); Mean Platelet Volume 10.8 fl (7.4-10.4); Monocytes Absolute Auto 0.8 K/mm3 (0.1-0.6); Monocytes Percent Auto 5.4 % (2.6-8.5); Neutrophils Absolute Auto 9.5 K/mm3 (1.3-6.7); Neutrophils Percent Auto 66.6 % (45.5-73.1); Platelet Count Result 283 k/mm3 (150-375); Red Blood Count 4.14 M/mm3 (4.2-5.4); Red Cell Distribution Width 13.6 % (11.5-14.5); White Blood Count 14.3 K/mm3 (4.5-10.0)
[2024-08-30 22:23] LABS: Alanine Aminotransferase 19 U/L (6-35); Alkaline Phosphatase 65 U/L (38-126); Anion Gap 10 mmol/L (4-12); Aspartate Amino Transferase 18 U/L (14-36); Bilirubin,Total 0.3 mg/dL (0.2-1.3); Blood Urea Nitrogen 10 mg/dL (7-17); Calcium 8.7 mg/dL (8.4-10.2); Carbon Dioxide 23 mmol/L (22-30); Chloride 105 mmol/L (98-107); Estimated CRCL calculation 92 ml/min; Estimated Glomerular Filt Rate > 60; Glucose 135 mg/dL (65-110); Lipase 56 U/L (23-300); Potassium 3.5 mmol/L (3.4-5.0); Sodium 138 mmol/L (137-145)
[2024-08-30 22:24] LABS: Lactic Acid Reflex 1.8 mmol/L (0.7-2.0)
[2024-08-30 22:25] LABS: INR 0.9; Prothrombin Time 12.3 Seconds (11.1-14.7)
[2024-08-30 22:26] LABS: Partial Thromboplastin Time 22.2 Seconds (22.3-36.8)
[2024-08-30 23:26] VITALS: BP 121/88; PULSE 80; RESP 17; O2SAT 95
== END 2024-08-31 00:05 | disposition home or self-care (01) ==
PROVIDERS: Emergency Provider Physician Assistant; PCP Obstetrics & Gynecology
DX: G89.18 Other acute postprocedural pain (principal); R10.9 Unspecified abdominal pain; Z98.51 Tubal ligation status; Z79.899 Other long term (current) drug therapy
CPT/HCPCS: 36415; 74177; 80053; 83605; 83690; 85025; 85055; 85610; 85730; 96374; 96375; 99284; J1171; J2405; Q9967

== ENCOUNTER 2025-01-30 18:56 | Emergency (ER) | payer BC, SELFPAY ==
--- OUTSIDE RECORDS SUMMARY | 2025-01-30 18:59 | XMS_ITS | Continuity of Care Document ---
Author Organization [facility] Address [address] [place] [place] [address] [place] [address] Phone Care Team Providers Care Lvn Lpn Name Role Phone Saúl Garvey MD Unavailable [...] Diagnoses Date Provider Providers Copied on Encounter [facility], [address] [place], [id number], tel:[phone] [facility] No Information Guru Hays. [address] [place], [id number], [place]. tel:[phone] PREV VISIT, NEW, AGE 18-39 [facility], [address] [place], [place], [id number], [place] tel:[phone] [facility] Medicine Anxiety (chief complaint)s eizure (chief complaint) Routine Medical ExamRoutine Medical Exam Guru Hays. [address], [address], [place], [place], [id number], [place]. tel:[phone] Family History Family Member Type Diagnosis Age At Onset No Information Payers Payer name Insurance type Covered alliance party ID Authoriza tilenka(s) No Information Social History [...]
--- OUTSIDE RECORDS SUMMARY | 2025-01-30 18:59 | XMS_ITS | Clinical Summary ---
Author Organization [facility] General Specific Address [address] [place] [address] Care Team Providers Care Collar Cutter Name Role Phone Lilibeth Restrepo MD Primary Care Provider [phone] Source Comments [facility] General Specific,non-owned Affiliates and Associated Physician Practices is amultiple site organization consisting of ambulatory clinics and hospital sitesin [place], [place], [place] and [place]. This disclosure is being madepursuant to the Care Everywhere program and may not contain all information available regarding this patient. Last updated 18.[facility] General Specific Allergies Active Allergy Reactions Criticality Noted Date Comments Adhesive Sensitivity Rash Low 06/26/2014 Codeine Nausea and/or Vomiting 06/26/2014 Latex Rash Low 06/26/2014 Medications * This document contains information received from the source organization and may not represent a complete record from that organization. * Be aware that medications may not be up to date on this document. Alwaysverify current medications with the patient. diphenhydrAMINE (BENADRYL) 25 MG capsule Take 2 Caps by mouth at bedtime. 30 Cap 0 08/03/19 15 Active docusate sodium (COLACE) 100 MG capsule Take 1 Cap by mouth 2 times daily. 60 Cap 1 08/03/19 15 Active Kbukelku-Eiz-Yb -FA ( VITAMIN WITH IRON) tablet Take 1 Tab by mouth once daily. 30 Tab 1 08/03/19 15 Active ALPRAZolam (XANAX) 0.5 MG tablet Take 3-4 Tabs by mouth 3 times daily as needed for Anxiety. 27 Tab 0 08/03/19 15 Active Additional Information Patient taking differently: 2 mgOral3 TIMES DAILY, Reported on 08/10/2014 methadone (DOLOPHINE) 10 MG tablet Take 40 mg by mouth once daily. Active hydrocortisone (HYTONE) 1 % creamIndication s:Pruritus Apply to affected area 4 times daily as needed. Indications: Itching 56 g 2 08/10/19 15 Active prochlorperazin e (COMPAZINE) 10 MG tabletIndicatio ns:Severe Nausea and Vomiting Take 1 Tab by mouth every 6 hours as needed for Nausea/Vomiting . Indications: Severe Nausea and Vomiting 60 Tab 2 08/10/19 15 Active promethazine (PHENERGAN) 25 MG suppository Insert 1 Suppository into the rectum every 6 hours as needed for Nausea/Vomiting . 16 Suppository 0 08/18/19 15 Active metoclopramide (REGLAN) 10 MG tablet Take 1 Tab by mouth 3 times daily before meals. 60 Tab 0 08/18/19 15 Active Active Problems Patient Care Coordination No te Formatting of this note migh t be different from the original. Patient requested to not discuss past OB history, and losses. Highly upsetting for her. History has been confirmed Labs will be done at [facility] on 08-13 Problem Noted Date Diagnosed [...] 0.6 oz pure alcohol) occasionally prior to Comments No Sex and Gender Information Value Date Recorded Sex Assigned at Not on file Legal Sex Female 3:43 PM [employer] Gender Identity Not on file Sexual Orientation Not on file Last Filed Vital Signs Vital Sign Reading Time Taken Comments Blood Pressure 120/73 08/18/2014 11:16 AM [employer] NEED CONSULTANT Pulse 110 08/10/2014 1:49 PM [employer] CONSULT[employer] Temperature 36.7 C (98 F) 08/18/2014 11:12 AM [employer] NEED CONSULTANT Respiratory Rate 18 08/18/2014 11:12 AM [employer] NEED CONSULTANT Oxygen Saturation 99% 08/02/2014 7:51 PM [employer] NEED CONSULTANT Inhaled Oxygen Concentration - - Weight 61.2 kg (135 lb) 08/18/2014 11:12 AM [employer] NEED CONSULTANT Height 167.6 cm (5' 6) 08/18/2014 11:12 AM [employer] NEED CONSULTANT Body Mass Index 21.79 08/18/2014 11:12 AM [employer] NEED CONSULTANT Plan of Treatment Health Maintenance Due Date Last Done Comments HIV SCREENING 2006 DTAP/TDAP/TD VACCINES (1 - Tdap) 2010 HEPATITIS B VACCINE (1 of 3 - 19+ 3-dose series) 2010 PNEUMOCOCCAL VACCINE (1 of 2 - PCV) 2010 PAP SMEAR 2012 HPV VACCINE (1 - 3-dose SCDM series) 2018 COVID-19 VACCINE (1 - 2023-2 5 season) 2024 INFLUENZA VACCINE (#1) 2025 ZOSTER VACCINE (1 of 2) 2041 HEPATITIS C SCREENING Completed 09/21/2024 , 08/02/2014 HIB VACCINE Aged Out No longer eligi ble based on patient's age to complete this topic MENINGOCOCCAL (Group B) VACCINE SHARED DECISION-MAKING Aged Out No longer eligible based on patient's age to complete this topic MENINGOCOCCAL GROUPS A/C/Y/W VACCINE Aged Out No longer eligible b ased on patient's age to complete this topic Procedures Procedure Name Priority Date/Time Associated Diagnosis Comments HEPATITIS C ANTIBODY STAT 08/02/2014 1:13 AM [employer] NEED CONSULTANT from Last 3 Months or Most Recently Relevant to Health Maintenance Results * HEPATITIS C ANTIBODY (08/02/2014 1:13 AM [employer] NEED CONSULTANT) HCV Antibody Screen Non Reactive Non Reactive 08/02/2014 3:00 AM [employer] NEED CONSULTANT [facility] HCV S/C Ratio 0.13 0.00 - 0.79 08/02/2014 3:00 AM [employer] NEED CONSULTANT [facility] Comment: S/C ratio <0.80: Non Reactive Blood BLOOD SPECIMEN / Unknown Venipuncture / Unknown 08/02/2014 1:13 AM [employer] NEED CONSULTANT 08/02/2014 1:36 AM [employer] NEED CONSULTANT Narrative [facility] - 08/02/2014 3:00 AM [employer] NEED CONSULTANT Nonreactive - Antibodies to HCV were not detected, result does not exclude early acute HCV infection. Samantha Jacob MD LAB - CHEMISTRY ORDERABL ES Final Result [facility] [address] [place] [address] from Last 3 Months or Most Recently Relevant to Health Maintenance Insurance [facility] MEDICAID - [facility] MEDICAID Advance Directives * Full Code (Latest Code Status on File) Date Activated Date Inactivated Comments 08/01/2014 11:57 PM 08/03/2014 6:09 PM Care Teams Collar Cutter Relationship Specialty Start Date End Date Lilibeth Restrepo MD [address] [place] [address] [place] [address] PCP - General Internal Medicine 05/26/24
--- OUTSIDE RECORDS SUMMARY | 2025-01-30 18:59 | XMS_ITS | Patient Health Record ---
Author Organization [facility] Address [address] [place] [address] Care Team Providers Care Book Or Script Editor Name Role Phone VenitaLawandaGlenna Primary Care Provider Brendan Garcia [phone] Allergies Allergen (clinical drug ingredient) Drug/Non Drug Allergy documented on EMR Reaction Allergy Type Onset Date Status codeine Codeine nausea and vomiting Drug Allergy Active Results Component Value Reference Range Notes Hemoglobin A1c* Reviewed date:05/08/2024 09:27:05 AM Interpretation:High Performing Lab:[facility] [place], [address] [facility], Phone - [phone], Director - PhDYusef Notes/Report: Hemoglobin A1c 5.7 4.8-5.6 % . Prediabetes: 5.7 - 6.4 Diabetes: >6.4 Glycemic control for adults with diabetes: <7.0 CBC With Differential/Platel et* Reviewed date:05/08/2024 09:27:05 AM Interpretation:Abnormal Performing Lab:[facility] [place], [address], [place], Phone - [phone], Director - PhDYusef Notes/Report: WBC 7.7 3.4-10.8 x10E3/uL RBC 4.56 [...] Panel* Reviewed date:05/08/2024 09:27:05 AM Interpretation:Abnormal Performing Lab:[facility] [place], [address] [facility], Phone - [phone], [facility]Report: Cholesterol, Total 206 100-199 mg/dL Triglycerides 113 0-149 mg/dL HDL Cholesterol 51 >39 mg/dL VLDL Cholesterol Adi 20 5-40 mg/dL LDL Chol Calc ([facility]) 135 0-99 mg/dL CMP 14 Comprehensive Metabol ic Panel* Reviewed date:05/08/2024 09:27:05 AM Interpretation:Abnormal Performing Lab:[facility] [place], [address] [facility], Phone - [phone], [facility] Notes/Report: Glucose 142 70-99 mg/dL BUN [...] T4 Reviewed date:05/08/2024 09:27:05 AM Interpretation:Normal Performing Lab:[facility], [address] [facility], [place], Phone - [phone], Director - Kofi Notes/Report: TSH 3.070 0.450-4.500 uIU/mL CMP 14 Comprehensive Metabol ic Panel* Reviewed date:05/24/2024 11:07:19 AM Interpretation: Performing Lab: Notes/Report: TSH+Free T4* Reviewed date:05/24/2024 11:07:25 AM Interpretation: Performing Lab: Notes/Report: Reason For Referral No Information Medications Medication SIG (Take, Route, Frequency, Duration) Notes Start Date End Date Status Vivitrol 380 MG as directed Intramuscular monthly (to give several days after client has taken and tolerated oral naltrexone) 12/08/2023 Not-Taking Multivitamin - 1 tablet Orally Once a day Active Ondansetron HCl 4 MG 1 tablet for nausea Orally Twice a day; Duration: 7 days 08/09/2024 Active Melatonin 5 MG 1 tablet in the evening Orally Once a day Active Ondansetron HCl 8 MG 1 tablet as needed Orally twice daily; Duration: 30 days As needed every 12 hours for nausea on unit- please deliver 11/22/2023 Active Omeprazole 20 MG 1 capsule 30 minutes before morning meal Orally Once a day; Duration: 30 days on unit- please deliver 11/22/2023 Active Metoclopramide HCl 5 MG 1 tablet before lunch Orally once daily; Duration: 7 days As needed Take once daily before lunch on unit- please deliver 11/25/2023 Active Albuterol Sulfate HFA 108 (90 Base) MCG/ACT 1 puff as needed Inhalation every 4 hrs; Duration: 30 days on unit- please deliver 11/25/2023 Active Lidocaine 5 % APPLY 1 PATCH DAILY REMOVE AFTER 12 HOURS; Duration: 10 Active Rufus Carbonate ER 450 MG 1 tablet at bedtime Orally Once a day; Duration: 15 days 04/05/2024 Active Lurasidone HCl 60 MG 1 tablet in the evening with food Orally Once a day; Duration: 15 days 11/25/2023 Active hydrOXYzine HCl 50 MG 0.5 - 1 tablet as needed Orally Every six hours; Duration: 15 days As needed for anxiety Active Gabapentin 600 MG 1 capsule Orally Every 8 hours; Duration: 15 days As needed for anxiety/panic 11/23/2023 Active Zolpidem Tartrate 10 MG 0.5 - 1 tablet at bedtime Orally Once a day. Do NOT take with alcohol or opioids.; Duration: 15 days As needed for insomnia. 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 Stress is when someone feels tense, nervous, anxious, or can\t sleep at night because their mind is troubled Somewhat In the past year have you sp ent more than 2 nights in a row in a long-term, alf, long term center, or juvenile correctional facility? [...] Status Risk Notes Problem Gastroesophageal reflux disease (769546770) GERD (gastroesophageal reflux disease) (K21.9) Active confirmed Problem Attention deficit hyperactivity disorder (797117960) ADHD (attention deficit hyperactivity disorder) (F90.9) Active confirmed Problem Bipolar 1 disorder (789952625) Bipolar 1 disorder (F31.9) Active confirmed Problem Asthma (072214231) Asthma (J45.909) Active conf irmed Problem Generalized anxiety disorder (77210890) DESEAN (generalized anxiety disorder) (F41.1) Active confirmed Problem Panic attack (280190773) Panic attack (F41.0) Active confirmed Problem Gastritis (4014289) Gastritis (K29.70) Active c onfirmed Problem Missed period (28612682) Missed menses (N92.6) Active confirmed Problem Poor concentration (finding) (67167498) Concentration deficit (R41.840) Active confirmed Problem Stimulant abuse (661088941) Methamphetamine use disorder, mild, 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) Active confirmed Problem Tobacco use (677087717) Tobacco use disorder (F17.200) Active confirmed Problem 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) Active confirmed Vital Signs Heart Rate 90 /min 03/09/2024 Respiratory Rate 16 /min 03/09/2024 Oximetry 98 % 03/09/2024 Blood pressure diastolic 82 mm Hg 03/09/2024 Height 65 in 03/09/2024 Blood pressure systolic 124 mm Hg 03/09/2024 Weight 180 lb 6 oz lbs 03/09/2024 BMI 30.01 kg/m2 03/09/2024 Encounters Encounter Location Date Provider Diagnosis [address] [address] 02/11/2024 Brendan Garcia Bipolar 1 disorder F31.9 and DESEAN (generalized anxiety disorder) F41.[address] [place] [address] 05/08/2024 Glenna Nathan [address] [place] [address] 05/08/2024 Brendan Garcia Bipolar 1 disorder F31.9 ; DESEAN (generalized anxiety disorder) F41.1 and Concentration deficit R41.[address] [address] 05/17/2024 Brendan Garcia [address] [address] 08/08/2024 Glenna Nathan [address] [address] 01/26/2025 Brendan Garcia Bipolar 1 disorder F31.9 ; DESEAN (generalized anxiety disorder) F41.1 and Panic attack F41.[address] [address] 03/09/2024 Brendan Garcia Bipolar 1 disorder F31.9 ; Concentration deficit R41.840 and DESEAN (generalized anxiety disorder) F41.[address] [address] 04/05/2024 Brendan Garcia Bipolar 1 disorder F31.9 ; DESEAN (generalized anxiety disorder) F41.1 ; Concentration deficit R41.840 and Medication monitoring encounter Z51.[address] [address] 05/22/2024 Brendan Garcia Bipolar 1 disorder F31.9 ; DESEAN (generalized anxiety disorder) F41.1 and Concentration deficit R41.[address] [address] 06/26/2024 Brendan Garcia Bipolar 1 disorder F31.9 and DESEAN (generalized anxiety disorder) F41.[address] [address] 08/09/2024 Brendan Garcia Bipolar 1 disorder F31.9 ; DESEAN (generalized anxiety disorder) F41.1 and Nausea R11.[address] [address] 10/09/2024 Brendan Garcia Bipolar 1 disorder F31.9 ; DESEAN (generalized anxiety disorder) F41.1 and Panic attack F41.0 Assessments Encounter Date Diagnosis (ICD Code) Assessment Notes Treatment Notes Treatment Clinical Notes Section Notes 04/05/2024 Bipolar 1 disorder (ICD-10 - F31.9) [...] (generalized anxiety disorder) (ICD-10 - F41.1) Client continues to struggle with mood regulation [...] lose weight and has not been exercising. 08/09/2024 Bipolar 1 disorder (ICD-10 - F31.9) Client doing wel l, no tx plan changes needed. Has reported flu and requests prn zofran as has nausea. Will send in one week script. 08/09/2024 DESEAN (generalized anxiety disorder) (ICD-10 - F41.1) Client doing wel l, no tx plan changes needed. Has reported flu and requests prn zofran as has nausea. Will send in one week script. 01/26/2025 Bipolar 1 disorder (ICD-10 - F31.9) 10/09/2024 Bipolar 1 disorder (ICD-10 - F31.9) Client most like ly having panic r/t increased responsibilities as she was doing well before her mother went into surgery. Discussed coping strategies, encouraged continued contact with therapist as they are working on this as well. Client agreeable to trial of propranolol PRN TID 0.5 - 1 tablet for panic. Given strong addiction hx, particularly to benzodiazapines and methamphetamines, care needs to be taken with all medications that are prescribed. Ambien was prescribed after all non-controlled hypnotics were trialed and failed and client was not sleeping at all and being more psychotic. Overall, client's condition continues to improve in stability given the severity of her condition in the past. Would look at increase in lithium if anxiety continues and discussed lithium level check after this if needed and client is agreeable to this if needed. 10/09/2024 DESEAN (generalized anxiety disorder) (ICD-10 - F41.1) Client most like ly having panic r/t increased responsibilities as she was doing well before her mother went into surgery. Discussed coping strategies, encouraged continued contact with therapist as they are working on this as well. Client agreeable to trial of propranolol PRN TID 0.5 - 1 tablet for panic. Given strong addiction hx, particularly to benzodiazapines and methamphetamines, care needs to be taken with all medications that are prescribed. Ambien was prescribed after all non-controlled hypnotics were trialed and failed and client was not sleeping at all and being more psychotic. Overall, client's condition continues to improve in stability given the severity of her condition in the past. Would look at increase in lithium if anxiety continues and discussed lithium level check after this if needed and client is agreeable to this if needed. 02/11/2024 Bipolar 1 disorder (ICD-10 - F31.9) 05/22/2024 Bipolar 1 disorder (ICD-10 - F31.9) Client agreeable to stopping risperidone (already titrated off), atomoxetine (she feels it is not helping), and clonidine ER (stopping as she wants to increase Ambien and due to c/o daytime fatigue). Ambien increased to 10 mg, Prozac started at 20 mg. No other treatment plan changes. Recent lab work reviewed with client. Rufus level that was written for did not get drawn. CMP will need repeating due to creatinine 1.12. Discussed can rewrite for lithium and CMP in a month once known client is going to stay on lithum. She has had a lot of medications changes recently. Rufus dose low at 450 mg ER daily. 06/26/2024 Bipolar 1 disorder (ICD-10 - F31.9) Client doing wel l. Self stopped fluoxetine as wants streamlined treatment plan and she felt it had limited benefit. No treatment plan changes aside from discontinuation of fluoxetine. 05/08/2024 Bipolar 1 disorder (ICD-10 - F31.9) 03/09/2024 Bipolar 1 disorder (ICD-10 - F31.9) [...] to her restlessness. Given client is on clonidine/gabapent in already and trialed trazodone with no success, [...] medication in the past for her insomnia. 03/09/2024 Concentration deficit (ICD-10 - R41.840) Client [...] to her restlessness. Given client is on clonidine/gabapent in already and trialed trazodone with no success, [...] plan changes aside from discontinuation of fluoxetine. 05/22/2024 DESEAN (generalized anxiety disorder) (ICD-10 - F41.1) Client agreeable to stopping risperidone (already titrated off), atomoxetine (she feels it is not helping), and clonidine ER (stopping as she wants to increase Ambien and due to c/o daytime fatigue). Ambien increased to 10 mg, Prozac started at 20 mg. No other treatment plan changes. Recent lab work reviewed with client. Rufus level that was written for did not get drawn. CMP will need repeating due to creatinine 1.12. Discussed can rewrite for lithium and CMP in a month once known client is going to stay on lithum. She has had a lot of medications changes recently. Rufus dose low at 450 mg ER daily. 02/11/2024 DESEAN (generalized anxiety disorder) (ICD-10 - F41.1) 10/09/2024 Panic attack (ICD-10 - F41.0) Client most like ly having panic r/t increased responsibilities as she was doing well before her mother went into surgery. Discussed coping strategies, encouraged continued contact with therapist as they are working on this as well. Client agreeable to trial of propranolol PRN TID 0.5 - 1 tablet for panic. Given strong addiction hx, particularly to benzodiazapines and methamphetamines, care needs to be taken with all medications that are prescribed. Ambien was prescribed after all non-controlled hypnotics were trialed and failed and client was not sleeping at all and being more psychotic. Overall, client's condition continues to improve in stability given the severity of her condition in the past. Would look at increase in lithium if anxiety continues and discussed lithium level check after this if needed and client is agreeable to this if needed. 01/26/2025 DESEAN (generalized anxiety disorder) (ICD-10 - F41.1) [...] lose weight and has not been exercising. 08/09/2024 Nausea (ICD-10 - R11.0) Client doing wel l, no tx plan changes needed. Has reported flu and requests prn zofran as has nausea. Will send in one week script. 04/05/2024 Medication monitoring encounter (ICD-10 - Z51.81) [...] lose weight and has not been exercising. 01/26/2025 Panic attack (ICD-10 - F41.0) 05/22/2024 Concentration deficit (ICD-10 - R41.840) Client agreeable to stopping risperidone (already titrated off), atomoxetine (she feels it is not helping), and clonidine ER (stopping as she wants to increase Ambien and due to c/o daytime fatigue). Ambien increased to 10 mg, Prozac started at 20 mg. No other treatment plan changes. Recent lab work reviewed with client. Rufus level that was written for did not get drawn. CMP will need repeating due to creatinine 1.12. Discussed can rewrite for lithium and CMP in a month once known client is going to stay on lithum. She has had a lot of medications changes recently. Rufus dose low at 450 mg ER daily. 05/08/2024 Concentration deficit (ICD-10 - R41.840) 03/09/2024 DESEAN (generalized anxiety disorder) (ICD-10 - [...] to her restlessness. Given client is on clonidine/gabapent in already and trialed trazodone with no success, [...] medication in the past for her insomnia. 03/09/2024 Other Discussed sleep hygiene and caffeine intake with encouragement to limit electronic devices an hour before bed and to limit caffeine after 3:00pm. Exercise benefits for mood and health discussed. Psychoeducation regarding psychiatric illness provided. Client was educated about risks and benefits of medication, alternatives to medication, off label uses of medication, suicidal ideation with SSRIs, self-administrati on and compliance with medication along with how to safely store medication. Verbal informed consent obtained. Client agrees to return sooner if symptoms worsen or if suicidal or homicidal ideations occur. Client has the phone number to the 24-hour crisis line at [facility]. Questions addressed. Client verbalized understanding of [...] to her restlessness. Given client is on clonidine/gabapent in already and trialed trazodone with no success, [...] for her insomnia. [place]2024 [place]. [place] has been educated [...] uses of medication, suicidal ideation with SSRIs, self-administrati on and compliance with medication along with how to safely store medication. Verbal informed consent obtained. Client agrees to return sooner if symptoms worsen or if suicidal or homicidal ideations occur. Client has the phone number to the 24-hour crisis line at [facility]. Questions addressed. Client verbalized understanding of [...] not been exercising. 05/22/2024 [place]. Discussed sleep hygiene and caffeine intake with encouragement to limit electronic devices an hour before bed and to limit caffeine after 3:00pm. Exercise benefits for mood and health discussed. Psychoeducation regarding psychiatric illness provided. Client was educated about risks and benefits of medication, alternatives to medication, off label uses of medication, suicidal ideation with SSRIs, self-administrati on and compliance with medication along with how to safely store medication. Verbal informed consent obtained. Client agrees to return sooner if symptoms worsen or if suicidal or homicidal ideations occur. Client has the phone number to the 24-hour crisis line at [facility]. Questions addressed. Client verbalized understanding of [...] changes. Recent lab work reviewed with client. Rufus level that was written for did not get drawn. CMP will need repeating due to creatinine 1.12. Discussed can rewrite for lithium and CMP in a month once known client is going to stay on lithum. She has had a lot of medications changes recently. Rufus dose low at 450 mg ER daily. 06/26/2024 [place]. Discussed sleep hygiene and caffeine intake with encouragement to limit electronic devices an hour before bed and to limit caffeine after 3:00pm. Exercise benefits for mood and health discussed. Psychoeducation regarding psychiatric illness provided. Client was educated about risks and benefits of medication, alternatives to medication, off label uses of medication, suicidal ideation with SSRIs, self-administrati on and compliance with medication along with how to safely store medication. Verbal informed consent obtained. Client agrees to return sooner if symptoms worsen or if suicidal or homicidal ideations occur. Client has the phone number to the 24-hour crisis line at [facility]. Questions addressed. Client verbalized understanding of all information and is agreeable to treatment plan. Client doing well. Self stopped fluoxetine as wants streamlined treatment plan and she felt it had limited benefit. No treatment plan changes aside from discontinuation of fluoxetine. 08/09/2024 [place]. Discussed sleep hygiene and caffeine intake with encouragement to limit electronic devices an hour before bed and to limit caffeine after 3:00pm. Exercise benefits for mood and health discussed. Psychoeducation regarding psychiatric illness provided. Client was educated about risks and benefits of medication, alternatives to medication, off label uses of medication, suicidal ideation with SSRIs, self-administrati on and compliance with medication along with how to safely store medication. Verbal informed consent obtained. Client agrees to return sooner if symptoms worsen or if suicidal or homicidal ideations occur. Client has the phone number to the 24-hour crisis line at [facility]. Questions addressed. Client verbalized understanding of all information and is agreeable to treatment plan. Client doing well, no tx plan changes needed. Has reported flu and requests prn zofran as has nausea. Will send in one week script. 10/09/2024 Other Discussed sleep hygiene and caffeine intake with encouragement to limit electronic devices an hour before bed and to limit caffeine after 3:00pm. Exercise benefits for mood and health discussed. Psychoeducation regarding psychiatric illness provided. Client was educated about risks and benefits of medication, alternatives to medication, off label uses of medication, suicidal ideation with SSRIs, self-administrati on and compliance with medication along with how to safely store medication. Verbal informed consent obtained. Client agrees to return sooner if symptoms worsen or if suicidal or homicidal ideations occur. Client has the phone number to the 24-hour crisis line at [facility]. Questions addressed. Client verbalized understanding of all information and is agreeable to treatment plan. Client most likely having panic r/t increased responsibilities as she was doing well before her mother went into surgery. Discussed coping strategies, encouraged continued contact with therapist as they are working on this as well. Client agreeable to trial of propranolol PRN TID 0.5 - 1 tablet for panic. Given strong addiction hx, particularly to benzodiazapines and methamphetamines, care needs to be taken with all medications that are prescribed. Ambien was prescribed after all non-controlled hypnotics were trialed and failed and client was not sleeping at all and being more psychotic. Overall, client's condition continues to improve in stability given the severity of her condition in the past. Would look at increase in lithium if anxiety continues and discussed lithium level check after this if needed and client is agreeable to this if needed. Plan Of Treatment Next Appt Details Provider Name:Brendan Good , 02/12/2025 03:00:00 PM, [address] [facility] [address], [place], [address], Insurance Providers Payer Name Payer Address Payer Phone Subscriber Number Group Number Insured Name Patient Relationship to Insured Coverage Start Date Coverage End Date [address] [address] [id number] 1 Mindy Troy Self - patient is the insured 4 [facility] Att Claims Department [address] [facility] [place] [address] [id number] Mindy Troy Self - patient is the insured [address] [employer] [address] [id number] 1 Mindy Troy Self - patient is [...]
--- OUTSIDE RECORDS SUMMARY | 2025-01-30 18:59 | XMS_ITS | Clinical Summary ---
Author Organization [facility] Address [address] [place] [address] Care Team Providers Care Radiotelegrapher Name Role Phone Brendan Garcia WHIPPER Unavailable [phone] Glenna Nathan WHIPPER Primary Care Provider [phone] Allergies Active Allergy Reactions Criticality Noted Date Comments Adhesive Tape-Silicones Rash Medium Latex Rash Medium Medications gabapentin (NEURONTIN) 600 mg tablet Take 1 tablet (600 mg total) by mouth 3 (three) times a day 11/23/2023 Active hydrOXYzine (ATARAX) 50 mg tablet Take 0.5 tablets (25 mg total) by mouth every 4 (four) hours as needed for anxiety Active lithium ER (ESKALITH) 450 mg CR tablet Take 1 tablet (450 mg total) by mouth nightly 04/05/2024 Active lurasidone (LATUDA) 60 mg tablet Take 1 tablet (60 mg total) by mouth nightly 11/25/2023 Active zolpidem (AMBIEN) 5 mg tablet Take 1 tablet (5 mg total) by mouth nightly as needed for sleep 04/05/2024 Active Active Problems Problem Noted Date Diagnosed Date [...] Encounters Date Type Department Care Team Description 12/14/[address] [facility] Infectious Diseases [address] [place] [phone] Glenna Centeno RN 12/11/[address] [facility] Infectious Diseases [address] [place] [phone] Lexis Mendosa CNS 11/03/[address] [facility] Infectious Diseases [address] [place] [phone] Lexis Mendosa CNS 10/31/[address] [facility] Infectious Diseases [address] [place] [phone] Lexis Mendosa CNS 10/30/[address] [facility] Infectious Diseases [address] [place] [phone] Lexis Mendosa, NETWORK SYSTEMS INTEGRATOR from Last 3 Months Immunizations Immunization Administration Dates Next Due Hep A, Adult 02/23/2018 Surgical History Surgery Date Site/Laterality Comments TONSILLECTOMY Tonsillectomy SECTION Medical History Medical History Date Comments Seizure disorder (HCC) 2012 withdrawa l from ETOH Asthma Gastroesophageal reflux disease 12/13/2012 Polysubstance abuse 04/17/2024 Bipolar disorder 04/17/2024 Hepatitis C antibody test positive 04/17/2024 [...] 9:10 AM CDT Height 167.6 cm (5' 6) 08/29/2024 9:10 AM CDT Body Mass Index 30.31 08/29/2024 9:10 AM CDT Plan of Treatment Health Maintenance Due Date Last Done Comments Cervical Cancer Screening 1991 DTaP/Tdap/Td Vaccine (1 - Tdap) 2002 Varicella Vaccines (1 of 2 - 13+ 2-dose series) 2004 Hepatitis B Screening 2009 Regular Well Visit/Exam 18-64 2009 Pneumococcal vaccine <65 (1 of 2 - PCV) 2010 HPV Vaccines (1 - 3-dose SCDM series) 2018 Influenza Vaccine (#1) 2025 Depression Screening 04/16/2025 04/16/2024, 04/16/20 24 Hepatitis C Screening Completed 04/19/2024, 024 Procedures Procedure Name Priority Date/Time Associated Diagnosis Comments HEPATITIS C GENOTYPE Routine 04/19/2024 9:02 PM CDT from Last 3 Months or Most Recently Relevant to Health Maintenance Results * (ABNORMAL) Hepatitis C genotype Blood (04/19/2024 9:02 PM CDT) HCV genotype 1a(A) Undetected Comment: ADDITIONAL INFORMATION This test was performed using the [employer] RealTime HCV Genotype II assay ([employer] [place], [place]). Test Performed by: [place] [address] Green Chain Puller: Nahed Givens Ph.D.; CLIA# [id number] Blood 04/19/2024 9:02 PM CDT 04/19/2024 9:17 PM CDT us Concepcion Arevalo MD LAB MICROBIOLOGY - GENERAL ORDERABLES Final Result [facility] Department [place] [address] from Last 3 Months or Most Recently Relevant to Health Maintenance Insurance [employer] [facility] [employer] [facility] Advance Directives For more information, please contact: [phone] * Full Code (Latest Code Status on File) Date Activated Date Inactivated Comments 04/17/2024 2:47 AM 04/20/2024 7:42 PM Care Teams Radiotelegrapher Relationship Specialty Start Date End Date Glenna Nathan NP [address] [place] [address] PCP - General Family Medicine 08/10/24 Brendan Garcia NP [address] [place] [address] Psychiatry 08/10/24
--- OUTSIDE RECORDS SUMMARY | 2025-01-30 19:01 | XMS_ITS | Continuity of Care Document ---
Author Organization [facility] Address [address] [place] [address] [place] [address] Phone Care Team Providers Care Stunt Person Name Role Phone Saúl Garvey MD Unavailable [...] Diagnoses Date Provider Providers Copied on Encounter [facility], [address] [place], [id number], tel:[phone] [facility] No Information [facility]. [address] [address] [facility] [place], [id number], [place]. tel:[phone] PREV VISIT, NEW, AGE 18-39 [facility], [address] [place], [id number], [place] tel:[phone] [facility] Medicine Anxiety (chief complaint)s eizure (chief complaint) Routine Medical ExamRoutine Medical Exam Guru Hays. [address], [place], [place], [id number], [place]. tel:[phone] Family History Family Member Type Diagnosis Age [...]
[2025-01-30 19:03] VITALS: BP 121/80; PULSE 79; RESP 16; TEMP 37; O2SAT 99
--- NOTE | 2025-01-30 19:13 | ED_ITS ---
HPI - Neck Pain/Injury General Chief Complaint: Neck Pain/Injury Stated Complaint: pain under jaw and neck Source: patient Mode of arrival: ambulatory Limitations: no limitations History of Present Illness HPI Narrative: 34 y/o female presented for c/o pain to the left neck and under the mandible. onset 3 days. Says it is spreading down the neck. Endorses poor dentition due to hx drug use, but denies pain with chewing or gum swelling. Rates pain 3/10. Taking Tylenol. Denies ear pain, sore throat, fever. Related Data Home Medications ?Medication ?Instructions ?Recorded ?Confirmed ?Last Taken ?Type hydroxyzine HCl 50 mg tablet See Rx Instructions .Route 01/11/24 01/11/24 Unknown History .COMPLEX PRN Anxiety lurasidone 60 mg tablet 60 mg PO DAILY 01/11/24 01/11/24 Unknown History trazodone 150 mg tablet 150 mg PO DAILY 01/11/24 01/11/24 Unknown History gabapentin 600 mg tablet mg 01/30/25 Unknown History hydroxyzine HCl 25 mg tablet mg 01/30/25 Unknown History lithium 01/30/25 Unknown History propranolol 10 mg tablet mg 01/30/25 Unknown History zolpidem 10 mg tablet mg 01/30/25 Unknown History Allergies Allergy/AdvReac Type Severity Reaction Status Date / Time adhesive Allergy Unknown Hives Verified 01/30/25 19:14 ketorolac Allergy Unknown Hives Verified 01/30/25 19:14 codeine Allergy Vomiting Verified 01/30/25 19:14 Review of Systems Review of Systems: CONSTITUTIONAL: Denies body aches, fever, chills, or sweats. EYES: Denies visual changes, redness, or discharge. ENT: reports neck pain Denies rhinorrhea, congestion, sore throat, or otalgia. CARDIOVASCULAR: Denies chest pain, palpitations, or edema. RESPIRATORY: Denies cough or dyspnea. GASTROINTESTINAL: Denies abdominal pain, nausea, vomiting, or diarrhea. GENITOURINARY: Denies dysuria or hematuria. SKIN: Denies rash MUSCULOSKELETAL: Denies back pain, joint pain, or myalgia. NEUROLOGIC: Denies headache, numbness, tingling, or weakness. All systems reviewed & are unremarkable except as noted in HPI and below PMFSH Past Medical History Medical History History of drug abuse Social History Social History Substance use: current Comments At time of signature, I have reviewed and agree with nursing past medical, surgical, social and family history unless otherwise noted. Please see nursing chart for further information. There is no relevant family history pertinent to the presenting complaint Exam Narrative: GENERAL: Well-appearing, and in no acute distress. HEAD: Normocephalic, atraumatic. EYES: EOMI. No redness or drainage. Conjunctivae normal. ENT: Mucous membranes pink and moist. Poor dentition throughout. #19 decayed with mild gum swelling. Nontender. No rhinorrhea. TMs normal bilaterally. Throat normal. Uvula midline. NECK: Normal AROM. Supple. No lymphadenopathy. CHEST: No respiratory distress. Clear to auscultation. HEART: Regular rate and rhythm. SKIN: Warm, dry, no rash. Capillary refill normal. Normal skin turgor. NEURO: No focal deficits. Alert and oriented x3. Gait steady. PSYCH: Normal affect. Course Course Emergency Course: Patient is aware of diagnosis, understands and agrees to treatment plan. Anticipatory guidance given. Patient agrees to follow-up as directed and is aware of reasons to seek care at the emergency department. Portions of this record may have been created with voice recognition software Level of Care: Express Care Visit Vital Signs Vital signs: Vital Signs Temperature 98.6 F 01/30/25 19:03 Pulse Rate 79 01/30/25 19:03 Respiratory Rate 16 01/30/25 19:03 Blood Pressure 121/80 01/30/25 19:03 Pulse Oximetry 99 01/30/25 19:03 Oxygen Delivery Room Air 01/30/25 19:03 Temperature 98.6 F 01/30/25 19:03 Pulse Rate 79 01/30/25 19:03 Respiratory Rate 16 01/30/25 19:03 Blood Pressure 121/80 01/30/25 19:03 Pulse Oximetry 99 01/30/25 19:03 Oxygen Delivery Room Air 01/30/25 19:03 MDM - Neck Pain/Injury MDM Narrative Medical decision making narrative: Discussed physical exam findings, will cover for dental. Advised supportive measures and signs/symptoms to go to the ER. Pt is appropriate for outpt treatment and f/u. Differential Diagnosis Differential diagnosis: Likely disc disorder of cervical region, cervical radiculopathy, strain of neck muscle and other ( lymphadenitis, viral infection) Discharge Plan Discharge Clinical Impression: Neck pain Patient Disposition: Home Condition: Stable Instructions: Antibiotic Form, Dental Abscess (ED) Additional Instructions: Take antibiotic as directed May apply heat or ice to the face Gentle brushing and flossing. Rinse mouth with warm salt water at least 2 times a day. Alternate Tylenol and ibuprofen as needed for pain Follow-up with the dentist as soon as possible Go to the ER for worsening symptoms or concerns Patient Language: Luxembourgish Prescriptions: New amoxicillin-pot clavulanate 875-125 mg tablet 1 tablet PO Q12H 7 Days Qty: 14 0RF No Action hydroxyzine HCl 50 mg tablet See Rx Instructions .ROUTE .COMPLEX PRN (Reason: Anxiety) Rx Instructions: PRESCRIBED trazodone 150 mg tablet 150 mg PO DAILY lurasidone 60 mg tablet 60 mg PO DAILY gabapentin 600 mg tablet hydroxyzine HCl 25 mg tablet propranolol 10 mg tablet zolpidem 10 mg tablet lithium Follow-up/Referrals: PHYSICIAN,CHEMICAL INSPECTOR [Primary Care Provider] - Time of Disposition: 19:24
== END 2025-01-30 19:34 | disposition home or self-care (01) ==
PROVIDERS: Emergency Provider Nurse Practitioner Family
DX: M54.2 Cervicalgia (principal)
CPT/HCPCS: 99213; G0463

== ENCOUNTER 2025-02-08 13:44 | Emergency (ER) | payer BC, SELFPAY ==
[2025-02-08 13:46] VITALS: BP 132/93; PULSE 73; RESP 20; TEMP 37.2; O2SAT 98
--- OUTSIDE RECORDS SUMMARY | 2025-02-08 13:54 | XMS_ITS | Clinical Summary ---
Author Organization [facility] Address [address] [place] [address] Care Team Providers Care Data Collection Technician Name Role Phone Lilibeth Restrepo MD Primary Care Provider [phone] Source Comments [facility],non-owned Affiliates and Associated Physician Practices is amultiple site organization consisting of ambulatory clinics and hospital sitesin [place], [place], [place] and [place]. This disclosure is being madepursuant to the Care Everywhere program and may not contain all information available regarding this patient. Last updated 18.[facility] Allergies Active Allergy Reactions Criticality Noted Date [...] daily. 60 Cap 1 08/03/19 15 Active [id number]-[id number] -[id number] ( VITAMIN WITH IRON) tablet Take [...] been confirmed Labs will be done at [facility] on 08-13 Problem Noted Date [...] on file Legal Sex Female 3:43 PM WINCH OPERATOR Gender Identity Not on file Sexual Orientation Not on file Last Filed Vital Signs Vital Sign Reading Time Taken Comments Blood Pressure 120/73 08/18/2014 11:16 AM WINCH OPERATOR Pulse 110 08/10/2014 1:49 PM WINCH OPERATOR Temperature 36.7 C (98 F) 08/18/2014 11:12 AM WINCH OPERATOR Respiratory Rate 18 08/18/2014 11:12 AM WINCH OPERATOR Oxygen Saturation 99% 08/02/2014 7:51 PM WINCH OPERATOR Inhaled Oxygen Concentration - - Weight 61.2 kg (135 lb) 08/18/2014 11:12 AM WINCH OPERATOR Height 167.6 cm (5' 6) 08/18/2014 11:12 AM WINCH OPERATOR Body Mass Index 21.79 08/18/2014 11:12 AM WINCH OPERATOR Plan of Treatment Health Maintenance Due Date [...] HEPATITIS C ANTIBODY STAT 08/02/2014 1:13 AM WINCH OPERATOR from Last 3 Months or Most Recently Relevant to Health Maintenance Results * HEPATITIS C ANTIBODY (08/02/2014 1:13 AM WINCH OPERATOR) HCV Antibody Screen Non Reactive Non Reactive 08/02/2014 3:00 AM WINCH OPERATOR [facility] HCV S/C Ratio 0.13 0.00 - 0.79 08/02/2014 3:00 AM WINCH OPERATOR [facility] Comment: S/C ratio <0.80: Non Reactive Blood BLOOD SPECIMEN / Unknown Venipuncture / Unknown 08/02/2014 1:13 AM WINCH OPERATOR 08/02/2014 1:36 AM WINCH OPERATOR Narrative [facility] - 08/02/2014 3:00 AM WINCH OPERATOR Nonreactive - Antibodies to HCV were not detected, result does not exclude early acute HCV infection. Samantha Jacob MD LAB - CHEMISTRY ORDERABL ES Final Result [facility] [address] [place] [address] from Last 3 Months or Most Recently Relevant to Health Maintenance Insurance [facility] MEDICAID - OUT OF STATE [facility] MEDICAID Advance Directives * Full Code (Latest Code Status on File) Date Activated Date Inactivated Comments 08/01/2014 11:57 PM 08/03/2014 6:09 PM Care Teams Data Collection Technician Relationship Specialty Start Date End Date Lilibeth Restrepo MD [address] [place] [address] [place] [address] PCP - General Internal Medicine 05/26/24
--- OUTSIDE RECORDS SUMMARY | 2025-02-08 13:54 | XMS_ITS | Patient Health Record ---
Author Organization [facility] Address [address] [place] [address] Care Team Providers Care Sap Functional Analyst Name Role Phone Glenna Nathan Primary Care Provider [phone] Brendan Garcia [phone] Allergies Allergen (clinical drug ingredient) Drug/Non Drug Allergy documented on EMR Reaction Allergy Type Onset Date Status codeine Codeine nausea and vomiting Drug Allergy Active Results Component Value Reference Range Notes TSH+Free T4* Reviewed date:05/24/2024 11:07:25 AM Interpretation: Performing Lab: Notes/Report: CMP 14 Comprehensive Metabol ic Panel* Reviewed date:05/24/2024 11:07:19 AM Interpretation: Performing Lab: Notes/Report: TSH Rfx on Abnormal to Free T4 Reviewed date:05/08/2024 09:27:05 AM Interpretation:Normal Performing Lab:[facility], [address] [facility], Phone - [phone], [facility] Notes/Report: TSH 3.070 0.450-4.500 uIU/mL CMP 14 Comprehensive Metabol ic Panel* Reviewed date:05/08/2024 09:27:05 AM Interpretation:Abnormal Performing Lab:[facility], [address] [facility], Phone - [phone], Director [facility] Notes/Report: Glucose 142 70-99 mg/dL BUN 10 [...] 0-40 IU/L ALT (SGPT) 15 0-32 IU/L Lipid Panel* Reviewed date:05/08/2024 09:27:05 AM Interpretation:Abnormal Performing Lab:[facility] [place] [facility], [address] [facility], Phone - [phone], Director [facility] Notes/Report: Cholesterol, Total 206 100-199 mg/dL Triglycerides 113 0-149 mg/dL HDL Cholesterol 51 >39 mg/dL VLDL Cholesterol Adi 20 5-40 mg/dL LDL Chol Calc ([facility]) 135 0-99 mg/dL CBC With Differential/Platel et* Reviewed date:05/08/2024 09:27:05 AM Interpretation:Abnormal Performing Lab:[facility] [place], [address] [facility], Phone - [phone], Director [facility] Notes/Report: WBC 7.7 3.4-10.8 x10E3/uL RBC [...] % Immature Grans (Abs) 0.0 0.0-0.1 x10E3/uL Hemoglobin A1c* Reviewed date:05/08/2024 09:27:05 AM Interpretation:High Performing Lab:[facility] [place], [address] [facility], Phone - [phone], Director - Kofi Notes/Report: Hemoglobin A1c 5.7 4.8-5.6 % . 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 Stress is when someone feels tense, nervous, anxious, or can\t sleep at night because their mind is troubled Somewhat In the past year have you sp ent more than 2 nights in a row in a snf, usp, prison center, or juvenile correctional facility? Yes Do [...] Status Risk Notes Problem Gastroesophageal reflux disease (012879493) GERD (gastroesophageal reflux disease) (K21.9) Active confirmed Problem Attention deficit hyperactivity disorder (299355630) ADHD (attention deficit hyperactivity disorder) (F90.9) Active confirmed Problem Bipolar 1 disorder (730076583) Bipolar 1 disorder (F31.9) Active confirmed Problem Asthma (130240702) Asthma (J45.909) Active conf irmed Problem Generalized anxiety disorder (68565544) DESEAN (generalized anxiety disorder) (F41.1) Active confirmed Problem Panic attack (717031461) Panic attack (F41.0) Active confirmed Problem Gastritis (6509951) Gastritis (K29.70) Active c onfirmed Problem Missed period (08690668) Missed menses (N92.6) Active confirmed Problem Poor concentration (finding) (49649576) Concentration deficit (R41.840) Active confirmed Problem Stimulant abuse (699480940) Methamphetamine use disorder, mild, 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) Active confirmed Problem Tobacco use (433004227) Tobacco use disorder (F17.200) Active confirmed Problem [...] 03/09/2024 Encounters Encounter Location Date Provider Diagnosis [address] [place] [address] 03/09/2024 Brendan Garcia Bipolar 1 disorder F31.9 ; Concentration deficit R41.840 and DESEAN (generalized anxiety disorder) F41.[address] [place] [address] 04/05/2024 Brendan Garcia Bipolar 1 disorder F31.9 ; DESEAN (generalized anxiety disorder) F41.1 ; Concentration deficit R41.840 and Medication monitoring encounter Z51.[address] [address] 05/22/2024 Brendan Garcia Bipolar 1 disorder F31.9 ; DESEAN (generalized anxiety disorder) F41.1 and Concentration deficit R41.[address] [address] 06/26/2024 Brendan Garcia Bipolar 1 disorder F31.9 and DESEAN (generalized anxiety disorder) F41.[address] [address] 08/09/2024 Brendan Garcia Bipolar 1 disorder F31.9 ; DESEAN (generalized anxiety disorder) F41.1 and Nausea R11.[address] [address] 10/09/2024 Brendan Garcia Bipolar 1 disorder F31.9 ; DESEAN (generalized anxiety disorder) F41.1 and Panic attack F41.[address] [address] 02/11/2024 Brendan Garcia Bipolar 1 disorder F31.9 and DESEAN (generalized anxiety disorder) F41.[address] [address] 05/08/2024 Glenna Nathan [address] [address] 05/08/2024 Brendan Garcia Bipolar 1 disorder F31.9 ; DESEAN (generalized anxiety disorder) F41.1 and Concentration deficit R41.[address] [address] 05/17/2024 Brendan Garcia [address] [address] 08/08/2024 Glenna Nathan [address] [address] 01/26/2025 Brendan Garcia Bipolar 1 disorder F31.9 ; DESEAN (generalized anxiety disorder) F41.1 and Panic attack F41.0 Assessments Encounter Date Diagnosis (ICD Code) Assessment Notes Treatment Notes Treatment Clinical Notes Section Notes 02/11/2024 Bipolar 1 disorder (ICD-10 - F31.9) 03/09/2024 [...] in the past for her insomnia. 04/05/2024 Bipolar 1 disorder (ICD-10 - F31.9) [...] lose weight and has not been exercising. 05/08/2024 Bipolar 1 disorder (ICD-10 - F31.9) 05/22/2024 [...] changes. Recent lab work reviewed with client. [place] level that was written for did not get drawn. CMP will need repeating due to creatinine 1.12. Discussed can rewrite for lithium and CMP in a month once known client is going to stay on lithum. She has had a lot of medications changes recently. [place] dose low at 450 mg ER daily. 06/26/2024 Bipolar 1 disorder (ICD-10 - F31.9) Client doing wel l. Self stopped fluoxetine as wants streamlined treatment plan and she felt it had limited benefit. No treatment plan changes aside from discontinuation of fluoxetine. 08/09/2024 Bipolar 1 disorder (ICD-10 - F31.9) [...] Will send in one week script. 10/09/2024 Bipolar 1 disorder (ICD-10 - F31.9) [...] is agreeable to this if needed. 01/26/2025 Bipolar 1 disorder (ICD-10 - F31.9) 01/26/2025 DESEAN (generalized anxiety disorder) (ICD-10 - [...] lose weight and has not been exercising. 10/09/2024 Panic attack (ICD-10 - F41.0) Client [...] client is agreeable to this if needed. 06/26/2024 DESEAN (generalized anxiety disorder) (ICD-10 - [...] nausea. Will send in one week script. 05/22/2024 DESEAN (generalized anxiety disorder) (ICD-10 - F41.1) Client agreeable to stopping risperidone (already titrated off), atomoxetine (she feels it is not helping), and clonidine ER (stopping as she wants to increase Ambien and due to c/o daytime fatigue). Ambien increased to 10 mg, Prozac started at 20 mg. No other treatment plan changes. Recent lab work reviewed with client. [place] level that was written for did not get drawn. CMP will need repeating due to creatinine 1.12. Discussed can rewrite for lithium and CMP in a month once known client is going to stay on lithum. She has had a lot of medications changes recently. [place] dose low at 450 mg ER daily. 05/08/2024 DESEAN (generalized anxiety disorder) (ICD-10 - F41.1) 03/09/2024 Concentration deficit (ICD-10 - R41.840) Client [...] medication in the past for her insomnia. 02/11/2024 DESEAN (generalized anxiety disorder) (ICD-10 - F41.1) 03/09/2024 DESEAN (generalized anxiety disorder) (ICD-10 - [...] in the past for her insomnia. 05/08/2024 Concentration deficit (ICD-10 - R41.840) 04/05/2024 [...] weight and has not been exercising. 05/22/2024 Concentration deficit (ICD-10 - R41.840) Client agreeable to stopping risperidone (already titrated off), atomoxetine (she feels it is not helping), and clonidine ER (stopping as she wants to increase Ambien and due to c/o daytime fatigue). Ambien increased to 10 mg, Prozac started at 20 mg. No other treatment plan changes. Recent lab work reviewed with client. [place] level that was written for did not get drawn. CMP will need repeating due to creatinine 1.12. Discussed can rewrite for lithium and CMP in a month once known client is going to stay on lithum. She has had a lot of medications changes recently. [place] dose low at 450 mg ER daily. 01/26/2025 Panic attack (ICD-10 - F41.0) 03/09/2024 Other Discussed sleep hygiene and caffeine [...] number to the 24-hour crisis line at [facility]. Questions addressed. Client verbalized understanding of all [...] number to the 24-hour crisis line at [facility]. Questions addressed. Client verbalized understanding of all [...] lose weight and has not been exercising. [place]2024 [place] number to the 24-hour crisis line at [facility]. Questions addressed. Client verbalized understanding of all [...] number to the 24-hour crisis line at [facility]. Questions addressed. Client verbalized understanding of all [...] number to the 24-hour crisis line at [facility]. Questions addressed. Client verbalized understanding of all [...] client is agreeable to this if needed. 05/22/2024 [place] [...] number to the 24-hour crisis line at [facility]. Questions addressed. Client verbalized understanding of all [...] changes. Recent lab work reviewed with client. [place] level that was written for did not get drawn. CMP will need repeating due to creatinine 1.12. Discussed can rewrite for lithium and CMP in a month once known client is going to stay on lithum. She has had a lot of medications changes recently. [place] dose low at 450 mg ER daily. Plan Of Treatment Next Appt Details Provider Name:Brendan Good , 02/12/2025 03:00:00 PM, [address] [facility] [address], [place], [address], Insurance Providers Payer Name Payer Address Payer Phone Subscriber Number Group Number Insured Name Patient Relationship to Insured Coverage Start Date Coverage End Date [facility] Plan [address] [place] [id number] 1 Mindy Troy Self - patient is the insured 4 [facility] Att Claims Department [address] [facility] [place] [address] [id number] Mindy Troy Self - patient is the insured [id number] [address] [id number] 1 Mindy Troy Self - patient is [...]
--- OUTSIDE RECORDS SUMMARY | 2025-02-08 13:54 | XMS_ITS | Clinical Summary ---
Author Organization [facility] Address [address] [place] [address] Care Team Providers Care Deputy District Customs Director Name Role Phone Brendan Garcia SITE SURVEYOR Unavailable [phone] Glenna Nathan SITE SURVEYOR Primary Care Provider [phone] Allergies Active Allergy Reactions Criticality Noted Date [...] Type Department Care Team Description 12/14/2024 Telephone [facility] [address] [place] [phone] Glenna Centeno RN 12/11/2024 Telephone [facility] [address] [place] [phone] Lexis Mendosa, SOLAR MANAGER from Last 3 Months Immunizations Immunization Administration [...] the [employer]ente RealTime HCV Genotype II assay ([employer] [place], [place]). Test Performed by: [facility] [place] [address] Robotics Testing Technician: Nahed Givens Ph.D.; CLIA# [id number] Blood 04/19/2024 9:02 PM CDT 04/19/2024 9:17 PM CDT Concepcion Arevalo MD LAB MICROBIOLOGY - GENERAL ORDERABLES Final Result [facility] [place] [address] from Last 3 Months or Most Recently Relevant to Health Maintenance Insurance [employer] PLAN PLAN Advance Directives For more information, please contact: [phone] * Full Code (Latest Code Status on File) Date Activated Date Inactivated Comments 04/17/2024 2:47 AM 04/20/2024 7:42 PM Care Teams Deputy District Customs Director Relationship Specialty Start Date End Date Glenna Nathan NP [address] [place] [address] PCP - General Family Medicine 08/10/24 Brendan Garcia NP [address] [place] [address] Psychiatry 08/10/24
--- NOTE | 2025-02-08 14:05 | ED.URI ---
HPI - URI/Sore Throat General Chief Complaint: Upper Respiratory Infection Stated Complaint: Sore Throat,Cough Time Seen by Provider: 02/08/25 14:06 Source: patient Mode of arrival: ambulatory Limitations: no limitations History of Present Illness HPI Narrative: 34 yo F presents with c/o runny nose, sneezing and sore throat for 2 to 3 days. Afebrile. No other complaints. All systems reviewed and negative except as noted above. Related Data Home Medications ?Medication ?Instructions ?Recorded ?Confirmed ?Last Taken ?Type hydroxyzine HCl 50 mg tablet See Rx Instructions .Route 01/11/24 01/11/24 Unknown History .COMPLEX PRN Anxiety lurasidone 60 mg tablet 60 mg PO DAILY 01/11/24 01/11/24 Unknown History trazodone 150 mg tablet 150 mg PO DAILY 01/11/24 01/11/24 Unknown History gabapentin 600 mg tablet mg 01/30/25 Unknown History propranolol 10 mg tablet mg 01/30/25 Unknown History zolpidem 10 mg tablet mg 01/30/25 Unknown History lithium carbonate 450 mg mg PO 02/08/25 Unknown History tablet,extended release Allergies Allergy/AdvReac Type Severity Reaction Status Date / Time adhesive Allergy Unknown Hives Verified 02/08/25 14:04 ketorolac Allergy Unknown Hives Verified 02/08/25 14:04 codeine Allergy Vomiting Verified 02/08/25 14:04 [facility] Past Medical History Medical History History of drug abuse Social History Social History Substance use: current Comments At time of signature, agree with nursing past medical, surgical, social and family history. There is no relevant family history pertinent to the presenting complaint. Exam Narrative: GENERAL: This is a well-nourished, well-developed patient, in no apparent distress. HEAD: normocephalic, atraumatic. EYES: PERRL. Sclera clear/white. Vision is grossly intact. EARS: External ears normal, auditory canals clear and without drainage, TMs normal without perforation. Hearing grossly intact. NOSE: External nose normal with Clear nasal drainage THROAT: Mucous membranes moist, posterior pharynx clear. NECK: Neck supple, non-tender without lymphadenopathy, masses or thyromegaly. CARDIOVASCULAR: Regular rate and rhythm without murmurs, gallops, or rubs. RESPIRATORY: Clear to auscultation. Breath sounds equal bilaterally. No wheezes, rales, or rhonchi. SKIN: warm, Dry, intact with no suspicious lesions or rash, good texture and turgor. NEURO: awake, alert, and oriented to person, place and time. There were no obvious focal neurologic abnormalities. EXTREMITIES: No joint tenderness, effusion, or edema noted. Course Course Level of Care: Express Care Visit Vital Signs Vital signs: Vital Signs Temperature 37.2 C 02/08/25 13:46 Pulse Rate 73 02/08/25 13:46 Respiratory Rate 20 02/08/25 13:46 Blood Pressure 132/93 H 02/08/25 13:46 Pulse Oximetry 98 02/08/25 13:46 Oxygen Delivery Room Air 02/08/25 13:46 Temperature 37.2 C 02/08/25 13:46 Pulse Rate 73 02/08/25 13:46 Respiratory Rate 20 02/08/25 13:46 Blood Pressure 132/93 H 02/08/25 13:46 Pulse Oximetry 98 02/08/25 13:46 Oxygen Delivery Room Air 02/08/25 13:46 reviewed MDM - URI/Sore Throat MDM Narrative Medical decision making narrative: negative rapid strep. Patient offered COVID testing but she declined. Patient is well-appearing nontoxic. Strep culture is pending. Will wait for culture results prior to treating with antibiotics. Recommend [id number] medications to treat viral symptoms. Differential Diagnosis Differential diagnosis: Likely upper respiratory infection, sinusitis, viral infection and pharyngitis Lab Data Labs: Lab Results 02/08/25 Range/Units 13:55 POC Grp A Strep Screen Negative (Negative) Discharge Plan Discharge Clinical Impression: Upper respiratory infection, viral Patient Disposition: Home Condition: Stable Instructions: Upper Respiratory Infection (ED) Additional Instructions: your strep test was negative today. A strep culture was ordered and results will take 24-48 hours. If your strep culture is positive we will call you at that time and prescribed an antibiotic. Your symptoms are viral and may last 10-14 days. Taking [id number] medication to treat her symptoms such as DayQuil NyQuil cold and flu. Take as directed on packaging. Drink plenty of water and rest. See your doctor if symptoms are not improving. Patient Language: Albanian Prescriptions: No Action hydroxyzine HCl 50 mg tablet See Rx Instructions .ROUTE .COMPLEX PRN (Reason: Anxiety) Rx Instructions: PRESCRIBED trazodone 150 mg tablet 150 mg PO DAILY lurasidone 60 mg tablet 60 mg PO DAILY gabapentin 600 mg tablet propranolol 10 mg tablet zolpidem 10 mg tablet lithium carbonate 450 mg tablet extended release PO Follow-up/Referrals: UNKNOWN,DOCTOR [Primary Care Provider] Time of Disposition: 14:11
[2025-02-08 14:08] LABS: EDSTREPNEGPOS1 Negative (Negative)
== END 2025-02-08 14:13 | disposition home or self-care (01) ==
PROVIDERS: Emergency Provider Nurse Practitioner Family
DX: J06.9 Acute upper respiratory infection, unspecified (principal)
CPT/HCPCS: 87081; 87880; 99213; G0463

== ENCOUNTER 2025-02-09 13:23 | Emergency (ER) | payer BC, SELFPAY ==
--- OUTSIDE RECORDS SUMMARY | 2025-02-09 13:26 | XMS_ITS | Patient Health Record ---
Author Organization [facility] Address [address] [place] [address] Care Team Providers Care Drilling Engineer Name Role Phone Glenna Nathan Primary Care Provider Brendan Garcia [phone] Allergies Allergen (clinical drug ingredient) Drug/Non Drug Allergy documented on EMR Reaction Allergy Type Onset Date Status codeine Codeine nausea and vomiting Drug Allergy Active Results Component Value Reference Range Notes TSH+Free T4* Reviewed date:05/24/2024 11:07:25 AM Interpretation: Performing Lab: Notes/Report: CMP 14 Comprehensive Metabol ic Panel* Reviewed date:05/24/2024 11:07:19 AM Interpretation: Performing Lab: Notes/Report: Hemoglobin A1c* Reviewed date:05/08/2024 09:27:05 AM Interpretation:High Performing Lab:[facility] [place], [address] [facility], Phone - [phone], Director - PhDYusef Notes/Report: Hemoglobin A1c 5.7 4.8-5.6 % . Prediabetes: 5.7 - 6.4 Diabetes: >6.4 Glycemic control for adults with diabetes: <7.0 CBC With Differential/Platel et* Reviewed date:05/08/2024 09:27:05 AM Interpretation:Abnormal Performing Lab:[facility] [place], [address] [facility], Phone - [phone], Director - PhDYusef Notes/Report: WBC 7.7 3.4-10.8 [...] Panel* Reviewed date:05/08/2024 09:27:05 AM Interpretation:Abnormal Performing Lab:[facility] [place], [address] [facility], Phone - [phone], Director - PhDYusef Notes/Report: Cholesterol, Total 206 100-199 mg/dL Triglycerides 113 0-149 mg/dL HDL Cholesterol 51 >39 mg/dL VLDL Cholesterol Adi 20 5-40 mg/dL LDL Chol Calc ([facility]) 135 0-99 mg/dL CMP 14 Comprehensive Metabol ic Panel* Reviewed date:05/08/2024 09:27:05 AM Interpretation:Abnormal Performing Lab:[facility] [place], [address] [facility], Phone - [phone], Director - PhDYusef Notes/Report: Glucose 142 70-99 mg/dL BUN 10 [...] T4 Reviewed date:05/08/2024 09:27:05 AM Interpretation:Normal Performing Lab:[facility] [place], [address] [facility], [place], Phone - [phone], Director - Kofi Notes/Report: TSH 3.070 0.450-4.500 uIU/mL Reason For Referral No Information Medications Medication [...] REMOVE AFTER 12 HOURS; Duration: 10 Active [place] Carbonate ER 450 MG 1 tablet at [...] 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 Stress is when someone feels tense, nervous, anxious, or can\t sleep at night because their mind is troubled Somewhat In the past year have you sp ent more than 2 nights in a row in a alf, fdc, residential center, or juvenile correctional facility? Yes Do [...] Status Risk Notes Problem Gastroesophageal reflux disease (323678723) GERD (gastroesophageal reflux disease) (K21.9) Active confirmed Problem Attention deficit hyperactivity disorder (840780684) ADHD (attention deficit hyperactivity disorder) (F90.9) Active confirmed Problem Bipolar 1 disorder (879035274) Bipolar 1 disorder (F31.9) Active confirmed Problem Asthma (433408142) Asthma (J45.909) Active conf irmed Problem Generalized anxiety disorder (36107238) DESEAN (generalized anxiety disorder) (F41.1) Active confirmed Problem Panic attack (470921211) Panic attack (F41.0) Active confirmed Problem Gastritis (9886620) Gastritis (K29.70) Active c onfirmed Problem Missed period (32009930) Missed menses (N92.6) Active confirmed Problem Poor concentration (finding) (86329053) Concentration deficit (R41.840) Active confirmed Problem Stimulant abuse (572778040) Methamphetamine use disorder, mild, 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) Active confirmed Problem Tobacco use (613074003) Tobacco use disorder (F17.200) Active confirmed Problem [...] 03/09/2024 Encounters Encounter Location Date Provider Diagnosis [address] [place] [address] 03/09/2024 Brendan Garcia Bipolar 1 disorder F31.9 ; Concentration deficit R41.840 and DESEAN (generalized anxiety disorder) F41.[address] [place] [address] 04/05/2024 Brendan Garcia Bipolar 1 disorder F31.9 ; DESEAN (generalized anxiety disorder) F41.1 ; Concentration deficit R41.840 and Medication monitoring encounter Z51.[address] [address] 05/22/2024 Brendan Garcia Bipolar 1 disorder F31.9 ; DESEAN (generalized anxiety disorder) F41.1 and Concentration deficit R41.[address] [address] 06/26/2024 Brendan Garcia Bipolar 1 disorder F31.9 and DESEAN (generalized anxiety disorder) F41.[address] [address] 08/09/2024 Brendan Garcia Bipolar 1 disorder F31.9 ; DESEAN (generalized anxiety disorder) F41.1 and Nausea R11.[address] [address] 10/09/2024 Brendan Garcia Bipolar 1 disorder F31.9 ; DESEAN (generalized anxiety disorder) F41.1 and Panic attack F41.[address] [address] 02/11/2024 Brendan Garcia Bipolar 1 disorder F31.9 and DESEAN (generalized anxiety disorder) F41.[address] [address] 05/08/2024 Glenna Nathan [address] [address] 05/08/2024 Brendan Garcia Bipolar 1 disorder F31.9 ; DESEAN (generalized anxiety disorder) F41.1 and Concentration deficit R41.[address] [address] 05/17/2024 Brendan Garcia [address] [address] 08/08/2024 Glenna Nathan [address] [address] 01/26/2025 Brendan Garcia Bipolar 1 disorder F31.9 [...] changes. Recent lab work reviewed with client. [place] level that was written for did not get drawn. CMP will need repeating due to creatinine 1.12. Discussed can rewrite for lithium and CMP in a month once known client is going to stay on lithum. She has had a lot of medications changes recently. [place] dose low at 450 mg ER daily. [...] changes. Recent lab work reviewed with client. [place] level that was written for did not get drawn. CMP will need repeating due to creatinine 1.12. Discussed can rewrite for lithium and CMP in a month once known client is going to stay on lithum. She has had a lot of medications changes recently. [place] dose low at 450 mg ER daily. [...] changes. Recent lab work reviewed with client. [place] level that was written for did not get drawn. CMP will need repeating due to creatinine 1.12. Discussed can rewrite for lithium and CMP in a month once known client is going to stay on lithum. She has had a lot of medications changes recently. [place] dose low at 450 mg ER daily. [...] number to the 24-hour crisis line at [facility]. Questions addressed. Client verbalized understanding of all [...] number to the 24-hour crisis line at [facility]. Questions addressed. Client verbalized understanding of all [...] number to the 24-hour crisis line at [facility]. Questions addressed. Client verbalized understanding of all [...] changes. Recent lab work reviewed with client. [place] level that was written for did not get drawn. CMP will need repeating due to creatinine 1.12. Discussed can rewrite for lithium and CMP in a month once known client is going to stay on lithum. She has had a lot of medications changes recently. [place] dose low at 450 mg ER daily. [...] number to the 24-hour crisis line at [facility]. Questions addressed. Client verbalized understanding of all [...] number to the 24-hour crisis line at [facility]. Questions addressed. Client verbalized understanding of all [...] number to the 24-hour crisis line at [facility]. Questions addressed. Client verbalized understanding of all [...] Name:Brendan Good , 02/12/2025 03:00:00 PM, [address] [facility] [address] [place], [place], [address], Insurance Providers Payer Name Payer Address Payer Phone Subscriber Number Group Number Insured Name Patient Relationship to Insured Coverage Start Date Coverage End Date [address] [address] [id number] 1 Mindy Troy Self - patient is the insured 4 [facility] Att Claims Department [address] [facility] [place] [address] [id number] Mindy Troy Self - patient is the insured [address] [employer] [address] [id number] 1 Mindy Troy Self - patient is [...]
--- OUTSIDE RECORDS SUMMARY | 2025-02-09 13:26 | XMS_ITS | Clinical Summary ---
Author Organization [facility] Address [address] [place] [address] Care Team Providers Care Upholstered Goods Crafter Name Role Phone Brendan Garcia HAT MENDER Unavailable [phone] Glenna Nathan HAT MENDER Primary Care Provider [phone] Allergies Active Allergy Reactions Criticality Noted Date [...] Type Department Care Team Description 12/14/2024 Telephone [facility] Infectious Diseases [address] [place] [phone] Glenna Centeno RN 12/11/2024 Telephone [facility] Infectious Diseases [address] [place] [phone] Lexis Mendosa, TRAILHEAD MAINTENANCE WORKER from Last 3 Months Immunizations Immunization Administration [...] the Puente RealTime HCV Genotype II assay ([employer] [place], [place]). Test Performed by: [facility] [place] [address] Supervisor Packing Room: Nahed Givens Ph.D.; CLIA# [id number] Blood 04/19/2024 9:02 PM CDT 04/19/2024 9:17 PM CDT Concepcion Arevalo MD LAB MICROBIOLOGY - GENERAL ORDERABLES Final Result [facility] [place] [address] from Last 3 Months or Most Recently Relevant to Health Maintenance Insurance [employer] PLAN PLAN Advance Directives For more information, please contact: [phone] * Full Code (Latest Code Status on File) Date Activated Date Inactivated Comments 04/17/2024 2:47 AM 04/20/2024 7:42 PM Care Teams Upholstered Goods Crafter Relationship Specialty Start Date End Date Glenna Nathan NP [address] [place] [address] PCP - General Family Medicine 08/10/24 Brendan Garcia NP [address] [place] [address] Psychiatry 08/10/24
--- OUTSIDE RECORDS SUMMARY | 2025-02-09 13:26 | XMS_ITS | Clinical Summary ---
Author Organization [facility] Address [address] [place] [address] Care Team Providers Care Metal Furnace Operator Name Role Phone Lilibeth Restrepo MD Primary Care Provider [phone] Source Comments [facility],non-owned Affiliates and Associated Physician Practices is amultiple site organization consisting of ambulatory clinics and hospital sitesin [place], [place], [place] and [place]. This disclosure is being madepursuant to the Care Everywhere program and may not contain all information available regarding this patient. Last updated 18.[facility] Allergies Active Allergy Reactions Criticality Noted Date [...] daily. 60 Cap 1 08/03/19 15 Active Mmzmxlxs-Edu-It -FA ( VITAMIN WITH IRON) tablet Take [...] been confirmed Labs will be done at [facility] on 08-13 Problem Noted Date Diagnosed [...] on file Legal Sex Female 3:43 PM DIRECTOR OF SOLUTIONS ARCHITECTURE Gender Identity Not on file Sexual Orientation Not on file Last Filed Vital Signs Vital Sign Reading Time Taken Comments Blood Pressure 120/73 08/18/2014 11:16 AM DIRECTOR OF SOLUTIONS ARCHITECTURE Pulse 110 08/10/2014 1:49 PM DIRECTOR OF SOLUTIONS ARCHITECTURE Temperature 36.7 C (98 F) 08/18/2014 11:12 AM DIRECTOR OF SOLUTIONS ARCHITECTURE Respiratory Rate 18 08/18/2014 11:12 AM DIRECTOR OF SOLUTIONS ARCHITECTURE Oxygen Saturation 99% 08/02/2014 7:51 PM DIRECTOR OF SOLUTIONS ARCHITECTURE Inhaled Oxygen Concentration - - Weight 61.2 kg (135 lb) 08/18/2014 11:12 AM DIRECTOR OF SOLUTIONS ARCHITECTURE Height 167.6 cm (5' 6) 08/18/2014 11:12 AM DIRECTOR OF SOLUTIONS ARCHITECTURE Body Mass Index 21.79 08/18/2014 11:12 AM DIRECTOR OF SOLUTIONS ARCHITECTURE Plan of Treatment Health Maintenance Due Date [...] HEPATITIS C ANTIBODY STAT 08/02/2014 1:13 AM DIRECTOR OF SOLUTIONS ARCHITECTURE from Last 3 Months or Most Recently Relevant to Health Maintenance Results * HEPATITIS C ANTIBODY (08/02/2014 1:13 AM DIRECTOR OF SOLUTIONS ARCHITECTURE) HCV Antibody Screen Non Reactive Non Reactive 08/02/2014 3:00 AM DIRECTOR OF SOLUTIONS ARCHITECTURE [facility] HCV S/C Ratio 0.13 0.00 - 0.79 08/02/2014 3:00 AM DIRECTOR OF SOLUTIONS ARCHITECTURE [facility] Comment: S/C ratio <0.80: Non Reactive Blood BLOOD SPECIMEN / Unknown Venipuncture / Unknown 08/02/2014 1:13 AM DIRECTOR OF SOLUTIONS ARCHITECTURE 08/02/2014 1:36 AM DIRECTOR OF SOLUTIONS ARCHITECTURE Narrative [facility] - 08/02/2014 3:00 AM DIRECTOR OF SOLUTIONS ARCHITECTURE Nonreactive - Antibodies to HCV were not detected, result does not exclude early acute HCV infection. Samantha Jacob MD LAB - CHEMISTRY ORDERABL ES Final Result [facility] [address] [place] [address] from Last 3 Months or Most Recently Relevant to Health Maintenance Insurance [facility] MEDICAID - OUT OF STATE [facility] MEDICAID Advance Directives * Full Code (Latest Code Status on File) Date Activated Date Inactivated Comments 08/01/2014 11:57 PM 08/03/2014 6:09 PM Care Teams Metal Furnace Operator Relationship Specialty Start Date End Date Lilibeth Restrepo MD [address] [place] [address] [place] [address] PCP - General Internal Medicine 05/26/24
[2025-02-09 13:30] VITALS: BP 140/96; PULSE 112; RESP 16; TEMP 37; O2SAT 98
--- NOTE | 2025-02-09 13:46 | ED_ITS ---
HPI - URI/Sore Throat General Chief Complaint: Upper Respiratory Infection Stated Complaint: Headache,Fever,Sore Throat Time Seen by Provider: 02/09/25 13:25 Source: patient Mode of arrival: ambulatory Limitations: no limitations History of Present Illness HPI Narrative: Mindy is a 34-year-old female patient presenting to the clinic today with complaints of headache, fever, sore throat, nausea, body aches, and chills x2 days. States that she came in and was seen in the clinic yesterday and tested for strep but declined COVID testing at that time. Today her mother tested positive for COVID so she wanted to come in and be re-evaluated. Denies any chest pain or shortness of breath. Has not taken any medications for her symptoms. MD elicited complaint: sore throat and nasal congestion Related Data Home Medications ?Medication ?Instructions ?Recorded ?Confirmed ?Last Taken ?Type hydroxyzine HCl 50 mg tablet See Rx Instructions .Rout e 01/11/24 01/11/24 Unknown History .COMPLEX PRN Anxiety lurasidone 60 mg tablet 60 mg PO DAILY 01/11/2412/20 Unknown History trazodone 150 mg tablet 150 mg PO DAILY 01/11/24 Unknown History gabapentin 600 mg tablet mg 01/30/25 Unknown History propranolol 10 mg tablet mg 01/30/25 Unknown History zolpidem 10 mg tablet mg 01/30/25 Unknown History lithium carbonate 450 mg mg PO 02/08/25 Unknown Hist ory tablet,extended release Allergies Allergy/AdvReac Type Severity Reaction Status Date / Time adhesive Allergy Unknown Hives Verified 02/09/25 13:27 ketorolac Allergy Unknown Hives Verified 02/09/25 13:27 codeine Allergy Vomiting Verified 02/09/25 13:27 Review of Systems Review of Systems: Pertinent positives per HPI. Patient denies any fever, chills, rash, headache, visual changes, dizziness, cough, shortness of breath, chest pain, palpitations, nausea, vomiting, diarrhea, constipation, abdominal pain, or any urinary issues. REPLACED BY [facility] Past Medical History Medical History History of drug abuse Social History Social History Substance use: current Comments At the time of my signature, I reviewed and agree with the nursing past medical, surgical, social, and family history. There is no relevant family history pertinent to the patient complaint. Exam Narrative: General: Well-developed, well nourished, in no apparent distress Head: Normocephalic, atraumatic Eyes: Pupils equally round and reactive to light bilaterally, EOM intact, sclera and conjunctive clear, no discharge, lids normal Ears: TMs intact and clear, ear canals clear, no drainage, grossly hearing normal. Nose: Nares patent, clear nasal discharge, no inflammation, no sinus tenderness. Mouth: Oral pharynx red without lesions or masses, good dentition, MMM. Neck: Supple, trachea midline, no enlargement of anterior or posterior cervical nodes, no thyroid masses or goiter palpable. Cardio: Regular rate and rhythm, s1 and s2 normal, no murmur appreciated. Resp: Clear to auscultation bilaterally, no rhonchi, rales, wheezing or rubs Course Course Emergency Course: Portions of this record may have been created with voice recognition software. Level of Care: Express Care Visit Vital Signs Vital signs: Vital Signs Temperature 37.0 C 02/09/25 13:30 Pulse Rate 112 H 02/09/25 13:30 Respiratory Rate 16 02/09/25 13:30 Blood Pressure 140/96 H 02/09/25 13:30 Pulse Oximetry 98 02/09/25 13:30 Oxygen Delivery Room Air 02/09/25 13:30 Temperature 37.0 C 02/09/25 13:30 Pulse Rate 112 H 02/09/25 13:30 Respiratory Rate 16 02/09/25 13:30 Blood Pressure 140/96 H 02/09/25 13:30 Pulse Oximetry 98 02/09/25 13:30 Oxygen Delivery Room Air 02/09/25 13:30 Vital signs reviewed MDM - URI/Sore Throat MDM Narrative Medical decision making narrative: At the time of visit patient is resting comfortably on the exam table. Patient appears to be nontoxic. Complaints of headache, nausea, fever, sore throat, body aches, and chills x2 days. States that she came in and was seen in the clinic yesterday and tested for strep but declined COVID testing at that time. Today her mother tested positive for COVID so she wanted to come in and be re- evaluated. Denies any chest pain or shortness of breath. Has not taken any medications for her symptoms. On exam patient has clear nasal drainage and oropharynx is red. COVID testing was ordered. Labs: COVID testing was positive in the clinic today. Plan: Patient has COVID-19. Patient requesting cough medicine, antihistamine, and Zofran. Prescription for Zofran, Zyrtec, and Tessalon Perles was sent to [facility] pharmacy. Supportive measures were discussed with the patient and they voiced understanding discharge instructions and agrees to treatment plan. Return precautions reviewed Differential Diagnosis Differential diagnosis: Likely upper respiratory infection, otitis media, sinusitis, viral infection, bronchitis, influenza, pharyngitis and other (COVID) Discharge Plan Discharge Clinical Impression: COVID-19 Patient Disposition: Home Condition: Stable Instructions: Antibiotic Form, How to Recover from COVID-19 at Home (ED) Additional Instructions: COVID testing is positive in the clinic today. Take prescription medications only as prescribed-Tessalon Perles and Zofran May take DayQuil/NyQuil for cold/flu symptoms Increase fluids and stay well hydrated May take Tylenol or motrin as directed on bottle for pain/fever May use Flonase 1 spray in each nare daily May take OTC antihistamines such as Zyrtec or Claritin daily as directed on bottle May apply Vicks vapor rub to chest to open sinuses Sinus rinses for congestion Cepacol spray, cough drops, throat lozenges, warm tea with honey/lemon, gargle salt water to soothe throat BRAT diet for diarrhea Clear liquids x 24 hours then advance as tolerated for nausea/vomiting Go to the ED if you develop a worsening in your condition- high fever not controlled by Tylenol or Motrin, dehydration, weakness, lethargy, shortness of breath, or chest pain. Follow up with your PCP in 3-5 days if symptoms persist. Patient Language: Icelandic Prescriptions: New ondansetron 8 mg tablet,disintegrating 8 mg PO Q8H PRN (Reason: nausea and vomiting) 3 Days Qty: 10 0RF benzonatate 200 mg capsule 200 mg PO TID 7 Days Qty: 21 0RF Zyrtec 10 mg capsule 10 mg PO DAILY 30 Days Qty: 30 0RF No Action hydroxyzine HCl 50 mg tablet See Rx Instructions .ROUTE .COMPLEX PRN (Reason: Anxiety) Rx Instructions: PRESCRIBED trazodone 150 mg tablet 150 mg PO DAILY lurasidone 60 mg tablet 60 mg PO DAILY gabapentin 600 mg tablet propranolol 10 mg tablet zolpidem 10 mg tablet lithium carbonate 450 mg tablet extended release PO Follow-up/Referrals: UNKNOWN,DOCTOR [Primary Care Provider] Time of Disposition: 13:48 Quality NIHSS Nursing Documentation ED NIHSS nursing documentation: reviewed/agree
== END 2025-02-09 13:55 | disposition home or self-care (01) ==
PROVIDERS: Emergency Provider Nurse Practitioner Family
DX: U07.1 COVID-19 (principal)
CPT/HCPCS: 99213; G0463